=== PATIENT | male | born 1945 | race Caucasian/White ===

== ENCOUNTER 2017-02-04 14:42 | Emergency (ER) | payer MEDICARE ==
[~2017-02-04] VITALS: Ht 175.3 cm; Wt 72.6 kg
[~2017-02-04 14:42] MED LIST: ALBU17IN INH; AMBI5TAB PO; ATOR40TA PO; BUPR1TAB17 PO; LEVA500T PO; METF-699 PO; PRED10PA PO; TIOT18INH INH
[2017-02-04] MEDS ORDERED: IPRASOL4 IN (14:57)
[2017-02-04] MEDS ORDERED: ADV500INH INH (14:57)
[2017-02-04] MEDS ORDERED: methylPREDNISolone INJ 125 MG/2 ML VIAL (J2930) IV ONE (15:30)
[2017-02-04] MEDS: IPRATROPIUM 0.5MG/ALBUTEROL 2.5MG INH SOL UD 3ML (DUONEB)(J7620) NEB PRN ×3 (15:42→16:17)
--- NOTE | 2017-02-04 15:54 | REP ---
PA and lateral chest: Comparison 05/21/2016. There are no focal infiltrates or pleural effusions. There are no masses. Lung chappell are chronically hyperinflated, unchanged. There is crowding of the interstitial markings in the lower lung zones, particularly on the right, unchanged . These findings are compatible with COPD, however, require clinical confirmation. The cardiac size is normal. The desiree and mediastinum are unchanged. There is kyphosis. There are grade 1 mild compression deformities of several mid-thoracic vertebral bodies, unchanged. Impression: There are no new or acute cardiopulmonary findings. There are findings compatible with COPD, requiring clinical confirmation. Signed by Alfa Collins MD 02/04/2017 03:45 P
[2017-02-04 15:55] LABS: ABG BASE EXCESS 2.2 (-2.0-2.0); ABG HCO3 26.7 MEQ/L (22.0-26.0); ABG PARTIAL PRESSURE CO2 41.4 mmHg (35.0-45.0); ABG PARTIAL PRESSURE O2 76.6 mmHg (75.0-100.0); ABG STANDARD HCO3 26.4 MEQ/L (22.0-26.0); ABG pH (ARTERIAL) 7.428 UNITS (7.350-7.450)
[2017-02-04 16:01] LABS: BASO # 0.1 K/mm3 (0.0-0.2); BASO % 0.7 % (0.0-1.0); EOS # 0.4 K/mm3 (0.0-0.50); EOS % 4.8 % (0.0-3.0); LARGE UNSTAINED CELL # 0.2 K/mm3 (0.0-0.4); LARGE UNSTAINED CELL % 2.3 % (0.0-4.0); LYMPH # 2.6 K/mm3 (1.5-4.5); LYMPH % 26.2 % (24.0-44.0); MEAN CORPUSCULAR HEMOGLOBIN 23.3 pg (27.0-33.0); MEAN CORPUSCULAR HGB CONC 30.1 g/dl (32.0-36.5); MEAN CORPUSCULAR VOLUME 77.4 fl (80.0-96.0); MONO # 0.6 K/mm3 (0.0-0.8); MONO % 6.6 % (0.0-5.0); NEUTROPHILS # 5.4 K/mm3 (1.8-7.7); NEUTROPHILS % 59.4 % (36.0-66.0); PLATELET COUNT, AUTOMATED 463 k/mm3 (150-450); RED CELL DISTRIBUTION WIDTH 15.4 % (11.5-14.5)
[2017-02-04 16:09] LABS: ANION GAP 8 MEQ/L (8-16); BLOOD UREA NITROGEN 8 MG/DL (7-18); CALCIUM LEVEL 8.9 MG/DL (8.8-10.2); CARBON DIOXIDE LEVEL 28 MEQ/L (21-32); CHLORIDE LEVEL 105 MEQ/L (98-107); GLOMERULAR FILTRATION RATE > 60.0 (>42); GLUCOSE, FASTING 168 MG/DL (83-110); SODIUM LEVEL 141 MEQ/L (136-145)
[2017-02-04] MEDS ORDERED: ISOVUE-370 76% 100ML VIAL (Q9967) As Ordered ONE (16:32)
--- NOTE | 2017-02-04 17:17 | REP ---
CT ANGIOGRAM OF THE CHEST: 02/04/2017. Clinical history: Chest x-ray 02/04/2017, CT chest 03/02/2016. Technique. The patient should a bolus of 75 ml size. The [address] angiogram protocol and both thick slab coronal and sagittal MIP reformats. Findings: The lung chappell are hyperinflated. There are emphysematous changes, flattening of the diaphragms and prominent retrosternal clear space. Some underlying minor interstitial fibrotic change. There is mild cylindrical bronchiectatic change in lower lobes, left greater than right. No pleural effusion, lateral pleural thickening, acute infiltrate or mass. No visible pulmonary nodule, pleural thickening, calcified pleural plaque or pleural-based mass. No pneumothorax or pneumomediastinum. Heart size is not enlarged. There is no pericardial thickening or effusion. Small hiatal hernia suggested. The aorta is without aneurysm or dissection and has a few scattered calcifications in the arch and descending portion. No pathologic sized mediastinal or hilar adenopathy. The main, right and left pulmonary arteries are without filling defects. Lobar arteries are without filling defects. Small caliber of the segmental arteries of the left lower lobe and lingula with normal caliber upper lobe arteries on both sides. The right lower lobe pulmonary arteries maintain normal caliber. No vessel cutoff. The upper abdomen shows the spleen with some capsular and subcapsular calcification laterally without mass and with a calcified granuloma in the lower pole. The liver is seen only in part without focal lesion. Adrenal glands show nodule inferior aspect of the lateral limb of the right adrenal and diffuse thickening bilaterally, unchanged consistent with benign adrenal adenomas based on that noncontrast study. Upper poles of kidneys are intact. Bones show the sternum, manubrium, medial clavicles, humeral heads, scapula, ribs and spine without acute finding. There is some motion artifact causing some blur from respiratory motion effect on the sternum. Impression: 1. There is no CT evidence of pulmonary thromboembolism. Caliber of the lower lobe pulmonary arteries segmentally on the left is smaller than elsewhere, which may be a chronic finding. I do not see vessel cutoff, definite filling defects, peripheral wedge deformities or other signs of pulmonary embolism or pulmonary infarct. 2. Advanced COPD, bullous emphysematous changes and pulmonary artery hypertension with lower lobe cylindrical bronchiectasis. 3. No other significant or acute finding. Signed by Cecilio Samson MD 02/05/2017 03:05 P
[2017-02-04 17:32] VITALS: O2SAT 94
[2017-02-04] MEDS ORDERED: PRED20TA PO (18:11)
[2017-02-04 18:30] VITALS: BP 147/73
--- NOTE | 2017-02-05 12:32 | ECGEPIP ---
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
== END 2017-02-04 18:31 | disposition home or self-care (01) ==
LOC: M ED 16:07
DX: J44.1 Chronic obstructive pulmonary disease with (acute) exacerbation (principal); E11.9 Type 2 diabetes mellitus without complications; E78.5 Hyperlipidemia, unspecified; Z85.46 Personal history of malignant neoplasm of prostate; F17.200 Nicotine dependence, unspecified, uncomplicated; Z79.899 Other long term (current) drug therapy; Z79.84 Long term (current) use of oral hypoglycemic drugs
CPT/HCPCS: 36600; 71020; 71275; 80048; 82550; 82553; 82803; 83880; 84484; 85025; 87804; 87880; 93005; 93041; 94640; 96374; 99285; J2930; Q9967

== ENCOUNTER → 2017-04-10 | Outpatient (CLI) | payer MEDICARE ==
[~2017-04-10] MED LIST changes: +ADV500INH INH; +IPRASOL4 IN; +PRED20TA PO
== END ==
LOC: M SMT 08:36
PROVIDERS: ATTEND Urology
DX: C61 Malignant neoplasm of prostate (principal)

== ENCOUNTER → 2017-04-10 | Outpatient (CLI) | payer MEDICARE ==
[~2017-04-10] MED LIST changes: -ATOR40TA PO; +ATOR40TA75 PO; -BUPR1TAB17 PO; +BUPR1TAB53 PO; +FERR32TA PO; -IPRASOL4 IN; +IPRASOL4 INH; +LASI20TA PO; +LEVA1TAB2 PO; -LEVA500T PO; +PRED10PA2 PO; +PRED10TA2 PO; +PRED5TA PO; +STOO100C PO; +VITA500T PO
[2017-04-10 13:21] LABS: ALBUMIN 3.7 GM/DL (3.2-5.2); ALBUMIN/GLOBULIN RATIO 1.54 (1.00-1.93); ALKALINE PHOSPHATASE 84 U/L (45-117); ALT/SGPT 23 U/L (12-78); ANION GAP 5 MEQ/L (8-16); AST/SGOT 8 U/L (15-37); BILIRUBIN,TOTAL 0.3 MG/DL (0.2-1.0); BLOOD UREA NITROGEN 10 MG/DL (7-18); CALCIUM LEVEL 9.1 MG/DL (8.8-10.2); CARBON DIOXIDE LEVEL 31 MEQ/L (21-32); CHLORIDE LEVEL 102 MEQ/L (98-107); CREATININE FOR GFR 0.89 MG/DL (0.70-1.30); GLOMERULAR FILTRATION RATE > 60.0 (>42); GLUCOSE, FASTING 170 MG/DL (83-110); POTASSIUM SERUM 4.7 MEQ/L (3.5-5.1); SODIUM LEVEL 138 MEQ/L (136-145); TOTAL PROTEIN 6.1 GM/DL (6.4-8.2)
== END ==
LOC: M SMT 08:39
PROVIDERS: ATTEND Emergency Medicine
DX: E11.9 Type 2 diabetes mellitus without complications (principal); C61 Malignant neoplasm of prostate
CPT/HCPCS: 36415; 80053; 83036; 84153; 96402; J9202

== ENCOUNTER 2017-05-04 00:12 | Emergency (ER) | payer MEDICARE ==
[~2017-05-04] VITALS: Ht 180.3 cm; Wt 71.8 kg
[~2017-05-04 00:12] MED LIST changes: -FERR32TA PO; -LASI20TA PO; -PRED10PA2 PO; -PRED10TA2 PO; -PRED5TA PO; -STOO100C PO; -VITA500T PO
[2017-05-04] MEDS ORDERED: dexameTHASONE 20 MG/5 ML VIAL (J1100) IV ONE (01:30)
[2017-05-04] MEDS: IPRATROPIUM 0.5MG/ALBUTEROL 2.5MG INH SOL UD 3ML (DUONEB)(J7620) NEB SCH ×3 (01:42→01:51)
[2017-05-04] MEDS ORDERED: PRED20TA PO (03:33)
[2017-05-04 03:49] VITALS: BP 178/74
--- NOTE | 2017-05-04 09:19 | REP ---
CHEST, TWO VIEWS: Two views of the chest are performed. COMPARISON: 02/04/2017. Scattered interstitial fibrotic changes are stable with no acute infiltrate. The heart is normal in size. There is mild calcification of the thoracic aorta. Mediastinal silhouette is unchanged. There is osteopenia with degenerative change of the spine. IMPRESSION: Chronic changes appear stable without evidence of acute pulmonary disease. Signed by Alfa Fox MD 05/04/2017 05:06 P
== END 2017-05-04 03:50 | disposition home or self-care (01) ==
LOC: M ED 00:12
DX: J44.1 Chronic obstructive pulmonary disease with (acute) exacerbation (principal); I10 Essential (primary) hypertension; E78.5 Hyperlipidemia, unspecified; F17.200 Nicotine dependence, unspecified, uncomplicated
CPT/HCPCS: 71020; 94640; 96374; 99283; J1100

== ENCOUNTER 2017-08-16 08:36 | Observation (INO) | payer MEDICARE ==
[~2017-08-16] VITALS: Ht 180.3 cm; Wt 74.2 kg
[2017-08-16] MEDS ORDERED: PRED10PA2 PO (08:51)
[2017-08-16] MEDS ORDERED: methylPREDNISolone INJ 125 MG/2 ML VIAL (J2930) IV ONE (09:00)
[2017-08-16] MEDS: IPRATROPIUM 0.5MG/ALBUTEROL 2.5MG INH SOL UD 3ML (DUONEB)(J7620) NEB SCH ×5 (09:06→19:51)
[2017-08-16 09:11] LABS: ABG BASE EXCESS 2.3 (-2.0-2.0); ABG HCO3 25.9 MEQ/L (22.0-26.0); ABG PARTIAL PRESSURE CO2 36.2 mmHg (35.0-45.0); ABG PARTIAL PRESSURE O2 63.3 mmHg (75.0-100.0); ABG STANDARD HCO3 26.5 MEQ/L (22.0-26.0); ABG pH (ARTERIAL) 7.473 UNITS (7.350-7.450)
[2017-08-16 09:23] LABS: BASO % 0.1 % (0.0-1.0); EOS # 0.1 10^3/uL (0.0-0.50); EOS % 0.3 % (0.0-3.0); IMMATURE GRANULOCYTE % 0.5 % (0-0); LYMPH # 1.3 10^3/uL (1.5-4.5); LYMPH % 7.7 % (24.0-44.0); MEAN CORPUSCULAR HGB CONC 30.1 g/dl (32.0-36.5); MONO # 1.2 10^3/uL (0.0-0.8); MONO % 6.9 % (0.0-5.0); NEUTROPHILS # 14.1 10^3/uL (1.8-7.7); NEUTROPHILS % 84.5 % (36.0-66.0); PLATELET COUNT, AUTOMATED 393 10^3/uL (150-450); RED CELL DISTRIBUTION WIDTH 17.5 % (11.5-14.5); WHITE BLOOD COUNT 16.7 10^3/uL (4.0-10.0)
[2017-08-16 09:36] LABS: ADD MORPHOLOGY? YES; MEAN CORPUSCULAR VOLUME 73.2 fl (80.0-96.0); POSITIVE MORPH POS FLAG
[2017-08-16 09:47] LABS: MICROCYTOSIS 2+; POIKILOCYTOSIS 2+
[2017-08-16 09:49] LABS: ANION GAP 9 MEQ/L (8-16); BLOOD UREA NITROGEN 10 MG/DL (7-18); CALCIUM LEVEL 8.7 MG/DL (8.8-10.2); CARBON DIOXIDE LEVEL 27 MEQ/L (21-32); CHLORIDE LEVEL 101 MEQ/L (98-107); CREATININE FOR GFR 0.78 MG/DL (0.70-1.30); GLOMERULAR FILTRATION RATE > 60.0 (>42); GLUCOSE, FASTING 174 MG/DL (83-110); SODIUM LEVEL 137 MEQ/L (136-145)
[2017-08-16 09:54] LABS: ALBUMIN 3.1 GM/DL (3.2-5.2); ALBUMIN/GLOBULIN RATIO 0.97 (1.00-1.93); ALKALINE PHOSPHATASE 68 U/L (45-117); ALT/SGPT 16 U/L (12-78); AST/SGOT 7 U/L (15-37); BILIRUBIN,DIRECT < 0.1 MG/DL (0.0-0.2); BILIRUBIN,TOTAL 0.3 MG/DL (0.2-1.0); TOTAL PROTEIN 6.3 GM/DL (6.4-8.2)
[2017-08-16] MEDS ORDERED: PRED5TA PO (10:09)
--- NOTE | 2017-08-16 13:22 | HPEPDOC ---
[facility] Medical History & Physical Date of Admission Aug 16, 2017 History and Physical PRIMARY CARE PROVIDER: E clinic ATTENDING: Dr. Nydia Lewis CHIEF COMPLAINT: Shortness of breath/cough HISTORY OF PRESENT ILLNESS: This is a 72-year-old male with past medical history of severe COPD on chronic prednisone 10 mg daily, [id number] diabetes mellitus, hyperlipidemia , history of prostate cancer status post radiation who presents complaining of shortness of breath and cough. Patient states she's been feeling ill over the past 3 days with progressively worsening shortness of breath and productive cough of yellow sputum. Patient's denies any fevers however did have chills. Given his progressive dyspnea, he has been using his nebulizer every half-hour to 1 hour over the past 24 hours. Patient denies any chest pain/palpitations. No lower extremity edema. No sick contacts or recent travels. Continues to smoke tobacco, and is not interested in quitting at this time. PAST MEDICAL HISTORY: As per HPI PAST SURGICAL HISTORY: None SOCIAL HISTORY: History of 2 packs per day 40 years now down to 1 pack per day , no alcohol or illicit drug use. FAMILY HISTORY: Noncontributory ALLERGIES: Please see below. REVIEW OF SYSTEMS: HEENT: Denies sore throat/headache CARDIOVASCULAR: Denies chest pain/palpitations RESPIRATORY: Denies shortness of breath/cough GASTROINTESTINAL: denies nausea/vomiting GENITOURINARY: Denies dysuria/urinary urgency. MUSCULOSKELETAL: Denies myalgias/arthralgias NEUROLOGICAL: Denies any focal weakness HOME MEDICATIONS: Please see below. PHYSICAL EXAMINATION: Vitals: (see below) General: No acute distress, laying comfortably in bed. HEENT: Moist mucous membranes. No pharyngeal erythema. Neck: No JVD or lymphadenopathy Cardiac: Tachycardic. Regular rhythm., No murmurs Pulm: Diminished breath sounds bilaterally at the bases, with mild expiratory wheezing and prolonged expiratory phase. No rhonchi or crackles. No stridor. No use of accessory muscles. Abd: NT/ND + BS Ext: No edema or cyanosis LABORATORY DATA: See below. IMAGING: MICROBIOLOGY: Please see below. ASSESSMENT/PLAN: 1. Acute COPD exacerbation with baseline severe COPD on 10 mg prednisone daily. Patient is not on home O2. Productive cough over the past 3 days. No sick contacts. Started on Solu-Medrol, nebs, Levaquin. Respiratory panel/sputum culture ordered. Blood cultures pending. 2. Tobacco abuse- counseling cessation and not interested in quitting at this time. 3. Dnv-stmwxec-lbfjwwghm diabetes mellitus- sliding-scale insulin. Hold metformin. 4. Hyperlipidemia- continue statin 5. History of prostate cancer status post radiation- outpatient follow-up DVT prophylaxis- enoxaparin Patient will follow Dr. Nydia Lewis starting 08/17/17 at 7 AM. Vital Signs Vital Signs Date Time Temp Pulse Resp B/P (MAP) Pulse Ox O2 Delivery O2 Flow Rate FiO2 08/16/17 13:02 110 94 08/16/17 12:47 129/74 (92) 08/16/17 11:36 Room Air 08/16/17 08:47 20 08/16/17 08:44 97.4 Laboratory Data Labs 24H Laboratory Tests 2 08/16/17 09:03: Blood Gas Bicarbonate Standard 26.5H, Arterial Blood pH 7.473H, Arterial Blood Partial Pressure CO2 36.2, Arterial Blood Partial Pressure O2 63.3L, Arterial Blood Total CO2 27.0, Arterial Blood HCO3 25.9, Arterial Blood Base Excess 2.3H , Arterial Blood Oxygen Saturation 92.6L 08/16/17 09:10: Lactic Acid Level 1.6 08/16/17 09:11: Immature Granulocyte % (Auto) 0.5H, White Blood Count 16.7H, Red Blood Count 3.81L, Hemoglobin 8.4L, Hematocrit 27.9L, Mean Corpuscular Volume 73.2L, Mean Corpuscular Hemoglobin 22.0L, Mean Corpuscular Hemoglobin Concent 30.1L, Red Cell Distribution Width 17.5H, Platelet Count 393, Neutrophils (%) (Auto) 84.5H , Lymphocytes (%) (Auto) 7.7L, Monocytes (%) (Auto) 6.9H, Eosinophils (%) (Auto ) 0.3, Basophils (%) (Auto) 0.1, Neutrophils # (Auto) 14.1H, Lymphocytes # (Auto ) 1.3L, Monocytes # (Auto) 1.2H, Eosinophils # (Auto) 0.1, Basophils # (Auto) 0.0, Immature Granulocyte # (Auto) 0.1H, Nucleated Red Blood Cells % (auto) 0.0 , Platelet Estimate NORMAL, Poikilocytosis 2+, Microcytosis 2+, Aspartate Amino Transf (AST/SGOT) 7L, Alanine Aminotransferase (ALT/SGPT) 16, Alkaline Phosphatase 68, Total Bilirubin 0.3, Direct Bilirubin < 0.1, Total Protein 6.3L , Albumin 3.1L, Albumin/Globulin Ratio 0.97L, Thyroid Stimulating Hormone (TSH) 1.430 08/16/17 09:12: Anion Gap 9, Glomerular Filtration Rate > 60.0, Blood Urea Nitrogen 10, Creatinine 0.78, Sodium Level 137, Potassium Level 4.0, Chloride Level 101, Carbon Dioxide Level 27, Calcium Level 8.7L, Total Creatine Kinase 57, Creatine Kinase MB 1.0, Creatine Kinase MB Relative Index 1.75, Troponin I < 0.02 CBC/BMP Laboratory Tests 08/16/17 09:11 Red Blood Count 3.81 L, Mean Corpuscular Volume 73.2 L, Mean Corpuscular Hemoglobin 22.0 L, Mean Corpuscular Hemoglobin Concent 30.1 L, Red Cell Distribution Width 17.5 H, Neutrophils (%) (Auto) 84.5 H, Lymphocytes (%) (Auto ) 7.7 L, Monocytes (%) (Auto) 6.9 H, Eosinophils (%) (Auto) 0.3, Basophils (%) ( Auto) 0.1, Neutrophils # (Auto) 14.1 H, Lymphocytes # (Auto) 1.3 L, Monocytes # (Auto) 1.2 H, Eosinophils # (Auto) 0.1, Basophils # (Auto) 0.0 08/16/17 09:12 Calcium Level 8.7 L, Total Creatine Kinase 57 Microbiology Microbiology 08/16/17 Blood Culture, Received Pending 08/16/17 Blood Culture, Received Pending 08/16/17 Influenza Virus Type A Antigen - Final, Complete 08/16/17 Influenza Virus Type B Antigen - Final, Complete Home Medications Scheduled Atorvastatin Calcium (Atorvastatin Calcium) 40 Mg Tab, 40 MG PO DAILY Metformin Hydrochloride (Metformin HCl ER) 500 Mg Tab, 2,000 MG PO DAILY Prednisone (Prednisone) 5 Mg Tab, 10 MG PO DAILY Salmeterol/Fluticasone (Advair Diskus 500-50 Mcg/Dose) 28 Puff/Inhaler Aerp, 1 PUFF INH BID Tiotropium [place] Monohydrate (Spiriva Handihaler) 5 Inhalation/Inhaler Powd, 1 INHALATION INH DAILY Scheduled PRN Albuterol Sulfate (Ventolin Hfa) 200 Puff/8 Gm Aers, 2 PUFF INH Q4H PRN for SHORTNESS OF BREATH Albuterol/Ipratropium (Ipratropium [place]/Albut 0.5-2.5 (3) mg/3Ml) 1 Kandi Kandi, 1 NEB INH Q4H PRN for SOB/WHEEZING Zolpidem Tartrate (Ambien) 5 Mg Tab, 5 MG PO QHS PRN for SLEEP Allergies Coded Allergies: No Known Allergies (Unverified , 03/02/16) BOB OGLESBY MD Aug 16, 2017 13:22
[2017-08-16] MEDS: LevoFLOXacin IV 500 MG in APPROPRIATE DILUENT 1 EA IV SCH (13:54)
[2017-08-16 14:15] VITALS: BP 120/63
[2017-08-16] MEDS: ATORVASTATIN 20 MG TAB PO SCH (14:50)
[2017-08-16 16:00] VITALS: BP 134/80
[2017-08-16] MEDS ORDERED: DEXTROSE 50% 50 ML SYRINGE IV PRN (16:30)
[2017-08-16] MEDS ORDERED: GLUCAGON FOR INJ 1 MG VIAL (J1610) SC PRN (16:30)
[2017-08-16] MEDS ORDERED: GLUCOSE 4 GM CHEW TABLET PO PRN (16:30)
[2017-08-16] MEDS: methylPREDNISolone INJ 125 MG/2 ML VIAL (J2930) IV SCH (16:35)
[2017-08-16] MEDS: HumaLOG INSULIN (NovoLOG) PER UNIT SC SCH ×2 (16:36→21:00)
[2017-08-16 20:39] VITALS: BP 119/59
[2017-08-16] MEDS: ALBUTEROL SULFATE 2.5 MG/0.5 ML INH NEB SOLN NEB PRN (23:18)
[2017-08-17] VITALS (8 sets, daily range): BP systolic 111–130; BP diastolic 55–69; O2SAT 98
[2017-08-17] MEDS: methylPREDNISolone INJ 125 MG/2 ML VIAL (J2930) IV SCH ×2 (00:52→07:48)
[2017-08-17] MEDS: IPRATROPIUM 0.5MG/ALBUTEROL 2.5MG INH SOL UD 3ML (DUONEB)(J7620) NEB SCH ×4 (02:00→19:49)
[2017-08-17] MEDS: ALBUTEROL SULFATE 2.5 MG/0.5 ML INH NEB SOLN NEB PRN ×4 (04:14→16:40)
[2017-08-17 05:21] LABS: BASO % 0.1 % (0.0-1.0); IMMATURE GRANULOCYTE % 0.5 % (0-0); LYMPH # 0.7 10^3/uL (1.5-4.5); LYMPH % 5.2 % (24.0-44.0); MEAN CORPUSCULAR HEMOGLOBIN 21.5 pg (27.0-33.0); MEAN CORPUSCULAR HGB CONC 29.8 g/dl (32.0-36.5); MONO # 0.3 10^3/uL (0.0-0.8); MONO % 2.3 % (0.0-5.0); NEUTROPHILS # 13.2 10^3/uL (1.8-7.7); NEUTROPHILS % 91.9 % (36.0-66.0); PLATELET COUNT, AUTOMATED 434 10^3/uL (150-450); RED CELL DISTRIBUTION WIDTH 17.3 % (11.5-14.5); WHITE BLOOD COUNT 14.3 10^3/uL (4.0-10.0)
[2017-08-17 05:23] LABS: ADD MORPHOLOGY? YES; MEAN CORPUSCULAR VOLUME 72.3 fl (80.0-96.0); POSITIVE MORPH POS FLAG
[2017-08-17 05:44] LABS: ANION GAP 9 MEQ/L (8-16); BLOOD UREA NITROGEN 15 MG/DL (7-18); CALCIUM LEVEL 9.2 MG/DL (8.8-10.2); CARBON DIOXIDE LEVEL 29 MEQ/L (21-32); CHLORIDE LEVEL 98 MEQ/L (98-107); CREATININE FOR GFR 0.86 MG/DL (0.70-1.30); GLOMERULAR FILTRATION RATE > 60.0 (>42); GLUCOSE, FASTING 217 MG/DL (83-110); MAGNESIUM LEVEL 2.3 MG/DL (1.8-2.4); POTASSIUM SERUM 4.1 MEQ/L (3.5-5.1); SODIUM LEVEL 136 MEQ/L (136-145)
[2017-08-17 06:12] LABS: MICROCYTOSIS 2+; POIKILOCYTOSIS 1+
[2017-08-17] MEDS: ENOXAPARIN 40 MG/0.4 ML SYRINGE (J1650) SC SCH (07:41)
[2017-08-17] MEDS: ATORVASTATIN 20 MG TAB PO SCH (07:41)
[2017-08-17] MEDS: HumaLOG INSULIN (NovoLOG) PER UNIT SC SCH ×4 (07:47→20:31)
[2017-08-17] MEDS: LEVEMIR (INSULIN DETEMIR) 1 UNITS/0.01ML SC SCH (09:29)
[2017-08-17 10:28] LABS: FERRITIN 9 NG/ML (26-388); PERCENT SATURATION 3.9 % (19.7-50.0); TOTAL IRON BINDING CAPACITY 337 UG/DL (250-450); TOTAL PROTEIN 6.5 GM/DL (6.4-8.2)
[2017-08-17 12:00] LABS: FOLATE 20.5 NG/ML (>5.4); VITAMIN B12 LEVEL 319 PG/ML (247-911)
--- NOTE | 2017-08-17 12:34 | IPNPDOC ---
Subjective Date Seen The patient was seen on 08/17/17. Subjective Chief Complaint/HPI The patient is a 72-year-old male admitted with a reason for visit of Copd Exacerbation. Events since last encounter Shortness of breath better this am but complaining of blurry vision which he says happen when his sugars are high. no fever or chills, Has chronic cough and phlegm mostly in the am , Says lately has been feeling very tired. Objective Physical Examination General Exam: Positive: Alert, Cooperative, No Acute Distress Eye Exam: Positive: PERRLA, Conjunctiva & lids normal, EOMI, Negative: Sclera icteric ENT Exam: Positive: Atraumatic, Mucous membr. moist/pink, Pharynx Normal Neck Exam: Positive: Supple, Negative: JVD, thyromegaly Chest Exam: Positive: Clear to auscultation, Normal air movement Heart Exam: Positive: Rate Normal, Tachycardic, Normal S1, Normal S2 Telemetry: Positive: Sinus, Tachycardia Abdomen Exam: Positive: Normal bowel sounds, Soft, Negative: Tenderness, Hepatospenomegaly Extremity Exam: Positive: Normal pulses, Negative: Clubbing, Cyanosis, Edema Skin Exam: Positive: Nl turgor and temperature, Negative: Rash, Breakdown Assessment /Plan Problems (1) COPD exacerbation Status: Acute Problem Text: will continue with nebulizations , steroids and levofloxacin (2) Anemia Status: Acute Problem Text: iron panel shows severe iron deficiency had colonoscopy many years ago will check stool for occult blood will start on iron and vit c. Have order SPEP and Free light chain. (3) Diabetes Status: Chronic Problem Text: levemir and lispro (4) Dyslipidemia Status: Chronic (5) Prostate CA Status: Chronic Problem Text: Has it for 15 years . (6) Depression Status: Chronic Plan/VTE VTE Prophylaxis Ordered?: Yes VS, I&O, 24H, Fishbone Vital Signs/I&O Vital Signs Date Time Temp Pulse Resp B/P (MAP) Pulse Ox O2 Delivery O2 Flow Rate FiO2 08/17/17 11:10 24 08/17/17 08:00 98.3 112 123/64 (83) 96 Nasal Cannula 2.0 I&O- Last 24 Hours up to 6 AM 08/18/17 06:00 Intake Total 240 ml Balance 240 ml Laboratory Data 24H LABS Laboratory Tests 2 08/16/17 16:25: Bedside Glucose (Misc Panel) 304H 08/16/17 20:47: Bedside Glucose (Misc Panel) 123H 08/17/17 04:46: Immature Granulocyte % (Auto) 0.5H, White Blood Count 14.3H, Red Blood Count 4.04L, Hemoglobin 8.7L, Hematocrit 29.2L, Mean Corpuscular Volume 72.3L, Mean Corpuscular Hemoglobin 21.5L, Mean Corpuscular Hemoglobin Concent 29.8L, Red Cell Distribution Width 17.3H, Platelet Count 434, Neutrophils (%) (Auto) 91.9H , Lymphocytes (%) (Auto) 5.2L, Monocytes (%) (Auto) 2.3, Eosinophils (%) (Auto) 0.0, Basophils (%) (Auto) 0.1, Neutrophils # (Auto) 13.2H, Lymphocytes # (Auto) 0.7L, Monocytes # (Auto) 0.3, Eosinophils # (Auto) 0.0, Basophils # (Auto) 0.0, Immature Granulocyte # (Auto) 0.1H, Nucleated Red Blood Cells % (auto) 0.2H, Platelet Estimate INCREASED, Poikilocytosis 1+, Microcytosis 2+, Anion Gap 9, Glomerular Filtration Rate > 60.0, Blood Urea Nitrogen 15, Creatinine 0.86, Sodium Level 136, Potassium Level 4.1, Chloride Level 98, Carbon Dioxide Level 29, Calcium Level 9.2, Magnesium Level 2.3 08/17/17 07:45: Bedside Glucose (Misc Panel) 333H 08/17/17 09:30: Iron Level 13L, Total Iron Binding Capacity 337, Transferrin % Saturation 3.9L, Ferritin 9L, Total Protein (PEP) 6.5, Vitamin B12 Level 319, Folate 20.5 08/17/17 10:45: Bedside Glucose (Misc Panel) 213H 08/17/17 11:49: Bedside Glucose (Misc Panel) 165H CBC/BMP Laboratory Tests 08/17/17 04:46 Red Blood Count 4.04 L, Mean Corpuscular Volume 72.3 L, Mean Corpuscular Hemoglobin 21.5 L, Mean Corpuscular Hemoglobin Concent 29.8 L, Red Cell Distribution Width 17.3 H, Neutrophils (%) (Auto) 91.9 H, Lymphocytes (%) (Auto ) 5.2 L, Monocytes (%) (Auto) 2.3, Eosinophils (%) (Auto) 0.0, Basophils (%) ( Auto) 0.1, Neutrophils # (Auto) 13.2 H, Lymphocytes # (Auto) 0.7 L, Monocytes # (Auto) 0.3, Eosinophils # (Auto) 0.0, Basophils # (Auto) 0.0, Calcium Level 9.2 Microbiology Microbiology 08/16/17 Blood Culture - Preliminary, Resulted No growth after 24 hours . All specim... 08/16/17 Blood Culture - Preliminary, Resulted No growth after 24 hours . All specim... 08/16/17 Gram Stain - Final, Resulted 08/16/17 Sputum Culture, Resulted Pending 08/16/17 Influenza Virus Type A Antigen - Final, Complete 08/16/17 Influenza Virus Type B Antigen - Final, Complete EDWIN PIERRE MD Aug 17, 2017 12:34
[2017-08-17] MEDS: ASCORBIC ACID 500 MG TAB PO SCH ×2 (13:18→20:45)
[2017-08-17] MEDS: FERROUS GLUCONATE 324 MG TAB PO SCH ×2 (13:18→20:45)
[2017-08-17] MEDS: LevoFLOXacin IV 500 MG in APPROPRIATE DILUENT 1 EA IV SCH (13:20)
[2017-08-17] MEDS: methylPREDNISolone INJ 40 MG/1 ML VIAL (J2920) IV SCH (17:50)
--- NOTE | 2017-08-17 20:53 | ECGEPIP ---
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
[2017-08-18] VITALS: BP 119/61
[2017-08-18] MEDS: methylPREDNISolone INJ 40 MG/1 ML VIAL (J2920) IV SCH (00:17)
[2017-08-18] MEDS: IPRATROPIUM 0.5MG/ALBUTEROL 2.5MG INH SOL UD 3ML (DUONEB)(J7620) NEB SCH ×4 (00:32→21:35)
[2017-08-18 06:00] VITALS: BP 124/60
[2017-08-18 06:50] LABS: BASO % 0.1 % (0.0-1.0); IMMATURE GRANULOCYTE % 0.6 % (0-0); LYMPH # 0.7 10^3/uL (1.5-4.5); LYMPH % 4.1 % (24.0-44.0); MEAN CORPUSCULAR HEMOGLOBIN 22.2 pg (27.0-33.0); MEAN CORPUSCULAR HGB CONC 31.1 g/dl (32.0-36.5); MONO # 0.8 10^3/uL (0.0-0.8); MONO % 4.5 % (0.0-5.0); NEUTROPHILS # 15.5 10^3/uL (1.8-7.7); NEUTROPHILS % 90.7 % (36.0-66.0); PLATELET COUNT, AUTOMATED 440 10^3/uL (150-450); RED CELL DISTRIBUTION WIDTH 17.4 % (11.5-14.5); WHITE BLOOD COUNT 17.1 10^3/uL (4.0-10.0)
[2017-08-18 06:52] LABS: ADD MORPHOLOGY? YES; MEAN CORPUSCULAR VOLUME 71.4 fl (80.0-96.0); POSITIVE MORPH POS FLAG
[2017-08-18 07:07] LABS: ANISOCYTOSIS 1+; HYPOCHROMASIA 1+; MICROCYTOSIS 2+; OVALOCYTES 1+
[2017-08-18 07:13] LABS: ANION GAP 6 MEQ/L (8-16); BLOOD UREA NITROGEN 17 MG/DL (7-18); CALCIUM LEVEL 8.7 MG/DL (8.8-10.2); CARBON DIOXIDE LEVEL 29 MEQ/L (21-32); CHLORIDE LEVEL 99 MEQ/L (98-107); CREATININE FOR GFR 0.84 MG/DL (0.70-1.30); GLOMERULAR FILTRATION RATE > 60.0 (>42); GLUCOSE, FASTING 230 MG/DL (83-110); MAGNESIUM LEVEL 2.3 MG/DL (1.8-2.4); POTASSIUM SERUM 4.2 MEQ/L (3.5-5.1); SODIUM LEVEL 134 MEQ/L (136-145)
[2017-08-18] MEDS: HumaLOG INSULIN (NovoLOG) PER UNIT SC SCH ×4 (08:22→20:18)
[2017-08-18] MEDS: LEVEMIR (INSULIN DETEMIR) 1 UNITS/0.01ML SC SCH (08:22)
[2017-08-18] MEDS: predniSONE 20 MG TAB PO SCH (08:23)
[2017-08-18] MEDS: ASCORBIC ACID 500 MG TAB PO SCH ×2 (08:23→20:32)
[2017-08-18] MEDS: ATORVASTATIN 20 MG TAB PO SCH (08:23)
[2017-08-18] MEDS: LevoFLOXacin 500 MG TABLET PO SCH (08:23)
[2017-08-18] MEDS: ENOXAPARIN 40 MG/0.4 ML SYRINGE (J1650) SC SCH (08:23)
[2017-08-18] MEDS: FERROUS GLUCONATE 324 MG TAB PO SCH ×2 (08:23→20:32)
[2017-08-18] MEDS: ALBUTEROL SULFATE 2.5 MG/0.5 ML INH NEB SOLN NEB PRN ×2 (09:58→17:13)
[2017-08-18 10:00] VITALS: BP 114/50
[2017-08-18 11:38] LABS: ALBUMIN 3.58 GM/DL (3.29-5.55); ALBUMIN % 55.1 % (55.8-66.1); GAMMA GLOBULIN % 6.6 % (11.1-18.8)
--- NOTE | 2017-08-18 13:20 | IPNPDOC ---
Subjective Date Seen The patient was seen on 08/18/17. Subjective Chief Complaint/HPI The patient is a 72-year-old male admitted with a reason for visit of Copd Exacerbation. Events since last encounter still complains of SOB on mild exertion and feeling weak. Objective Physical Examination General Exam: Positive: Alert, Cooperative, No Acute Distress Eye Exam: Positive: PERRLA, Conjunctiva & lids normal, EOMI, Negative: Sclera icteric ENT Exam: Positive: Atraumatic, Mucous membr. moist/pink, Pharynx Normal Neck Exam: Positive: Supple, Negative: JVD, thyromegaly Chest Exam: Positive: Clear to auscultation, Normal air movement Heart Exam: Positive: Rate Normal, Tachycardic, Normal S1, Normal S2 Telemetry: Positive: Sinus, Tachycardia Abdomen Exam: Positive: Normal bowel sounds, Soft, Negative: Tenderness, Hepatospenomegaly Extremity Exam: Positive: Normal pulses, Negative: Clubbing, Cyanosis, Edema Skin Exam: Positive: Nl turgor and temperature, Negative: Rash, Breakdown Assessment /Plan Problems (1) Anemia Status: Acute Problem Text: iron panel shows severe iron deficiency had colonoscopy many years ago will check stool for occult blood will start on iron and vit c. SPEP no M spike , Free light chain ordered. will give 1 unit of PRBC today. (2) COPD exacerbation Status: Acute Problem Text: will continue with nebulizations , steroids and levofloxacin (3) Diabetes Status: Chronic Problem Text: levemir and lispro (4) Dyslipidemia Status: Chronic (5) Prostate CA Status: Chronic Problem Text: Has it for 15 years . (6) Depression Status: Chronic Plan/VTE VTE Prophylaxis Ordered?: Yes VS, I&O, 24H, Fishbone Vital Signs/I&O Vital Signs Date Time Temp Pulse Resp B/P (MAP) Pulse Ox O2 Delivery O2 Flow Rate FiO2 08/18/17 10:00 99.5 110 20 114/50 (71) 94 Room Air 08/17/17 08:00 2.0 I&O- Last 24 Hours up to 6 AM 08/19/17 06:00 Intake Total 360 ml Balance 360 ml Laboratory Data 24H LABS Laboratory Tests 2 08/17/17 17:55: Bedside Glucose (Misc Panel) 176H 08/17/17 20:22: Bedside Glucose (Misc Panel) 155H 08/18/17 01:52: Bedside Glucose (Misc Panel) 209H 08/18/17 06:34: Immature Granulocyte % (Auto) 0.6H, White Blood Count 17.1H, Red Blood Count 3.78L, Hemoglobin 8.4L, Hematocrit 27.0L, Mean Corpuscular Volume 71.4L, Mean Corpuscular Hemoglobin 22.2L, Mean Corpuscular Hemoglobin Concent 31.1L, Red Cell Distribution Width 17.4H, Platelet Count 440, Neutrophils (%) (Auto) 90.7H , Lymphocytes (%) (Auto) 4.1L, Monocytes (%) (Auto) 4.5, Eosinophils (%) (Auto) 0.0, Basophils (%) (Auto) 0.1, Neutrophils # (Auto) 15.5H, Lymphocytes # (Auto) 0.7L, Monocytes # (Auto) 0.8, Eosinophils # (Auto) 0.0, Basophils # (Auto) 0.0, Immature Granulocyte # (Auto) 0.1H, Nucleated Red Blood Cells % (auto) 0.2H, Platelet Estimate INCREASED, Hypochromasia 1+, Anisocytosis 1+, Microcytosis 2+ , Ovalocytes 1+, Anion Gap 6L, Glomerular Filtration Rate > 60.0, Blood Urea Nitrogen 17, Creatinine 0.84, Sodium Level 134L, Potassium Level 4.2, Chloride Level 99, Carbon Dioxide Level 29, Calcium Level 8.7L, Magnesium Level 2.3 08/18/17 11:53: Bedside Glucose ([facility]) 130H CBC/BMP Laboratory Tests 08/18/17 06:34 Red Blood Count 3.78 L, Mean Corpuscular Volume 71.4 L, Mean Corpuscular Hemoglobin 22.2 L, Mean Corpuscular Hemoglobin Concent 31.1 L, Red Cell Distribution Width 17.4 H, Neutrophils (%) (Auto) 90.7 H, Lymphocytes (%) (Auto ) 4.1 L, Monocytes (%) (Auto) 4.5, Eosinophils (%) (Auto) 0.0, Basophils (%) ( Auto) 0.1, Neutrophils # (Auto) 15.5 H, Lymphocytes # (Auto) 0.7 L, Monocytes # (Auto) 0.8, Eosinophils # (Auto) 0.0, Basophils # (Auto) 0.0, Calcium Level 8.7 L Microbiology Microbiology 08/16/17 Blood Culture - Preliminary, Resulted No Growth after 48 hours. All Specime... 08/16/17 Blood Culture - Preliminary, Resulted No Growth after 48 hours. All Specime... 08/16/17 Gram Stain - Final, Complete 08/16/17 Sputum Culture - Final, Complete Yeast Like Organism 08/16/17 Influenza Virus Type A Antigen - Final, Complete 08/16/17 Influenza Virus Type B Antigen - Final, Complete EDWIN PIERRE MD Aug 18, 2017 13:20
[2017-08-18] MEDS ORDERED: FUROSEMIDE 20 MG/2 ML VIAL (J1940) IV ONE (13:30)
[2017-08-18 14:00] VITALS: BP 120/65
[2017-08-18 18:00] VITALS: BP 119/57
[2017-08-18 20:00] VITALS: BP 132/64
[2017-08-19] VITALS: BP 122/68
[2017-08-19] MEDS: IPRATROPIUM 0.5MG/ALBUTEROL 2.5MG INH SOL UD 3ML (DUONEB)(J7620) NEB SCH ×2 (02:02→07:07)
[2017-08-19 06:00] VITALS: BP 124/68
[2017-08-19 07:16] LABS: BASO % 0.1 % (0.0-1.0); EOS % 0.2 % (0.0-3.0); IMMATURE GRANULOCYTE % 0.5 % (0-0); LYMPH # 2.3 10^3/uL (1.5-4.5); MEAN CORPUSCULAR HGB CONC 31.4 g/dl (32.0-36.5); MONO # 1.2 10^3/uL (0.0-0.8); MONO % 9.3 % (0.0-5.0); NEUTROPHILS # 9.7 10^3/uL (1.8-7.7); NEUTROPHILS % 72.9 % (36.0-66.0); PLATELET COUNT, AUTOMATED 420 10^3/uL (150-450); RED CELL DISTRIBUTION WIDTH 18.4 % (11.5-14.5); WHITE BLOOD COUNT 13.3 10^3/uL (4.0-10.0)
[2017-08-19 07:20] LABS: ADD MORPHOLOGY? YES; MEAN CORPUSCULAR VOLUME 73.3 fl (80.0-96.0); POSITIVE MORPH POS FLAG
[2017-08-19 07:33] LABS: ANION GAP 9 MEQ/L (8-16); BLOOD UREA NITROGEN 21 MG/DL (7-18); CALCIUM LEVEL 8.7 MG/DL (8.8-10.2); CARBON DIOXIDE LEVEL 29 MEQ/L (21-32); CHLORIDE LEVEL 100 MEQ/L (98-107); GLOMERULAR FILTRATION RATE > 60.0 (>42); GLUCOSE, FASTING 103 MG/DL (83-110); MAGNESIUM LEVEL 2.4 MG/DL (1.8-2.4); POTASSIUM SERUM 3.6 MEQ/L (3.5-5.1); SODIUM LEVEL 138 MEQ/L (136-145)
[2017-08-19] MEDS: HumaLOG INSULIN (NovoLOG) PER UNIT SC SCH (07:50)
[2017-08-19] MEDS: predniSONE 20 MG TAB PO SCH (07:51)
[2017-08-19] MEDS: ATORVASTATIN 20 MG TAB PO SCH (07:51)
[2017-08-19] MEDS: LevoFLOXacin 500 MG TABLET PO SCH (07:51)
[2017-08-19] MEDS: ENOXAPARIN 40 MG/0.4 ML SYRINGE (J1650) SC SCH (07:51)
[2017-08-19] MEDS: ASCORBIC ACID 500 MG TAB PO SCH (07:52)
[2017-08-19] MEDS: FERROUS GLUCONATE 324 MG TAB PO SCH (07:52)
[2017-08-19] MEDS: LEVEMIR (INSULIN DETEMIR) 1 UNITS/0.01ML SC SCH (07:53)
[2017-08-19] MEDS ORDERED: PRED10TA2 PO (08:09)
[2017-08-19] MEDS ORDERED: STOO100C PO (08:09)
[2017-08-19] MEDS ORDERED: LEVA1TAB2 PO (08:09)
[2017-08-19] MEDS ORDERED: VITA500T PO (08:09)
[2017-08-19] MEDS ORDERED: FERR32TA PO (08:09)
[2017-08-19] MEDS ORDERED: LASI20TA PO (08:09)
[2017-08-19 08:12] LABS: ANISOCYTOSIS 2+; OVALOCYTES 1+
[2017-08-19 08:13] LABS: MICROCYTOSIS 2+; POIKILOCYTOSIS 1+
[2017-08-19 10:00] VITALS: BP 110/61
[2017-08-20 00:07] LABS: FREE KAPPA LIGHT CHAINS SERUM 8.8 mg/L (3.3-19.4); FREE LAMBDA LIGHT CHAINS SERUM 9.1 mg/L (5.7-26.3); KAPPA/LAMBDA RATIO SERUM 0.97 (0.26-1.65)
--- NOTE | 2017-08-20 08:12 | REP ---
Portable chest, 08:55 a.m., single AP view, patient sitting: Comparison 05/04/2017. There is chronic hyperinflation compatible with COPD, requiring clinical confirmation. There are no infiltrates, effusions or masses. Cardiac size is normal. The desiree and mediastinum are unremarkable. There is thoracic scoliosis convex right, unchanged. Impression: There are no acute cardiopulmonary findings. There is chronic hyperinflation compatible with COPD. Signed by Alfa Collins MD 08/16/2017 09:22 A
--- NOTE | 2017-08-20 16:28 | DSES ---
DATE OF ADMISSION: 08/16/2017 DATE OF DISCHARGE: 08/19/2017 PRIMARY CARE PROVIDER: Dr. Tito Álvarez DISCHARGE DIAGNOSES: 1. Acute on chronic anemia requiring 1 unit of packed red blood cells transfusion. 2. Severe iron deficiency anemia. 3. Chronic obstructive pulmonary disease exacerbation. 4. Diabetes. 5. Dyslipidemia. 6. Prostate cancer. 7. Depression. DISCHARGE MEDICATIONS: - ferrous gluconate 324 mg by mouth twice a day - ascorbic acid 500 mg by mouth twice a day - Colace 100 mg by mouth twice a day - Lasix 20 mg by mouth daily - levofloxacin 500 mg by mouth daily for 2 days - prednisone tapering course - albuterol sulfate metered-dose inhaler (MDI) two puffs inhalation every 4 hours as needed for shortness of breath - DuoNeb one respule every 4 hours as needed for shortness of breath - atorvastatin 40 mg daily - metformin 2000 mg by mouth daily - prednisone 10 mg by mouth daily, to continue after finishing the taper - Advair Diskus 500/50 one puff inhalation twice a day - Spiriva one inhalation daily - Ambien 5 mg at bedtime as needed for sleep HOSPITAL COURSE: This is a 72-year-old male who presented to the emergency room with increased shortness of breath and cough for 3 days with production of yellow sputum. Patient was diagnosed with chronic obstructive pulmonary disease (COPD) exacerbation on admission and was started on nebulizers, high-dose steroids, and levofloxacin. Patient's shortness of breath improved; however, patient continued to complain of dyspnea and mild exertion. Labs showed that he is significantly anemic with a hemoglobin and hematocrit of 8.4, which is down by about 3 points from earlier this year. Anemia workup was sent, which showed severe iron deficiency. Patient was started on oral iron and also given 1 unit of blood transfusion. Unfortunately, patient did not have any bowel movements in the hospital, so stool occult blood could not be sent. Patient did say he had a colonoscopy many years before, which was normal. His serum protein electrophoresis (SPEP) and free light chain were normal. Vitamin B12 was 319 and folate 20.5. Patient should get stool occult blood and colonoscopy done as an outpatient for his iron deficiency anemia. On the day of discharge, patient did not have any complaints. His vital signs were stable, and functionally he was at baseline. PHYSICAL EXAMINATION: VITAL SIGNS: Temperature 97.4, pulse 111, respiratory rate 18, blood pressure 110/61, pulse oximetry 95% in room air. GENERAL: Patient awake, alert, oriented times three, sitting up in bed in no acute distress. HEENT: Normocephalic, atraumatic. Moist mucous membranes. Anicteric eyes. CHEST: Clear to auscultation. CARDIOVASCULAR: S1, S2, regular. No rub, murmur, or gallop. ABDOMEN:: Soft and nontender. Bowel sounds present. EXTREMITIES: No edema. LABORATORY DATA: WBC 13.3, hemoglobin 10.1, platelets 420. Sodium 138, potassium 3.6, chloride 100, bicarbonate 29, BUN 21, creatinine 0.8, calcium 8.7, magnesium 2.4, glucose 103. SPEP negative. B12 319. Folate 20.5. TSH 1.43. Ferritin 9, transferrin saturation 3.9%, iron 13, TIBC 337. Blood cultures negative after 72 hours. Flu antigen negative. Sputum showed few yeast-like organisms. DISPOSITION: Patient discharged home in stable condition. DISCHARGE INSTRUCTIONS: Patient to followup with primary care provider in 1 week. Consistent-carbohydrate diet. Activity as tolerated.
== END 2017-08-19 11:09 | disposition home or self-care (01) ==
LOC: M ED 08:36 → M ED INP 12:54 → M PCU 14:18 → M MS4PR 08-17 17:30
PROVIDERS: ADMIT Internal Medicine; ATTEND Internal Medicine Nephrology
DX: D50.0 Iron deficiency anemia secondary to blood loss (chronic) (principal); J44.1 Chronic obstructive pulmonary disease with (acute) exacerbation; E78.5 Hyperlipidemia, unspecified; F32.9 Major depressive disorder, single episode, unspecified; E11.9 Type 2 diabetes mellitus without complications; Z79.899 Other long term (current) drug therapy; Z79.51 Long term (current) use of inhaled steroids; Z92.3 Personal history of irradiation; Z85.46 Personal history of malignant neoplasm of prostate; F17.210 Nicotine dependence, cigarettes, uncomplicated
CPT/HCPCS: 36415; 36430; 36600; 71010; 80048; 80076; 82550; 82553; 82607; 82728; 82746; 82803; 83550; 83605; 83735; 83883; 84165; 84443; 84484; 85025; 86850; 86900; 86901; 86920; 87040; 87070; 87205; 87804; 93005; 93041; 94640; 96365; 96366; 96372; 96375; 96376; 97161; 99285; G0378; G8978; G8979; G8980; J1650; J1940; J1956; J2920; J2930; P9016

== ENCOUNTER 2017-09-05 08:09 | Inpatient (IN) | payer MEDICARE ==
[~2017-09-05] VITALS: Ht 177.8 cm; Wt 70.6 kg
[~2017-09-05 08:09] MED LIST changes: +FERR32TA PO; +LASI20TA PO; +PRED10PA2 PO; +PRED10TA2 PO; +PRED5TA PO; +STOO100C PO; +VITA500T PO
[2017-09-05] MEDS ORDERED: OMEP40CA2 PO (08:20)
[2017-09-05] MEDS ORDERED: methylPREDNISolone INJ 125 MG/2 ML VIAL (J2930) IV ONE (09:00)
[2017-09-05] MEDS ORDERED: PANTOPRAZOLE 40MG INJ (PROTONIX) (C9113) IV ONE (09:00)
[2017-09-05] MEDS ORDERED: NS 500 ML IV ONE (09:00)
[2017-09-05] MEDS: DOCUSATE SODIUM 100 MG CAP PO SCH ×2 (09:00→20:10)
[2017-09-05] MEDS: IPRATROPIUM 0.5MG/ALBUTEROL 2.5MG INH SOL UD 3ML (DUONEB)(J7620) NEB PRN ×4 (09:06→20:55)
[2017-09-05 09:14] LABS: BASO % 0.1 % (0.0-1.0); EOS # 0.1 10^3/uL (0.0-0.50); EOS % 0.6 % (0.0-3.0); IMMATURE GRANULOCYTE % 0.3 % (0-0); LYMPH # 0.9 10^3/uL (1.5-4.5); LYMPH % 6.6 % (24.0-44.0); MEAN CORPUSCULAR HEMOGLOBIN 23.9 pg (27.0-33.0); MEAN CORPUSCULAR VOLUME 77.3 fl (80.0-96.0); MONO # 0.9 10^3/uL (0.0-0.8); MONO % 6.2 % (0.0-5.0); NEUTROPHILS # 12.2 10^3/uL (1.8-7.7); NEUTROPHILS % 86.2 % (36.0-66.0); PLATELET COUNT, AUTOMATED 425 10^3/uL (150-450); RED CELL DISTRIBUTION WIDTH 21.7 % (11.5-14.5); WHITE BLOOD COUNT 14.2 10^3/uL (4.0-10.0)
[2017-09-05 09:21] LABS: ABG BASE EXCESS 2.1 (-2.0-2.0); ABG HCO3 26.4 MEQ/L (22.0-26.0); ABG PARTIAL PRESSURE CO2 39.9 mmHg (35.0-45.0); ABG PARTIAL PRESSURE O2 149.1 mmHg (75.0-100.0); ABG STANDARD HCO3 26.4 MEQ/L (22.0-26.0); ABG TOTAL CO2 27.6 MEQ/L (23.0-31.0); ABG pH (ARTERIAL) 7.438 UNITS (7.350-7.450)
--- NOTE | 2017-09-05 09:23 | REP ---
Chest one-view HISTORY: Cough Comparison: 08/16/2017 The lungs are hyperinflated. An increase in interstitial markings is present in the lungs. The heart is normal in size. The pulmonary vasculature is normal in appearance. Impression: No acute disease. Signed by Karan Ford MD 09/05/2017 09:15 A
[2017-09-05] MEDS: PANTOPRAZOLE SODIUM 40 MG in D5W 50 ML IV SCH ×2 (09:26→13:09)
[2017-09-05 09:33] LABS: ANION GAP 9 MEQ/L (8-16); BLOOD UREA NITROGEN 11 MG/DL (7-18); CALCIUM LEVEL 9.2 MG/DL (8.8-10.2); CARBON DIOXIDE LEVEL 27 MEQ/L (21-32); CHLORIDE LEVEL 101 MEQ/L (98-107); CREATININE FOR GFR 0.79 MG/DL (0.70-1.30); GLOMERULAR FILTRATION RATE > 60.0 (>42); GLUCOSE, FASTING 256 MG/DL (83-110); POTASSIUM SERUM 4.2 MEQ/L (3.5-5.1); SODIUM LEVEL 137 MEQ/L (136-145)
[2017-09-05 09:36] LABS: INR 0.95
[2017-09-05] MEDS ORDERED: ONDANSETRON 4MG/2ML VIAL (J2405) IV PRN (10:00)
[2017-09-05] MEDS ORDERED: GLUCAGON FOR INJ 1 MG VIAL (J1610) SC PRN (11:00)
[2017-09-05] MEDS ORDERED: DEXTROSE 50% 50 ML SYRINGE IV PRN (11:00)
[2017-09-05] MEDS ORDERED: GLUCOSE 4 GM CHEW TABLET PO PRN (11:00)
[2017-09-05] MEDS ORDERED: zolPIDEM TARTRATE 5 MG TAB PO PRN (11:00)
[2017-09-05] MEDS ORDERED: GASTROGRAFIN SOLUTION 30ML (Q9963) As Ordered ONE (11:16)
[2017-09-05] MEDS ORDERED: GASTROGRAFIN SOLUTION 30ML (Q9963) PO ONE ×2 (11:30→12:00)
--- NOTE | 2017-09-05 12:03 | HPEPDOC ---
[facility] Medical History & Physical Date of Admission Sep 05, 2017 Primary Care Physician: CHARLEY MANRIQUEZ MD Attending Physician: FRANNIE JACKSON DO History and Physical CHIEF COMPLAINT: SOB, DARK TARRY STOOLS HISTORY OF PRESENT ILLNESS: This is a 72-year-old male with past medical history of anemia on iron, severe COPD on chronic prednisone 10 mg daily, mcu-rlstmvh-voxzrpwjq diabetes mellitus , hyperlipidemia, history of prostate cancer status post radiation who presents complaining SOB, Dark tarry stools going on for weeks but considerably worse last few days. Has seen Dr. Garcia as outpatient and said goal was to get him to an UGI w/SBFT. Concern was with his severe COPD that he may not be a good candidate for sedation for EGD/Colonoscopy. Patient denies any chest pain/palpitations. No lower extremity edema. No sick contacts or recent travels. Continues to smoke tobacco, and is not interested in quitting at this time. PAST MEDICAL HISTORY: Iron Deficient Anemia severe COPD on chronic prednisone 10 mg daily qyp-estmsqq-qugiiknwy diabetes mellitus hyperlipidemia history of prostate cancer status post radiation PAST SURGICAL HISTORY: None SOCIAL HISTORY: History of 2 packs per day 40 years now down to 1 pack per day , no alcohol or illicit drug use. FAMILY HISTORY: Noncontributory ALLERGIES: Please see below. REVIEW OF SYSTEMS: CONSTITUTIONAL: No fever, chills, weight loss, nausea or vomiting . HEENT: No headache, lightheadedness, blurred or loss of vision. No difficulty with speech or swallow. CARDIOVASCULAR: No chest pain, palpitations, paroxysmal nocturnal dyspnea or lower extremity edema RESPIRATORY: Productive cough without hemoptysis. No wheeze GENITOURINARY: No dysuria, frequency, or discharge MUSCULOSKELETAL: No bone, muscle or joint pain. GASTROINTESTINAL: Black tarry stools without mirna hematochezia. No Nausea, vomiting, change in appetite. SKIN: No complaint of lesions, abrasions or rashes NEUROLOGICAL: No blurred vision, headaches, paraesthesias or paralysis. No bladder or bowel incontinence. PSYCHIATRIC: No depression, anxiety, audiovisual hallucinations. No suicidal ideations. ENDOCRINE: Denies history of diabetes or thyroid disorder. No history of endocrine abnormalities. HEMATOLOGIC/LYMPHATIC: No lumps, bumps or swelling of neck, axilla or groin. No night sweats or weight loss. HOME MEDICATIONS: Please see below. PHYSICAL EXAMINATION: Vitals: (see below) General: No acute distress, laying comfortably in bed. HEENT: Moist mucous membranes. No pharyngeal erythema. Neck: No JVD or lymphadenopathy Cardiac: Tachycardic. Regular rhythm., No murmurs Pulm: Diminished breath sounds bilaterally at the bases, with mild expiratory wheezing and prolonged expiratory phase. No rhonchi or crackles. No stridor. No use of accessory muscles. Abd: NT/ND + BS Ext: No edema or cyanosis LABORATORY DATA: See below. IMAGING: CT abd/pelvis pending 12 LEAD ECG: sinus tach but no acute st-t wave abnormalities MICROBIOLOGY: Please see below. IMPRESSION: 72 yo male with what appears to be an UGI bleed. Spoke to Dr Garcia (who's agreed to see on consult), will check a CT ABD/PELVIS with PO contrast. PROBLEM LIST: 1. UGI bleed 2. Iron Deficient Anemia 3. severe COPD on chronic prednisone 10 mg daily 4. tgt-garpkno-pjfhynfzw diabetes mellitus 5. hyperlipidemia 6. history of prostate cancer status post radiation PLAN: Admit to PCU and consult Dr. Garcia. Check CT abd/pelvis with PO Contrast. Consented for blood, type and screen. Clear liquid diet. IV Protonix, PO Carafate. He's currently hemodynamically stable but will follow q8h H/H and transfuse if he becomes symptomatic with drop. Continue home meds but avoid blood thinners / anticoagulants. DVT prophylaxis: Teds and sequentials Disposition: anticipate stay greater than two midnights Vital Signs Vital Signs Date Time Temp Pulse Resp B/P (MAP) Pulse Ox O2 Delivery O2 Flow Rate FiO2 09/05/17 10:42 110 131/67 (88) 90 09/05/17 10:12 21 09/05/17 09:39 Room Air 09/05/17 08:09 96.0 Laboratory Data Labs 24H Laboratory Tests 2 09/05/17 08:48: Immature Granulocyte % (Auto) 0.3H, White Blood Count 14.2H, Red Blood Count 4.22L, Hemoglobin 10.1L, Hematocrit 32.6L, Mean Corpuscular Volume 77.3L, Mean Corpuscular Hemoglobin 23.9L, Mean Corpuscular Hemoglobin Concent 31.0L, Red Cell Distribution Width 21.7H, Platelet Count 425, Neutrophils (%) (Auto) 86.2H , Lymphocytes (%) (Auto) 6.6L, Monocytes (%) (Auto) 6.2H, Eosinophils (%) (Auto ) 0.6, Basophils (%) (Auto) 0.1, Neutrophils # (Auto) 12.2H, Lymphocytes # (Auto ) 0.9L, Monocytes # (Auto) 0.9H, Eosinophils # (Auto) 0.1, Basophils # (Auto) 0.0, Immature Granulocyte # (Auto) 0.0, Nucleated Red Blood Cells % (auto) 0.0, Prothrombin Time 12.7, Prothromb Time International Ratio 0.95, Activated Partial Thromboplast Time 26.8, Anion Gap 9, Glomerular Filtration Rate > 60.0, Lactic Acid Level 2.7*H, Blood Urea Nitrogen 11, Creatinine 0.79, Sodium Level 137, Potassium Level 4.2, Chloride Level 101, Carbon Dioxide Level 27, Calcium Level 9.2, Total Creatine Kinase 29L, Creatine Kinase MB 1.5, Creatine Kinase MB Relative Index 5.17H, Troponin I < 0.02, UP-Fnv-T-Type Natriuretic Peptide 51 , Thyroid Stimulating Hormone (TSH) 1.760 09/05/17 09:05: Blood Gas Bicarbonate Standard 26.4H, Arterial Blood pH 7.438, Arterial Blood Partial Pressure CO2 39.9, Arterial Blood Partial Pressure O2 149.1H, Arterial Blood Total CO2 27.6, Arterial Blood HCO3 26.4H, Arterial Blood Base Excess 2.1H , Arterial Blood Oxygen Saturation 99.0 CBC/BMP Laboratory Tests 09/05/17 08:48 Red Blood Count 4.22 L, Mean Corpuscular Volume 77.3 L, Mean Corpuscular Hemoglobin 23.9 L, Mean Corpuscular Hemoglobin Concent 31.0 L, Red Cell Distribution Width 21.7 H, Neutrophils (%) (Auto) 86.2 H, Lymphocytes (%) (Auto ) 6.6 L, Monocytes (%) (Auto) 6.2 H, Eosinophils (%) (Auto) 0.6, Basophils (%) ( Auto) 0.1, Neutrophils # (Auto) 12.2 H, Lymphocytes # (Auto) 0.9 L, Monocytes # (Auto) 0.9 H, Eosinophils # (Auto) 0.1, Basophils # (Auto) 0.0, Calcium Level 9.2, Total Creatine Kinase 29 L Microbiology Microbiology 09/05/17 Blood Culture, Received Pending Home Medications Scheduled Ascorbic Acid (Vitamin C) 500 Mg Tab, 500 MG PO BID Atorvastatin Calcium (Atorvastatin Calcium) 40 Mg Tab, 40 MG PO DAILY Docusate Sodium (Stool Softener) 100 Mg Cap, 100 MG PO BID Ferrous Gluconate (Ferrous Gluconate) 324 Mg Tab, 324 MG PO BID Metformin Hydrochloride (Metformin HCl ER) 500 Mg Tab, 2,000 MG PO DAILY Omeprazole (Omeprazole) 40 Mg Cap, 40 MG PO QPM Prednisone (Prednisone) 5 Mg Tab, 10 MG PO DAILY Scheduled PRN Albuterol Sulfate (Ventolin Hfa) 200 Puff/8 Gm Aers, 2 PUFF INH Q4H PRN for SHORTNESS OF BREATH Albuterol/Ipratropium (Ipratropium Freedom/Albut 0.5-2.5 (3) mg/3Ml) 1 Kandi Kandi, 1 NEB INH Q4H PRN for SOB/WHEEZING Zolpidem Tartrate (Ambien) 5 Mg Tab, 5 MG PO QHS PRN for SLEEP Allergies Coded Allergies: No Known Allergies (Unverified , 03/02/16) FRANNIE JACKSON DO Sep 05, 2017 12:03
[2017-09-05 13:34] VITALS: BP 135/69
--- NOTE | 2017-09-05 14:00 | REP ---
CT ABDOMEN AND PELVIS WITHOUT CONTRAST: HISTORY: Abdominal pain. Calcifications are present in the spleen. The liver, pancreas, adrenal glands, and kidneys are normal in appearance. There is no mass, adenopathy or free fluid. Diverticula are present in the descending colon. The visualized lungs are clear. CT PELVIS: Calcifications are present in the prostate gland. The prostate gland is normal in size. The urinary bladder is normal in appearance. Diverticula are present in the descending and sigmoid colon. IMPRESSION: Diverticulosis. Signed by Karan Ford MD 09/05/2017 02:14 P
[2017-09-05] MEDS: IPRATROPIUM 0.5MG/ALBUTEROL 2.5MG INH SOL UD 3ML (DUONEB)(J7620) NEB SCH ×2 (14:43→23:27)
[2017-09-05] MEDS: SUCRALFATE 1 GM TAB PO SCH ×2 (14:47→17:54)
[2017-09-05] MEDS: HumaLOG INSULIN (NovoLOG) PER UNIT SC SCH ×3 (14:48→20:11)
[2017-09-05 16:00] VITALS: BP 130/58
[2017-09-05] MEDS: OMEPRAZOLE 20 MG CAP PO SCH (16:58)
[2017-09-05] MEDS: OCTREOTIDE ACETATE 100 MCG/ML VIAL (J2354) IV SCH (16:58)
--- NOTE | 2017-09-05 17:36 | CR ---
DATE OF CONSULTATION: 09/05/2017 REASON FOR CONSULTATION: Melena and anemia. HISTORY OF PRESENT ILLNESS: The patient is a 72-year-old male who I saw in the office and had scheduled for an upper GI with small-bowel followthrough for some melanotic stools and evidence of probable upper GI bleeding. However, because of his significant COPD and inability to lay flat I felt that an upper GI was more reasonable then an upper endoscopy requiring sedation. His COPD issues are quite severe and he is on chronic prednisone for this. He had more melanotic stool over the last 24-48 hours. He has not had any fevers. No chills. No abdominal pain. PAST MEDICAL HISTORY: Significant for history of iron-deficiency anemia, history of severe COPD on chronic prednisone, history of ayc-hmfvjbd-dcnmniicb diabetes mellitus, history of hyperlipidemia, history of prostate cancer status post radiation, history of smoking. MEDICATIONS: Include vitamin C, atorvastatin, Colace, iron, metformin, omeprazole, prednisone, and he has as needed albuterol, DuoNebs and Zolpidem/Ambien. PHYSICAL EXAMINATION: Reveals a 72-year-old male who looks stated age. HEENT is unremarkable. Neck supple without adenopathy. Lungs are diminished bilaterally with very distant breath sounds and few wheezes anteriorly. Heart is regular. Abdomen is soft, nondistended, nontender. IMPRESSION AND PLAN: Patient has a GI bleed of undetermined etiology, most likely an upper GI bleed and at this point he is on proton pump inhibitor and Carafate has been started as well which I feel is appropriate in him. However, he still had three bowel movements earlier today and given the multiple bowel movements still ongoing my recommendation is that he start on some octreotide. His CT scan report is not back and we are still awaiting the results of this. Although I do feel an upper GI with small-bowel followthrough was more appropriate, unfortunately we do not have the capacity at the hospital at this time. With his respiratory issues, I do feel that he is still a very high risk individual to undergo an upper endoscopy given his COPD issues. I am not sure if he is classified as a nonoperative candidate per se, but he is extremely high risk. The patient at this time would prefer noninterventional procedures if possible. Will follow his hematocrit over the ensuing 24-48 hours and will see if his respiratory issues can also improve enough to feel comfortable for an upper endoscopy.
[2017-09-05] MEDS ORDERED: GENTAMICIN 0.3% OPHTH SOL 5 ML BTL OS SCH (18:00)
[2017-09-05] MEDS: GENTAMICIN 0.3% OPHTH SOL 5 ML BTL OS SCH ×2 (18:30→20:11)
[2017-09-05 19:51] VITALS: BP 122/63
[2017-09-05] MEDS: ASCORBIC ACID 500 MG TAB PO SCH (20:10)
[2017-09-05] MEDS: guaiFENesin ER 600 MG TAB PO SCH (20:10)
[2017-09-05] MEDS: FERROUS GLUCONATE 324 MG TAB PO SCH (20:10)
[2017-09-05] MEDS: PANTOPRAZOLE 40MG INJ (PROTONIX) (C9113) IV SCH (20:10)
[2017-09-05 23:52] VITALS: BP 115/60
[2017-09-06] MEDS: GENTAMICIN 0.3% OPHTH SOL 5 ML BTL OS SCH ×6 (00:12→20:19)
[2017-09-06] MEDS: OCTREOTIDE ACETATE 100 MCG/ML VIAL (J2354) IV SCH ×3 (00:12→16:27)
[2017-09-06] MEDS: SUCRALFATE 1 GM TAB PO SCH ×4 (00:12→17:11)
[2017-09-06] MEDS: IPRATROPIUM 0.5MG/ALBUTEROL 2.5MG INH SOL UD 3ML (DUONEB)(J7620) NEB PRN ×2 (04:07→10:47)
[2017-09-06 04:34] VITALS: BP 114/65
[2017-09-06 04:40] LABS: MEAN CORPUSCULAR HEMOGLOBIN 23.5 pg (27.0-33.0); MEAN CORPUSCULAR HGB CONC 30.3 g/dl (32.0-36.5); MEAN CORPUSCULAR VOLUME 77.7 fl (80.0-96.0); PLATELET COUNT, AUTOMATED 410 10^3/uL (150-450); RED CELL DISTRIBUTION WIDTH 21.8 % (11.5-14.5); WHITE BLOOD COUNT 10.6 10^3/uL (4.0-10.0)
[2017-09-06 04:58] LABS: ANION GAP 7 MEQ/L (8-16); BLOOD UREA NITROGEN 11 MG/DL (7-18); CALCIUM LEVEL 8.9 MG/DL (8.8-10.2); CARBON DIOXIDE LEVEL 29 MEQ/L (21-32); CHLORIDE LEVEL 101 MEQ/L (98-107); CREATININE FOR GFR 0.85 MG/DL (0.70-1.30); GLOMERULAR FILTRATION RATE > 60.0 (>42); GLUCOSE, FASTING 173 MG/DL (83-110); POTASSIUM SERUM 4.5 MEQ/L (3.5-5.1); SODIUM LEVEL 137 MEQ/L (136-145)
[2017-09-06] MEDS: IPRATROPIUM 0.5MG/ALBUTEROL 2.5MG INH SOL UD 3ML (DUONEB)(J7620) NEB SCH ×4 (07:19→23:30)
--- NOTE | 2017-09-06 07:19 | ECGEPIP ---
Stationary ECG Study 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
[2017-09-06 08:00] VITALS: BP 129/63
[2017-09-06] MEDS: ATORVASTATIN 20 MG TAB PO SCH (08:44)
[2017-09-06] MEDS: predniSONE 10 MG TAB PO SCH (08:44)
[2017-09-06] MEDS: FERROUS GLUCONATE 324 MG TAB PO SCH ×2 (08:44→20:18)
[2017-09-06] MEDS: guaiFENesin ER 600 MG TAB PO SCH ×2 (08:44→20:18)
[2017-09-06] MEDS: ASCORBIC ACID 500 MG TAB PO SCH ×2 (08:45→20:18)
[2017-09-06] MEDS: PANTOPRAZOLE 40MG INJ (PROTONIX) (C9113) IV SCH ×2 (08:45→20:18)
[2017-09-06] MEDS: DOCUSATE SODIUM 100 MG CAP PO SCH ×2 (08:45→20:18)
[2017-09-06] MEDS: HumaLOG INSULIN (NovoLOG) PER UNIT SC SCH ×4 (08:50→20:19)
--- NOTE | 2017-09-06 09:09 | IPNPDOC ---
Date Seen The patient was seen on 09/06/17. Progress Note SUBJECTIVE: Patient is a 72 yo male with sever COPD admitted yesterday for UGI bleed. No overnight issues and H/H has remained stable. Continues with chronic cough, O2 supplementation and duonebs. Surgery concerned about risk of respiratory failure should the need arise to perform a endoscopy. Says he's hungry and has no recorded BMs last evening. Denies: CP, hemoptysis, abdominal pain, f/c/r, n/v/d. OBJECTIVE PHYSICAL EXAMINATION: VITAL SIGNS: Please see below. GENERAL: NAD, A&OX3 HEENT: PERRLA, neck supple, throat clear, no JVD CARDIOVASCULAR: RRR. RESPIRATORY: diminished bibasilar and distant breath sounds with exp wheeze. ABDOMINAL: soft, NT/ND, normoactive bowel sounds, no rebound EXTREMITIES: no edema, no calf tenderness NEUROLOGICAL: CN II-XII grossly intact PSYCHOLOGICAL: negative LABORATORY DATA: Please see below. MICROBIOLOGY: Please see below. IMAGING: CT ABD/PELVIS w/PO CONTRAST: Diverticulosis. DVT prophylaxis ordered?: TEDS/SCDS ASSESSMENT AND PLAN: This is a 72 yo male with severe COPD and suspected UGI bleed. PROBLEMS: 1. 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 Lactic acidosis on admission: resolved 3. Iron Deficient Anemia: on supplementation 4. Severe COPD on chronic prednisone 10 mg daily: Continue current meds Consultants: requested Dr. Krause to eval and make recommendations 5. Left eye blepheritis/conjuctivitis: better continue oph gentamycin 6. Post-nasal drip: Flonase and Mucinex 7. eaj-pzunoxg-hkungrlkv diabetes mellitus FSq6h and SSI per [facility] Protocol 8. hyperlipidemia: continue statin 9. history of prostate cancer status post radiation: no current issues, not requiring any meds DVT prophylaxis: TEDS/SCDS DISPOSITION: Appreciate assistance from Dr. Garcia (surgery) and Dr. Krause ( pulmonology) VS, I&O, 24H, Fishbone Vital Signs/I&O Vital Signs Date Time Temp Pulse Resp B/P (MAP) Pulse Ox O2 Delivery O2 Flow Rate FiO2 09/06/17 08:00 97.3 105 24 129/63 (85) 98 Room Air I&O- Last 24 Hours up to 6 AM 09/07/17 06:00 Intake Total 270 ml Balance 270 ml Laboratory Data 24H LABS Laboratory Tests 2 09/05/17 09:05: Blood Gas Bicarbonate Standard 26.4H, Arterial Blood pH 7.438, Arterial Blood Partial Pressure CO2 39.9, Arterial Blood Partial Pressure O2 149.1H, Arterial Blood Total CO2 27.6, Arterial Blood HCO3 26.4H, Arterial Blood Base Excess 2.1H , Arterial Blood Oxygen Saturation 99.0 09/05/17 12:43: Bedside Glucose (Misc Panel) 242H 09/05/17 13:38: Lactic Acid Followup at 4 Hours 2.5*H 09/06/17 04:00: Nucleated Red Blood Cells % (auto) 0.0, Anion Gap 7L, Glomerular Filtration Rate > 60.0, Blood Urea Nitrogen 11, Creatinine 0.85, Sodium Level 137, Potassium Level 4.5, Chloride Level 101, Carbon Dioxide Level 29, Calcium Level 8.9 09/06/17 08:07: Lactic Acid Level 1.7 CBC/BMP Laboratory Tests 09/05/17 17:09 09/06/17 04:00 Red Blood Count 4.12 L, Mean Corpuscular Volume 77.7 L, Mean Corpuscular Hemoglobin 23.5 L, Mean Corpuscular Hemoglobin Concent 30.3 L, Red Cell Distribution Width 21.8 H, Calcium Level 8.9 Microbiology Microbiology 09/05/17 Blood Culture, Received Pending 09/05/17 Blood Culture, Received Pending FRANNIE JACKSON DO Sep 06, 2017 09:09
[2017-09-06] MEDS: ACETAMINOPHEN TAB 650MG DOSE (2X325MG) PO PRN (11:49)
[2017-09-06 12:00] VITALS: BP 131/63
[2017-09-06 16:00] VITALS: BP 120/65
[2017-09-06] MEDS: OMEPRAZOLE 20 MG CAP PO SCH (16:27)
[2017-09-06] MEDS: BUDESONIDE 0.5 MG/2 ML INHALATION SUSPENSION INH SCH (19:29)
[2017-09-06] MEDS: FORMOTEROL FUMARATE 20 MCG/2 ML INHALATION SOLUTION (PERFOROMIST) INH SCH (19:29)
[2017-09-06 20:00] VITALS: BP 118/69
[2017-09-06 23:45] VITALS: BP 117/57
[2017-09-07] MEDS: SUCRALFATE 1 GM TAB PO SCH ×4 (00:52→17:28)
[2017-09-07] MEDS: GENTAMICIN 0.3% OPHTH SOL 5 ML BTL OS SCH ×6 (00:52→22:02)
[2017-09-07] MEDS: OCTREOTIDE ACETATE 100 MCG/ML VIAL (J2354) IV SCH ×2 (00:52→07:46)
[2017-09-07 04:21] VITALS: BP 123/59
[2017-09-07 05:29] LABS: MEAN CORPUSCULAR HEMOGLOBIN 23.2 pg (27.0-33.0); MEAN CORPUSCULAR HGB CONC 30.1 g/dl (32.0-36.5); MEAN CORPUSCULAR VOLUME 77.1 fl (80.0-96.0); PLATELET COUNT, AUTOMATED 417 10^3/uL (150-450); WHITE BLOOD COUNT 8.8 10^3/uL (4.0-10.0)
[2017-09-07 05:43] LABS: ANION GAP 6 MEQ/L (8-16); BLOOD UREA NITROGEN 8 MG/DL (7-18); CALCIUM LEVEL 8.6 MG/DL (8.8-10.2); CARBON DIOXIDE LEVEL 31 MEQ/L (21-32); CHLORIDE LEVEL 99 MEQ/L (98-107); CREATININE FOR GFR 0.75 MG/DL (0.70-1.30); GLOMERULAR FILTRATION RATE > 60.0 (>42); GLUCOSE, FASTING 141 MG/DL (83-110); SODIUM LEVEL 136 MEQ/L (136-145)
[2017-09-07] MEDS: TIOTROPIUM INHALER/CAPSULE (SPIRIVA) INH SCH (07:23)
[2017-09-07] MEDS: HumaLOG INSULIN (NovoLOG) PER UNIT SC SCH ×4 (07:46→20:19)
[2017-09-07 08:00] VITALS: BP 136/72
[2017-09-07] MEDS: IPRATROPIUM 0.5MG/ALBUTEROL 2.5MG INH SOL UD 3ML (DUONEB)(J7620) NEB SCH ×3 (08:00→23:34)
[2017-09-07] MEDS: BUDESONIDE 0.5 MG/2 ML INHALATION SUSPENSION INH SCH ×2 (08:00→20:14)
[2017-09-07] MEDS: FORMOTEROL FUMARATE 20 MCG/2 ML INHALATION SOLUTION (PERFOROMIST) INH SCH ×2 (08:00→20:14)
--- NOTE | 2017-09-07 09:07 | IPN ---
DATE: 09/07/2017 Patient has been tolerating clear liquid diet and his hematocrit has been stable overnight. Overall seems to be doing quite well. Has no complaints. No melanotic stools. No blood per rectum. He has not had any fevers or chills. Presented originally with an elevated white count, which has come down to normal. Has a benign abdominal exam. IMPRESSION/PLAN: Patient had a gastrointestinal (GI) bleed, most likely upper GI in etiology. From standpoint, with adequate treatment for an upper GI bleed, i.e., Carafate, Protonix, I do feel that he has resolved his current issue and this current GI bleeding is most likely etiology. I do feel that the best option for him would be an upper GI. However, because of no availability of fluoroscopy, options are either to proceed with endoscopy, which would be a confirmatory study, however, it may not be necessary at this time, or proceed with an outpatient upper GI. I do feel that if this upper GI is performed as an outpatient it is a reasonable option for him. Otherwise, we will keep him on his current medications, advance his diet today, and from my standpoint, can be discharged home if he tolerates a regular diet and can undergo the upper GI as an outpatient.
[2017-09-07] MEDS: ATORVASTATIN 20 MG TAB PO SCH (09:58)
[2017-09-07] MEDS: PANTOPRAZOLE 40MG INJ (PROTONIX) (C9113) IV SCH ×2 (09:58→22:01)
[2017-09-07] MEDS: ASCORBIC ACID 500 MG TAB PO SCH ×2 (09:58→22:02)
[2017-09-07] MEDS: predniSONE 10 MG TAB PO SCH (09:58)
[2017-09-07] MEDS: guaiFENesin ER 600 MG TAB PO SCH ×2 (09:59→22:02)
[2017-09-07] MEDS: DOCUSATE SODIUM 100 MG CAP PO SCH ×2 (09:59→21:00)
[2017-09-07] MEDS: FERROUS GLUCONATE 324 MG TAB PO SCH ×2 (09:59→22:02)
--- NOTE | 2017-09-07 10:59 | IPNPDOC ---
Date Seen The patient was seen on 09/07/17. Progress Note SUBJECTIVE: Patient is a 72 yo male with sever COPD with presumed UGI bleed. Says he's hungry and has no reported hematochezia/melena this morning. Had nebs adjusted by Dr. Krause last evening and now having some productive sputum. Denies: CP, hemoptysis, abdominal pain, f/c/r, n/v/d. OBJECTIVE PHYSICAL EXAMINATION: VITAL SIGNS: Please see below. GENERAL: NAD, A&OX3 HEENT: PERRLA, neck supple, throat clear, no JVD CARDIOVASCULAR: RRR. RESPIRATORY: diminished bibasilar and distant breath sounds with exp wheeze. ABDOMINAL: soft, NT/ND, normoactive bowel sounds, no rebound EXTREMITIES: no edema, no calf tenderness NEUROLOGICAL: CN II-XII grossly intact PSYCHOLOGICAL: negative LABORATORY DATA: Please see below. MICROBIOLOGY: Please see below. IMAGING: CT ABD/PELVIS w/PO CONTRAST: Diverticulosis. DVT prophylaxis ordered?: TEDS/SCDS ASSESSMENT AND PLAN: This is a 72 yo male with severe COPD and suspected UGI bleed. PROBLEMS: 1. UGI bleed / Acute blood loss anemia: H/H appears stable today, will not transfuse and continue to monitor. 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 Lactic acidosis on admission: resolved 3. Iron Deficient Anemia: on supplementation 4. Severe COPD on chronic prednisone 10 mg daily: Continue current meds Consultants: Appreciate Dr. Krause's assistance with management. 5. Left eye blepheritis/conjuctivitis: better continue oph gentamycin 6. Post-nasal drip: Flonase and Mucinex 7. zvn-flkmekh-pvrcqtklm diabetes mellitus FSq6h and SSI per [facility] Protocol (will plan to change to cover with meals when diet is advanced. 8. hyperlipidemia: continue statin 9. history of prostate cancer status post radiation: no current issues, not requiring any meds DVT prophylaxis: TEDS/SCDS DISPOSITION: Appreciate assistance from Dr. Garcia (surgery) and Dr. Krause ( pulmonology) VS, I&O, 24H, Fishbone Vital Signs/I&O Vital Signs Date Time Temp Pulse Resp B/P (MAP) Pulse Ox O2 Delivery O2 Flow Rate FiO2 09/07/17 04:21 98.2 96 22 123/59 (80) 90 Room Air Laboratory Data 24H LABS Laboratory Tests 2 09/06/17 22:05: Bedside Glucose (Misc Panel) 113H 09/07/17 04:59: Nucleated Red Blood Cells % (auto) 0.0, Anion Gap 6L, Glomerular Filtration Rate > 60.0, Blood Urea Nitrogen 8, Creatinine 0.75, Sodium Level 136, Potassium Level 4.0, Chloride Level 99, Carbon Dioxide Level 31, Calcium Level 8.6L CBC/BMP Laboratory Tests 09/07/17 04:59 Red Blood Count 4.23 L, Mean Corpuscular Volume 77.1 L, Mean Corpuscular Hemoglobin 23.2 L, Mean Corpuscular Hemoglobin Concent 30.1 L, Red Cell Distribution Width 22.0 H, Calcium Level 8.6 L Microbiology Microbiology 09/05/17 Blood Culture - Preliminary, Resulted No growth after 24 hours . All specim... 09/05/17 Blood Culture - Preliminary, Resulted No Growth after 48 hours. All Specime... FRANNIE JACKSON DO Sep 07, 2017 10:59
[2017-09-07] MEDS: IPRATROPIUM 0.5MG/ALBUTEROL 2.5MG INH SOL UD 3ML (DUONEB)(J7620) NEB PRN (11:10)
[2017-09-07 12:00] VITALS: BP 132/62
[2017-09-07 16:00] VITALS: BP 128/68
[2017-09-07] MEDS: OMEPRAZOLE 20 MG CAP PO SCH (17:28)
[2017-09-07 20:00] VITALS: BP 121/57
[2017-09-08] VITALS: BP 119/61
[2017-09-08] MEDS: SUCRALFATE 1 GM TAB PO SCH ×5 (00:10→23:49)
[2017-09-08] MEDS: GENTAMICIN 0.3% OPHTH SOL 5 ML BTL OS SCH ×7 (00:10→20:48)
[2017-09-08 04:00] VITALS: BP 124/58
[2017-09-08] MEDS: IPRATROPIUM 0.5MG/ALBUTEROL 2.5MG INH SOL UD 3ML (DUONEB)(J7620) NEB PRN ×2 (04:15→11:05)
[2017-09-08 05:36] LABS: MEAN CORPUSCULAR HEMOGLOBIN 23.9 pg (27.0-33.0); MEAN CORPUSCULAR VOLUME 77.1 fl (80.0-96.0); PLATELET COUNT, AUTOMATED 381 10^3/uL (150-450); RED CELL DISTRIBUTION WIDTH 21.3 % (11.5-14.5); WHITE BLOOD COUNT 8.6 10^3/uL (4.0-10.0)
[2017-09-08 05:57] LABS: ANION GAP 7 MEQ/L (8-16); BLOOD UREA NITROGEN 6 MG/DL (7-18); CALCIUM LEVEL 8.5 MG/DL (8.8-10.2); CARBON DIOXIDE LEVEL 29 MEQ/L (21-32); CHLORIDE LEVEL 99 MEQ/L (98-107); CREATININE FOR GFR 0.68 MG/DL (0.70-1.30); GLOMERULAR FILTRATION RATE > 60.0 (>42); GLUCOSE, FASTING 144 MG/DL (83-110); POTASSIUM SERUM 3.5 MEQ/L (3.5-5.1); SODIUM LEVEL 135 MEQ/L (136-145)
[2017-09-08] MEDS: IPRATROPIUM 0.5MG/ALBUTEROL 2.5MG INH SOL UD 3ML (DUONEB)(J7620) NEB SCH ×3 (07:32→20:00)
[2017-09-08] MEDS: TIOTROPIUM INHALER/CAPSULE (SPIRIVA) INH SCH (07:32)
[2017-09-08] MEDS: FORMOTEROL FUMARATE 20 MCG/2 ML INHALATION SOLUTION (PERFOROMIST) INH SCH ×2 (07:32→20:20)
[2017-09-08] MEDS: BUDESONIDE 0.5 MG/2 ML INHALATION SUSPENSION INH SCH ×2 (07:32→20:20)
[2017-09-08 08:00] VITALS: BP 125/63
[2017-09-08] MEDS: PANTOPRAZOLE 40MG INJ (PROTONIX) (C9113) IV SCH ×2 (08:15→20:48)
[2017-09-08] MEDS: HumaLOG INSULIN (NovoLOG) PER UNIT SC SCH ×4 (08:15→20:41)
[2017-09-08] MEDS: ASCORBIC ACID 500 MG TAB PO SCH ×2 (08:16→20:48)
[2017-09-08] MEDS: predniSONE 10 MG TAB PO SCH (08:16)
[2017-09-08] MEDS: DOCUSATE SODIUM 100 MG CAP PO SCH ×2 (08:16→20:48)
[2017-09-08] MEDS: guaiFENesin ER 600 MG TAB PO SCH ×2 (08:16→20:48)
[2017-09-08] MEDS: ATORVASTATIN 20 MG TAB PO SCH (08:16)
[2017-09-08] MEDS: FERROUS GLUCONATE 324 MG TAB PO SCH ×2 (08:16→20:48)
[2017-09-08 12:00] VITALS: BP 128/60
[2017-09-08] MEDS ORDERED: SLF 3 ML SYR IV PRN (14:45)
[2017-09-08 16:00] VITALS: BP 130/59
--- NOTE | 2017-09-08 16:17 | IPNPDOC ---
Text Note Date of Service The patient was seen on 09/08/17. NOTE Subjective: Pt states he is still dyspneic with exertion. Denies CP/ palpitations. Objective: Vitals: (see below) General: No acute distress, laying comfortably in bed. HEENT: Moist mucous membranes. Neck: No JVD or lymphadenopathy Cardiac: RRR, No murmurs Pulm: Minimal exp wheezing b/l. No wheezing, rhonchi Abd: NT/ND + BS Ext: No edema or cyanosis Labs (see below) Images: CXR 09/05/17 Impression: No acute disease. Assessment/Plan 1. Acute blood loss anemia likely secondary to upper GI bleed. H&H is stable. Has not required blood transfusion. On Protonix/Carafate. Status post octreotide. Evaluated by Dr. Garcia with recommendations for outpatient upper GI. 2. Severe COPD with exacerbation on prednisone [address] Krause's input. Nebs increased. 3. Lactic acidosis resolved 4. Iron deficiency anemia on supplementation 5. Left eye conjunctivitis on antibiotics improved. 6. Pir-vdglslo-qozptnacn diabetes mellitus on sliding scale insulin. 7. Hyperlipidemia on statin 8. History of prostate cancer status post radiation - follow-up palpation. DVT prophy: SCDs Plan to discharge in the next 24 hours if remains stable. VS,Fishbone, I+O VS, Fishbone, I+O Laboratory Tests 09/08/17 05:17 Red Blood Count 4.19 L, Mean Corpuscular Volume 77.1 L, Mean Corpuscular Hemoglobin 23.9 L, Mean Corpuscular Hemoglobin Concent 31.0 L, Red Cell Distribution Width 21.3 H, Calcium Level 8.5 L Vital Signs Date Time Temp Pulse Resp B/P (MAP) Pulse Ox O2 Delivery O2 Flow Rate FiO2 09/08/17 12:10 Room Air 09/08/17 12:00 97.8 95 20 128/60 (82) 93 I&O- Last 24 Hours up to 6 AM 09/09/17 06:00 Intake Total 600 ml Output Total 350 ml Balance 250 ml BOB OGLESBY MD Sep 08, 2017 16:17
[2017-09-08] MEDS: OMEPRAZOLE 20 MG CAP PO SCH (17:28)
[2017-09-08 20:00] VITALS: BP 130/65
[2017-09-08] MEDS: SLF 3 ML SYR IV SCH (21:00)
[2017-09-08] MEDS: ACETAMINOPHEN TAB 650MG DOSE (2X325MG) PO PRN (23:53)
[2017-09-09] VITALS: BP 117/32
[2017-09-09] MEDS: GENTAMICIN 0.3% OPHTH SOL 5 ML BTL OS SCH ×3 (01:00→08:22)
[2017-09-09] MEDS: IPRATROPIUM 0.5MG/ALBUTEROL 2.5MG INH SOL UD 3ML (DUONEB)(J7620) NEB SCH ×2 (02:00→07:57)
[2017-09-09 04:00] VITALS: BP 92/51
[2017-09-09] MEDS: IPRATROPIUM 0.5MG/ALBUTEROL 2.5MG INH SOL UD 3ML (DUONEB)(J7620) NEB PRN (04:02)
[2017-09-09] MEDS: SLF 3 ML SYR IV SCH (05:11)
[2017-09-09] MEDS: SUCRALFATE 1 GM TAB PO SCH ×2 (05:11→10:47)
[2017-09-09 06:20] LABS: MEAN CORPUSCULAR HEMOGLOBIN 23.8 pg (27.0-33.0); MEAN CORPUSCULAR HGB CONC 31.1 g/dl (32.0-36.5); MEAN CORPUSCULAR VOLUME 76.7 fl (80.0-96.0); PLATELET COUNT, AUTOMATED 367 10^3/uL (150-450); RED CELL DISTRIBUTION WIDTH 20.7 % (11.5-14.5); WHITE BLOOD COUNT 8.6 10^3/uL (4.0-10.0)
[2017-09-09 06:36] LABS: ANION GAP 7 MEQ/L (8-16); BLOOD UREA NITROGEN 6 MG/DL (7-18); CALCIUM LEVEL 8.3 MG/DL (8.8-10.2); CARBON DIOXIDE LEVEL 29 MEQ/L (21-32); CHLORIDE LEVEL 99 MEQ/L (98-107); CREATININE FOR GFR 0.71 MG/DL (0.70-1.30); GLOMERULAR FILTRATION RATE > 60.0 (>42); GLUCOSE, FASTING 167 MG/DL (83-110); POTASSIUM SERUM 3.2 MEQ/L (3.5-5.1); SODIUM LEVEL 135 MEQ/L (136-145)
[2017-09-09] MEDS: FORMOTEROL FUMARATE 20 MCG/2 ML INHALATION SOLUTION (PERFOROMIST) INH SCH (07:57)
[2017-09-09] MEDS: TIOTROPIUM INHALER/CAPSULE (SPIRIVA) INH SCH (07:57)
[2017-09-09] MEDS: BUDESONIDE 0.5 MG/2 ML INHALATION SUSPENSION INH SCH (07:57)
[2017-09-09] MEDS ORDERED: POTASSIUM CHLORIDE 10 MEQ SR TABLET PO ONE (08:15)
[2017-09-09] MEDS: DOCUSATE SODIUM 100 MG CAP PO SCH (08:20)
[2017-09-09] MEDS: PANTOPRAZOLE 40MG INJ (PROTONIX) (C9113) IV SCH (08:20)
[2017-09-09] MEDS: ATORVASTATIN 20 MG TAB PO SCH (08:21)
[2017-09-09] MEDS: guaiFENesin ER 600 MG TAB PO SCH (08:21)
[2017-09-09] MEDS: FERROUS GLUCONATE 324 MG TAB PO SCH (08:21)
[2017-09-09] MEDS: predniSONE 10 MG TAB PO SCH (08:21)
[2017-09-09] MEDS: ASCORBIC ACID 500 MG TAB PO SCH (08:21)
[2017-09-09] MEDS: HumaLOG INSULIN (NovoLOG) PER UNIT SC SCH (08:22)
[2017-09-09 08:29] VITALS: BP 117/58
[2017-09-09] MEDS ORDERED: MUCI600T37 PO (10:29)
[2017-09-09] MEDS ORDERED: ADV250INH INH (10:29)
[2017-09-09] MEDS ORDERED: OMEP40CA2 PO (10:29)
[2017-09-09] MEDS ORDERED: TIOT18INH INH (10:29)
[2017-09-09] MEDS ORDERED: SUCR1TA PO (10:29)
--- NOTE | 2017-09-09 13:57 | DS.PDOC ---
Discharge Summary General Date of Admission Sep 05, 2017 at 09:49 Date of Discharge 09/09/17 Attending Physician: BOB OGLESBY MD Discharge Summary PROCEDURES PERFORMED DURING STAY: None. ADMITTING/DISCHARGE DIAGNOSES: 1. Acute blood loss anemia likely secondary to upper GI bleed 2. Severe COPD with exacerbation on prednisone 10 mg daily 3. Lactic acidosis resolved 4. Iron deficiency anemia on supplementation 5. Left eye conjunctivitis s/p antibiotics 6. Nnu-qeoxzvd-vqcywsnzl diabetes mellitus 7. Hyperlipidemia on statin 8. History of prostate cancer status post radiation COMPLICATIONS/CHIEF COMPLAINT: Melanotic stools HISTORY OF PRESENT ILLNESS/HOSPITAL COURSE: This is a 72-year-old male past history of severe COPD on 10 mg prednisone daily , iron deficiency anemia, diabetes mellitus who presents with melanotic stools. Patient was noted to have a likely acute blood loss anemia seems to upper GI bleed however has not required any blood transfusions. The patient also had a COPD exacerbation for which she was treated for with nebulizers. Over the course of hospitalization, the patient's had stable hemoglobin, and has respiratory status had significantly improved to the point where he is not dyspneic on ambulation nor is he hypoxic. Patient is now hemodynamically stable and ready to be discharged home. Patient is to follow-up with Dr. Garcia for a possible outpatient upper GI. Patient is to return to the ED if symptoms worsen. DISCHARGE MEDICATIONS: Please see below. ALLERGIES: Please see below. PHYSICAL EXAMINATION ON DISCHARGE: Vitals: (see below) General: No acute distress, laying comfortably in bed. HEENT: Moist mucous membranes. Neck: No JVD or lymphadenopathy Cardiac: RRR, No murmurs Pulm: Clear to auscultation b/l. No wheezing, rhonchi Abd: NT/ND + BS Ext: No edema or cyanosis LABORATORY DATA: Please see below. IMAGING: CXR 09/05/17 Impression: No acute disease. PROGNOSIS: Guarded ACTIVITY: As tolerated. DIET: COPD diet, carb consistent DISCHARGE PLAN/DISPOSITION: D/c Home DISCHARGE INSTRUCTIONS: 1. I'll up with PCP and Dr. Garcia in 1-2 weeks. Return to the ED symptoms worsen. DISCHARGE CONDITION: Stable. TIME SPENT ON DISCHARGE: Greater than 30 minutes. Vital Signs/I&Os Vital Signs Date Time Temp Pulse Resp B/P (MAP) Pulse Ox O2 Delivery O2 Flow Rate FiO2 09/09/17 08:29 97.0 99 24 117/58 (77) 93 Room Air Laboratory Data Labs 24H Laboratory Tests 2 09/08/17 16:52: Bedside Glucose (Misc Panel) 261H 09/08/17 20:34: Bedside Glucose (Misc Panel) 67L 09/08/17 21:23: Bedside Glucose (Misc Panel) 155H 09/09/17 04:09: Bedside Glucose (Misc Panel) 166H 09/09/17 06:08: Nucleated Red Blood Cells % (auto) 0.0, Anion Gap 7L, Glomerular Filtration Rate > 60.0, Blood Urea Nitrogen 6L, Creatinine 0.71, Sodium Level 135L, Potassium Level 3.2L, Chloride Level 99, Carbon Dioxide Level 29, Calcium Level 8.3L CBC/BMP Laboratory Tests 09/09/17 06:08 Red Blood Count 4.03 L, Mean Corpuscular Volume 76.7 L, Mean Corpuscular Hemoglobin 23.8 L, Mean Corpuscular Hemoglobin Concent 31.1 L, Red Cell Distribution Width 20.7 H, Calcium Level 8.3 L FSBS Laboratory Tests Test 09/08/17 16:52 09/08/17 20:34 09/08/17 21:23 09/09/17 04:09 Range/Units Bedside Glucose (Misc Panel) 261 67 155 166 83-110 MG/DL Microbiology Microbiology 09/05/17 Blood Culture - Preliminary, Resulted No Growth after 72 hours. All specime... 09/05/17 Blood Culture - Preliminary, Resulted No Growth after 72 hours. All specime... Discharge Medications Scheduled Ascorbic Acid (Vitamin C) 500 Mg Tab, 500 MG PO BID Atorvastatin Calcium (Atorvastatin Calcium) 40 Mg Tab, 40 MG PO DAILY, (Reported ) Docusate Sodium (Stool Softener) 100 Mg Cap, 100 MG PO BID Ferrous Gluconate (Ferrous Gluconate) 324 Mg Tab, 324 MG PO BID Guaifenesin (Mucinex) 600 Mg Tab, 600 MG PO BID Metformin Hydrochloride (Metformin HCl ER) 500 Mg Tab, 2,000 MG PO DAILY, ( Reported) Omeprazole (Omeprazole) 40 Mg Cap, 40 MG PO BID Prednisone (Prednisone) 5 Mg Tab, 10 MG PO DAILY, (Reported) Salmeterol/Fluticasone (Advair Diskus 250-50 Mcg/Dose) 14 Puff/Inhaler Aerp, 1 PUFF INH BID Sucralfate (Carafate) 1 Gm Tab, 1 GM PO Q6H Tiotropium [place] Monohydrate (Spiriva Handihaler) 5 Inhalation/Inhaler Powd, 1 INHALATION INH DAILY@08 Scheduled PRN Albuterol Sulfate (Ventolin Hfa) 200 Puff/8 Gm Aers, 2 PUFF INH Q4H PRN for SHORTNESS OF BREATH, (Reported) Albuterol/Ipratropium (Ipratropium [place]/Albut 0.5-2.5 (3) mg/3Ml) 1 Kandi Kandi, 1 NEB INH Q4H PRN for SOB/WHEEZING, (Reported) Zolpidem Tartrate (Ambien) 5 Mg Tab, 5 MG PO QHS PRN for SLEEP, (Reported) Allergies Coded Allergies: No Known Allergies (Unverified , 03/02/16) BOB OGLESBY MD Sep 09, 2017 13:57
[2017-09-09] MEDS ORDERED: IPRASOL4 IN (13:59)
== END 2017-09-09 10:56 | disposition home or self-care (01) | DRG 378 ==
LOC: M ED 08:09 → M ED INP 09:49 → M PCU 13:34
PROVIDERS: ADMIT Hospitalist; ATTEND Hospitalist
DX: K92.2 Gastrointestinal hemorrhage, unspecified (principal); E87.2 Acidosis; D62 Acute posthemorrhagic anemia; D50.9 Iron deficiency anemia, unspecified; J44.1 Chronic obstructive pulmonary disease with (acute) exacerbation; H10.9 Unspecified conjunctivitis; F17.210 Nicotine dependence, cigarettes, uncomplicated; E11.9 Type 2 diabetes mellitus without complications; E78.5 Hyperlipidemia, unspecified; Z92.3 Personal history of irradiation; Z85.46 Personal history of malignant neoplasm of prostate; Z79.84 Long term (current) use of oral hypoglycemic drugs; Z79.899 Other long term (current) drug therapy; Z79.52 Long term (current) use of systemic steroids

== ENCOUNTER → 2017-09-16 | Outpatient (CLI) | payer MEDICARE ==
[~2017-09-16] MED LIST changes: +ADV250INH INH; +COMBAER6 INH; +IPRASOL4 IN; +MUCI600T37 PO; +OMEP40CA2 PO; +SUCR1TA PO
[2017-09-16 13:28] LABS: BASO % 0.2 % (0.0-1.0); EOS % 0.2 % (0.0-3.0); IMMATURE GRANULOCYTE % 0.8 % (0-0); LYMPH # 1.3 10^3/uL (1.5-4.5); MEAN CORPUSCULAR HEMOGLOBIN 23.7 pg (27.0-33.0); MEAN CORPUSCULAR HGB CONC 29.6 g/dl (32.0-36.5); MEAN CORPUSCULAR VOLUME 80.2 fl (80.0-96.0); MONO # 0.4 10^3/uL (0.0-0.8); MONO % 2.2 % (0.0-5.0); NEUTROPHILS # 13.9 10^3/uL (1.8-7.7); NEUTROPHILS % 88.6 % (36.0-66.0); PLATELET COUNT, AUTOMATED 512 10^3/uL (150-450); RED CELL DISTRIBUTION WIDTH 21.6 % (11.5-14.5); WHITE BLOOD COUNT 15.7 10^3/uL (4.0-10.0)
[2017-09-16 13:50] LABS: PERCENT SATURATION 52.2 % (19.7-50.0)
== END ==
LOC: M SMT 10:11
PROVIDERS: ATTEND Emergency Medicine
DX: D50.0 Iron deficiency anemia secondary to blood loss (chronic) (principal)

== ENCOUNTER 2017-09-21 07:40 | Inpatient (IN) | payer MEDICARE ==
[~2017-09-21] VITALS: Ht 177.8 cm; Wt 74.3 kg
[~2017-09-21 07:40] MED LIST changes: -COMBAER6 INH
[2017-09-21] MEDS ORDERED: IPRATROPIUM 0.5MG/ALBUTEROL 2.5MG INH SOL UD 3ML (DUONEB)(J7620) NEB ONE ×3 (08:30→12:45)
[2017-09-21] MEDS ORDERED: methylPREDNISolone INJ 125 MG/2 ML VIAL (J2930) IV ONE (08:30)
[2017-09-21] MEDS ORDERED: ALBUTEROL SULFATE 2.5 MG/0.5 ML INH NEB SOLN INH ONE ×3 (08:30→12:45)
[2017-09-21 08:31] LABS: BASO # 0.1 10^3/uL (0.0-0.2); BASO % 0.3 % (0.0-1.0); EOS # 0.1 10^3/uL (0.0-0.50); EOS % 0.9 % (0.0-3.0); IMMATURE GRANULOCYTE % 0.6 % (0-0); LYMPH # 1.8 10^3/uL (1.5-4.5); LYMPH % 12.1 % (24.0-44.0); MEAN CORPUSCULAR HEMOGLOBIN 24.1 pg (27.0-33.0); MEAN CORPUSCULAR VOLUME 80.5 fl (80.0-96.0); MONO # 0.6 10^3/uL (0.0-0.8); MONO % 3.9 % (0.0-5.0); NEUTROPHILS # 11.9 10^3/uL (1.8-7.7); NEUTROPHILS % 82.2 % (36.0-66.0); PLATELET COUNT, AUTOMATED 300 10^3/uL (150-450); RED CELL DISTRIBUTION WIDTH 21.3 % (11.5-14.5); WHITE BLOOD COUNT 14.5 10^3/uL (4.0-10.0)
[2017-09-21] MEDS: NS 1,000 ML IV SCH ×2 (08:36→14:42)
[2017-09-21 08:47] LABS: ABG HCO3 27.6 MEQ/L (22.0-26.0); ABG PARTIAL PRESSURE CO2 42.5 mmHg (35.0-45.0); ABG STANDARD HCO3 27.1 MEQ/L (22.0-26.0); ABG TOTAL CO2 28.9 MEQ/L (23.0-31.0)
[2017-09-21 08:50] LABS: ALBUMIN 3.1 GM/DL (3.2-5.2); ALBUMIN/GLOBULIN RATIO 0.94 (1.00-1.93); ALKALINE PHOSPHATASE 78 U/L (45-117); ALT/SGPT 19 U/L (12-78); ANION GAP 8 MEQ/L (8-16); AST/SGOT 15 U/L (7-37); BILIRUBIN,DIRECT < 0.1 MG/DL (0.0-0.2); BILIRUBIN,TOTAL 0.2 MG/DL (0.2-1.0); BLOOD UREA NITROGEN 8 MG/DL (7-18); CALCIUM LEVEL 8.6 MG/DL (8.8-10.2); CARBON DIOXIDE LEVEL 26 MEQ/L (21-32); CHLORIDE LEVEL 101 MEQ/L (98-107); CREATININE FOR GFR 0.74 MG/DL (0.70-1.30); GLOMERULAR FILTRATION RATE > 60.0 (>42); GLUCOSE, FASTING 219 MG/DL (83-110); POTASSIUM SERUM 4.7 MEQ/L (3.5-5.1); SODIUM LEVEL 135 MEQ/L (136-145); THYROXINE (T4) 9.2 UG/DL (4.5-12.0); TOTAL PROTEIN 6.4 GM/DL (6.4-8.2)
[2017-09-21 08:59] LABS: DIGOXIN LEVEL 0.1 NG/ML (0.5-2.0)
--- NOTE | 2017-09-21 08:59 | REP ---
Clinical: Cough and dyspnea . Comparison: 09/05/2017 . Findings: The mediastinum and cardiac silhouette are stable and within normal limits for portable technique. The lung chappell are clear without acute consolidation, effusion, or pneumothorax. Skeletal structures are intact. Impression: No acute cardiopulmonary process appreciated. Signed by Jono Brasher MD 09/21/2017 08:51 A
[2017-09-21] MEDS ORDERED: ENOXAPARIN 40 MG/0.4 ML SYRINGE (J1650) SC SCH (09:00)
[2017-09-21 09:23] LABS: INR 1.02
--- NOTE | 2017-09-21 09:27 | ECGEPIP ---
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
[2017-09-21] MEDS ORDERED: ISOVUE-370 76% 100ML VIAL (Q9967) As Ordered ONE (10:28)
--- NOTE | 2017-09-21 11:13 | REP ---
Clinical: Acute chest pain radiating to the left back. Comparison: 02/04/2017. Technique: Axial contrast enhanced images from the thoracic inlet to the upper abdomen using 100 ml Isovue 370 intravenous contrast material with coronal and sagittal re-formations. Findings: Satisfactory enhancement of the pulmonary vasculature is achieved and no filling defects are identified to suggest pulmonary embolus. Thoracic aorta is normal caliber without aneurysm or dissection. Heart and pericardium are normal. Bilateral lung chappell demonstrate moderate emphysematous changes and scattered scarring without acute pulmonary parenchymal consolidation or atelectasis. No nodule or mass lesion. No pleural effusion/reaction. No pneumothorax. No adenopathy. Impression: 1. No evidence for pulmonary embolus. No thoracic aortic aneurysm or dissection. 2. Chronic emphysematous changes and scarring. No acute pleuroparenchymal or mediastinal process. Signed by Jono Brasher MD 09/21/2017 11:05 A
[2017-09-21] MEDS ORDERED: COMBAER6 INH (14:21)
[2017-09-21] MEDS ORDERED: IPRATROPIUM 0.5MG/ALBUTEROL 2.5MG INH SOL UD 3ML (DUONEB)(J7620) NEB PRN (14:30)
[2017-09-21] MEDS ORDERED: ACETAMINOPHEN TAB 650MG DOSE (2X325MG) PO PRN (14:30)
--- NOTE | 2017-09-21 14:43 | HPEPDOC ---
[facility] Medical History & Physical Date of Admission Sep 21, 2017 History and Physical DATE OF ADMISSION: 09/21/17 ATTENDING: Dr. Huff PCP: Dr Álvarez. Pulmonary. Dr Pruitt CC: SOB HPI: 72yoM with a past medical history significant for recent admission to [facility] 09/05/17-09/09/17 related to upper GI bleeding and COPD exacerbation. Pt was arranged to F/U with Dr Garcia for outpt evaluation with UGI, Pt states this has been scheduled through his office. Pt denies any recurrent bleeding or changes with stools. Pt states onset of SOB last PM. Pt states left sided CP, radiating down spine. Coughing with white sputum. Subjective chills, no fevers. Uses Prednisone 10 mg daily at home, does not use O2 at home. Pt states he continues to smoke. Chronically sleeps in a recliner. Denies any fevers, chills, weakness, fatigue, DAY, CP, SOB, cough, palpitations, abdominal pain, N/V/D or changes in bowel or bladder habits. Upon presentation to the hospital the patient was found to have COPD exacerbation, thus the hospitalist team was consulted. PAST MEDICAL HISTORY: Iron Deficient Anemia severe COPD on chronic prednisone 10 mg daily [id number]-yrivwoaqu diabetes mellitus hyperlipidemia history of prostate cancer status post radiation UGI bleeding 09/11 PAST SURGICAL HISTORY: Denies. Pt states UGI scheduled 10/[address] Garcia. SOCIAL HISTORY: History of 2 packs per day 40 years now down to 1 pack per day, no alcohol or illicit drug use. FAMILY HISTORY: Noncontributory ROS: As noted in HPI, otherwise 11pt ROS of systems reviewed and unremarkable. PE: GEN: 72yoM, appears stated age. Well-nourished, well developed. No acute distress. Alert and oriented x 3. Pleasant, interactive. HEENT: Normocephalic, atraumatic. Pupils are equal, round, and reactive to light. Extraocular movements are intact. No nystagmus appreciated. Sclera are nonicteric. Conjunctiva without injection. Nose midline. No facial asymmetry. Moist mucous membranes. Pharynx pink and moist. Neck supple, trachea midline. No lymphadenopathy or thyromegaly appreciated. CHEST: Regular rate and rhythm, +S1, +S2 LUNGS: Decreased BS bilaterally, scattered exp wheeze noted. No rales, or rhonchi. Patient is speaking in full sentences. No accessory muscle use. ABD: Round, soft, non-tender, non-distended. +Bowel sounds throughout. No rebound or guarding. No costovertebral angle tenderness. EXT: Pulses 2+ bilaterally dorsalis pedis and radial. No lower extremity edema appreciated. SKIN: [place], dry, warm. Capillary refill <2sec. No rashes. NEURO: Alert and oriented x 3. Cranial nerves III-XII are intact. No focal deficits appreciated. CXR: No acute cardiopulmonary process appreciated. CTA Chest: . No evidence for pulmonary embolus. No thoracic aortic aneurysm or dissection. 2. Chronic emphysematous changes and scarring. No acute pleuroparenchymal or mediastinal process. EKG: SINUS RHYTHM WITH MARKED SINUS ARRHYTHMIA LOW QRS VOLTAGE IN EXTREMITY LEADS MINIMAL ST DEPRESSION BASELINE ARTIFACT AFFECTS INTERPRETATION BLOOD CULTURES: x 2 pending UA/UC pending. Sputum culture pending respiratory panel pending. CRP pending. LA 2.1 Rapid Flu neg. A&P: 72yoM with a past medical history significant for recent admission to [facility] 09/05/17-09/09/17 related to upper GI bleeding and COPD exacerbation. Pt was arranged to F/U with Dr Garcia for outpt evaluation with UGI, Pt states this has been scheduled through his office. Pt denies any recurrent bleeding or changes with stools. Pt states onset of SOB last PM. Pt states left sided CP, radiating down spine. Coughing with white sputum. Subjective chills, no fevers. Uses Prednisone 10 mg daily at home, does not use O2 at home. Pt states he continues to smoke. Chronically sleeps in a recliner. 1. The patient will be admitted to M/S for at least [address] Huff 's service. Pt is discussed with Dr Lowe. 2. SOB/COPD exacerbation. S/P IVF and IV Solumedrol in ED. BC x 2 pending. Respiratory panel pending. MRSA screen pending. Sputum culture pending. CRP pending. IV Solumedrol 60mg Q8hrs. IV Rocephin/Zmax. (Pt last on Levaquin). 3. Severe COPD/Steroid dependent. Supplemental O2 if needed goal 88-92%. Duonebs. IV Solumedrol 60mg Q8hr. 4. Chest pain. Serial CIP/Trop. 5. HLD. Continue statin. 6. NIDDM. Metformin on hold. SSI. CC diet. 7. Recent UGI bleed. Hgb stable 9-10. Cont PPI BID, Carafate AC/HS. Outpt eval/F /U planned with Dr Garcia. 8. Fe def anemia. Cont Fe supplement. 9. Constipation. Cont Colace BID. 10. H/O prostate Ca. S/P RT. DVT prophylaxis. SCD/TEDS. Vital Signs Vital Signs Date Time Temp Pulse Resp B/P (MAP) Pulse Ox O2 Delivery O2 Flow Rate FiO2 09/21/17 13:58 102 24 147/67 (93) 94 Nasal Cannula 2.0 09/21/17 07:41 97.8 Laboratory Data Labs 24H Laboratory Tests 2 09/21/17 08:11: Immature Granulocyte % (Auto) 0.6H, White Blood Count 14.5H, Red Blood Count 3.94L, Hemoglobin 9.5L, Hematocrit 31.7L, Mean Corpuscular Volume 80.5, Mean Corpuscular Hemoglobin 24.1L, Mean Corpuscular Hemoglobin Concent 30.0L, Red Cell Distribution Width 21.3H, Platelet Count 300, Neutrophils (%) (Auto) 82.2H , Lymphocytes (%) (Auto) 12.1L, Monocytes (%) (Auto) 3.9, Eosinophils (%) (Auto ) 0.9, Basophils (%) (Auto) 0.3, Neutrophils # (Auto) 11.9H, Lymphocytes # (Auto ) 1.8, Monocytes # (Auto) 0.6, Eosinophils # (Auto) 0.1, Basophils # (Auto) 0.1 , Immature Granulocyte # (Auto) 0.1H, Nucleated Red Blood Cells % (auto) 0.0 09/21/17 08:18: Blood Gas Bicarbonate Standard 27.1H, Arterial Blood pH 7.430, Arterial Blood Partial Pressure CO2 42.5, Arterial Blood Partial Pressure O2 101.0H, Arterial Blood Total CO2 28.9, Arterial Blood HCO3 27.6H, Arterial Blood Base Excess 3.0H , Arterial Blood Oxygen Saturation 97.8, Anion Gap 8, Glomerular Filtration Rate > 60.0, Calcium Level 8.6L, Aspartate Amino Transf (AST/SGOT) 15, Alanine Aminotransferase (ALT/SGPT) 19, Alkaline Phosphatase 78, Total Bilirubin 0.2, Direct Bilirubin < 0.1, Total Creatine Kinase 41, Creatine Kinase MB 1.1, Creatine Kinase MB Relative Index 2.68, Troponin I < 0.02, TW-Yto-C-Type Natriuretic Peptide 43, Total Protein 6.4, Albumin 3.1L, Albumin/Globulin Ratio 0.94L, Thyroid Stimulating Hormone (TSH) 3.620, Thyroxine (T4) 9.2, Digoxin Level 0.1L 09/21/17 08:26: Lactic Acid Level 2.1*H 09/21/17 08:47: Prothrombin Time 13.6, Prothromb Time International Ratio 1.02 09/21/17 11:13: Total Creatine Kinase 41, Creatine Kinase MB 1.1, Creatine Kinase MB Relative Index 2.68, Troponin I < 0.02 CBC/BMP Laboratory Tests 09/21/17 08:11 Red Blood Count 3.94 L, Mean Corpuscular Volume 80.5, Mean Corpuscular Hemoglobin 24.1 L, Mean Corpuscular Hemoglobin Concent 30.0 L, Red Cell Distribution Width 21.3 H, Neutrophils (%) (Auto) 82.2 H, Lymphocytes (%) (Auto ) 12.1 L, Monocytes (%) (Auto) 3.9, Eosinophils (%) (Auto) 0.9, Basophils (%) ( Auto) 0.3, Neutrophils # (Auto) 11.9 H, Lymphocytes # (Auto) 1.8, Monocytes # ( Auto) 0.6, Eosinophils # (Auto) 0.1, Basophils # (Auto) 0.1 09/21/17 08:18 Microbiology Microbiology 09/21/17 Blood Culture, Received Pending 09/21/17 Blood Culture, Received Pending 09/21/17 Gram Stain - Final, Resulted 09/21/17 Sputum Culture, Resulted Pending 09/21/17 Influenza Virus Type A Antigen - Final, Complete 09/21/17 Influenza Virus Type B Antigen - Final, Complete Home Medications Scheduled Ascorbic Acid (Vitamin C) 500 Mg Tab, 500 MG PO BID Atorvastatin Calcium (Atorvastatin Calcium) 40 Mg Tab, 40 MG PO DAILY Docusate Sodium (Stool Softener) 100 Mg Cap, 100 MG PO BID Ferrous Gluconate (Ferrous Gluconate) 324 Mg Tab, 324 MG PO BID Guaifenesin (Mucinex) 600 Mg Tab, 600 MG PO BID Metformin Hydrochloride (Metformin HCl ER) 500 Mg Tab, 2,000 MG PO DAILY Omeprazole (Omeprazole) 40 Mg Cap, 40 MG PO BID Prednisone (Prednisone) 5 Mg Tab, 10 MG PO DAILY Sucralfate (Carafate) 1 Gm Tab, 1 GM PO Q6H Scheduled PRN Albuterol Sulfate (Ventolin Hfa) 200 Puff/8 Gm Aers, 2 PUFF INH Q4H PRN for SHORTNESS OF BREATH Albuterol/Ipratropium (Ipratropium [place]/Albut 0.5-2.5 (3) mg/3Ml) 1 Kandi Kandi, 1 NEB INH Q4H PRN for SOB/WHEEZING Albuterol/Ipratropium (Combivent Respimat 20-100 Mcg/Act) 1 Aer Aer, 1 PUFF INH Q4H PRN for SHORTNESS OF BREATH Zolpidem Tartrate (Ambien) 5 Mg Tab, 5 MG PO QHS PRN for SLEEP Allergies Coded Allergies: Influenza Vaccine Live (Verified Adverse Reaction, Mild, general malaise, 09/21/17) Sera Smith Sep 21, 2017 14:43
[2017-09-21] MEDS ORDERED: GLUCAGON FOR INJ 1 MG VIAL (J1610) SC PRN (14:45)
[2017-09-21] MEDS ORDERED: DEXTROSE 50% 50 ML SYRINGE IV PRN (14:45)
[2017-09-21] MEDS ORDERED: GLUCOSE 4 GM CHEW TABLET PO PRN (14:45)
[2017-09-21] MEDS ORDERED: AZITHROMYCIN INJ 500 MG, VIAL MATE ADAPTER 1 EACH in D5W 250 ML IV SCH (16:00)
[2017-09-21] MEDS ORDERED: CEFTRIAXONE SOD 1 GM in APPROPRIATE DILUENT 1 EA IV SCH (17:00)
[2017-09-21] MEDS: methylPREDNISolone INJ 125 MG/2 ML VIAL (J2930) IV SCH (17:12)
[2017-09-21] MEDS: HumaLOG INSULIN (NovoLOG) PER UNIT SC SCH (17:30)
[2017-09-21] MEDS: SUCRALFATE 1 GM TAB PO SCH ×2 (18:00→18:50)
--- NOTE | 2017-09-21 18:30 | ECGEPIP ---
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
[2017-09-21] MEDS: IPRATROPIUM 0.5MG/ALBUTEROL 2.5MG INH SOL UD 3ML (DUONEB)(J7620) NEB SCH ×2 (20:18→23:58)
[2017-09-21 21:00] VITALS: BP 122/60
[2017-09-21] MEDS ORDERED: HumaLOG INSULIN (NovoLOG) PER UNIT SC SCH (21:00)
[2017-09-21] MEDS: OMEPRAZOLE 20 MG CAP PO SCH (21:30)
[2017-09-21] MEDS: FERROUS GLUCONATE 324 MG TAB PO SCH (21:32)
[2017-09-21] MEDS: DOCUSATE SODIUM 100 MG CAP PO SCH (21:33)
[2017-09-22] MEDS: SUCRALFATE 1 GM TAB PO SCH ×2 (00:10→06:47)
[2017-09-22] MEDS: methylPREDNISolone INJ 125 MG/2 ML VIAL (J2930) IV SCH ×2 (01:35→08:48)
[2017-09-22 06:00] VITALS: BP 126/61
[2017-09-22 06:23] LABS: BASO % 0.1 % (0.0-1.0); IMMATURE GRANULOCYTE % 0.7 % (0-0); LYMPH # 1.1 10^3/uL (1.5-4.5); LYMPH % 8.9 % (24.0-44.0); MEAN CORPUSCULAR HEMOGLOBIN 23.8 pg (27.0-33.0); MEAN CORPUSCULAR HGB CONC 30.5 g/dl (32.0-36.5); MEAN CORPUSCULAR VOLUME 78.1 fl (80.0-96.0); MONO # 0.4 10^3/uL (0.0-0.8); MONO % 3.2 % (0.0-5.0); NEUTROPHILS # 10.6 10^3/uL (1.8-7.7); NEUTROPHILS % 87.1 % (36.0-66.0); RED CELL DISTRIBUTION WIDTH 21.6 % (11.5-14.5); WHITE BLOOD COUNT 12.2 10^3/uL (4.0-10.0)
[2017-09-22 06:29] LABS: PLATELET COUNT, AUTOMATED 534 10^3/uL (150-450)
[2017-09-22 06:40] LABS: ALBUMIN 3.1 GM/DL (3.2-5.2); ALBUMIN/GLOBULIN RATIO 0.91 (1.00-1.93); ALKALINE PHOSPHATASE 63 U/L (45-117); ALT/SGPT 16 U/L (12-78); ANION GAP 9 MEQ/L (8-16); AST/SGOT 10 U/L (7-37); BILIRUBIN,TOTAL 0.2 MG/DL (0.2-1.0); BLOOD UREA NITROGEN 8 MG/DL (7-18); CALCIUM LEVEL 8.8 MG/DL (8.8-10.2); CARBON DIOXIDE LEVEL 26 MEQ/L (21-32); CHLORIDE LEVEL 102 MEQ/L (98-107); CREATININE FOR GFR 0.64 MG/DL (0.70-1.30); GLOMERULAR FILTRATION RATE > 60.0 (>42); GLUCOSE, FASTING 219 MG/DL (83-110); POTASSIUM SERUM 4.3 MEQ/L (3.5-5.1); SODIUM LEVEL 137 MEQ/L (136-145); TOTAL PROTEIN 6.5 GM/DL (6.4-8.2)
[2017-09-22] MEDS: IPRATROPIUM 0.5MG/ALBUTEROL 2.5MG INH SOL UD 3ML (DUONEB)(J7620) NEB SCH (07:11)
[2017-09-22] MEDS: DOCUSATE SODIUM 100 MG CAP PO SCH (08:47)
[2017-09-22] MEDS: FERROUS GLUCONATE 324 MG TAB PO SCH (08:47)
[2017-09-22] MEDS: OMEPRAZOLE 20 MG CAP PO SCH (08:47)
[2017-09-22] MEDS: HumaLOG INSULIN (NovoLOG) PER UNIT SC SCH (08:48)
[2017-09-22] MEDS ORDERED: ATORVASTATIN 20 MG TAB PO SCH (09:00)
[2017-09-22] MEDS ORDERED: PRED10TA2 PO (10:18)
[2017-09-22] MEDS ORDERED: SUCR1TA PO (10:18)
--- NOTE | 2017-09-22 15:51 | DSES ---
DATE OF ADMISSION: 09/21/2017 DATE OF DISCHARGE: 09/22/2017 PRIMARY CARE PROVIDER: Dr. Tito Álvarez PRIMARY DISCHARGE DIAGNOSES: 1. Chronic obstructive pulmonary disease (COPD) exacerbation. 2. Chronic iron deficiency anemia. 3. Ozy-euqroko-tudzuowyq diabetes. 4. Hyperlipidemia. 5. History of prostate cancer, status post radiation. 6. History of upper gastrointestinal bleed. 7. Active tobacco use. DISCHARGE MEDICATIONS: - prednisone taper - Carafate 1 gram by mouth before food and nightly - albuterol as needed every 4 hours - Combivent Respimat 20/100 mcg one inhalation every 4 hours as needed - ascorbic acid 500 mg twice a day - atorvastatin 40 daily - Colace 100 mg twice a day - ferrous gluconate 324 mg twice a day - Mucinex 600 mg twice a day - metformin 2 grams daily - omeprazole 40 mg twice a day - Zolpidem 5 mg at night as needed for sleep The patient may resume his home dose of prednisone after the taper is finished. HOSPITAL COURSE: This is a 72-year-old male with a history of severe COPD, steroid dependent, follows with small battery plate assembler, Dr. Pruitt, presents to the emergency room with complaints of left sided chest pain, shortness of breath, coughing with white sputum with subjective chills but no fevers. Steroid dependent 10 mg at home. Does not use any oxygen but continues to smoke. The patient was found to have decreased breath sounds with scattered expiratory wheezing. Chest x-ray and CT of the chest shows chronic emphysema and scarring. No acute issues. EKG shows sinus rhythm with sinus arrhythmia, minimal ST depression. Two sets of blood cultures were negative. Sputum and respiratory panel were negative. C-reactive protein was pending. Lactic acid was 2.1. Rapid flu was negative. Cardiac markers less than 0.02. The patient was admitted for acute COPD exacerbation and started on Solu-Medrol, Rocephin, and azithromycin. The patient had previously been on Levaquin. He was kept on oxygen to keep a goal of 88 to 92%. Troponins were cycles. EKG was unremarkable. Troponin was less than 0.02 times two sets. Blood cultures were negative. Sputum culture was pending. Gram-stain showed many gram-positive rods, many gram-positive cocci in chains, pairs and clusters. CT of the chest showed chronic emphysema. No acute pleural, parenchymal, or mediastinal process. The patient had significant symptomatic relief and was anxious to go home. He was saturating 95% on room air. Complete blood count (CBC) improved with a white count of 12,000. He was afebrile. CT of the chest shows no acute infiltrate. Blood cultures were negative. The patient was stable enough for discharge home. LABORATORY DATA AT DISCHARGE: White count 12.3, hemoglobin 8.9, hematocrit 29. Platelet count of 534. Sodium 134, potassium 4.3, chloride 102, bicarbonate 26, BUN 8, creatinine 0.64, glucose of 219, calcium 8.8, AST 10, ALT 16, alkaline phosphatase 63, total CK 32, MB fraction 1.3, troponin less than 0.02. IMAGING STUDIES: CT of the chest showed no pulmonary embolism. No acute cardiopulmonary process. Chronic emphysema and scarring. Time spent on discharge: 30 minutes. MTDD
[2017-09-23] MEDS ORDERED: predniSONE 20 MG TAB PO SCH (09:00)
== END 2017-09-22 12:00 | disposition home or self-care (01) | DRG 192 ==
LOC: M ED 07:40 → M ED INP 15:43 → M MSPAV 21:01
PROVIDERS: ADMIT Hospitalist; ATTEND General Practice
DX: J44.1 Chronic obstructive pulmonary disease with (acute) exacerbation (principal); F17.210 Nicotine dependence, cigarettes, uncomplicated; D50.9 Iron deficiency anemia, unspecified; E11.9 Type 2 diabetes mellitus without complications; E78.5 Hyperlipidemia, unspecified; Z85.46 Personal history of malignant neoplasm of prostate; Z92.3 Personal history of irradiation; Z79.52 Long term (current) use of systemic steroids; K59.00 Constipation, unspecified; Z79.84 Long term (current) use of oral hypoglycemic drugs; Z79.899 Other long term (current) drug therapy; Z88.7 Allergy status to serum and vaccine

== ENCOUNTER 2017-10-05 06:38 | Inpatient (IN) | payer MEDICARE ==
[~2017-10-05] VITALS: Ht 180.3 cm; Wt 71.8 kg
[~2017-10-05 06:38] MED LIST changes: +COMBAER6 INH
[2017-10-05] MEDS ORDERED: dexameTHASONE 20 MG/5 ML VIAL (J1100) IV ONE (07:00)
[2017-10-05 07:08] LABS: BASO % 0.4 % (0.0-1.0); EOS % 2.6 % (0.0-3.0); IMMATURE GRANULOCYTE % 0.4 % (0-0); LYMPH % 21.4 % (24.0-44.0); MEAN CORPUSCULAR HEMOGLOBIN 23.4 pg (27.0-33.0); MEAN CORPUSCULAR HGB CONC 30.2 g/dl (32.0-36.5); MEAN CORPUSCULAR VOLUME 77.7 fl (80.0-96.0); MONO % 7.3 % (0.0-5.0); NEUTROPHILS % 67.9 % (36.0-66.0); PLATELET COUNT, AUTOMATED 487 10^3/uL (150-450); RED CELL DISTRIBUTION WIDTH 19.4 % (11.5-14.5); WHITE BLOOD COUNT 13.3 10^3/uL (4.0-10.0)
[2017-10-05 07:09] LABS: BASO # 0.1 10^3/uL (0.0-0.2); EOS # 0.4 10^3/uL (0.0-0.50); LYMPH # 2.9 10^3/uL (1.5-4.5); NEUTROPHILS # 9.1 10^3/uL (1.8-7.7)
[2017-10-05] MEDS: IPRATROPIUM 0.5MG/ALBUTEROL 2.5MG INH SOL UD 3ML (DUONEB)(J7620) NEB SCH ×2 (07:17→07:20)
[2017-10-05 07:37] LABS: ANION GAP 9 MEQ/L (8-16); BLOOD UREA NITROGEN 10 MG/DL (7-18); CALCIUM LEVEL 8.4 MG/DL (8.8-10.2); CARBON DIOXIDE LEVEL 28 MEQ/L (21-32); CHLORIDE LEVEL 98 MEQ/L (98-107); GLOMERULAR FILTRATION RATE > 60.0 (>42); GLUCOSE, FASTING 241 MG/DL (83-110); POTASSIUM SERUM 4.1 MEQ/L (3.5-5.1); SODIUM LEVEL 135 MEQ/L (136-145)
--- NOTE | 2017-10-05 07:50 | REP ---
Portable chest, 07:08 a.m.: Comparisons are 09/21 2017 and 01/15/2060. The lung chappell are clear. The cardiac size is normal. The desiree, mediastinum, and bony thorax are unremarkable. Impression: Negative portable chest. There is no interval change. Signed by Alfa Collins MD 10/05/2017 07:42 A
[2017-10-05 07:57] LABS: FERRITIN 4 NG/ML (26-388); PERCENT SATURATION 5.7 % (19.7-50.0); TOTAL IRON BINDING CAPACITY 334 UG/DL (250-450)
[2017-10-05] MEDS ORDERED: PANTOPRAZOLE 40MG INJ (PROTONIX) (C9113) IV ONE (08:15)
[2017-10-05] MEDS ORDERED: PANTOPRAZOLE SODIUM 40 MG in D5W 50 ML IV SCH (09:00)
[2017-10-05] MEDS ORDERED: predniSONE 10 MG TAB PO SCH (09:00)
[2017-10-05] MEDS: ATORVASTATIN 20 MG TAB PO SCH (09:00)
[2017-10-05 09:49] LABS: VITAMIN B12 LEVEL 292 PG/ML (247-911)
[2017-10-05 09:50] LABS: FOLATE > 24.0 NG/ML (>5.4)
[2017-10-05] MEDS ORDERED: PRED10TA2 PO (09:54)
[2017-10-05] MEDS ORDERED: ACETAMINOPHEN TAB 650MG DOSE (2X325MG) PO PRN (10:45)
[2017-10-05] MEDS ORDERED: zolPIDEM TARTRATE 5 MG TAB PO PRN (11:15)
[2017-10-05] MEDS: SUCRALFATE 1 GM TAB PO SCH ×3 (12:00→21:24)
[2017-10-05 13:40] VITALS: BP 131/69
--- NOTE | 2017-10-05 13:40 | HPEPDOC ---
[facility] Medical History & Physical History and Physical Primary care provider: Dr. Álvarez Bar Back: Dr. Pruitt Date of Admission: 10/05/2017 Attending: Dr. Rhonda Melendez CHIEF COMPLAINT: Shortness of breath HISTORY OF PRESENT ILLNESS: Mr. Burris is a 72-year-old male who presents to the emergency department with a one-day history of shortness of breath. He also states he has had a nonproductive cough for the past day as well. Over the past month he has been hospitalized twice for shortness of breath and low H&H. He believes that his blood count is low once again today as he is exhibiting the same symptoms as his prior hospitalizations. He does have a history of chronic severe COPD for which she is taking prednisone daily, and he is unable to lay down flat therefore he has not been able to have an EGD performed. He is scheduled for an upper GI series on Thursday10/09/17 at [facility]. His stepdaughter has been suffering from some type of respiratory illness described as bronchitis, he does not believe he has caught this though as he denies any fevers, chills, or productive cough, and he seems to believe that his cough is about the same as his baseline. ALLERGIES: No known drug allergies, he has had an adverse reaction to the influenza live vaccine PAST MEDICAL HISTORY: Iron deficiency anemia Severe COPD on chronic prednisone Diabetes mellitus type 2, not on insulin Hyperlipidemia History of prostate cancer status post radiation Upper GI bleeding originally diagnosed approximately 1 month ago PAST SURGICAL HISTORY: No previous surgeries SOCIAL HISTORY: He smoked 2 packs per day for 40+ years. He quit 1 month ago when he was originally hospitalized FAMILY HISTORY: His father had COPD REVIEW OF SYSTEMS: Constitutional: Patient denies fevers, chills, night sweats, recent weight gain/ loss. HEENT: Patient denies blurred or double vision, transient visual disturbances, postnasal drip, epistaxis, sore throat, difficulty chewing or swallowing food. Cardiovascular: Patient denies chest discomfort/pain, palpitations, exertional dyspnea, orthopnea, edema of the extremities, claudication. Respiratory: Patient admits to dyspnea and chronic nonproductive cough. However denies any current wheezing, hemoptysis, sputum production. Gastrointestinal: Patient denies nausea, vomiting, diarrhea, constipation, abdominal pain, melena, hematochezia, hematemesis, jaundice. PHYSICAL EXAMINATION: Vitals: Temperature 99.0, pulse 92 regular, respiratory rate 22 blood pressure 106/59, pulse oximetry is 97% on room air General: Awake, alert, oriented. He is sitting upright in the ED stretcher, he does not appear to be in any acute distress. He does appear somewhat pale. HEENT: Head normocephalic atraumatic, pupils equally reactive to light and accommodation, conjunctiva are pale, sclera are nonicteric, buccal mucosa is pink and moist with no lesions in the oropharynx. He has dentures on the top and is missing multiple teeth on the bottom. Hearing is grossly intact to conversation. Respiratory: Diminished throughout, however no wheezes, rales, or rhonchi. Cardiovascular: Distant heart sounds. Abdomen: Soft, nontender, nondistended, no hepatosplenomegaly appreciated. Bowel sounds present. Extremities: 2+ pulses in the radial and dorsalis pedis bilaterally. No evidence of clubbing or cyanosis. IMAGING: Portable chest x-ray is read as no interval change MICROBIOLOGY: Respiratory panel was negative by PCR ASSESSMENT/PLAN: 1. Upper GI bleed. He is hospitalized twice in the past month for this issue. He has already been started on 2 units of blood by the ED physician, and has already shown symptomatic improvement. We will stop his Protonix drip at this time and start him on 40 mg per tonics IV twice a day. Clear liquids diet. Recheck H&H every 6 hours. Continue with home dose of Carafate 4 times a day. I have called and spoken with his surgeon Dr. Garcia who feels that an upper GI series is a reasonable conservative approach, he does feel that the patient is at risk of possible prolonged anesthesia, intubation, ventilation, and possibly prolonged time to extubation and weaning off of the ventilator due to his severe comorbidities. If the patient is comfortable with these risks and does wish to proceed with an upper GI endoscopy then he will be willing to perform this during this hospitalization. 2. Severe COPD. The patient follows with Dr. Pruitt as an outpatient, he is on 10 mg of prednisone daily chronically. He does not have any wheezing today, and does not appear to be in an acute exacerbation at this point. We will continue to monitor and continue him on his usual home regimen of bronchodilators and systemic/inhaled corticosteroids. 3. Iron deficiency anemia. This is superimposed on his subacute upper GI bleed, we will continue with iron supplementation at his usual home dose. 4. Diabetes mellitus type 2. Continue with usual home regimen, including metformin as he has a GFR greater than 60, and I do not anticipate needing a contrast dye study during this hospitalization. 5. Hyperlipidemia. Continue with home dose of atorvastatin 6. DVT prophylaxis. Patient is actively bleeding with positive fecal occult blood, therefore we will do DVT prophylaxis with teds and sequentials. My preceptor for this patient encounter was physically present in the building during the encounter and was fully available. As needed, all aspects of the patient interview, examination, medical decision making process, and medical care plan development were reviewed and approved by the preceptor. Preceptor is aware and concurs with the plan as stated in the body of this note and will attest to such by his/her cosignature. Vital Signs Vital Signs Date Time Temp Pulse Resp B/P (MAP) Pulse Ox O2 Delivery O2 Flow Rate FiO2 10/05/17 10:58 106/59 (75) 10/05/17 10:53 92 97 10/05/17 09:16 Room Air 10/05/17 06:38 99.0 22 Laboratory Data Labs 24H Laboratory Tests 2 10/05/17 07:00: Immature Granulocyte % (Auto) 0.4H, White Blood Count 13.3H, Red Blood Count 3.37L, Hemoglobin 7.9L, Hematocrit 26.2L, Mean Corpuscular Volume 77.7L, Mean Corpuscular Hemoglobin 23.4L, Mean Corpuscular Hemoglobin Concent 30.2L, Red Cell Distribution Width 19.4H, Platelet Count 487H, Neutrophils (%) (Auto) 67.9H , Lymphocytes (%) (Auto) 21.4L, Monocytes (%) (Auto) 7.3H, Eosinophils (%) (Auto ) 2.6, Basophils (%) (Auto) 0.4, Neutrophils # (Auto) 9.1H, Lymphocytes # (Auto ) 2.9, Monocytes # (Auto) 1.0H, Eosinophils # (Auto) 0.4, Basophils # (Auto) 0.1 , Immature Granulocyte # (Auto) 0.1H, Nucleated Red Blood Cells % (auto) 0.0, Anion Gap 9, Glomerular Filtration Rate > 60.0, Blood Urea Nitrogen 10, Creatinine 0.80, Sodium Level 135L, Potassium Level 4.1, Chloride Level 98, Carbon Dioxide Level 28, Calcium Level 8.4L, Total Creatine Kinase 36L, Iron Level 19L, Total Iron Binding Capacity 334, Transferrin % Saturation 5.7L, Ferritin 4L, Creatine Kinase MB 1.0, Creatine Kinase MB Relative Index 2.77, Troponin I < 0.02, C-Reactive Protein, Quantitative < 0.30, Vitamin B12 Level 292, Folate > 24.0 CBC/BMP Laboratory Tests 10/05/17 07:00 Red Blood Count 3.37 L, Mean Corpuscular Volume 77.7 L, Mean Corpuscular Hemoglobin 23.4 L, Mean Corpuscular Hemoglobin Concent 30.2 L, Red Cell Distribution Width 19.4 H, Neutrophils (%) (Auto) 67.9 H, Lymphocytes (%) (Auto ) 21.4 L, Monocytes (%) (Auto) 7.3 H, Eosinophils (%) (Auto) 2.6, Basophils (%) (Auto) 0.4, Neutrophils # (Auto) 9.1 H, Lymphocytes # (Auto) 2.9, Monocytes # ( Auto) 1.0 H, Eosinophils # (Auto) 0.4, Basophils # (Auto) 0.1, Calcium Level 8.4 L, Total Creatine Kinase 36 L Microbiology Microbiology 10/05/17 Respiratory Virus Panel (PCR) ([facility]) - Final, Complete Home Medications Scheduled Ascorbic Acid (Vitamin C) 500 Mg Tab, 500 MG PO BID Atorvastatin Calcium (Atorvastatin Calcium) 40 Mg Tab, 40 MG PO DAILY Docusate Sodium (Stool Softener) 100 Mg Cap, 100 MG PO BID Ferrous Gluconate (Ferrous Gluconate) 324 Mg Tab, 324 MG PO BID Guaifenesin (Mucinex) 600 Mg Tab, 600 MG PO BID Metformin Hydrochloride (Metformin HCl ER) 500 Mg Tab, 2,000 MG PO DAILY Omeprazole (Omeprazole) 40 Mg Cap, 40 MG PO BID Prednisone (Prednisone) 10 Mg Tab, 10 MG PO DAILY Sucralfate (Carafate) 1 Gm Tab, 1 GM PO Q6H Scheduled PRN Albuterol Sulfate (Ventolin Hfa) 200 Puff/8 Gm Aers, 2 PUFF INH Q4H PRN for SHORTNESS OF BREATH Albuterol/Ipratropium (Ipratropium [place]/Albut 0.5-2.5 (3) mg/3Ml) 1 Kandi Kandi, 1 NEB INH Q4H PRN for SOB/WHEEZING Albuterol/Ipratropium (Combivent Respimat 20-100 Mcg/Act) 1 Aer Aer, 1 PUFF INH Q4H PRN for SHORTNESS OF BREATH Zolpidem Tartrate (Ambien) 5 Mg Tab, 5 MG PO QHS PRN for SLEEP Allergies Coded Allergies: Influenza Vaccine Live (Verified Adverse Reaction, Mild, general malaise, 09/21/17) GME ATTESTATION GME ATTESTATION My faculty preceptor for this patient encounter was physically present during the encounter and was fully available. All aspects of the patient interview, examination, medical decision making process, and medical care plan development were reviewed and approved by the faculty preceptor. The faculty preceptor is aware and concurs with the plan as stated in the body of this note and will attest to such by his/her cosignature. ATTENDING NOTE I have both independently examined this patient as well as reviewed the H&P. I have discussed in detail with the resident the findings and plan of treatment as documented in the residents note. I will continue to follow the patient and offer further guidance to the patients care as necessary during this hospital stay. EMILEE Medeiros MD, DO Oct 05, 2017 11:31 RHONDA MELENDEZ MD Oct 05, 2017 13:53
[2017-10-05] MEDS: IPRATROPIUM 0.5MG/ALBUTEROL 2.5MG INH SOL UD 3ML (DUONEB)(J7620) INH PRN ×2 (13:53→19:39)
[2017-10-05] MEDS ORDERED: DEXTROSE 50% 50 ML SYRINGE IV PRN (14:15)
[2017-10-05] MEDS ORDERED: GLUCAGON FOR INJ 1 MG VIAL (J1610) SC PRN (14:15)
[2017-10-05] MEDS ORDERED: GLUCOSE 4 GM CHEW TABLET PO PRN (14:15)
[2017-10-05] MEDS: HumaLOG INSULIN (NovoLOG) PER UNIT SC SCH (17:33)
[2017-10-05] MEDS: metFORMIN (GLUCOPHAGE) 1000 MG TABLET PO SCH (17:33)
--- NOTE | 2017-10-05 19:23 | ECGEPIP ---
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
[2017-10-05] MEDS ORDERED: HumaLOG INSULIN (NovoLOG) PER UNIT SC SCH (21:00)
[2017-10-05] MEDS: PANTOPRAZOLE 40MG INJ (PROTONIX) (C9113) IV SCH (21:24)
[2017-10-05] MEDS: guaiFENesin ER 600 MG TAB PO SCH (21:24)
[2017-10-05] MEDS: FERROUS GLUCONATE 324 MG TAB PO SCH (21:24)
[2017-10-05] MEDS: ASCORBIC ACID 500 MG TAB PO SCH (21:24)
[2017-10-05] MEDS: DOCUSATE SODIUM 100 MG CAP PO SCH (21:24)
[2017-10-05 22:00] VITALS: BP 105/67
[2017-10-06] MEDS: IPRATROPIUM 0.5MG/ALBUTEROL 2.5MG INH SOL UD 3ML (DUONEB)(J7620) INH PRN ×3 (04:17→10:51)
[2017-10-06 06:00] VITALS: BP 117/60
[2017-10-06 06:48] LABS: MEAN CORPUSCULAR HEMOGLOBIN 24.9 pg (27.0-33.0); MEAN CORPUSCULAR HGB CONC 31.7 g/dl (32.0-36.5); MEAN CORPUSCULAR VOLUME 78.5 fl (80.0-96.0); PLATELET COUNT, AUTOMATED 409 10^3/uL (150-450); RED CELL DISTRIBUTION WIDTH 18.4 % (11.5-14.5)
[2017-10-06 07:09] LABS: ANION GAP 10 MEQ/L (8-16); BLOOD UREA NITROGEN 10 MG/DL (7-18); CALCIUM LEVEL 8.5 MG/DL (8.8-10.2); CARBON DIOXIDE LEVEL 25 MEQ/L (21-32); CHLORIDE LEVEL 103 MEQ/L (98-107); CREATININE FOR GFR 0.72 MG/DL (0.70-1.30); GLOMERULAR FILTRATION RATE > 60.0 (>42); GLUCOSE, FASTING 144 MG/DL (83-110); SODIUM LEVEL 138 MEQ/L (136-145)
[2017-10-06] MEDS: metFORMIN (GLUCOPHAGE) 1000 MG TABLET PO SCH (07:25)
[2017-10-06] MEDS: SUCRALFATE 1 GM TAB PO SCH ×2 (07:25→11:43)
[2017-10-06] MEDS: HumaLOG INSULIN (NovoLOG) PER UNIT SC SCH (07:25)
[2017-10-06] MEDS: ASCORBIC ACID 500 MG TAB PO SCH (08:40)
[2017-10-06] MEDS: DOCUSATE SODIUM 100 MG CAP PO SCH (08:40)
[2017-10-06] MEDS: guaiFENesin ER 600 MG TAB PO SCH (08:40)
[2017-10-06] MEDS: PANTOPRAZOLE 40MG INJ (PROTONIX) (C9113) IV SCH (08:40)
[2017-10-06] MEDS: FERROUS GLUCONATE 324 MG TAB PO SCH (08:40)
[2017-10-06] MEDS: ATORVASTATIN 20 MG TAB PO SCH (08:40)
[2017-10-06] MEDS ORDERED: predniSONE 10 MG TAB PO SCH (09:00)
--- NOTE | 2017-10-06 14:28 | DS.PDOC ---
Discharge Summary General Date of Admission Oct 05, 2017 at 11:30 Date of Discharge 10/06/2017 Discharge Summary PRIMARY CARE PHYSICIAN: Dr. Álvarez ATTENDING AT TIME OF DISCHARGE: Dr. Velazquez DISCHARGE DIAGNOS(E)S: 1. Subacute upper GI bleed 2. Severe COPD, on chronic prednisone therapy 3. Iron deficiency anemia 4. Diabetes mellitus type 2 5. Hyperlipidemia 6. History of prostate cancer status post radiation HPI & HOSPITAL COURSE: Mr. Burris is a 72-year-old male who presented to the emergency department with increased weakness and shortness of breath. He was found to be anemic upon admission. He was given 2 units of packed red blood cells, treated with IV Protonix, and put on a clear liquids diet. His H&H was checked every 6 hours and has continued to be stable, today it is 9.5 at 0620 which is the same as it was last night at 2350. He is already on a conversation with his surgeon Dr. Garcia about having a scope, and the patient does not wish to pursue this option given his significant comorbidities and increased risk of complications of as well as increased risk of a prolonged stay on a ventilator. The patient does instead wish to pursue with his scheduled upper GI series at [facility] which will happen this 10/09/2017. His GI bleed does appear to be slow in nature, and he does appear to be stable for discharge at this time. He was up walking about the floor today, his weakness and shortness of breath is significantly improved. He does not complain of any chest discomfort, wheezing, nausea, vomiting. His stools are dark, however he is also on iron supplementation therapy. His fecal occult blood test was positive. The remainder of his review of systems is negative. PHYSICAL EXAMINATION ON DISCHARGE: GENERAL: Awake, alert, oriented. He is sitting up on the edge of the bed. He does not appear to be in any acute distress. He has regained quite a bit of his color. CARDIOVASCULAR EXAMINATION: Distant heart sounds. RESPIRATORY EXAMINATION: Diminished throughout, however I do not appreciate any rales or rhonchi or wheezing. ABDOMINAL EXAMINATION: Soft, nontender, nondistended. Bowel sounds present. EXTREMITIES: No clubbing or edema noted. 2+ pulses in the radial bilaterally. DISPOSITION: Home DISCHARGE INSTRUCTIONS: Follow-up with primary care provider Dr. Álvarez within 7-10 days, as well as follow-up with Dr. Garcia a previously scheduled appointment. Also he should go to his previously scheduled upper GI series at [facility]. If symptoms return, or if you experience worsening of your symptoms, please call your doctor or return to the emergency department. DISCHARGE MEDICATIONS: No change to home medications ITEMS THAT NEED OUTPATIENT FOLLOWUP: Recommend close follow-up with primary care provider measuring an H&H every 2-3 weeks in the short-term, as he may need additional outpatient transfusions during his workup. If his upper GI series is nondiagnostic, then perhaps a PillCam may be pursued. My preceptor for this patient encounter was physically present in the building during the encounter and was fully available. As needed, all aspects of the patient interview, examination, medical decision making process, and medical care plan development were reviewed and approved by the preceptor. Preceptor is aware and concurs with the plan as stated in the body of this note and will attest to such by his/her cosignature. Vital Signs/I&Os Vital Signs Date Time Temp Pulse Resp B/P (MAP) Pulse Ox O2 Delivery O2 Flow Rate FiO2 10/06/17 09:15 Room Air 10/06/17 06:00 98.7 75 19 117/60 (79) 97 I&O- Last 24 Hours up to 6 AM 10/07/17 06:00 Intake Total 480 ml Balance 480 ml Laboratory Data Labs 24H Laboratory Tests 2 10/05/17 17:14: Bedside Glucose (Misc Panel) 228H 10/05/17 20:42: Bedside Glucose (Misc Panel) 196H 10/06/17 06:20: Nucleated Red Blood Cells % (auto) 0.0, Anion Gap 10, Glomerular Filtration Rate > 60.0, Blood Urea Nitrogen 10, Creatinine 0.72, Sodium Level 138, Potassium Level 4.0, Chloride Level 103, Carbon Dioxide Level 25, Calcium Level 8.5L CBC/BMP Laboratory Tests 10/05/17 17:53 10/05/17 23:50 10/06/17 06:20 Red Blood Count 3.82 L, Mean Corpuscular Volume 78.5 L, Mean Corpuscular Hemoglobin 24.9 L, Mean Corpuscular Hemoglobin Concent 31.7 L, Red Cell Distribution Width 18.4 H, Calcium Level 8.5 L FSBS Laboratory Tests Test 10/05/17 17:14 10/05/17 20:42 Range/Units Bedside Glucose (Misc Panel) 228 196 83-110 MG/DL Microbiology Microbiology 10/05/17 Respiratory Virus Panel (PCR) ([facility]) - Final, Complete Discharge Medications Scheduled Ascorbic Acid (Vitamin C) 500 Mg Tab, 500 MG PO BID Atorvastatin Calcium (Atorvastatin Calcium) 40 Mg Tab, 40 MG PO DAILY, (Reported ) Docusate Sodium (Stool Softener) 100 Mg Cap, 100 MG PO BID Ferrous Gluconate (Ferrous Gluconate) 324 Mg Tab, 324 MG PO BID Guaifenesin (Mucinex) 600 Mg Tab, 600 MG PO BID Metformin Hydrochloride (Metformin HCl ER) 500 Mg Tab, 2,000 MG PO DAILY, ( Reported) Omeprazole (Omeprazole) 40 Mg Cap, 40 MG PO BID Prednisone (Prednisone) 10 Mg Tab, 10 MG PO DAILY, (Reported) Sucralfate (Carafate) 1 Gm Tab, 1 GM PO Q6H Scheduled PRN Albuterol Sulfate (Ventolin Hfa) 200 Puff/8 Gm Aers, 2 PUFF INH Q4H PRN for SHORTNESS OF BREATH, (Reported) Albuterol/Ipratropium (Ipratropium [place]/Albut 0.5-2.5 (3) mg/3Ml) 1 Kandi Kandi, 1 NEB INH Q4H PRN for SOB/WHEEZING, (Reported) Albuterol/Ipratropium (Combivent Respimat 20-100 Mcg/Act) 1 Aer Aer, 1 PUFF INH Q4H PRN for SHORTNESS OF BREATH, (Reported) Zolpidem Tartrate (Ambien) 5 Mg Tab, 5 MG PO QHS PRN for SLEEP, (Reported) Allergies Coded Allergies: Influenza Vaccine Live (Verified Adverse Reaction, Mild, general malaise, 09/21/17) EMILEE HILTON DO Oct 06, 2017 14:28
== END 2017-10-06 12:06 | disposition home or self-care (01) | DRG 379 ==
LOC: M ED 06:38 → M ED INP 11:30 → M MSPAV 13:38
PROVIDERS: ADMIT Hospitalist; ATTEND Internal Medicine
PROC: 30253N1 (ICD-10-PCS; principal; 2017-10-05)
DX: K92.2 Gastrointestinal hemorrhage, unspecified (principal); J44.9 Chronic obstructive pulmonary disease, unspecified; D50.0 Iron deficiency anemia secondary to blood loss (chronic); E11.9 Type 2 diabetes mellitus without complications; E78.5 Hyperlipidemia, unspecified; Z85.46 Personal history of malignant neoplasm of prostate; Z92.3 Personal history of irradiation; Z87.891 Personal history of nicotine dependence; Z79.52 Long term (current) use of systemic steroids; Z88.7 Allergy status to serum and vaccine; Z79.84 Long term (current) use of oral hypoglycemic drugs; Z79.899 Other long term (current) drug therapy

== ENCOUNTER 2017-10-09 19:09 | Observation (INO) | payer MEDICARE ==
[~2017-10-09] VITALS: Ht 177.8 cm; Wt 65.5 kg
[2017-10-09] MEDS ORDERED: IPRATROPIUM 0.5MG/ALBUTEROL 2.5MG INH SOL UD 3ML (DUONEB)(J7620) NEB ONE ×3 (20:00→23:15)
[2017-10-09 20:12] LABS: BASO % 0.2 % (0.0-1.0); EOS # 0.3 10^3/uL (0.0-0.50); IMMATURE GRANULOCYTE % 0.4 % (0-0); LYMPH # 2.6 10^3/uL (1.5-4.5); LYMPH % 21.2 % (24.0-44.0); MEAN CORPUSCULAR HEMOGLOBIN 25.1 pg (27.0-33.0); MEAN CORPUSCULAR HGB CONC 31.5 g/dl (32.0-36.5); MEAN CORPUSCULAR VOLUME 79.7 fl (80.0-96.0); MONO # 0.9 10^3/uL (0.0-0.8); MONO % 6.8 % (0.0-5.0); NEUTROPHILS # 8.7 10^3/uL (1.8-7.7); NEUTROPHILS % 69.4 % (36.0-66.0); PLATELET COUNT, AUTOMATED 411 10^3/uL (150-450); WHITE BLOOD COUNT 12.5 10^3/uL (4.0-10.0)
[2017-10-09] MEDS ORDERED: PANTOPRAZOLE 40MG INJ (PROTONIX) (C9113) IV ONE (20:15)
[2017-10-09 20:16] LABS: INR 0.91
[2017-10-09 20:33] LABS: ALBUMIN 3.5 GM/DL (3.2-5.2); ALBUMIN/GLOBULIN RATIO 1.21 (1.00-1.93); ALKALINE PHOSPHATASE 91 U/L (45-117); ALT/SGPT 18 U/L (12-78); ANION GAP 8 MEQ/L (8-16); AST/SGOT 16 U/L (7-37); BILIRUBIN,DIRECT < 0.1 MG/DL (0.0-0.2); BILIRUBIN,TOTAL 0.3 MG/DL (0.2-1.0); BLOOD UREA NITROGEN 7 MG/DL (7-18); CALCIUM LEVEL 8.6 MG/DL (8.8-10.2); CARBON DIOXIDE LEVEL 27 MEQ/L (21-32); CHLORIDE LEVEL 103 MEQ/L (98-107); CREATININE FOR GFR 0.65 MG/DL (0.70-1.30); GLOMERULAR FILTRATION RATE > 60.0 (>42); GLUCOSE, FASTING 156 MG/DL (83-110); POTASSIUM SERUM 3.9 MEQ/L (3.5-5.1); SODIUM LEVEL 138 MEQ/L (136-145); TOTAL PROTEIN 6.4 GM/DL (6.4-8.2)
[2017-10-09] MEDS ORDERED: MORPHINE 2 MG/ML 1ML SYRINGE IV ONE (20:45)
[2017-10-09] MEDS ORDERED: ISOVUE-370 76% 100ML VIAL (Q9967) As Ordered ONE (20:46)
[2017-10-09] MEDS ORDERED: HumaLOG INSULIN (NovoLOG) PER UNIT SC SCH (21:00)
--- NOTE | 2017-10-09 21:20 | REPUSA ---
CT angiogram of the chest Clinical statement: Chest pain and shortness of breath. Technique: Multiple axial CT images were obtained from the thoracic inlet through the upper abdomen a fter a bolus administration of nonionic intravenous contrast. Coronal and sagittal reconstructions we re also obtained. Comparison: 09/21/2017. Findings: The pulmonary arteries are well-opacified with contrast, with no intraluminal filling defec ts to suggest embolism. The thoracic aorta is unremarkable. Thyroid gland is within normal limits. Th ere is no thoracic lymphadenopathy. There are no pericardial or pleural effusions. There are no acute infiltrates. There is mild diffuse emphysema. Limited imaging of the upper abdomen is unremarkable. There are no suspicious osseous lesions. Impression: Unremarkable CT examination of the chest. No evidence of pulmonary embolism Mild stable e mphysema. No acute infiltrates.
[2017-10-09 21:24] VITALS: O2SAT 94
[2017-10-09] MEDS ORDERED: methylPREDNISolone INJ 125 MG/2 ML VIAL (J2930) IV ONE (21:45)
[2017-10-09] MEDS ORDERED: COLA100C5 PO (23:33)
[2017-10-09] MEDS ORDERED: FURO20TA2 PO (23:33)
[2017-10-09] MEDS ORDERED: SUCR1TA PO (23:33)
[2017-10-09] MEDS ORDERED: OMEP40CA2 PO (23:33)
[2017-10-09] MEDS ORDERED: VITA500T88 PO (23:33)
[2017-10-09] MEDS ORDERED: PRED5TA PO (23:33)
[2017-10-09] MEDS ORDERED: FERR325T3 PO (23:33)
[2017-10-09] MEDS ORDERED: ACETAMINOPHEN TAB 650MG DOSE (2X325MG) PO PRN (23:45)
[2017-10-09] MEDS ORDERED: PERCOCET 5MG/325MG TAB PO PRN (23:45)
[2017-10-09] MEDS ORDERED: zolPIDEM TARTRATE 5 MG TAB PO PRN (23:45)
[2017-10-10] MEDS ORDERED: DEXTROSE 50% 50 ML SYRINGE IV PRN
[2017-10-10] MEDS ORDERED: GLUCOSE 4 GM CHEW TABLET PO PRN
[2017-10-10] MEDS ORDERED: GLUCAGON FOR INJ 1 MG VIAL (J1610) SC PRN
[2017-10-10 00:20] VITALS: BP 115/57
--- NOTE | 2017-10-10 04:36 | ECGEPIP ---
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
[2017-10-10 06:00] VITALS: BP 137/64
[2017-10-10] MEDS ORDERED: SUCRALFATE 1 GM TAB PO SCH (07:30)
[2017-10-10] MEDS ORDERED: HumaLOG INSULIN (NovoLOG) PER UNIT SC SCH (07:30)
--- NOTE | 2017-10-10 07:30 | REP ---
Portable chest, 08:36 p.m.: Comparison is 10/05/2017. The lung chappell are clear. The cardiac size is normal The desiree, mediastinum, and bony thorax are unremarkable. Impression: Negative PA and lateral chest. There is no interval change. Signed by Alfa Collins MD 10/10/2017 07:21 A
[2017-10-10] MEDS ORDERED: IPRATROPIUM 0.5MG/ALBUTEROL 2.5MG INH SOL UD 3ML (DUONEB)(J7620) NEB SCH (08:00)
[2017-10-10] MEDS ORDERED: OMEPRAZOLE 20 MG CAP PO SCH (09:00)
[2017-10-10] MEDS ORDERED: predniSONE 10 MG TAB PO SCH (09:00)
[2017-10-10] MEDS ORDERED: SENOKOT S TAB PO SCH (09:00)
[2017-10-10] MEDS ORDERED: FERROUS SULFATE 325MG TAB PO SCH (09:00)
[2017-10-10] MEDS ORDERED: ATORVASTATIN 20 MG TAB PO SCH (09:00)
[2017-10-10] MEDS ORDERED: FUROSEMIDE 20 MG TAB PO SCH (09:00)
--- NOTE | 2017-10-10 09:33 | HPE ---
DATE OF ADMISSION: 10/09/2017 PRIMARY CARE PROVIDER: Dr. Álvarez ATTENDING PHYSICIAN: Dr. Iraheta CHIEF COMPLAINT: Right sided lower chest wall pain and shortness of breath. HISTORY OF PRESENT ILLNESS: The patient is a 72-year-old white male with a history of chronic obstructive pulmonary disease (COPD), who presented to the hospital with above complaints. History is provided by himself. He had been hospitalized here recently due to gastrointestinal bleed. On that admission, he was not able to do a scope due to severe respiratory distress and recommended to followup as an outpatient. Today, he went for an upper GI series. When he laid down and moved around, he suddenly said that he felt horrible pain in his right lower chest wall. Examination was discontinued due to pain. After that, he also complained of shortness of breath and he was sent to the emergency room for further evaluation. In the emergency room, his workup was baseline, including negative chest x-ray, negative CT angiogram of the chest. However, when the emergency room provider walked him in the hallway, he felt very short of breath and his oxygen saturation went down to 89% so medicine service was called for admission. REVIEW OF SYSTEMS: Denies fever. No chills. No headache. No blurred vision. Chronic shortness of breath. Mild cough but no phlegm. Right sided chest wall pain, which was related to movement or deep breathing. No abdominal pain. No diarrhea. No tingling, numbness, weakness in the arms or lower extremities. All other systems reviewed but negative. PAST MEDICAL HISTORY: 1. Chronic obstructive pulmonary disease (COPD) on chronic prednisone at 5 mg by mouth daily. 2. Type 2 diabetes. 3. Dyslipidemia 4. History of prostate cancer, status post radiation. 5. Iron deficiency anemia and upper gastrointestinal bleed. PAST SURGICAL HISTORY: None. ALLERGIES: No known drug allergies. SOCIAL HISTORY: 40 pack year smoking history, quit recently. Denies alcohol abuse. Denies illicit drug abuse. He is FULL CODE. FAMILY HISTORY: His father had COPD. MEDICATIONS: Reviewed. PHYSICAL EXAMINATION: VITAL SIGNS: Temperature 97.5, heart rate is 92, respiratory rate 20, blood pressure 119/70, and oxygen saturation is 95% on room air at rest, down to 89% on exertion. GENERAL: He is awake, alert, oriented times three. He is in moderate respiratory distress. HEENT: Atraumatic. Pupils are equal, round and reactive to light. No jaundice. Extraocular muscles intact. Ears, nose, throat are normal. Mucosa dry. Neck with no jugular venous distention (JVD). No bruits. LUNGS: Diminished breath sounds. Mild wheezing. No crackles. HEART: S1, S2. Regular. No tachycardia. No murmurs. ABDOMEN: Soft. Bowel sounds present. Nontender. LOWER EXTREMITIES: No edema in bilateral lower extremities. NEUROLOGIC: Nonfocal. SKIN: No rash. PSYCHOLOGICAL: No acute psychosis. DIAGNOSTICS AND LABORATORY STUDIES: Include the following: CBC and differential: WBC 12.5, hemoglobin and hematocrit 10.9/34.4, platelets 411. Sodium 138, potassium 3.9, chloride 107, bicarbonate 27, BUN 8, creatinine 0.7, glucose 156. Chest CT angiogram was reviewed. IMPRESSION: 1. Chronic respiratory failure. 2. Chronic obstructive pulmonary disease (COPD) exacerbation. 3. Type 2 diabetes. 4. Dyslipidemia. 5. Iron deficiency anemia and upper gastrointestinal bleed. PLAN: The patient will be admitted to observation. We will treat him with nebulizers. We will taper oral prednisone. His right sided chest wall pain is likely due to muscle strain. X-ray did not show any evidence of rib fractures. He may need home oxygen evaluation. We will continue his home medications.
[2017-10-10] MEDS ORDERED: PRED10TA2 PO (10:19)
--- NOTE | 2017-10-10 11:21 | DS.PDOC ---
Discharge Summary General Date of Admission Oct 09, 2017 at 19:10 Date of Discharge 10/10/17 Discharge Summary PROCEDURES PERFORMED DURING STAY: None. ADMITTING/DISCHARGE DIAGNOSES: 1. Acute COPD exacerbation -H/o of Severe COPD with exacerbation on prednisone 2. Musculoskeletal right lower rib discomfort 3. H/o Iron deficiency anemia 4. Lig-ajqgrqd-emhtbhrfr diabetes mellitus 5. Hyperlipidemia on statin 6. History of prostate cancer status post radiation COMPLICATIONS/CHIEF COMPLAINT: right lower rib/chest wall pain HISTORY OF PRESENT ILLNESS/HOSPITAL COURSE: This is a 72-year-old male past history of severe COPD on prednisone daily, iron deficiency anemia, diabetes mellitus who presents with dyspnea and right sided musculoskeletal pain. The patient was recently getting an endoscopy when he was rolled onto the board and his right lower rib/chest region slid across the board resulting in discomfort. The patient was also dyspneic. Patient was found to have COPD exacerbation and was placed on steroids, nebs. His right-sided chest wall musculoskeletal pain was sharp in nature and has resolved. Nonpleuritic. It was reproducible to time. Nonexertional. X-ray of the right chest wall negative for rib fracture. Patient's is now hemodynamically stable. He is not hypoxic on ambulation. He is no longer wheezing. Patient feels well and would like to go home today. Patient is to return to the ED if symptoms worsen. DISCHARGE MEDICATIONS: Please see below. ALLERGIES: Please see below. PHYSICAL EXAMINATION ON DISCHARGE: Vitals: (see below) General: No acute distress, laying comfortably in bed. HEENT: Moist mucous membranes. Neck: No JVD or lymphadenopathy Cardiac: RRR, No murmurs Pulm: Clear to auscultation b/l. No wheezing, rhonchi Abd: NT/ND + BS Ext: No edema or cyanosis LABORATORY DATA: Please see below. PROGNOSIS: Fair, although has severe COPD ACTIVITY: As tolerated. DIET: COPD diet, carb consistent DISCHARGE PLAN/DISPOSITION: D/c Home DISCHARGE INSTRUCTIONS: 1.F/u up with PCP in 1-2 weeks. Return to the ED if symptoms worsen. DISCHARGE CONDITION: Stable. TIME SPENT ON DISCHARGE: Greater than 30 minutes. Vital Signs/I&Os Vital Signs Date Time Temp Pulse Resp B/P (MAP) Pulse Ox O2 Delivery O2 Flow Rate FiO2 10/10/17 10:13 Nasal Cannula 2.0 10/10/17 06:00 97.8 100 20 137/64 (88) 97 Laboratory Data Labs 24H Laboratory Tests 2 10/09/17 19:24: Immature Granulocyte % (Auto) 0.4H, White Blood Count 12.5H, Red Blood Count 4.34, Hemoglobin 10.9L, Hematocrit 34.6L, Mean Corpuscular Volume 79.7L, Mean Corpuscular Hemoglobin 25.1L, Mean Corpuscular Hemoglobin Concent 31.5L, Red Cell Distribution Width 19.0H, Platelet Count 411, Neutrophils (%) (Auto) 69.4H , Lymphocytes (%) (Auto) 21.2L, Monocytes (%) (Auto) 6.8H, Eosinophils (%) (Auto ) 2.0, Basophils (%) (Auto) 0.2, Neutrophils # (Auto) 8.7H, Lymphocytes # (Auto ) 2.6, Monocytes # (Auto) 0.9H, Eosinophils # (Auto) 0.3, Basophils # (Auto) 0.0 , Immature Granulocyte # (Auto) 0.1H, Nucleated Red Blood Cells % (auto) 0.0, Prothrombin Time 12.3L, Prothromb Time International Ratio 0.91, Activated Partial Thromboplast Time 27.6, Anion Gap 8, Glomerular Filtration Rate > 60.0, Calcium Level 8.6L, Aspartate Amino Transf (AST/SGOT) 16, Alanine Aminotransferase (ALT/SGPT) 18, Alkaline Phosphatase 91, Total Bilirubin 0.3, Direct Bilirubin < 0.1, Total Creatine Kinase 39, Creatine Kinase MB 1.0, Creatine Kinase MB Relative Index 2.56, Troponin I < 0.02, TH-Kdw-O-Type Natriuretic Peptide 71, Total Protein 6.4, Albumin 3.5, Albumin/Globulin Ratio 1.21 10/10/17 01:05: Bedside Glucose (Misc Panel) 191H 10/10/17 06:48: Bedside Glucose (Misc Panel) 256H CBC/BMP Laboratory Tests 10/09/17 19:24 Red Blood Count 4.34, Mean Corpuscular Volume 79.7 L, Mean Corpuscular Hemoglobin 25.1 L, Mean Corpuscular Hemoglobin Concent 31.5 L, Red Cell Distribution Width 19.0 H, Neutrophils (%) (Auto) 69.4 H, Lymphocytes (%) (Auto ) 21.2 L, Monocytes (%) (Auto) 6.8 H, Eosinophils (%) (Auto) 2.0, Basophils (%) (Auto) 0.2, Neutrophils # (Auto) 8.7 H, Lymphocytes # (Auto) 2.6, Monocytes # ( Auto) 0.9 H, Eosinophils # (Auto) 0.3, Basophils # (Auto) 0.0 FSBS Laboratory Tests Test 10/10/17 01:05 10/10/17 06:48 Range/Units Bedside Glucose (Misc Panel) 191 256 83-110 MG/DL Discharge Medications Scheduled Ascorbic Acid (Vitamin C) 500 Mg Tab, 500 MG PO BID, (Reported) Atorvastatin Calcium (Atorvastatin Calcium) 40 Mg Tab, 40 MG PO DAILY, (Reported ) Docusate Sodium (Colace) 100 Mg Cap, 100 MG PO DAILY, (Reported) Ferrous Sulfate (Ferrous Sulfate) 325 Mg Tab, 325 MG PO BID, (Reported) Furosemide (Furosemide) 20 Mg Tab, 20 MG PO DAILY, (Reported) Metformin Hydrochloride (Metformin HCl ER) 500 Mg Tab, 2,000 MG PO DAILY, ( Reported) Omeprazole (Omeprazole) 40 Mg Cap, 40 MG PO BID, (Reported) Prednisone (Prednisone) 5 Mg Tab, 5 MG PO DAILY, (Reported) Prednisone (Prednisone) 10 Mg Tab, 10 MG PO TAPER Take 3 tabs daily x 3 days, then 2 tabs daily x 3 days, then 1 tabs daily x 3 days, then stop Sucralfate (Carafate) 1 Gm Tab, 1 GM PO ACHS, (Reported) Scheduled PRN Albuterol Sulfate (Ventolin Hfa) 200 Puff/8 Gm Aers, 2 PUFF INH Q4H PRN for SHORTNESS OF BREATH, (Reported) Albuterol/Ipratropium (Ipratropium [place]/Albut 0.5-2.5 (3) mg/3Ml) 1 Kandi Kandi, 1 VIAL INH Q4H PRN for SOB/WHEEZING, (Reported) Zolpidem Tartrate (Ambien) 5 Mg Tab, 5 MG PO QHS PRN for SLEEP, (Reported) Allergies Coded Allergies: Influenza Vaccine Live (Verified Adverse Reaction, Mild, general malaise, 09/21/17) BOB OGLESBY MD Oct 10, 2017 11:21
== END 2017-10-10 11:29 | disposition home or self-care (01) ==
LOC: M ED 19:09 → M ED INP 19:10 → M MSPAV 10-10 00:31
PROVIDERS: ADMIT Hospitalist; ATTEND Internal Medicine
DX: J44.1 Chronic obstructive pulmonary disease with (acute) exacerbation (principal); R07.81 Pleurodynia; D50.9 Iron deficiency anemia, unspecified; E11.9 Type 2 diabetes mellitus without complications; E78.5 Hyperlipidemia, unspecified; J96.10 Chronic respiratory failure, unspecified whether with hypoxia or hypercapnia; Z85.46 Personal history of malignant neoplasm of prostate; Z92.3 Personal history of irradiation; Z87.19 Personal history of other diseases of the digestive system; Z79.899 Other long term (current) drug therapy; Z79.52 Long term (current) use of systemic steroids; Z79.84 Long term (current) use of oral hypoglycemic drugs; Z88.7 Allergy status to serum and vaccine; Z87.891 Personal history of nicotine dependence

== ENCOUNTER 2017-10-12 09:44 | Inpatient (IN) | payer MEDICARE ==
[~2017-10-12] VITALS: Ht 170.2 cm; Wt 71.8 kg
[~2017-10-12 09:44] MED LIST changes: +COLA100C5 PO; +FERR325T3 PO; +FURO20TA2 PO; +VITA500T88 PO
--- NOTE | 2017-10-12 10:38 | REP ---
PORTABLE CHEST: Single view. Comparison 10/09/2017. There is no evidence of acute infiltrate. No pleural effusion is seen. The heart is normal in size. The mediastinal silhouette is unremarkable. The visualized osseous structures are intact. There is mild calcification of the thoracic aorta. IMPRESSION: No acute pulmonary disease. Signed by Alfa Fox MD 10/12/2017 05:55 P
[2017-10-12] MEDS ORDERED: IPRATROPIUM 0.5MG/ALBUTEROL 2.5MG INH SOL UD 3ML (DUONEB)(J7620) NEB ONE ×2 (10:45→14:45)
[2017-10-12 10:47] LABS: BASO % 0.2 % (0.0-1.0); IMMATURE GRANULOCYTE % 0.2 % (0-0); LYMPH # 1.1 10^3/uL (1.5-4.5); MEAN CORPUSCULAR HEMOGLOBIN 25.1 pg (27.0-33.0); MEAN CORPUSCULAR HGB CONC 30.7 g/dl (32.0-36.5); MEAN CORPUSCULAR VOLUME 81.6 fl (80.0-96.0); MONO # 0.4 10^3/uL (0.0-0.8); NEUTROPHILS # 10.7 10^3/uL (1.8-7.7); NEUTROPHILS % 87.6 % (36.0-66.0); PLATELET COUNT, AUTOMATED 380 10^3/uL (150-450); RED CELL DISTRIBUTION WIDTH 19.2 % (11.5-14.5); WHITE BLOOD COUNT 12.2 10^3/uL (4.0-10.0)
[2017-10-12 11:01] LABS: INR 0.92
[2017-10-12 11:06] LABS: VENOUS BASE EXCESS -2.5 (-2.0-2.0); VENOUS O2 SATURATION 98.8 % (60.0-80.0); VENOUS PARTIAL PRESSURE CO2 42.9 mmHg (38.0-50.0); VENOUS PARTIAL PRESSURE O2 143.9 mmHg (30.0-50.0); VENOUS STANDARD HCO3 22.4 MEQ/L; VENOUS TOTAL CO2 24.4 MEQ/L (24.0-28.0)
[2017-10-12 11:34] LABS: ALBUMIN 3.5 GM/DL (3.2-5.2); ALKALINE PHOSPHATASE 91 U/L (45-117); ALT/SGPT 16 U/L (12-78); ANION GAP 8 MEQ/L (8-16); AST/SGOT 10 U/L (7-37); BILIRUBIN,DIRECT 0.1 MG/DL (0.0-0.2); BILIRUBIN,TOTAL 0.3 MG/DL (0.2-1.0); BLOOD UREA NITROGEN 10 MG/DL (7-18); CALCIUM LEVEL 8.6 MG/DL (8.8-10.2); CARBON DIOXIDE LEVEL 29 MEQ/L (21-32); CHLORIDE LEVEL 99 MEQ/L (98-107); CREATININE FOR GFR 0.59 MG/DL (0.70-1.30); GLOMERULAR FILTRATION RATE > 60.0 (>42); GLUCOSE, FASTING 240 MG/DL (83-110); POTASSIUM SERUM 4.6 MEQ/L (3.5-5.1); SODIUM LEVEL 136 MEQ/L (136-145); TOTAL PROTEIN 6.2 GM/DL (6.4-8.2)
[2017-10-12] MEDS ORDERED: ISOVUE-370 76% 100ML VIAL (Q9967) As Ordered ONE (12:15)
[2017-10-12] MEDS ORDERED: PANTOPRAZOLE 40MG INJ (PROTONIX) (C9113) IV ONE (13:15)
--- NOTE | 2017-10-12 13:30 | REP ---
CT abdomen and pelvis with IV but without oral contrast: History: Abdomen pain. Comparison study September 05, 2017. 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 The lung bases are clear. The liver and the spleen are normal in size and homogeneous in texture on postcontrast images. There is linear calcification along the capsule of the spleen anterolaterally unchanged from the September 05, 2017 prior study. There is some spray artifact from the high-density residual colon content although this is mild. A normal contrast opacified appendix is seen. No gastrointestinal tract obstruction is observed. No inflammatory changes are seen. No pancreatic lesion is observed. The kidneys enhance symmetrically and are morphologically intact. Tiny subcentimeter cortical cyst is seen in the apex on the right. No adrenal lesion is seen. No retroperitoneal mass or adenopathy is observed. Urinary bladder is unremarkable. There are dystrophic calcifications in the prostate. Impression: There is residual barium in the colon. Left colonic diverticulosis. No CT evidence of diverticulitis. Normal appendix seen. No acute abdominal or pelvic CT abnormality. Signed by Kalpesh Santoro MD 10/12/2017 04:12 P
[2017-10-12] MEDS ORDERED: ONDANSETRON 4MG/2ML VIAL (J2405) IV PRN (14:00)
[2017-10-12] MEDS ORDERED: ACETAMINOPHEN TAB 650MG DOSE (2X325MG) PO PRN (14:00)
[2017-10-12 15:30] LABS: RETIC HEMOGLOBIN EQUIVALENT 34.2 pg (24-36); RETICULOCYTE % 1.9 % (0.5-1.5)
[2017-10-12] MEDS ORDERED: GLUCAGON FOR INJ 1 MG VIAL (J1610) SC PRN (15:30)
[2017-10-12] MEDS ORDERED: GLUCOSE 4 GM CHEW TABLET PO PRN (15:30)
[2017-10-12] MEDS ORDERED: zolPIDEM TARTRATE 5 MG TAB PO PRN (15:30)
[2017-10-12] MEDS ORDERED: IPRATROPIUM 0.5MG/ALBUTEROL 2.5MG INH SOL UD 3ML (DUONEB)(J7620) NEB PRN (15:30)
[2017-10-12] MEDS ORDERED: DEXTROSE 50% 50 ML SYRINGE IV PRN (15:30)
[2017-10-12 15:37] LABS: FERRITIN 40 NG/ML (26-388); TOTAL IRON BINDING CAPACITY 320 UG/DL (250-450)
[2017-10-12 15:50] VITALS: BP 136/69
[2017-10-12] MEDS: IPRATROPIUM 0.5MG/ALBUTEROL 2.5MG INH SOL UD 3ML (DUONEB)(J7620) NEB SCH ×2 (16:00→20:25)
[2017-10-12 16:38] LABS: INR 0.91
[2017-10-12] MEDS ORDERED: methylPREDNISolone INJ 125 MG/2 ML VIAL (J2930) IV SCH (17:00)
[2017-10-12] MEDS ORDERED: methylPREDNISolone INJ 40 MG/1 ML VIAL (J2920) IV SCH (18:00)
[2017-10-12] MEDS: HumaLOG INSULIN (NovoLOG) PER UNIT SC SCH (18:01)
[2017-10-12] MEDS: SUCRALFATE SUSP 1GM/10ML UD PO SCH (18:01)
[2017-10-12] MEDS: D5W/0.45% SODIUM CHLORIDE 1,000 ML IV SCH (18:02)
--- NOTE | 2017-10-12 18:05 | HPEPDOC ---
General Date of Admission Oct 12, 2017 at 13:55 Primary Care Physician: CHARLEY MANRIQUEZ MD Attending Physician: DELPHINE BRGIGS MD Chief Complaint The patient is a 72-year-old male admitted with a reason for visit of Gi Bleeding. Source: Patient Exam Limitations: No limitations Timing/Duration: Week(s) Severity: Mild Associated Symptoms: Weakness History of Present Illness Juve Burris, 72 year old male, who presents to the ED with a history of 7 dark stools. Patient has a past medical history of chronic obstructive pulmonary disease, type 2 diabetes, dyslipidemia, history of prostate cancer status post radiation, iron deficiency anemia and upper GI bleeds. He has previously presented to hospital with similar symptoms and complaints. On his prior admission on 10/05/17 he received 2 units of transfused blood when he was admitted to [facility] for an upper GI bleed. An endoscopy was attempted admission but the study had to be discontinued because patient became apneic due to rib discomfort, and due to patient's chronic COPD he is not a candidate for sedative endoscopy. He had a colonoscopy in 2004, which revealed diverticulosis and hemorrhoids, at his prior colonoscopy 3 polyps removed. He also complains of SOB and weakness due to his COPD, which he manages with steroids and nebulizer treatments. She denied any dizziness, any blurred vision , denied any tightness, denied any headaches. He was admitted by medicine for upper GI bleed workup. Home Medications Scheduled Ascorbic Acid (Vitamin C) 500 Mg Tab, 500 MG PO BID, (Reported) Atorvastatin Calcium (Atorvastatin Calcium) 40 Mg Tab, 40 MG PO DAILY, (Reported ) Docusate Sodium (Colace) 100 Mg Cap, 100 MG PO DAILY, (Reported) Ferrous Sulfate (Ferrous Sulfate) 325 Mg Tab, 325 MG PO BID, (Reported) Furosemide (Furosemide) 20 Mg Tab, 20 MG PO DAILY, (Reported) Metformin Hydrochloride (Metformin HCl ER) 500 Mg Tab, 2,000 MG PO DAILY, ( Reported) Omeprazole (Omeprazole) 40 Mg Cap, 40 MG PO BID, (Reported) Prednisone (Prednisone) 5 Mg Tab, 5 MG PO DAILY, (Reported) Prednisone (Prednisone) 10 Mg Tab, 10 MG PO TAPER Take 3 tabs daily x 3 days, then 2 tabs daily x 3 days, then 1 tabs daily x 3 days, then stop Sucralfate (Carafate) 1 Gm Tab, 1 GM PO ACHS, (Reported) Scheduled PRN Albuterol Sulfate (Ventolin Hfa) 200 Puff/8 Gm Aers, 2 PUFF INH Q4H PRN for SHORTNESS OF BREATH, (Reported) Albuterol/Ipratropium (Ipratropium [place]/Albut 0.5-2.5 (3) mg/3Ml) 1 Kandi Kandi, 1 VIAL INH Q4H PRN for SOB/WHEEZING, (Reported) Zolpidem Tartrate (Ambien) 5 Mg Tab, 5 MG PO QHS PRN for SLEEP, (Reported) Allergies Coded Allergies: Influenza Vaccine Live (Verified Adverse Reaction, Mild, general malaise, 09/21/17) Past Medical History Medical History Patient has pmh of insomnia, DM2, prostate cancer post radiation, dyslipidemia, iron deficiency anemia, upper GI bleed, diverticulosis, COPD, and kidney stones Surgical History denies any surgical history Family History Significant Family History: Lung disease Social History * Smoker: former Smoker (1 ppd for 40 years), greater than 1 pack/day, cigarettes Alcohol: heavy (quit in july of 2017) Drugs: denies He smoked 2 ppd for 50 years until he quit July 2017. He also has a history of heavy drinking, admitting to drinking 12 beers per night for 50 years, also quitting in July 2017. Review of Systems Constitutional: Reports: Weakness, Denies: Chills, Fever, Malaise, Night Sweats ENT: Reports: Sore Throat, Denies: Head Aches Pulmonary: Reports: Dyspnea, Cough, Denies: Pleuritic Chest Pain Cardiovascular: Denies: Chest Pain, Palpitations, Edema, Lt Headedness Gastrointestinal: Reports: Diarrhea, Melena, Denies: Nausea, Vomiting, Abdominal Pain, Hematochezia Genitourinary: Denies: Dysuria, Hematuria Neurological: Reports: Weakness Physical Examination General Exam: Positive: Alert, No Acute Distress Eye Exam: Positive: Conjunctiva & lids normal ENT Exam: Positive: Atraumatic, Mucous membr. moist/pink, Pharynx Normal Chest Exam: Positive: Diminished Heart Exam: Positive: Other (heart sounds distant) Abdomen Exam: Positive: Normal bowel sounds, Soft, Negative: Tenderness, Hepatospenomegaly Extremity Exam: Negative: Edema Neuro Exam: Positive: Normal Speech, Cranial Nerves 3-12 NL Psych Exam: Positive: Mood NL Vital Signs Vital Signs Date Time Temp Pulse Resp B/P (MAP) Pulse Ox O2 Delivery O2 Flow Rate FiO2 10/12/17 15:35 98.1 72 18 133/81 (98) 99 Room Air Laboratory Data Labs 24H Laboratory Tests 2 10/12/17 10:33: Immature Granulocyte % (Auto) 0.2H, White Blood Count 12.2H, Red Blood Count 4.35, Hemoglobin 10.9L, Hematocrit 35.5L, Mean Corpuscular Volume 81.6, Mean Corpuscular Hemoglobin 25.1L, Mean Corpuscular Hemoglobin Concent 30.7L, Red Cell Distribution Width 19.2H, Platelet Count 380, Neutrophils (%) (Auto) 87.6H , Lymphocytes (%) (Auto) 9.0L, Monocytes (%) (Auto) 3.0, Eosinophils (%) (Auto) 0.0, Basophils (%) (Auto) 0.2, Neutrophils # (Auto) 10.7H, Lymphocytes # (Auto) 1.1L, Monocytes # (Auto) 0.4, Eosinophils # (Auto) 0.0, Basophils # (Auto) 0.0, Immature Granulocyte # (Auto) 0.0, Reticulocyte # (auto) 77.5H, Nucleated Red Blood Cells % (auto) 0.0, Percent Reticulocyte Count 1.9H, Reticulocyte Hemoglobin Equivalent 34.2, Prothrombin Time 12.4, Prothromb Time International Ratio 0.92, Blood Gas Bicarbonate Standard 22.4, Venous Blood pH 7.349, Venous Blood Partial Pressure CO2 42.9, Venous Blood Partial Pressure O2 143.9H, Venous Blood Total Carbon Dioxide 24.4, Venous Blood HCO3 23.1, Venous Blood Oxygen Saturation 98.8H, Venous Blood Base Excess -2.5L, Anion Gap 8, Glomerular Filtration Rate > 60.0, Calcium Level 8.6L, Iron Level 144, Total Iron Binding Capacity 320, Transferrin % Saturation 45.0, Ferritin 40, Aspartate Amino Transf (AST/SGOT) 10, Alanine Aminotransferase (ALT/SGPT) 16, Alkaline Phosphatase 91, Total Bilirubin 0.3, Direct Bilirubin 0.1, Total Creatine Kinase 23L, Creatine Kinase MB 1.0, Creatine Kinase MB Relative Index 4.34H, Troponin I < 0.02, UF-Fwd-G-Type Natriuretic Peptide 61, Total Protein 6.2L, Albumin 3.5, Albumin/Globulin Ratio 1.30, Thyroid Stimulating Hormone (TSH ) 2.060 10/12/17 15:57: Prothrombin Time 12.3L, Prothromb Time International Ratio 0.91, Activated Partial Thromboplast Time 25.4L 10/12/17 15:58: Estimated Mean Plasma Glucose 169H, Hemoglobin A1c 7.5 CBC/BMP Laboratory Tests 10/12/17 10:33 Red Blood Count 4.35, Mean Corpuscular Volume 81.6, Mean Corpuscular Hemoglobin 25.1 L, Mean Corpuscular Hemoglobin Concent 30.7 L, Red Cell Distribution Width 19.2 H, Neutrophils (%) (Auto) 87.6 H, Lymphocytes (%) (Auto) 9.0 L, Monocytes ( %) (Auto) 3.0, Eosinophils (%) (Auto) 0.0, Basophils (%) (Auto) 0.2, Neutrophils # (Auto) 10.7 H, Lymphocytes # (Auto) 1.1 L, Monocytes # (Auto) 0.4 , Eosinophils # (Auto) 0.0, Basophils # (Auto) 0.0 Assessment/Plan Upper GI bleed --fecal occult ordere -Unfortunately he is not a candidate for an upper GI endoscope due to his COPD and rib pain. At this point plan will be to monitor patient's H&H, administer GI protection, eliminate all medications that could lead to GI bleed and given IV fluids. If patient's H&H begins to decline, I might consider tagged red blood cell scan, angiography, or small bowel endoscope. His GI bleed could also be from a liver pathology, such as cirrhosis, variceal, or a small esophageal tear, although highly unlikely patient does have a 40 year history of heavy drinking. -Patients dark stool could also be explained by his iron replacement intake. -Could also consider some type of coagulopathy leading to GI bleed however, at this point his PT/INR and APTT are within normal limits Ulcer: unlikely due to the fact that Patient's GI bleed was not related to food intake. And he also did not complain of any abdominal pain -H pylori test and has been ordered to rule out also bleed Type 2 diabetes Continue home regimen COPD -IV Solu-Medrol 40 mg every 12 hours -DuoNeb History of prostate cancer status post radiation Iron deficiency anemia and upper GI bleed -Continue to take home dose of iron. GI bleed is being worked up see up Disposition patient will be admitted inpatient and at the service of Dr. Polk Plan / VTE VTE Prophylaxis Ordered?: Yes DENA DIEZ DO Oct 12, 2017 17:23 DELPHINE BRIGGS MD Oct 12, 2017 18:26
[2017-10-12] MEDS: ASCORBIC ACID 500 MG TAB PO SCH (20:21)
[2017-10-12] MEDS: PANTOPRAZOLE 40MG INJ (PROTONIX) (C9113) IV SCH (20:22)
[2017-10-12] MEDS: FERROUS SULFATE 300MG/5ML UDC LIQUID PO SCH (20:22)
[2017-10-12 22:00] VITALS: BP 105/59
[2017-10-13] MEDS: IPRATROPIUM 0.5MG/ALBUTEROL 2.5MG INH SOL UD 3ML (DUONEB)(J7620) NEB SCH ×6 (00:49→20:48)
[2017-10-13] MEDS: HumaLOG INSULIN (NovoLOG) PER UNIT SC SCH ×4 (00:57→17:28)
[2017-10-13] MEDS: SUCRALFATE SUSP 1GM/10ML UD PO SCH ×5 (00:57→20:59)
[2017-10-13] MEDS: D5W/0.45% SODIUM CHLORIDE 1,000 ML IV SCH (05:55)
[2017-10-13] MEDS: methylPREDNISolone INJ 40 MG/1 ML VIAL (J2920) IV SCH ×2 (05:56→17:27)
[2017-10-13 06:00] VITALS: BP 124/90
[2017-10-13 08:14] LABS: CONTROL LINE HPYORI INT CTR LINE PRESENT
[2017-10-13] MEDS: PANTOPRAZOLE 40MG INJ (PROTONIX) (C9113) IV SCH ×2 (08:20→20:59)
[2017-10-13] MEDS: FERROUS SULFATE 300MG/5ML UDC LIQUID PO SCH ×2 (08:20→20:59)
[2017-10-13] MEDS: ATORVASTATIN 20 MG TAB PO SCH (08:20)
[2017-10-13] MEDS: ASCORBIC ACID 500 MG TAB PO SCH ×2 (08:20→20:59)
[2017-10-13] MEDS: DOCUSATE SODIUM 100 MG CAP PO SCH (08:20)
[2017-10-13 08:38] LABS: MEAN CORPUSCULAR HEMOGLOBIN 25.4 pg (27.0-33.0); MEAN CORPUSCULAR HGB CONC 31.1 g/dl (32.0-36.5); MEAN CORPUSCULAR VOLUME 81.7 fl (80.0-96.0); PLATELET COUNT, AUTOMATED 367 10^3/uL (150-450); RED CELL DISTRIBUTION WIDTH 19.5 % (11.5-14.5); WHITE BLOOD COUNT 12.7 10^3/uL (4.0-10.0)
--- NOTE | 2017-10-13 08:38 | ECGEPIP ---
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
[2017-10-13 08:48] LABS: ANION GAP 11 MEQ/L (8-16); BLOOD UREA NITROGEN 9 MG/DL (7-18); CALCIUM LEVEL 8.6 MG/DL (8.8-10.2); CARBON DIOXIDE LEVEL 27 MEQ/L (21-32); CHLORIDE LEVEL 103 MEQ/L (98-107); CREATININE FOR GFR 0.68 MG/DL (0.70-1.30); GLOMERULAR FILTRATION RATE > 60.0 (>42); GLUCOSE, FASTING 87 MG/DL (83-110); POTASSIUM SERUM 3.9 MEQ/L (3.5-5.1); SODIUM LEVEL 141 MEQ/L (136-145)
[2017-10-13 14:00] VITALS: BP 120/70
--- NOTE | 2017-10-13 14:24 | IPNPDOC ---
Text Note Date of Service The patient was seen on 10/13/17. NOTE Hospitalist Progress Note Subjective: Mr. Burris continues to complain of generalized weakness and significant shortness of breath. 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 He denies any fevers, chills, night sweats. Denies chest pressure or tightness, he does admit to dyspnea. Denies any nausea , vomiting, constipation, abdominal pain, or other abdominal complaints. The remainder of his review systems is negative. Objective: General: Awake, alert, oriented. He is in no acute distress, but he is anxious. HEENT: Head normocephalic, atraumatic, sclera are nonicteric. Hearing is grossly intact to conversation. Respiratory: Very diminished throughout, however I can appreciate some intermittent Cardiovascular: Distant heart sounds Abdomen: Soft, nontender, nondistended, no hepatosplenomegaly appreciated. Bowel sounds present. Extremities: 2+ pulses in the radial and dorsalis pedis bilaterally. No evidence of clubbing or cyanosis. Assessment/Plan: 1. Acute exacerbation of COPD secondary to Coronavirus 2. Chronic GI bleed 3. Type 2 diabetes 4. DVT prophylaxis with teds and sequentials His GI bleed appears to be stable at this time, we'll continue to check H&H. H. pylori IgM is still pending, as the patient is not a candidate for scope, this may provide a reversible cause of upper GI ulcer. His GI bleed, however , does not appear to be the reason for his weakness and shortness of breath, he appears to be an acute exacerbation of COPD secondary to Coronavirus. We'll continue with nebulizers scheduled and as needed. We will also continue with steroids and oxygen supplementation. My preceptor for this patient encounter was physically present in the building during the encounter and was fully available. As needed, all aspects of the patient interview, examination, medical decision making process, and medical care plan development were reviewed and approved by the preceptor. Preceptor is aware and concurs with the plan as stated in the body of this note and will attest to such by his/her cosignature. Attending Note: I have independently examined this patient and all aspects of the exam and treatment decisions have been discussed with the resident. A member of the hospitalist staff will continue to follow this patient through discharge. VS,Fishbone, I+O VS, Fishbone, I+O Laboratory Tests 10/12/17 10:33 Red Blood Count 4.35, Mean Corpuscular Volume 81.6, Mean Corpuscular Hemoglobin 25.1 L, Mean Corpuscular Hemoglobin Concent 30.7 L, Red Cell Distribution Width 19.2 H, Neutrophils (%) (Auto) 87.6 H, Lymphocytes (%) (Auto) 9.0 L, Monocytes ( %) (Auto) 3.0, Eosinophils (%) (Auto) 0.0, Basophils (%) (Auto) 0.2, Neutrophils # (Auto) 10.7 H, Lymphocytes # (Auto) 1.1 L, Monocytes # (Auto) 0.4 , Eosinophils # (Auto) 0.0, Basophils # (Auto) 0.0 10/12/17 17:43 10/12/17 23:57 10/13/17 08:20 Red Blood Count 4.05 L, Mean Corpuscular Volume 81.7, Mean Corpuscular Hemoglobin 25.4 L, Mean Corpuscular Hemoglobin Concent 31.1 L, Red Cell Distribution Width 19.5 H, Calcium Level 8.6 L Vital Signs Date Time Temp Pulse Resp B/P (MAP) Pulse Ox O2 Delivery O2 Flow Rate FiO2 10/13/17 06:00 97.7 86 18 124/90 (101) 100 Room Air I&O- Last 24 Hours up to 6 AM 10/14/17 06:00 Intake Total 525 ml Balance 525 ml EMILEE HILTON DO Oct 13, 2017 10:08 FRANNIE JACKSON DO Oct 13, 2017 18:11
[2017-10-13] MEDS ORDERED: HumaLOG INSULIN (NovoLOG) PER UNIT SC SCH (21:00)
[2017-10-13 22:00] VITALS: BP 138/65
[2017-10-14] MEDS: IPRATROPIUM 0.5MG/ALBUTEROL 2.5MG INH SOL UD 3ML (DUONEB)(J7620) NEB SCH ×3 (01:50→11:03)
[2017-10-14 06:00] VITALS: BP 136/65
[2017-10-14] MEDS: methylPREDNISolone INJ 40 MG/1 ML VIAL (J2920) IV SCH (06:21)
[2017-10-14 06:23] LABS: MEAN CORPUSCULAR HEMOGLOBIN 25.3 pg (27.0-33.0); MEAN CORPUSCULAR HGB CONC 31.9 g/dl (32.0-36.5); MEAN CORPUSCULAR VOLUME 79.4 fl (80.0-96.0); PLATELET COUNT, AUTOMATED 346 10^3/uL (150-450); RED CELL DISTRIBUTION WIDTH 19.9 % (11.5-14.5); WHITE BLOOD COUNT 11.4 10^3/uL (4.0-10.0)
[2017-10-14 06:37] LABS: ANION GAP 8 MEQ/L (8-16); BLOOD UREA NITROGEN 11 MG/DL (7-18); CALCIUM LEVEL 8.5 MG/DL (8.8-10.2); CARBON DIOXIDE LEVEL 29 MEQ/L (21-32); CHLORIDE LEVEL 103 MEQ/L (98-107); GLOMERULAR FILTRATION RATE > 60.0 (>42); GLUCOSE, FASTING 204 MG/DL (83-110); POTASSIUM SERUM 4.4 MEQ/L (3.5-5.1); SODIUM LEVEL 140 MEQ/L (136-145)
[2017-10-14] MEDS: SUCRALFATE SUSP 1GM/10ML UD PO SCH (08:33)
[2017-10-14] MEDS: ASCORBIC ACID 500 MG TAB PO SCH (08:34)
[2017-10-14] MEDS: DOCUSATE SODIUM 100 MG CAP PO SCH (08:34)
[2017-10-14] MEDS: PANTOPRAZOLE 40MG INJ (PROTONIX) (C9113) IV SCH (08:34)
[2017-10-14] MEDS: ATORVASTATIN 20 MG TAB PO SCH (08:34)
[2017-10-14] MEDS: HumaLOG INSULIN (NovoLOG) PER UNIT SC SCH (08:34)
[2017-10-14] MEDS: FERROUS SULFATE 300MG/5ML UDC LIQUID PO SCH (08:34)
[2017-10-14] MEDS ORDERED: PRED10TA2 PO (09:10)
--- NOTE | 2017-10-14 10:14 | DS.PDOC ---
Discharge Summary General Date of Admission 10/12/2017 Date of Discharge 10/14/2017 Discharge Summary PRIMARY CARE PHYSICIAN: Dr. Álvarez ATTENDING AT TIME OF DISCHARGE: Dr Polk DISCHARGE DIAGNOS(E)S: 1. Acute exacerbation of COPD secondary to Coronavirus 2. Chronic upper GI bleed 3. Type 2 diabetes 4. Insomnia 5. Dyslipidemia 6. Iron deficiency anemia 7. Diverticulosis HPI & HOSPITAL COURSE: Mr. Burris is a 72-year-old male who presented to the emergency department with generalized weakness and shortness of breath. He had been hospitalized a few times recently due to acute upper GI bleeds, however his H&H had not dropped since that time, and continued to be stable during this hospitalization. It was found that he was actually having an acute exacerbation of COPD secondary to coronavirus infection. Steroids, nebulizers, IV fluids, and other symptomatic relief was provided in addition to his usual home medications. He has shown remarkable improvement, is up walking around the room , he is no longer short of breath, and appears stable for discharge at this time. PHYSICAL EXAMINATION ON DISCHARGE: GENERAL: Awake, alert, oriented 3. He is in no acute distress. CARDIOVASCULAR EXAMINATION: Very distant heart sounds. RESPIRATORY EXAMINATION: Diminished throughout, however he does have some air movement. ABDOMINAL EXAMINATION: Soft, nontender, nondistended. Bowel sounds present. EXTREMITIES: No clubbing or edema noted. 2+ pulses in the radial bilaterally. DISPOSITION: Home DISCHARGE INSTRUCTIONS: Follow-up with primary care provider Dr. Álvarez within 7-10 days. Consisting carbohydrate diet. Activity as tolerated. If symptoms return, or if you experience worsening of your symptoms, please call your doctor or return to the emergency department. DISCHARGE MEDICATIONS: He will be sent home on a new taper of prednisone as indicated below. Otherwise no changes to his home medications were made. ITEMS THAT NEED OUTPATIENT FOLLOWUP: He will need close follow-up with his primary care provider regarding his upper GI bleed. His H&H was stable during this hospitalization. Consideration may be made for a referral for a PillCam since he will not tolerate an EGD, and he had difficulties with the upper GI series. My preceptor for this patient encounter was physically present in the building during the encounter and was fully available. As needed, all aspects of the patient interview, examination, medical decision making process, and medical care plan development were reviewed and approved by the preceptor. Preceptor is aware and concurs with the plan as stated in the body of this note and will attest to such by his/her cosignature. Vital Signs/I&Os Vital Signs Date Time Temp Pulse Resp B/P (MAP) Pulse Ox O2 Delivery O2 Flow Rate FiO2 10/14/17 06:00 97.3 92 20 136/65 (88) 97 Room Air I&O- Last 24 Hours up to 6 AM 10/14/17 06:00 Intake Total 3425 ml Output Total 450 ml Balance 2975 ml Laboratory Data Labs 24H Laboratory Tests 2 10/13/17 11:42: Bedside Glucose (Misc Panel) 276H 10/13/17 12:07: Prostate Specific Antigen < 0.01 10/13/17 16:44: Bedside Glucose (Misc Panel) 221H 10/13/17 20:00: Bedside Glucose (Misc Panel) 103 10/14/17 05:48: Nucleated Red Blood Cells % (auto) 0.0, Anion Gap 8, Glomerular Filtration Rate > 60.0, Blood Urea Nitrogen 11, Creatinine 0.80, Sodium Level 140, Potassium Level 4.4, Chloride Level 103, Carbon Dioxide Level 29, Calcium Level 8.5L CBC/BMP Laboratory Tests 10/13/17 12:07 10/13/17 18:08 10/14/17 05:48 Red Blood Count 3.99 L, Mean Corpuscular Volume 79.4 L, Mean Corpuscular Hemoglobin 25.3 L, Mean Corpuscular Hemoglobin Concent 31.9 L, Red Cell Distribution Width 19.9 H, Calcium Level 8.5 L FSBS Laboratory Tests Test 10/13/17 11:42 10/13/17 16:44 10/13/17 20:00 Range/Units Bedside Glucose (Misc Panel) 276 221 103 83-110 MG/DL Microbiology Microbiology 10/13/17 Gastrointestinal Tract Panel (PCR) - Final, Complete 10/13/17 Stool Occult Blood (JOSE ROBERTO) - Final, Complete 10/12/17 MRSA Screen, Resulted Pending 10/12/17 Respiratory Virus Panel (PCR) (JOSE ROBERTO) - Final, Resulted Coronavirus [id number] Discharge Medications Scheduled Ascorbic Acid (Vitamin C) 500 Mg Tab, 500 MG PO BID, (Reported) Atorvastatin Calcium (Atorvastatin Calcium) 40 Mg Tab, 40 MG PO DAILY, (Reported ) Docusate Sodium (Colace) 100 Mg Cap, 100 MG PO DAILY, (Reported) Ferrous Sulfate (Ferrous Sulfate) 325 Mg Tab, 325 MG PO BID, (Reported) Furosemide (Furosemide) 20 Mg Tab, 20 MG PO DAILY, (Reported) Metformin Hydrochloride (Metformin HCl ER) 500 Mg Tab, 2,000 MG PO DAILY, ( Reported) Omeprazole (Omeprazole) 40 Mg Cap, 40 MG PO BID, (Reported) Prednisone (Prednisone) 5 Mg Tab, 5 MG PO DAILY, (Reported) Prednisone (Prednisone) 10 Mg Tab, 10 MG PO TAPER Take 3 tabs daily x 3 days, then 2 tabs daily x 3 days, then 1 tabs daily x 3 days, then stop Sucralfate (Carafate) 1 Gm Tab, 1 GM PO ACHS, (Reported) Scheduled PRN Albuterol Sulfate (Ventolin Hfa) 200 Puff/8 Gm Aers, 2 PUFF INH Q4H PRN for SHORTNESS OF BREATH, (Reported) Albuterol/Ipratropium (Ipratropium [place]/Albut 0.5-2.5 (3) mg/3Ml) 1 Kandi Kandi, 1 VIAL INH Q4H PRN for SOB/WHEEZING, (Reported) Zolpidem Tartrate (Ambien) 5 Mg Tab, 5 MG PO QHS PRN for SLEEP, (Reported) Allergies Coded Allergies: Influenza Vaccine Live (Verified Adverse Reaction, Mild, general malaise, 09/21/17) EMILEE HILTON DO Oct 14, 2017 10:14
== END 2017-10-14 11:30 | disposition home or self-care (01) | DRG 191 ==
LOC: M ED 09:44 → M ED INP 13:55 → M MSPAV 15:48
PROVIDERS: ADMIT General Practice; ATTEND Hospitalist
DX: J44.1 Chronic obstructive pulmonary disease with (acute) exacerbation (principal); J96.10 Chronic respiratory failure, unspecified whether with hypoxia or hypercapnia; K92.2 Gastrointestinal hemorrhage, unspecified; R07.81 Pleurodynia; D50.9 Iron deficiency anemia, unspecified; J44.0 Chronic obstructive pulmonary disease with (acute) lower respiratory infection; E11.9 Type 2 diabetes mellitus without complications; B97.29 Other coronavirus as the cause of diseases classified elsewhere; E78.5 Hyperlipidemia, unspecified; Z85.46 Personal history of malignant neoplasm of prostate; Z92.3 Personal history of irradiation; Z79.899 Other long term (current) drug therapy; Z79.52 Long term (current) use of systemic steroids; Z79.84 Long term (current) use of oral hypoglycemic drugs; Z88.7 Allergy status to serum and vaccine; Z87.891 Personal history of nicotine dependence

== ENCOUNTER 2017-10-20 12:40 | Inpatient (IN) | payer MEDICARE ==
[2017-10-20 13:57] LABS: BASO % 0.2 % (0.0-1.0); HEMATOCRIT 35.6 % (42.0-52.0); HEMOGLOBIN 11.2 g/dl (14.0-18.0); IMMATURE GRANULOCYTE # 0.1 10^3/uL (0-0); IMMATURE GRANULOCYTE % 0.7 % (0-0); LYMPH # 0.3 10^3/uL (1.5-4.5); LYMPH % 2.1 % (24.0-44.0); MEAN CORPUSCULAR HEMOGLOBIN 25.5 pg (27.0-33.0); MEAN CORPUSCULAR HGB CONC 31.5 g/dl (32.0-36.5); MEAN CORPUSCULAR VOLUME 81.1 fl (80.0-96.0); MONO # 0.3 10^3/uL (0.0-0.8); MONO % 1.6 % (0.0-5.0); NEUTROPHILS # 14.8 10^3/uL (1.8-7.7); NEUTROPHILS % 95.4 % (36.0-66.0); PLATELET COUNT, AUTOMATED 535 10^3/uL (150-450); RED BLOOD COUNT 4.39 10^6/uL (4.30-6.10); RED CELL DISTRIBUTION WIDTH 18.2 % (11.5-14.5); WHITE BLOOD COUNT 15.5 10^3/uL (4.0-10.0)
[2017-10-20 14:00] LABS: INR 0.94; PROTHROMBIN TIME 12.6 SECONDS (12.4-14.5)
[2017-10-20] MEDS: IPRATROPIUM 0.5MG/ALBUTEROL 2.5MG INH SOL UD 3ML (DUONEB)(J7620) NEB (14:01)
[2017-10-20] MEDS: methylPREDNISolone INJ 125 MG/2 ML VIAL (J2930) IV ×2 (14:04→21:34)
[2017-10-20] MEDS: NS 1,000 ML IV ×2 (14:04→14:39)
[2017-10-20 14:10] LABS: ALBUMIN 3.6 GM/DL (3.2-5.2); ALBUMIN/GLOBULIN RATIO 1.03 (1.00-1.93); ALKALINE PHOSPHATASE 108 U/L (45-117); ALT/SGPT 17 U/L (12-78); AST/SGOT 10 U/L (7-37); BILIRUBIN,DIRECT 0.2 MG/DL (0.0-0.2); BILIRUBIN,TOTAL 0.4 MG/DL (0.2-1.0); TOTAL PROTEIN 7.1 GM/DL (6.4-8.2)
[2017-10-20 14:11] LABS: ANION GAP 11 MEQ/L (8-16); BLOOD UREA NITROGEN 12 MG/DL (7-18); CALCIUM LEVEL 8.8 MG/DL (8.8-10.2); CARBON DIOXIDE LEVEL 28 MEQ/L (21-32); CHLORIDE LEVEL 94 MEQ/L (98-107); CPK CREATINE PHOSPHOKINASE 34 U/L (39-308); CREATININE FOR GFR 0.73 MG/DL (0.70-1.30); GLOMERULAR FILTRATION RATE > 60.0 (>42); GLUCOSE, FASTING 243 MG/DL (83-110); MB/CK RELATIVE INDEX 2.94 (< OR =4); POTASSIUM SERUM 4.7 MEQ/L (3.5-5.1); SODIUM LEVEL 133 MEQ/L (136-145); TROPONIN I < 0.02 NG/ML (< 0.10)
[2017-10-20 16:58] LABS: LACTIC ACID SEPSIS PROTOCOL 2.6 MMOL/L (0.4-2.0)
[2017-10-20] MEDS: MOXIFLOXACIN HCL 400 MG in APPROPRIATE DILUENT 1 EA IV (17:23)
[2017-10-20] MEDS: ALBUTEROL SULFATE 2.5 MG/0.5 ML INH NEB SOLN NEB (17:30)
[2017-10-20] MEDS ORDERED: GLUCOSE 4 GM CHEW TABLET PO (20:45)
[2017-10-20] MEDS ORDERED: ONDANSETRON 4MG/2ML VIAL (J2405) IV (20:45)
[2017-10-20] MEDS ORDERED: zolPIDEM TARTRATE 5 MG TAB PO (20:45)
[2017-10-20] MEDS ORDERED: GLUCAGON FOR INJ 1 MG VIAL (J1610) SC (20:45)
[2017-10-20] MEDS ORDERED: DEXTROSE 50% 50 ML SYRINGE IV (20:45)
[2017-10-20] MEDS ORDERED: ALBUTEROL 90 MCG/ACT 8GM HFA INHALER INH (20:45)
[2017-10-20] MEDS: HumaLOG INSULIN (NovoLOG) PER UNIT SC (21:00)
[2017-10-20 21:27] LABS: BEDSIDE GLUCOSE 211 MG/DL (83-110)
[2017-10-20 21:32] LABS: CPK CREATINE PHOSPHOKINASE 26 U/L (39-308); MB/CK RELATIVE INDEX 3.84 (< OR =4); TROPONIN I < 0.02 NG/ML (< 0.10)
[2017-10-20] MEDS: OMEPRAZOLE 20 MG CAP PO (21:33)
[2017-10-20] MEDS: SUCRALFATE 1 GM TAB PO (21:34)
[2017-10-20] MEDS: FERROUS SULFATE 325MG TAB PO (21:34)
[2017-10-20] MEDS: SENOKOT S TAB PO (21:34)
[2017-10-21] MEDS: IPRATROPIUM 0.5MG/ALBUTEROL 2.5MG INH SOL UD 3ML (DUONEB)(J7620) NEB ×6 (00:02→23:17)
[2017-10-21 01:21] LABS: LACTIC ACID SEPSIS PROTOCOL 1.4 MMOL/L (0.4-2.0)
[2017-10-21] MEDS: methylPREDNISolone INJ 125 MG/2 ML VIAL (J2930) IV ×3 (05:27→22:05)
[2017-10-21 06:33] LABS: HEMATOCRIT 31.9 % (42.0-52.0); HEMOGLOBIN 10.1 g/dl (14.0-18.0); MEAN CORPUSCULAR HEMOGLOBIN 24.9 pg (27.0-33.0); MEAN CORPUSCULAR HGB CONC 31.7 g/dl (32.0-36.5); MEAN CORPUSCULAR VOLUME 78.6 fl (80.0-96.0); PLATELET COUNT, AUTOMATED 490 10^3/uL (150-450); RED BLOOD COUNT 4.06 10^6/uL (4.30-6.10); RED CELL DISTRIBUTION WIDTH 18.1 % (11.5-14.5); WHITE BLOOD COUNT 12.5 10^3/uL (4.0-10.0)
[2017-10-21 06:42] LABS: ANION GAP 8 MEQ/L (8-16); BLOOD UREA NITROGEN 14 MG/DL (7-18); C REACTIVE PROTEIN QUANTITATIV 2.56 MG/DL (0.00-0.30); CALCIUM LEVEL 8.5 MG/DL (8.8-10.2); CARBON DIOXIDE LEVEL 28 MEQ/L (21-32); CHLORIDE LEVEL 98 MEQ/L (98-107); CREATININE FOR GFR 0.73 MG/DL (0.70-1.30); GLOMERULAR FILTRATION RATE > 60.0 (>42); GLUCOSE, FASTING 206 MG/DL (83-110); POTASSIUM SERUM 4.3 MEQ/L (3.5-5.1); SODIUM LEVEL 134 MEQ/L (136-145)
[2017-10-21] MEDS: SUCRALFATE 1 GM TAB PO ×4 (08:00→22:03)
[2017-10-21] MEDS: OMEPRAZOLE 20 MG CAP PO ×2 (08:38→22:03)
[2017-10-21] MEDS: ATORVASTATIN 20 MG TAB PO (08:38)
[2017-10-21] MEDS: SENOKOT S TAB PO ×2 (08:38→22:04)
[2017-10-21] MEDS: HumaLOG INSULIN (NovoLOG) PER UNIT SC ×4 (08:38→21:00)
[2017-10-21] MEDS: DOCUSATE SODIUM 100 MG CAP PO ×2 (08:38→22:04)
[2017-10-21] MEDS: FERROUS SULFATE 325MG TAB PO ×2 (08:38→22:03)
[2017-10-21] MEDS: MOM 30ML SUSPENSION UDC PO (11:09)
[2017-10-21] MEDS: MIRALAX *UNIT DOSE* 17GM PACKET PO ×2 (11:10→21:00)
[2017-10-21 12:00] LABS: BEDSIDE GLUCOSE 240 MG/DL (83-110)
[2017-10-21 12:00] LABS: BEDSIDE GLUCOSE 222 MG/DL (83-110)
[2017-10-21] MEDS ORDERED: MOM 30ML SUSPENSION UDC PO (16:00)
[2017-10-21 16:45] LABS: BEDSIDE GLUCOSE 216 MG/DL (83-110)
[2017-10-21] MEDS: MOXIFLOXACIN HCL 400 MG in APPROPRIATE DILUENT 1 EA IV (17:03)
[2017-10-21 21:05] LABS: BEDSIDE GLUCOSE 208 MG/DL (83-110)
[2017-10-22] MEDS: IPRATROPIUM 0.5MG/ALBUTEROL 2.5MG INH SOL UD 3ML (DUONEB)(J7620) NEB ×7 (03:54→23:53)
[2017-10-22] MEDS: methylPREDNISolone INJ 125 MG/2 ML VIAL (J2930) IV ×2 (05:42→14:01)
[2017-10-22 07:02] LABS: ANION GAP 6 MEQ/L (8-16); BLOOD UREA NITROGEN 16 MG/DL (7-18); C REACTIVE PROTEIN QUANTITATIV 1.26 MG/DL (0.00-0.30); CALCIUM LEVEL 8.4 MG/DL (8.8-10.2); CARBON DIOXIDE LEVEL 31 MEQ/L (21-32); CHLORIDE LEVEL 99 MEQ/L (98-107); CREATININE FOR GFR 0.85 MG/DL (0.70-1.30); GLOMERULAR FILTRATION RATE > 60.0 (>42); GLUCOSE, FASTING 276 MG/DL (83-110); MAGNESIUM LEVEL 2.3 MG/DL (1.8-2.4); POTASSIUM SERUM 4.7 MEQ/L (3.5-5.1); SODIUM LEVEL 136 MEQ/L (136-145)
[2017-10-22 07:27] LABS: HEMATOCRIT 30.6 % (42.0-52.0); HEMOGLOBIN 9.7 g/dl (14.0-18.0); MEAN CORPUSCULAR HEMOGLOBIN 25.3 pg (27.0-33.0); MEAN CORPUSCULAR HGB CONC 31.7 g/dl (32.0-36.5); MEAN CORPUSCULAR VOLUME 79.9 fl (80.0-96.0); PLATELET COUNT, AUTOMATED 467 10^3/uL (150-450); RED BLOOD COUNT 3.83 10^6/uL (4.30-6.10); RED CELL DISTRIBUTION WIDTH 18.4 % (11.5-14.5); WHITE BLOOD COUNT 14.5 10^3/uL (4.0-10.0)
[2017-10-22] MEDS: FERROUS SULFATE 325MG TAB PO ×2 (09:42→20:40)
[2017-10-22] MEDS: DOCUSATE SODIUM 100 MG CAP PO ×2 (09:42→20:40)
[2017-10-22] MEDS: SUCRALFATE 1 GM TAB PO ×4 (09:42→20:40)
[2017-10-22] MEDS: OMEPRAZOLE 20 MG CAP PO ×2 (09:42→20:40)
[2017-10-22] MEDS: ATORVASTATIN 20 MG TAB PO (09:42)
[2017-10-22] MEDS: MIRALAX *UNIT DOSE* 17GM PACKET PO ×2 (09:43→20:39)
[2017-10-22] MEDS: HumaLOG INSULIN (NovoLOG) PER UNIT SC ×4 (09:43→20:40)
[2017-10-22] MEDS: SENOKOT S TAB PO ×2 (09:45→20:40)
[2017-10-22 12:04] LABS: BEDSIDE GLUCOSE 368 MG/DL (83-110)
[2017-10-22] MEDS: LEVEMIR (INSULIN DETEMIR) 1 UNITS/0.01ML SC (15:25)
[2017-10-22] MEDS: MOXIFLOXACIN HCL 400 MG in APPROPRIATE DILUENT 1 EA IV (17:26)
[2017-10-22 20:53] LABS: BEDSIDE GLUCOSE 254 MG/DL (83-110)
[2017-10-23] MEDS: methylPREDNISolone INJ 125 MG/2 ML VIAL (J2930) IV ×3 (02:51→21:04)
[2017-10-23] MEDS: IPRATROPIUM 0.5MG/ALBUTEROL 2.5MG INH SOL UD 3ML (DUONEB)(J7620) NEB ×6 (03:23→19:50)
[2017-10-23 06:17] LABS: HEMATOCRIT 32.7 % (42.0-52.0); HEMOGLOBIN 10.2 g/dl (14.0-18.0); MEAN CORPUSCULAR HEMOGLOBIN 25.4 pg (27.0-33.0); MEAN CORPUSCULAR HGB CONC 31.2 g/dl (32.0-36.5); MEAN CORPUSCULAR VOLUME 81.3 fl (80.0-96.0); PLATELET COUNT, AUTOMATED 522 10^3/uL (150-450); RED BLOOD COUNT 4.02 10^6/uL (4.30-6.10); RED CELL DISTRIBUTION WIDTH 18.3 % (11.5-14.5); WHITE BLOOD COUNT 13.2 10^3/uL (4.0-10.0)
[2017-10-23 06:35] LABS: ANION GAP 7 MEQ/L (8-16); BLOOD UREA NITROGEN 16 MG/DL (7-18); C REACTIVE PROTEIN QUANTITATIV 0.61 MG/DL (0.00-0.30); CALCIUM LEVEL 8.2 MG/DL (8.8-10.2); CARBON DIOXIDE LEVEL 30 MEQ/L (21-32); CHLORIDE LEVEL 100 MEQ/L (98-107); CREATININE FOR GFR 0.78 MG/DL (0.70-1.30); GLOMERULAR FILTRATION RATE > 60.0 (>42); GLUCOSE, FASTING 215 MG/DL (83-110); MAGNESIUM LEVEL 2.4 MG/DL (1.8-2.4); POTASSIUM SERUM 4.6 MEQ/L (3.5-5.1); SODIUM LEVEL 137 MEQ/L (136-145)
[2017-10-23 06:58] LABS: BEDSIDE GLUCOSE 171 MG/DL (83-110)
[2017-10-23 06:59] LABS: BEDSIDE GLUCOSE 122 MG/DL (83-110)
[2017-10-23 08:26] LABS: BEDSIDE GLUCOSE 327 MG/DL (83-110)
[2017-10-23] MEDS: SUCRALFATE 1 GM TAB PO ×4 (08:27→21:07)
[2017-10-23] MEDS: HumaLOG INSULIN (NovoLOG) PER UNIT SC ×4 (08:27→21:00)
[2017-10-23] MEDS: ATORVASTATIN 20 MG TAB PO (08:27)
[2017-10-23] MEDS: DOCUSATE SODIUM 100 MG CAP PO ×2 (08:27→21:05)
[2017-10-23] MEDS: OMEPRAZOLE 20 MG CAP PO ×2 (08:27→21:04)
[2017-10-23] MEDS: FERROUS SULFATE 325MG TAB PO ×2 (08:27→21:05)
[2017-10-23] MEDS: MIRALAX *UNIT DOSE* 17GM PACKET PO ×2 (08:28→21:00)
[2017-10-23] MEDS: SENOKOT S TAB PO ×2 (08:28→21:00)
[2017-10-23] MEDS: LEVEMIR (INSULIN DETEMIR) 1 UNITS/0.01ML SC (08:28)
[2017-10-23 11:21] LABS: BEDSIDE GLUCOSE 210 MG/DL (83-110)
[2017-10-23] MEDS: MOXIFLOXACIN 400 MG TAB PO (14:49)
[2017-10-23 16:34] LABS: BEDSIDE GLUCOSE 79 MG/DL (83-110)
[2017-10-23 17:16] LABS: BEDSIDE GLUCOSE 141 MG/DL (83-110)
[2017-10-23 21:32] LABS: BEDSIDE GLUCOSE 217 MG/DL (83-110)
[2017-10-24 00:12] LABS: BEDSIDE GLUCOSE 191 MG/DL (83-110)
[2017-10-24] MEDS: IPRATROPIUM 0.5MG/ALBUTEROL 2.5MG INH SOL UD 3ML (DUONEB)(J7620) NEB ×7 (00:12→19:45)
[2017-10-24] MEDS: methylPREDNISolone INJ 125 MG/2 ML VIAL (J2930) IV ×2 (01:56→08:46)
[2017-10-24 05:56] LABS: HEMATOCRIT 32.5 % (42.0-52.0); HEMOGLOBIN 10.3 g/dl (14.0-18.0); MEAN CORPUSCULAR HEMOGLOBIN 25.4 pg (27.0-33.0); MEAN CORPUSCULAR HGB CONC 31.7 g/dl (32.0-36.5); PLATELET COUNT, AUTOMATED 508 10^3/uL (150-450); RED BLOOD COUNT 4.06 10^6/uL (4.30-6.10); RED CELL DISTRIBUTION WIDTH 18.2 % (11.5-14.5); WHITE BLOOD COUNT 11.2 10^3/uL (4.0-10.0)
[2017-10-24] MEDS: MOXIFLOXACIN 400 MG TAB PO (06:17)
[2017-10-24 06:24] LABS: ANION GAP 9 MEQ/L (8-16); BLOOD UREA NITROGEN 14 MG/DL (7-18); C REACTIVE PROTEIN QUANTITATIV 0.35 MG/DL (0.00-0.30); CALCIUM LEVEL 8.1 MG/DL (8.8-10.2); CARBON DIOXIDE LEVEL 29 MEQ/L (21-32); CHLORIDE LEVEL 97 MEQ/L (98-107); CREATININE FOR GFR 0.77 MG/DL (0.70-1.30); GLOMERULAR FILTRATION RATE > 60.0 (>42); GLUCOSE, FASTING 274 MG/DL (83-110); MAGNESIUM LEVEL 2.4 MG/DL (1.8-2.4); POTASSIUM SERUM 4.7 MEQ/L (3.5-5.1); SODIUM LEVEL 135 MEQ/L (136-145)
[2017-10-24] MEDS: FERROUS SULFATE 325MG TAB PO ×2 (08:45→21:13)
[2017-10-24] MEDS: DOCUSATE SODIUM 100 MG CAP PO ×2 (08:45→21:14)
[2017-10-24] MEDS: HumaLOG INSULIN (NovoLOG) PER UNIT SC ×4 (08:45→21:00)
[2017-10-24] MEDS: OMEPRAZOLE 20 MG CAP PO ×2 (08:45→21:14)
[2017-10-24] MEDS: ATORVASTATIN 20 MG TAB PO (08:45)
[2017-10-24] MEDS: SENOKOT S TAB PO ×2 (08:45→21:00)
[2017-10-24 08:46] LABS: BEDSIDE GLUCOSE 269 MG/DL (83-110)
[2017-10-24] MEDS: LEVEMIR (INSULIN DETEMIR) 1 UNITS/0.01ML SC ×2 (08:46→09:48)
[2017-10-24] MEDS: SUCRALFATE 1 GM TAB PO ×4 (08:50→21:13)
[2017-10-24] MEDS: MIRALAX *UNIT DOSE* 17GM PACKET PO ×2 (08:58→21:00)
[2017-10-24] MEDS: predniSONE 20 MG TAB PO (09:47)
[2017-10-24 12:10] LABS: BEDSIDE GLUCOSE 86 MG/DL (83-110)
[2017-10-24 13:18] LABS: BEDSIDE GLUCOSE 200 MG/DL (83-110)
[2017-10-24 17:03] LABS: BEDSIDE GLUCOSE 243 MG/DL (83-110)
[2017-10-25] MEDS: IPRATROPIUM 0.5MG/ALBUTEROL 2.5MG INH SOL UD 3ML (DUONEB)(J7620) NEB ×4 (00:12→11:50)
[2017-10-25] MEDS: ACETAMINOPHEN TAB 650MG DOSE (2X325MG) PO (01:24)
[2017-10-25 01:29] LABS: BEDSIDE GLUCOSE 133 MG/DL (83-110)
[2017-10-25] MEDS: MOXIFLOXACIN 400 MG TAB PO (05:10)
[2017-10-25 06:17] LABS: HEMATOCRIT 31.1 % (42.0-52.0); MEAN CORPUSCULAR HEMOGLOBIN 25.2 pg (27.0-33.0); MEAN CORPUSCULAR HGB CONC 32.2 g/dl (32.0-36.5); MEAN CORPUSCULAR VOLUME 78.3 fl (80.0-96.0); PLATELET COUNT, AUTOMATED 503 10^3/uL (150-450); RED BLOOD COUNT 3.97 10^6/uL (4.30-6.10); RED CELL DISTRIBUTION WIDTH 18.2 % (11.5-14.5); WHITE BLOOD COUNT 15.7 10^3/uL (4.0-10.0)
[2017-10-25 06:32] LABS: ANION GAP 10 MEQ/L (8-16); BLOOD UREA NITROGEN 15 MG/DL (7-18); C REACTIVE PROTEIN QUANTITATIV < 0.30 MG/DL (0.00-0.30); CARBON DIOXIDE LEVEL 28 MEQ/L (21-32); CHLORIDE LEVEL 100 MEQ/L (98-107); CREATININE FOR GFR 0.68 MG/DL (0.70-1.30); GLOMERULAR FILTRATION RATE > 60.0 (>42); GLUCOSE, FASTING 133 MG/DL (83-110); MAGNESIUM LEVEL 2.4 MG/DL (1.8-2.4); SODIUM LEVEL 138 MEQ/L (136-145)
[2017-10-25 06:40] LABS: POTASSIUM SERUM 3.5 MEQ/L (3.5-5.1)
[2017-10-25] MEDS: HumaLOG INSULIN (NovoLOG) PER UNIT SC (08:42)
[2017-10-25] MEDS: SUCRALFATE 1 GM TAB PO (08:42)
[2017-10-25] MEDS: OMEPRAZOLE 20 MG CAP PO (08:42)
[2017-10-25] MEDS: ATORVASTATIN 20 MG TAB PO (08:43)
[2017-10-25] MEDS: FERROUS SULFATE 325MG TAB PO (08:43)
[2017-10-25] MEDS: predniSONE 20 MG TAB PO (08:43)
[2017-10-25] MEDS: DOCUSATE SODIUM 100 MG CAP PO (08:43)
[2017-10-25] MEDS: MIRALAX *UNIT DOSE* 17GM PACKET PO (08:43)
[2017-10-25] MEDS: SENOKOT S TAB PO (08:44)
[2017-10-25] MEDS: LEVEMIR (INSULIN DETEMIR) 1 UNITS/0.01ML SC (08:44)
[2017-10-25 11:54] LABS: BEDSIDE GLUCOSE 173 MG/DL (83-110)
[2017-10-25] MEDS: methylPREDNISolone INJ 40 MG/1 ML VIAL (J2920) IV (12:04)
[2017-10-25 12:14] LABS: BEDSIDE GLUCOSE 164 MG/DL (83-110)
== END 2017-10-25 12:21 | disposition home or self-care (01) | DRG 191 ==
LOC: M MSPAV 10-22 19:52 → M ED 12:40 → M ED INP 20:38 → M MSPAV 23:35
DX: J44.1 Chronic obstructive pulmonary disease with (acute) exacerbation (principal); E87.2 Acidosis; E78.5 Hyperlipidemia, unspecified; E11.9 Type 2 diabetes mellitus without complications; Z85.46 Personal history of malignant neoplasm of prostate; K57.90 Diverticulosis of intestine, part unspecified, without perforation or abscess without bleeding; Z87.442 Personal history of urinary calculi; Z92.3 Personal history of irradiation; Z99.81 Dependence on supplemental oxygen; Z79.52 Long term (current) use of systemic steroids; K59.00 Constipation, unspecified; D50.9 Iron deficiency anemia, unspecified; Z79.899 Other long term (current) drug therapy; Z87.891 Personal history of nicotine dependence; Z79.84 Long term (current) use of oral hypoglycemic drugs

== ENCOUNTER → 2017-11-12 | Outpatient (CLI) | payer MEDICARE ==
[2017-11-12 11:52] LABS: BASO % 0.2 % (0.0-1.0); EOS % 0.2 % (0.0-3.0); HEMATOCRIT 34.6 % (42.0-52.0); HEMOGLOBIN 10.6 g/dl (14.0-18.0); IMMATURE GRANULOCYTE # 0.1 10^3/uL (0-0); IMMATURE GRANULOCYTE % 0.4 % (0-0); LYMPH # 0.8 10^3/uL (1.5-4.5); LYMPH % 7.1 % (24.0-44.0); MEAN CORPUSCULAR HEMOGLOBIN 25.5 pg (27.0-33.0); MEAN CORPUSCULAR HGB CONC 30.6 g/dl (32.0-36.5); MEAN CORPUSCULAR VOLUME 83.2 fl (80.0-96.0); MONO # 0.5 10^3/uL (0.0-0.8); MONO % 4.5 % (0.0-5.0); NEUTROPHILS % 87.6 % (36.0-66.0); PLATELET COUNT, AUTOMATED 503 10^3/uL (150-450); RED BLOOD COUNT 4.16 10^6/uL (4.30-6.10); RED CELL DISTRIBUTION WIDTH 17.7 % (11.5-14.5); WHITE BLOOD COUNT 11.4 10^3/uL (4.0-10.0)
== END ==
LOC: M SMT 10:20
DX: D50.0 Iron deficiency anemia secondary to blood loss (chronic) (principal)
CPT/HCPCS: 85025

== ENCOUNTER 2017-11-23 12:07 | Emergency (ER) | payer MEDICARE ==
[2017-11-23] MEDS: ALBUTEROL SULFATE 2.5 MG/0.5 ML INH NEB SOLN NEB (13:58)
[2017-11-23] MEDS: methylPREDNISolone INJ 125 MG/2 ML VIAL (J2930) IV (14:32)
[2017-11-23 14:42] LABS: BASO % 0.2 % (0.0-1.0); HEMATOCRIT 32.9 % (42.0-52.0); HEMOGLOBIN 10.1 g/dl (14.0-18.0); IMMATURE GRANULOCYTE # 0.1 10^3/uL (0-0); IMMATURE GRANULOCYTE % 0.4 % (0-0); LYMPH # 2.3 10^3/uL (1.5-4.5); LYMPH % 20.4 % (24.0-44.0); MEAN CORPUSCULAR HEMOGLOBIN 25.4 pg (27.0-33.0); MEAN CORPUSCULAR HGB CONC 30.7 g/dl (32.0-36.5); MEAN CORPUSCULAR VOLUME 82.9 fl (80.0-96.0); MONO # 0.8 10^3/uL (0.0-0.8); MONO % 7.1 % (0.0-5.0); NEUTROPHILS # 8.1 10^3/uL (1.8-7.7); NEUTROPHILS % 71.9 % (36.0-66.0); PLATELET COUNT, AUTOMATED 617 10^3/uL (150-450); RED BLOOD COUNT 3.97 10^6/uL (4.30-6.10); RED CELL DISTRIBUTION WIDTH 17.2 % (11.5-14.5); WHITE BLOOD COUNT 11.3 10^3/uL (4.0-10.0)
[2017-11-23 14:55] LABS: D-DIMER QUANT 488.7 ng/ml (<500)
[2017-11-23 15:11] LABS: ANION GAP 9 MEQ/L (8-16); BLOOD UREA NITROGEN 6 MG/DL (7-18); CALCIUM LEVEL 9.3 MG/DL (8.8-10.2); CARBON DIOXIDE LEVEL 28 MEQ/L (21-32); CHLORIDE LEVEL 100 MEQ/L (98-107); CK-MB VALUE MASS 1.3 NG/ML (0.0-3.6); CPK CREATINE PHOSPHOKINASE 37 U/L (39-308); CREATININE FOR GFR 0.62 MG/DL (0.70-1.30); GLOMERULAR FILTRATION RATE > 60.0 (>42); GLUCOSE, FASTING 113 MG/DL (70-100); MB/CK RELATIVE INDEX 3.51 (< OR =4); NT-PRO BNP 62 PG/ML (<125); POTASSIUM SERUM 4.5 MEQ/L (3.5-5.1); SODIUM LEVEL 137 MEQ/L (136-145); TROPONIN I < 0.02 NG/ML (< 0.10)
== END 2017-11-23 16:29 | disposition home or self-care (01) ==
LOC: M ED 12:07
DX: R06.00 Dyspnea, unspecified (principal); R07.89 Other chest pain; J98.11 Atelectasis; E11.9 Type 2 diabetes mellitus without complications; J44.9 Chronic obstructive pulmonary disease, unspecified; J45.909 Unspecified asthma, uncomplicated; Z79.51 Long term (current) use of inhaled steroids; Z79.84 Long term (current) use of oral hypoglycemic drugs; Z79.52 Long term (current) use of systemic steroids; Z88.7 Allergy status to serum and vaccine; Z87.442 Personal history of urinary calculi; Z87.19 Personal history of other diseases of the digestive system; Z85.46 Personal history of malignant neoplasm of prostate
CPT/HCPCS: J2930

== ENCOUNTER 2017-11-26 05:48 | Inpatient (IN) | payer MEDICARE ==
[2017-11-26] MEDS: NS 500 ML IV (06:44)
[2017-11-26] MEDS: GASTROGRAFIN SOLUTION 30ML PO ×2 (06:44→07:10)
[2017-11-26] MEDS: ACETAMINOPH W/CODEINE #3 TAB UD PO (06:44)
[2017-11-26 06:45] LABS: BASO % 0.4 % (0.0-1.0); EOS % 0.4 % (0.0-3.0); HEMATOCRIT 29.7 % (42.0-52.0); HEMOGLOBIN 9.2 g/dl (14.0-18.0); IMMATURE GRANULOCYTE % 0.3 % (0-0); LYMPH % 21.1 % (24.0-44.0); MEAN CORPUSCULAR HEMOGLOBIN 25.5 pg (27.0-33.0); MEAN CORPUSCULAR VOLUME 82.3 fl (80.0-96.0); MONO % 10.2 % (0.0-5.0); NEUTROPHILS # 6.3 10^3/uL (1.8-7.7); NEUTROPHILS % 67.6 % (36.0-66.0); PLATELET COUNT, AUTOMATED 529 10^3/uL (150-450); RED BLOOD COUNT 3.61 10^6/uL (4.30-6.10); RED CELL DISTRIBUTION WIDTH 17.4 % (11.5-14.5); WHITE BLOOD COUNT 9.3 10^3/uL (4.0-10.0)
[2017-11-26 07:11] LABS: ALBUMIN 3.3 GM/DL (3.2-5.2); ALBUMIN/GLOBULIN RATIO 1.22 (1.00-1.93); ALKALINE PHOSPHATASE 142 U/L (45-117); ALT/SGPT 14 U/L (12-78); AMYLASE 143 U/L (25-115); ANION GAP 6 MEQ/L (8-16); AST/SGOT 11 U/L (7-37); BILIRUBIN,DIRECT < 0.1 MG/DL (0.0-0.2); BILIRUBIN,TOTAL 0.2 MG/DL (0.2-1.0); BLOOD UREA NITROGEN 9 MG/DL (7-18); C REACTIVE PROTEIN QUANTITATIV < 0.30 MG/DL (0.00-0.30); CALCIUM LEVEL 8.4 MG/DL (8.8-10.2); CARBON DIOXIDE LEVEL 30 MEQ/L (21-32); CHLORIDE LEVEL 102 MEQ/L (98-107); CREATININE FOR GFR 0.54 MG/DL (0.70-1.30); GLOMERULAR FILTRATION RATE > 60.0 (>42); GLUCOSE, FASTING 119 MG/DL (70-100); LIPASE 132 U/L (73-393); NT-PRO BNP 74 PG/ML (<125); SODIUM LEVEL 138 MEQ/L (136-145)
[2017-11-26] MEDS ORDERED: ISOVUE-370 76% 100ML VIAL (Q9967) As Ordered (08:00)
[2017-11-26] MEDS: IPRATROPIUM 0.5MG/ALBUTEROL 2.5MG INH SOL UD 3ML (DUONEB)(J7620) NEB ×6 (08:37→23:09)
[2017-11-26 08:59] LABS: APPEARANCE, URINE CLEAR (CLEAR); BACTERIA, URINE AUTO NEGATIVE (NEGATIVE); BILIRUBIN, URINE AUTO NEGATIVE (NEGATIVE); BLOOD, URINE BLOOD NEGATIVE (NEGATIVE); COLOR, URINE YELLOW (YELLOW); GLUCOSE, URINE (UA) AUTO NEGATIVE (NEGATIVE); KETONE, URINE AUTO NEGATIVE (NEGATIVE); LEUKOCYTE ESTERASE, URINE AUTO 3+ (NEGATIVE); MUCUS, URINE SMALL (NEGATIVE); NITRITE, URINE AUTO NEGATIVE (NEGATIVE); PROTEIN, URINE AUTO NEGATIVE (NEGATIVE); RBC, URINE AUTO 6 /HPF (0-3); SPECIFIC GRAVITY URINE AUTO 1.009 (1.002-1.035); SQUAMOUS EPITHELIAL CELL UR AU 0 /HPF (0-6); UROBILINOGEN, URINE AUTO 0.2 mg/dL (0.0-2.0); WBC, URINE AUTO 17 /HPF (0-3)
[2017-11-26] MEDS: ASCORBIC ACID 500 MG TAB PO ×2 (09:00→20:53)
[2017-11-26 09:52] LABS: LACTIC ACID SEPSIS PROTOCOL 1.6 MMOL/L (0.4-2.0)
[2017-11-26 10:11] LABS: BEDSIDE GLUCOSE 121 MG/DL (83-110)
[2017-11-26 11:38] LABS: RETIC HEMOGLOBIN EQUIVALENT 27.3 pg (24-36); RETICULOCYTE # 113.6 10^9/L (17-77); RETICULOCYTE % 3.2 % (0.5-1.5)
[2017-11-26 11:40] LABS: REASON FOR REVIEW OTHER; SLIDE REVIEW Report; SOURCE PERIPHERAL SMEAR
[2017-11-26] MEDS: PANTOPRAZOLE 40MG INJ (PROTONIX) (C9113) IV ×2 (11:46→20:53)
[2017-11-26] MEDS: SUCRALFATE SUSP 1GM/10ML UD PO ×2 (11:46→17:53)
[2017-11-26 11:51] LABS: FOLATE 18.9 NG/ML (>5.4); VITAMIN B12 LEVEL 244 PG/ML (247-911)
[2017-11-26 11:58] LABS: CK-MB VALUE MASS 1.5 NG/ML (0.0-3.6); CPK CREATINE PHOSPHOKINASE 41 U/L (39-308); IRON (FE) 15 UG/DL (65-175); MB/CK RELATIVE INDEX 3.65 (< OR =4); TROPONIN I < 0.02 NG/ML (< 0.10)
[2017-11-26 11:59] LABS: FERRITIN 13 NG/ML (26-388); PERCENT SATURATION 4.7 % (19.7-50.0); TOTAL IRON BINDING CAPACITY 317 UG/DL (250-450)
[2017-11-26 12:29] LABS: INR 0.99; PROTHROMBIN TIME 13.2 SECONDS (12.4-14.5)
[2017-11-26] MEDS ORDERED: DEXTROSE 50% 50 ML SYRINGE IV (12:30)
[2017-11-26] MEDS ORDERED: ONDANSETRON 4MG/2ML VIAL (J2405) IV (12:30)
[2017-11-26] MEDS ORDERED: GLUCOSE 4 GM CHEW TABLET PO (12:30)
[2017-11-26] MEDS ORDERED: GLUCAGON FOR INJ 1 MG VIAL (J1610) SC (12:30)
[2017-11-26] MEDS ORDERED: ALBUTEROL 90 MCG/ACT 8GM HFA INHALER INH (12:30)
[2017-11-26] MEDS: DOCUSATE SODIUM 100 MG CAP PO (13:31)
[2017-11-26] MEDS: predniSONE 10 MG TAB PO (13:31)
[2017-11-26] MEDS: FERROUS SULFATE 325MG TAB PO ×2 (13:32→20:52)
[2017-11-26] MEDS: ATORVASTATIN 20 MG TAB PO (13:32)
[2017-11-26] MEDS: CYANOCOBALAMIN 500 MCG TAB PO ×2 (13:33→20:53)
[2017-11-26] MEDS: OCTREOTIDE ACETATE 100 MCG/ML VIAL (J2354) SC ×2 (14:11→20:52)
[2017-11-26 16:00] LABS: BEDSIDE GLUCOSE 203 MG/DL (83-110)
[2017-11-26 16:55] LABS: HEMATOCRIT 28.8 % (42.0-52.0); HEMOGLOBIN 8.9 g/dl (14.0-18.0)
[2017-11-26 17:17] LABS: CK-MB VALUE MASS 1.6 NG/ML (0.0-3.6); CPK CREATINE PHOSPHOKINASE 43 U/L (39-308); MB/CK RELATIVE INDEX 3.72 (< OR =4); TROPONIN I < 0.02 NG/ML (< 0.10)
[2017-11-26 17:32] LABS: BEDSIDE GLUCOSE 242 MG/DL (83-110)
[2017-11-26] MEDS: HumaLOG INSULIN (NovoLOG) PER UNIT SC ×2 (17:54→20:53)
[2017-11-26 20:52] LABS: BEDSIDE GLUCOSE 143 MG/DL (83-110)
[2017-11-26 23:00] LABS: HEMATOCRIT 29.2 % (42.0-52.0); HEMOGLOBIN 8.9 g/dl (14.0-18.0)
[2017-11-26 23:47] LABS: BEDSIDE GLUCOSE 245 MG/DL (83-110)
[2017-11-27] MEDS: IPRATROPIUM 0.5MG/ALBUTEROL 2.5MG INH SOL UD 3ML (DUONEB)(J7620) NEB ×6 (03:06→23:53)
[2017-11-27] MEDS: OCTREOTIDE ACETATE 100 MCG/ML VIAL (J2354) SC ×3 (05:18→21:17)
[2017-11-27 05:45] LABS: HEMATOCRIT 28.6 % (42.0-52.0); HEMOGLOBIN 8.8 g/dl (14.0-18.0); MEAN CORPUSCULAR HEMOGLOBIN 25.4 pg (27.0-33.0); MEAN CORPUSCULAR HGB CONC 30.8 g/dl (32.0-36.5); MEAN CORPUSCULAR VOLUME 82.4 fl (80.0-96.0); PLATELET COUNT, AUTOMATED 478 10^3/uL (150-450); RED BLOOD COUNT 3.47 10^6/uL (4.30-6.10); RED CELL DISTRIBUTION WIDTH 17.3 % (11.5-14.5); WHITE BLOOD COUNT 8.1 10^3/uL (4.0-10.0)
[2017-11-27 06:13] LABS: ALBUMIN 3.1 GM/DL (3.2-5.2); ALBUMIN/GLOBULIN RATIO 1.15 (1.00-1.93); ALKALINE PHOSPHATASE 136 U/L (45-117); ALT/SGPT 13 U/L (12-78); ANION GAP 7 MEQ/L (8-16); AST/SGOT 9 U/L (7-37); BILIRUBIN,TOTAL 0.2 MG/DL (0.2-1.0); BLOOD UREA NITROGEN 4 MG/DL (7-18); CALCIUM LEVEL 8.5 MG/DL (8.8-10.2); CARBON DIOXIDE LEVEL 29 MEQ/L (21-32); CHLORIDE LEVEL 102 MEQ/L (98-107); CREATININE FOR GFR 0.56 MG/DL (0.70-1.30); GLOMERULAR FILTRATION RATE > 60.0 (>42); GLUCOSE, FASTING 168 MG/DL (70-100); MAGNESIUM LEVEL 2.2 MG/DL (1.8-2.4); POTASSIUM SERUM 3.9 MEQ/L (3.5-5.1); SODIUM LEVEL 138 MEQ/L (136-145); TOTAL PROTEIN 5.8 GM/DL (6.4-8.2)
[2017-11-27] MEDS: DOCUSATE SODIUM 100 MG CAP PO (08:25)
[2017-11-27] MEDS: ATORVASTATIN 20 MG TAB PO (08:25)
[2017-11-27] MEDS: predniSONE 10 MG TAB PO (08:25)
[2017-11-27] MEDS: PANTOPRAZOLE 40MG INJ (PROTONIX) (C9113) IV ×2 (08:25→21:17)
[2017-11-27] MEDS: CYANOCOBALAMIN 500 MCG TAB PO ×2 (08:25→21:16)
[2017-11-27] MEDS: SUCRALFATE SUSP 1GM/10ML UD PO ×3 (08:25→16:55)
[2017-11-27] MEDS: ASCORBIC ACID 500 MG TAB PO ×2 (08:25→21:16)
[2017-11-27] MEDS: HumaLOG INSULIN (NovoLOG) PER UNIT SC ×4 (08:26→21:00)
[2017-11-27] MEDS: FERROUS SULFATE 325MG TAB PO ×2 (08:26→21:16)
[2017-11-27] MEDS: NS 1,000 ML IV (09:18)
[2017-11-27 10:52] LABS: HEMATOCRIT 30.4 % (42.0-52.0); HEMOGLOBIN 9.4 g/dl (14.0-18.0)
[2017-11-27 12:21] LABS: BEDSIDE GLUCOSE 148 MG/DL (83-110)
[2017-11-27] MEDS ORDERED: SLF 3 ML SYR IV (14:15)
[2017-11-27 16:58] LABS: BEDSIDE GLUCOSE 268 MG/DL (83-110)
[2017-11-27 17:05] LABS: HEMATOCRIT 29.8 % (42.0-52.0); HEMOGLOBIN 9.1 g/dl (14.0-18.0)
[2017-11-27 21:04] LABS: BEDSIDE GLUCOSE 124 MG/DL (83-110)
[2017-11-27] MEDS: SLF 3 ML SYR IV (21:18)
[2017-11-27] MEDS: zolPIDEM TARTRATE 5 MG TAB PO (21:28)
[2017-11-27 22:33] LABS: HEMOGLOBIN 8.8 g/dl (14.0-18.0)
[2017-11-28] MEDS: IPRATROPIUM 0.5MG/ALBUTEROL 2.5MG INH SOL UD 3ML (DUONEB)(J7620) NEB ×6 (04:08→23:33)
[2017-11-28 05:03] LABS: HEMATOCRIT 27.8 % (42.0-52.0); HEMOGLOBIN 8.6 g/dl (14.0-18.0); MEAN CORPUSCULAR HEMOGLOBIN 25.5 pg (27.0-33.0); MEAN CORPUSCULAR HGB CONC 30.9 g/dl (32.0-36.5); MEAN CORPUSCULAR VOLUME 82.5 fl (80.0-96.0); PLATELET COUNT, AUTOMATED 471 10^3/uL (150-450); RED BLOOD COUNT 3.37 10^6/uL (4.30-6.10); RED CELL DISTRIBUTION WIDTH 17.3 % (11.5-14.5); WHITE BLOOD COUNT 11.4 10^3/uL (4.0-10.0)
[2017-11-28 05:24] LABS: ALBUMIN/GLOBULIN RATIO 1.15 (1.00-1.93); ALKALINE PHOSPHATASE 131 U/L (45-117); ALT/SGPT 14 U/L (12-78); ANION GAP 8 MEQ/L (8-16); AST/SGOT 12 U/L (7-37); BILIRUBIN,TOTAL 0.2 MG/DL (0.2-1.0); BLOOD UREA NITROGEN 8 MG/DL (7-18); CALCIUM LEVEL 8.3 MG/DL (8.8-10.2); CARBON DIOXIDE LEVEL 27 MEQ/L (21-32); CHLORIDE LEVEL 100 MEQ/L (98-107); GLOMERULAR FILTRATION RATE > 60.0 (>42); GLUCOSE, FASTING 176 MG/DL (70-100); POTASSIUM SERUM 3.6 MEQ/L (3.5-5.1); SODIUM LEVEL 135 MEQ/L (136-145); TOTAL PROTEIN 5.6 GM/DL (6.4-8.2)
[2017-11-28] MEDS: SLF 3 ML SYR IV ×3 (06:00→20:39)
[2017-11-28] MEDS: OCTREOTIDE ACETATE 100 MCG/ML VIAL (J2354) SC ×3 (06:00→20:37)
[2017-11-28 07:09] LABS: BEDSIDE GLUCOSE 144 MG/DL (83-110)
[2017-11-28] MEDS: HumaLOG INSULIN (NovoLOG) PER UNIT SC ×4 (09:27→20:42)
[2017-11-28] MEDS: SUCRALFATE SUSP 1GM/10ML UD PO ×3 (09:27→17:39)
[2017-11-28] MEDS: CYANOCOBALAMIN 500 MCG TAB PO ×2 (09:28→20:38)
[2017-11-28] MEDS: DOCUSATE SODIUM 100 MG CAP PO (09:28)
[2017-11-28] MEDS: ASCORBIC ACID 500 MG TAB PO ×2 (09:28→20:38)
[2017-11-28] MEDS: predniSONE 10 MG TAB PO (09:28)
[2017-11-28] MEDS: PANTOPRAZOLE 40MG INJ (PROTONIX) (C9113) IV ×2 (09:28→20:37)
[2017-11-28] MEDS: FERROUS SULFATE 325MG TAB PO ×2 (09:28→20:37)
[2017-11-28] MEDS: ATORVASTATIN 20 MG TAB PO (09:28)
[2017-11-28] MEDS ORDERED: SODIUM CHLORIDE NASAL 0.65% SPRAY BTL (OCEAN) (10:30)
[2017-11-28 12:02] LABS: BEDSIDE GLUCOSE 218 MG/DL (83-110)
[2017-11-28] MEDS: GABAPENTIN 100 MG CAP PO ×2 (12:15→20:38)
[2017-11-28 16:56] LABS: BEDSIDE GLUCOSE 146 MG/DL (83-110)
[2017-11-28 20:37] LABS: BEDSIDE GLUCOSE 195 MG/DL (83-110)
[2017-11-29] MEDS: IPRATROPIUM 0.5MG/ALBUTEROL 2.5MG INH SOL UD 3ML (DUONEB)(J7620) NEB ×3 (02:55→11:27)
[2017-11-29] MEDS: SLF 3 ML SYR IV (06:00)
[2017-11-29] MEDS: OCTREOTIDE ACETATE 100 MCG/ML VIAL (J2354) SC (06:33)
[2017-11-29] MEDS: GABAPENTIN 100 MG CAP PO (06:33)
[2017-11-29] MEDS: SUCRALFATE SUSP 1GM/10ML UD PO ×2 (06:43→12:00)
[2017-11-29 06:57] LABS: BEDSIDE GLUCOSE 151 MG/DL (83-110)
[2017-11-29 07:18] LABS: HEMATOCRIT 31.2 % (42.0-52.0); HEMOGLOBIN 9.5 g/dl (14.0-18.0); MEAN CORPUSCULAR HEMOGLOBIN 25.4 pg (27.0-33.0); MEAN CORPUSCULAR HGB CONC 30.4 g/dl (32.0-36.5); MEAN CORPUSCULAR VOLUME 83.4 fl (80.0-96.0); PLATELET COUNT, AUTOMATED 459 10^3/uL (150-450); RED BLOOD COUNT 3.74 10^6/uL (4.30-6.10); RED CELL DISTRIBUTION WIDTH 17.6 % (11.5-14.5); WHITE BLOOD COUNT 11.9 10^3/uL (4.0-10.0)
[2017-11-29 07:39] LABS: ALBUMIN 3.3 GM/DL (3.2-5.2); ALBUMIN/GLOBULIN RATIO 1.14 (1.00-1.93); ALKALINE PHOSPHATASE 147 U/L (45-117); ALT/SGPT 14 U/L (12-78); ANION GAP 7 MEQ/L (8-16); AST/SGOT 6 U/L (7-37); BILIRUBIN,TOTAL 0.2 MG/DL (0.2-1.0); BLOOD UREA NITROGEN 6 MG/DL (7-18); CALCIUM LEVEL 8.4 MG/DL (8.8-10.2); CARBON DIOXIDE LEVEL 28 MEQ/L (21-32); CHLORIDE LEVEL 102 MEQ/L (98-107); CREATININE FOR GFR 0.61 MG/DL (0.70-1.30); GLOMERULAR FILTRATION RATE > 60.0 (>42); GLUCOSE, FASTING 139 MG/DL (70-100); MAGNESIUM LEVEL 2.2 MG/DL (1.8-2.4); POTASSIUM SERUM 3.6 MEQ/L (3.5-5.1); SODIUM LEVEL 137 MEQ/L (136-145); TOTAL PROTEIN 6.2 GM/DL (6.4-8.2)
[2017-11-29] MEDS: PANTOPRAZOLE 40MG INJ (PROTONIX) (C9113) IV (08:19)
[2017-11-29] MEDS: CYANOCOBALAMIN 500 MCG TAB PO (08:20)
[2017-11-29] MEDS: ASCORBIC ACID 500 MG TAB PO (08:20)
[2017-11-29] MEDS: FERROUS SULFATE 325MG TAB PO (08:20)
[2017-11-29] MEDS: predniSONE 10 MG TAB PO (08:20)
[2017-11-29] MEDS: DOCUSATE SODIUM 100 MG CAP PO (08:20)
[2017-11-29] MEDS: ATORVASTATIN 20 MG TAB PO (08:20)
[2017-11-29] MEDS: HumaLOG INSULIN (NovoLOG) PER UNIT SC ×2 (08:20→12:00)
[2017-11-29 11:49] LABS: BEDSIDE GLUCOSE 208 MG/DL (83-110)
== END 2017-11-29 12:55 | disposition home or self-care (01) | DRG 379 ==
LOC: M MS4PR 11-28 15:35 → M ED 05:48 → M ED INP 12:25 → M PCU 14:20
DX: K92.2 Gastrointestinal hemorrhage, unspecified (principal); J44.9 Chronic obstructive pulmonary disease, unspecified; E78.5 Hyperlipidemia, unspecified; E11.9 Type 2 diabetes mellitus without complications; K57.90 Diverticulosis of intestine, part unspecified, without perforation or abscess without bleeding; D50.9 Iron deficiency anemia, unspecified; E53.8 Deficiency of other specified B group vitamins; G47.00 Insomnia, unspecified; I27.20 Pulmonary hypertension, unspecified; Z66 Do not resuscitate; Z99.81 Dependence on supplemental oxygen; Z92.3 Personal history of irradiation; Z85.46 Personal history of malignant neoplasm of prostate; Z87.442 Personal history of urinary calculi; Z79.84 Long term (current) use of oral hypoglycemic drugs; Z79.52 Long term (current) use of systemic steroids; Z79.899 Other long term (current) drug therapy; Z87.891 Personal history of nicotine dependence

== ENCOUNTER 2017-11-30 18:23 | Inpatient (IN) | payer MEDICARE ==
[2017-11-30 19:26] LABS: BASO % 0.1 % (0.0-1.0); HEMATOCRIT 32.4 % (42.0-52.0); HEMOGLOBIN 10.3 g/dl (14.0-18.0); IMMATURE GRANULOCYTE # 0.1 10^3/uL (0-0); IMMATURE GRANULOCYTE % 0.5 % (0-0); LYMPH # 0.9 10^3/uL (1.5-4.5); MEAN CORPUSCULAR HEMOGLOBIN 26.3 pg (27.0-33.0); MEAN CORPUSCULAR HGB CONC 31.8 g/dl (32.0-36.5); MEAN CORPUSCULAR VOLUME 82.7 fl (80.0-96.0); MONO % 4.4 % (0.0-5.0); PLATELET COUNT, AUTOMATED 485 10^3/uL (150-450); RED BLOOD COUNT 3.92 10^6/uL (4.30-6.10); RED CELL DISTRIBUTION WIDTH 18.1 % (11.5-14.5); WHITE BLOOD COUNT 21.9 10^3/uL (4.0-10.0)
[2017-11-30 19:33] LABS: VENOUS BASE EXCESS 0.2 (-2.0-2.0); VENOUS HCO3 25.3 MEQ/L (23.0-27.0); VENOUS O2 SATURATION 59.8 % (60.0-80.0); VENOUS PARTIAL PRESSURE CO2 42.7 mmHg (38.0-50.0); VENOUS PARTIAL PRESSURE O2 34.2 mmHg (30.0-50.0); VENOUS STANDARD HCO3 23.9 MEQ/L; VENOUS TOTAL CO2 26.6 MEQ/L (24.0-28.0)
[2017-11-30] MEDS: NS 500 ML IV (20:00)
[2017-11-30 20:11] LABS: ALBUMIN 3.3 GM/DL (3.2-5.2); ALBUMIN/GLOBULIN RATIO 1.18 (1.00-1.93); ALKALINE PHOSPHATASE 160 U/L (45-117); ALT/SGPT 16 U/L (12-78); ANION GAP 12 MEQ/L (8-16); AST/SGOT 12 U/L (7-37); BILIRUBIN,DIRECT 0.2 MG/DL (0.0-0.2); BILIRUBIN,TOTAL 0.6 MG/DL (0.2-1.0); BLOOD UREA NITROGEN 10 MG/DL (7-18); CALCIUM LEVEL 8.3 MG/DL (8.8-10.2); CARBON DIOXIDE LEVEL 26 MEQ/L (21-32); CHLORIDE LEVEL 96 MEQ/L (98-107); CPK CREATINE PHOSPHOKINASE 42 U/L (39-308); CREATININE FOR GFR 0.64 MG/DL (0.70-1.30); GLOMERULAR FILTRATION RATE > 60.0 (>42); GLUCOSE, FASTING 161 MG/DL (70-100); POTASSIUM SERUM 3.6 MEQ/L (3.5-5.1); SODIUM LEVEL 134 MEQ/L (136-145); TOTAL PROTEIN 6.1 GM/DL (6.4-8.2); TROPONIN I < 0.02 NG/ML (< 0.10)
[2017-11-30 20:12] LABS: LACTIC ACID SEPSIS PROTOCOL 2.8 MMOL/L (0.4-2.0)
[2017-11-30 20:16] LABS: MB/CK RELATIVE INDEX 2.38 (< OR =4); NT-PRO BNP 106 PG/ML (<125)
[2017-11-30] MEDS: methylPREDNISolone INJ 125 MG/2 ML VIAL (J2930) IV (20:20)
[2017-11-30] MEDS: PIPERACILLIN/TAZOBACTAM SOD 3.375 GM in APPROPRIATE DILUENT 1 EA IV (20:20)
[2017-11-30 20:41] LABS: INFLUENZA A AMPLIFICATION NEGATIVE (NEGATIVE); INFLUENZA B AMPLIFICATION NEGATIVE (NEGATIVE)
[2017-11-30] MEDS: IPRATROPIUM 0.5MG/ALBUTEROL 2.5MG INH SOL UD 3ML (DUONEB)(J7620) NEB ×3 (20:44→20:50)
[2017-11-30 20:48] LABS: ABG BASE EXCESS -0.9 (-2.0-2.0); ABG HCO3 22.2 MEQ/L (22.0-26.0); ABG O2 SATURATION 96.1 % (95.0-99.0); ABG PARTIAL PRESSURE CO2 31.4 mmHg (35.0-45.0); ABG PARTIAL PRESSURE O2 77.9 mmHg (75.0-100.0); ABG STANDARD HCO3 23.7 MEQ/L (22.0-26.0); ABG TOTAL CO2 23.1 MEQ/L (23.0-31.0); ABG pH (ARTERIAL) 7.467 UNITS (7.350-7.450)
[2017-11-30] MEDS: HumaLOG INSULIN (NovoLOG) PER UNIT SC (21:33)
[2017-11-30] MEDS: DILUENT IV (21:38)
[2017-11-30] MEDS: NS IV (21:38)
[2017-11-30 21:41] LABS: BEDSIDE GLUCOSE 191 MG/DL (83-110)
[2017-11-30] MEDS ORDERED: BISACODYL 5 MG TAB PO (22:00)
[2017-11-30] MEDS ORDERED: GLUCOSE 4 GM CHEW TABLET PO (22:00)
[2017-11-30] MEDS ORDERED: GLUCAGON FOR INJ 1 MG VIAL (J1610) SC (22:00)
[2017-11-30] MEDS ORDERED: ONDANSETRON 4MG/2ML VIAL (J2405) IV (22:00)
[2017-11-30] MEDS ORDERED: DEXTROSE 50% 50 ML SYRINGE IV (22:00)
[2017-11-30] MEDS: OMEPRAZOLE 20 MG CAP PO (23:42)
[2017-11-30] MEDS: FUROSEMIDE 40 MG/4 ML VIAL (J1940) IV (23:42)
[2017-11-30] MEDS: SUCRALFATE 1 GM TAB PO (23:42)
[2017-12-01] MEDS: PIPERACILLIN/TAZOBACTAM SOD 3.375 GM in APPROPRIATE DILUENT 1 EA IV ×4 (04:00→22:18)
[2017-12-01 06:55] LABS: BEDSIDE GLUCOSE 270 MG/DL (83-110)
[2017-12-01 07:46] LABS: HEMATOCRIT 28.7 % (42.0-52.0); HEMOGLOBIN 9.1 g/dl (14.0-18.0); IMMATURE GRANULOCYTE # 0.1 10^3/uL (0-0); IMMATURE GRANULOCYTE % 0.5 % (0-0); LYMPH # 0.8 10^3/uL (1.5-4.5); LYMPH % 3.5 % (24.0-44.0); MEAN CORPUSCULAR HEMOGLOBIN 25.7 pg (27.0-33.0); MEAN CORPUSCULAR HGB CONC 31.7 g/dl (32.0-36.5); MEAN CORPUSCULAR VOLUME 81.1 fl (80.0-96.0); MONO # 0.7 10^3/uL (0.0-0.8); MONO % 2.9 % (0.0-5.0); NEUTROPHILS # 20.6 10^3/uL (1.8-7.7); NEUTROPHILS % 93.1 % (36.0-66.0); PLATELET COUNT, AUTOMATED 412 10^3/uL (150-450); RED BLOOD COUNT 3.54 10^6/uL (4.30-6.10); RED CELL DISTRIBUTION WIDTH 18.2 % (11.5-14.5); WHITE BLOOD COUNT 22.1 10^3/uL (4.0-10.0)
[2017-12-01 08:05] LABS: ANION GAP 9 MEQ/L (8-16); BLOOD UREA NITROGEN 12 MG/DL (7-18); CARBON DIOXIDE LEVEL 25 MEQ/L (21-32); CHLORIDE LEVEL 100 MEQ/L (98-107); CREATININE FOR GFR 0.76 MG/DL (0.70-1.30); GLOMERULAR FILTRATION RATE > 60.0 (>42); GLUCOSE, FASTING 261 MG/DL (70-100); POTASSIUM SERUM 3.4 MEQ/L (3.5-5.1); SODIUM LEVEL 134 MEQ/L (136-145)
[2017-12-01] MEDS: HumaLOG INSULIN (NovoLOG) PER UNIT SC ×4 (08:31→21:00)
[2017-12-01] MEDS: SUCRALFATE 1 GM TAB PO ×4 (08:32→22:19)
[2017-12-01] MEDS: OMEPRAZOLE 20 MG CAP PO ×2 (08:32→22:19)
[2017-12-01] MEDS: predniSONE 10 MG TAB PO (08:32)
[2017-12-01] MEDS: ATORVASTATIN 20 MG TAB PO (08:32)
[2017-12-01] MEDS: SENOKOT S TAB PO ×2 (08:32→22:19)
[2017-12-01] MEDS: FERROUS SULFATE 325MG TAB PO ×2 (08:32→22:19)
[2017-12-01] MEDS: GLIMEPIRIDE 1 MG TABLET PO (08:32)
[2017-12-01] MEDS ORDERED: ENOXAPARIN 40 MG/0.4 ML SYRINGE (J1650) SC (09:00)
[2017-12-01 11:32] LABS: BEDSIDE GLUCOSE 191 MG/DL (83-110)
[2017-12-01] MEDS: POTASSIUM CHLORIDE 10 MEQ SR TABLET PO (12:34)
[2017-12-01] MEDS: IPRATROPIUM 0.5MG/ALBUTEROL 2.5MG INH SOL UD 3ML (DUONEB)(J7620) NEB ×3 (14:20→23:17)
[2017-12-01 17:25] LABS: BEDSIDE GLUCOSE 141 MG/DL (83-110)
[2017-12-01 22:04] LABS: BEDSIDE GLUCOSE 132 MG/DL (83-110)
[2017-12-01 23:19] LABS: BEDSIDE GLUCOSE 141 MG/DL (83-110)
[2017-12-02] MEDS: PIPERACILLIN/TAZOBACTAM SOD 3.375 GM in APPROPRIATE DILUENT 1 EA IV ×4 (03:38→21:15)
[2017-12-02] MEDS: IPRATROPIUM 0.5MG/ALBUTEROL 2.5MG INH SOL UD 3ML (DUONEB)(J7620) NEB ×6 (03:42→19:51)
[2017-12-02 07:17] LABS: BASO % 0.1 % (0.0-1.0); EOS % 0.1 % (0.0-3.0); HEMATOCRIT 27.8 % (42.0-52.0); HEMOGLOBIN 8.7 g/dl (14.0-18.0); IMMATURE GRANULOCYTE # 0.1 10^3/uL (0-0); IMMATURE GRANULOCYTE % 0.4 % (0-0); LYMPH # 0.9 10^3/uL (1.5-4.5); LYMPH % 5.9 % (24.0-44.0); MEAN CORPUSCULAR HGB CONC 31.3 g/dl (32.0-36.5); MEAN CORPUSCULAR VOLUME 83.2 fl (80.0-96.0); MONO % 6.2 % (0.0-5.0); NEUTROPHILS # 13.4 10^3/uL (1.8-7.7); NEUTROPHILS % 87.3 % (36.0-66.0); PLATELET COUNT, AUTOMATED 367 10^3/uL (150-450); RED BLOOD COUNT 3.34 10^6/uL (4.30-6.10); RED CELL DISTRIBUTION WIDTH 18.2 % (11.5-14.5); WHITE BLOOD COUNT 15.3 10^3/uL (4.0-10.0)
[2017-12-02 07:43] LABS: ANION GAP 9 MEQ/L (8-16); BLOOD UREA NITROGEN 11 MG/DL (7-18); C REACTIVE PROTEIN QUANTITATIV 9.96 MG/DL (0.00-0.30); CARBON DIOXIDE LEVEL 27 MEQ/L (21-32); CHLORIDE LEVEL 103 MEQ/L (98-107); GLOMERULAR FILTRATION RATE > 60.0 (>42); GLUCOSE, FASTING 102 MG/DL (70-100); SODIUM LEVEL 139 MEQ/L (136-145)
[2017-12-02] MEDS: ATORVASTATIN 20 MG TAB PO (08:35)
[2017-12-02] MEDS: POTASSIUM CHLORIDE 10 MEQ SR TABLET PO (08:36)
[2017-12-02] MEDS: predniSONE 10 MG TAB PO (08:36)
[2017-12-02] MEDS: FERROUS SULFATE 325MG TAB PO ×2 (08:36→21:15)
[2017-12-02] MEDS: SENOKOT S TAB PO ×2 (08:36→21:15)
[2017-12-02] MEDS: OMEPRAZOLE 20 MG CAP PO ×2 (08:36→21:15)
[2017-12-02 08:37] LABS: MAGNESIUM LEVEL 2.2 MG/DL (1.8-2.4)
[2017-12-02] MEDS: HumaLOG INSULIN (NovoLOG) PER UNIT SC ×4 (08:37→21:00)
[2017-12-02] MEDS: SUCRALFATE 1 GM TAB PO ×4 (09:56→21:15)
[2017-12-02] MEDS: GLIMEPIRIDE 1 MG TABLET PO (09:56)
[2017-12-02] MEDS: KCL 10MEQ IN 100ML SWI (KRUN) 10 MEQ in APPROPRIATE DILUENT 1 EA IV ×4 (09:56→13:38)
[2017-12-02 12:18] LABS: BEDSIDE GLUCOSE 197 MG/DL (83-110)
[2017-12-02] MEDS: ACETAMINOPHEN TAB 650MG DOSE (2X325MG) PO ×2 (16:46→21:15)
[2017-12-02 16:56] LABS: BEDSIDE GLUCOSE 130 MG/DL (83-110)
[2017-12-02 20:15] LABS: BEDSIDE GLUCOSE 192 MG/DL (83-110)
[2017-12-03] MEDS: IPRATROPIUM 0.5MG/ALBUTEROL 2.5MG INH SOL UD 3ML (DUONEB)(J7620) NEB ×6 (00:06→23:27)
[2017-12-03] MEDS: PIPERACILLIN/TAZOBACTAM SOD 3.375 GM in APPROPRIATE DILUENT 1 EA IV ×4 (03:36→20:47)
[2017-12-03 03:52] LABS: BEDSIDE GLUCOSE 82 MG/DL (83-110)
[2017-12-03 05:16] LABS: EOS % 0.2 % (0.0-3.0); HEMATOCRIT 28.9 % (42.0-52.0); HEMOGLOBIN 9.1 g/dl (14.0-18.0); IMMATURE GRANULOCYTE % 0.4 % (0-3.0); LYMPH # 0.3 10^3/uL (1.5-4.5); LYMPH % 2.1 % (24.0-44.0); MEAN CORPUSCULAR HEMOGLOBIN 25.6 pg (27.0-33.0); MEAN CORPUSCULAR HGB CONC 31.5 g/dl (32.0-36.5); MEAN CORPUSCULAR VOLUME 81.2 fl (80.0-96.0); MONO # 0.3 10^3/uL (0.0-0.8); MONO % 2.3 % (0.0-5.0); NEUTROPHILS # 12.9 10^3/uL (1.8-7.7); PLATELET COUNT, AUTOMATED 391 10^3/uL (150-450); RED BLOOD COUNT 3.56 10^6/uL (4.30-6.10); RED CELL DISTRIBUTION WIDTH 17.9 % (11.5-14.5); WHITE BLOOD COUNT 13.6 10^3/uL (4.0-10.0)
[2017-12-03 05:44] LABS: ANION GAP 8 MEQ/L (8-16); BLOOD UREA NITROGEN 7 MG/DL (7-18); C REACTIVE PROTEIN QUANTITATIV 5.71 MG/DL (0.00-0.30); CALCIUM LEVEL 7.8 MG/DL (8.8-10.2); CARBON DIOXIDE LEVEL 26 MEQ/L (21-32); CHLORIDE LEVEL 101 MEQ/L (98-107); CREATININE FOR GFR 0.57 MG/DL (0.70-1.30); GLOMERULAR FILTRATION RATE > 60.0 (>42); GLUCOSE, FASTING 131 MG/DL (70-100); POTASSIUM SERUM 3.7 MEQ/L (3.5-5.1); SODIUM LEVEL 135 MEQ/L (136-145)
[2017-12-03] MEDS: ACETAMINOPHEN TAB 650MG DOSE (2X325MG) PO ×3 (06:08→23:08)
[2017-12-03 06:16] LABS: POSITIVE DIFF POS FLAG
[2017-12-03] MEDS: HumaLOG INSULIN (NovoLOG) PER UNIT SC ×4 (07:30→20:29)
[2017-12-03 08:48] LABS: BEDSIDE GLUCOSE 129 MG/DL (83-110)
[2017-12-03] MEDS ORDERED: PREVNAR 13 VACCINE SYRINGE (CPT CODE:90670) IM (09:00)
[2017-12-03] MEDS: SENOKOT S TAB PO ×2 (10:01→20:46)
[2017-12-03] MEDS: ATORVASTATIN 20 MG TAB PO (10:01)
[2017-12-03] MEDS: OMEPRAZOLE 20 MG CAP PO ×2 (10:01→20:47)
[2017-12-03] MEDS: GLIMEPIRIDE 1 MG TABLET PO (10:02)
[2017-12-03] MEDS: predniSONE 10 MG TAB PO (10:02)
[2017-12-03] MEDS: FERROUS SULFATE 325MG TAB PO ×2 (10:02→20:46)
[2017-12-03] MEDS: SUCRALFATE 1 GM TAB PO ×4 (10:02→20:46)
[2017-12-03 12:43] LABS: BEDSIDE GLUCOSE 112 MG/DL (83-110)
[2017-12-03 17:12] LABS: BEDSIDE GLUCOSE 104 MG/DL (83-110)
[2017-12-03 20:09] LABS: BEDSIDE GLUCOSE 163 MG/DL (83-110)
[2017-12-04] MEDS: PIPERACILLIN/TAZOBACTAM SOD 3.375 GM in APPROPRIATE DILUENT 1 EA IV ×4 (03:05→20:58)
[2017-12-04] MEDS: IPRATROPIUM 0.5MG/ALBUTEROL 2.5MG INH SOL UD 3ML (DUONEB)(J7620) NEB ×6 (03:52→23:22)
[2017-12-04 07:07] LABS: BASO % 0.1 % (0.0-1.0); EOS % 0.1 % (0.0-3.0); HEMATOCRIT 28.1 % (42.0-52.0); HEMOGLOBIN 8.9 g/dl (14.0-18.0); IMMATURE GRANULOCYTE % 0.4 % (0-3.0); LYMPH # 0.6 10^3/uL (1.5-4.5); LYMPH % 7.5 % (24.0-44.0); MEAN CORPUSCULAR HEMOGLOBIN 25.7 pg (27.0-33.0); MEAN CORPUSCULAR HGB CONC 31.7 g/dl (32.0-36.5); MEAN CORPUSCULAR VOLUME 81.2 fl (80.0-96.0); MONO # 0.4 10^3/uL (0.0-0.8); MONO % 5.2 % (0.0-5.0); NEUTROPHILS # 6.8 10^3/uL (1.8-7.7); NEUTROPHILS % 86.7 % (36.0-66.0); PLATELET COUNT, AUTOMATED 339 10^3/uL (150-450); RED BLOOD COUNT 3.46 10^6/uL (4.30-6.10); RED CELL DISTRIBUTION WIDTH 17.5 % (11.5-14.5); WHITE BLOOD COUNT 7.8 10^3/uL (4.0-10.0)
[2017-12-04 07:27] LABS: ANION GAP 7 MEQ/L (8-16); BLOOD UREA NITROGEN 9 MG/DL (7-18); CALCIUM LEVEL 7.8 MG/DL (8.8-10.2); CARBON DIOXIDE LEVEL 27 MEQ/L (21-32); CHLORIDE LEVEL 98 MEQ/L (98-107); CREATININE FOR GFR 0.45 MG/DL (0.70-1.30); GLOMERULAR FILTRATION RATE > 60.0 (>42); GLUCOSE, FASTING 88 MG/DL (70-100); POTASSIUM SERUM 3.4 MEQ/L (3.5-5.1); SODIUM LEVEL 132 MEQ/L (136-145)
[2017-12-04] MEDS: HumaLOG INSULIN (NovoLOG) PER UNIT SC ×4 (07:30→20:36)
[2017-12-04] MEDS: SUCRALFATE 1 GM TAB PO ×4 (07:30→20:58)
[2017-12-04] MEDS: SENOKOT S TAB PO ×2 (10:33→20:58)
[2017-12-04] MEDS: OMEPRAZOLE 20 MG CAP PO ×2 (10:33→20:58)
[2017-12-04] MEDS: ATORVASTATIN 20 MG TAB PO (10:33)
[2017-12-04] MEDS: GLIMEPIRIDE 1 MG TABLET PO (10:33)
[2017-12-04] MEDS: predniSONE 10 MG TAB PO (10:33)
[2017-12-04] MEDS: POTASSIUM CHLORIDE 10 MEQ SR TABLET PO (10:34)
[2017-12-04] MEDS: FERROUS SULFATE 325MG TAB PO ×2 (10:34→20:58)
[2017-12-04 11:45] LABS: BEDSIDE GLUCOSE 121 MG/DL (83-110)
[2017-12-04] MEDS: methylPREDNISolone INJ 125 MG/2 ML VIAL (J2930) IV (12:20)
[2017-12-04] MEDS: ACETAMINOPHEN TAB 650MG DOSE (2X325MG) PO ×2 (12:37→22:17)
[2017-12-04 17:14] LABS: BEDSIDE GLUCOSE 107 MG/DL (83-110)
[2017-12-04 20:21] LABS: BEDSIDE GLUCOSE 201 MG/DL (83-110)
[2017-12-05] MEDS: PIPERACILLIN/TAZOBACTAM SOD 3.375 GM in APPROPRIATE DILUENT 1 EA IV ×4 (02:25→20:32)
[2017-12-05] MEDS: IPRATROPIUM 0.5MG/ALBUTEROL 2.5MG INH SOL UD 3ML (DUONEB)(J7620) NEB ×6 (03:39→23:36)
[2017-12-05 06:32] LABS: HEMATOCRIT 30.3 % (42.0-52.0); HEMOGLOBIN 9.5 g/dl (14.0-18.0); IMMATURE GRANULOCYTE % 0.4 % (0-3.0); LYMPH # 1.1 10^3/uL (1.5-4.5); LYMPH % 12.6 % (24.0-44.0); MEAN CORPUSCULAR HEMOGLOBIN 25.1 pg (27.0-33.0); MEAN CORPUSCULAR HGB CONC 31.4 g/dl (32.0-36.5); MEAN CORPUSCULAR VOLUME 80.2 fl (80.0-96.0); MONO # 0.6 10^3/uL (0.0-0.8); MONO % 6.6 % (0.0-5.0); NEUTROPHILS # 6.7 10^3/uL (1.8-7.7); NEUTROPHILS % 80.4 % (36.0-66.0); PLATELET COUNT, AUTOMATED 411 10^3/uL (150-450); RED BLOOD COUNT 3.78 10^6/uL (4.30-6.10); RED CELL DISTRIBUTION WIDTH 17.7 % (11.5-14.5); WHITE BLOOD COUNT 8.3 10^3/uL (4.0-10.0)
[2017-12-05 07:06] LABS: ANION GAP 10 MEQ/L (8-16); BLOOD UREA NITROGEN 10 MG/DL (7-18); C REACTIVE PROTEIN QUANTITATIV 8.71 MG/DL (0.00-0.30); CALCIUM LEVEL 8.3 MG/DL (8.8-10.2); CARBON DIOXIDE LEVEL 28 MEQ/L (21-32); CHLORIDE LEVEL 100 MEQ/L (98-107); CREATININE FOR GFR 0.62 MG/DL (0.70-1.30); GLOMERULAR FILTRATION RATE > 60.0 (>42); GLUCOSE, FASTING 129 MG/DL (70-100); POTASSIUM SERUM 3.7 MEQ/L (3.5-5.1); SODIUM LEVEL 138 MEQ/L (136-145)
[2017-12-05] MEDS: HumaLOG INSULIN (NovoLOG) PER UNIT SC ×4 (07:47→20:22)
[2017-12-05] MEDS: predniSONE 10 MG TAB PO (07:47)
[2017-12-05] MEDS: ATORVASTATIN 20 MG TAB PO (07:47)
[2017-12-05] MEDS: GLIMEPIRIDE 1 MG TABLET PO (07:48)
[2017-12-05] MEDS: SENOKOT S TAB PO ×2 (07:48→20:32)
[2017-12-05] MEDS: FERROUS SULFATE 325MG TAB PO ×2 (07:48→20:32)
[2017-12-05] MEDS: OMEPRAZOLE 20 MG CAP PO ×2 (07:48→20:32)
[2017-12-05] MEDS: SUCRALFATE 1 GM TAB PO ×4 (07:48→20:32)
[2017-12-05 12:20] LABS: BEDSIDE GLUCOSE 136 MG/DL (83-110)
[2017-12-05 17:12] LABS: BEDSIDE GLUCOSE 93 MG/DL (83-110)
[2017-12-05 20:21] LABS: BEDSIDE GLUCOSE 210 MG/DL (83-110)
[2017-12-05] MEDS: ACETAMINOPHEN TAB 650MG DOSE (2X325MG) PO (20:33)
[2017-12-06] MEDS: PIPERACILLIN/TAZOBACTAM SOD 3.375 GM in APPROPRIATE DILUENT 1 EA IV ×4 (02:39→20:25)
[2017-12-06] MEDS: ACETAMINOPHEN TAB 650MG DOSE (2X325MG) PO ×2 (03:00→23:33)
[2017-12-06] MEDS: IPRATROPIUM 0.5MG/ALBUTEROL 2.5MG INH SOL UD 3ML (DUONEB)(J7620) NEB ×6 (03:42→23:30)
[2017-12-06 06:47] LABS: BASO % 0.2 % (0.0-1.0); EOS % 0.2 % (0.0-3.0); HEMATOCRIT 27.1 % (42.0-52.0); HEMOGLOBIN 8.4 g/dl (14.0-18.0); IMMATURE GRANULOCYTE % 0.3 % (0-3.0); LYMPH # 0.9 10^3/uL (1.5-4.5); LYMPH % 15.9 % (24.0-44.0); MEAN CORPUSCULAR HEMOGLOBIN 24.9 pg (27.0-33.0); MEAN CORPUSCULAR VOLUME 80.2 fl (80.0-96.0); MONO # 0.5 10^3/uL (0.0-0.8); MONO % 8.5 % (0.0-5.0); NEUTROPHILS # 4.4 10^3/uL (1.8-7.7); NEUTROPHILS % 74.9 % (36.0-66.0); PLATELET COUNT, AUTOMATED 370 10^3/uL (150-450); RED BLOOD COUNT 3.38 10^6/uL (4.30-6.10); RED CELL DISTRIBUTION WIDTH 17.9 % (11.5-14.5); WHITE BLOOD COUNT 5.9 10^3/uL (4.0-10.0)
[2017-12-06 07:06] LABS: ANION GAP 8 MEQ/L (8-16); BLOOD UREA NITROGEN 10 MG/DL (7-18); C REACTIVE PROTEIN QUANTITATIV 3.35 MG/DL (0.00-0.30); CARBON DIOXIDE LEVEL 30 MEQ/L (21-32); CHLORIDE LEVEL 101 MEQ/L (98-107); CREATININE FOR GFR 0.49 MG/DL (0.70-1.30); GLOMERULAR FILTRATION RATE > 60.0 (>42); GLUCOSE, FASTING 140 MG/DL (70-100); SODIUM LEVEL 139 MEQ/L (136-145)
[2017-12-06 07:25] LABS: POTASSIUM SERUM 2.9 MEQ/L (3.5-5.1)
[2017-12-06] MEDS: POTASSIUM CHLORIDE 10 MEQ SR TABLET PO (07:54)
[2017-12-06] MEDS: SENOKOT S TAB PO ×2 (07:54→20:25)
[2017-12-06] MEDS: OMEPRAZOLE 20 MG CAP PO ×2 (07:55→20:25)
[2017-12-06] MEDS: predniSONE 10 MG TAB PO (07:55)
[2017-12-06] MEDS: HumaLOG INSULIN (NovoLOG) PER UNIT SC ×4 (07:55→20:26)
[2017-12-06] MEDS: ATORVASTATIN 20 MG TAB PO (07:55)
[2017-12-06] MEDS: SUCRALFATE 1 GM TAB PO ×4 (07:55→20:25)
[2017-12-06] MEDS: FERROUS SULFATE 325MG TAB PO ×2 (07:56→20:25)
[2017-12-06] MEDS: GLIMEPIRIDE 1 MG TABLET PO (07:56)
[2017-12-06] MEDS: KCL 10MEQ IN 100ML SWI (KRUN) 10 MEQ in APPROPRIATE DILUENT 1 EA IV ×4 (08:53→11:00)
[2017-12-06 12:25] LABS: BEDSIDE GLUCOSE 207 MG/DL (83-110)
[2017-12-06 14:22] LABS: POTASSIUM SERUM 4.3 MEQ/L (3.5-5.1)
[2017-12-06 17:20] LABS: BEDSIDE GLUCOSE 115 MG/DL (83-110)
[2017-12-06 20:33] LABS: BEDSIDE GLUCOSE 87 MG/DL (83-110)
[2017-12-06 22:17] LABS: BEDSIDE GLUCOSE 186 MG/DL (83-110)
[2017-12-07] MEDS: PIPERACILLIN/TAZOBACTAM SOD 3.375 GM in APPROPRIATE DILUENT 1 EA IV ×4 (03:10→22:18)
[2017-12-07] MEDS: IPRATROPIUM 0.5MG/ALBUTEROL 2.5MG INH SOL UD 3ML (DUONEB)(J7620) NEB ×5 (04:00→20:36)
[2017-12-07 07:05] LABS: BASO % 0.2 % (0.0-1.0); EOS % 0.2 % (0.0-3.0); HEMOGLOBIN 8.4 g/dl (14.0-18.0); IMMATURE GRANULOCYTE % 0.4 % (0-3.0); LYMPH # 1.3 10^3/uL (1.5-4.5); LYMPH % 28.1 % (24.0-44.0); MEAN CORPUSCULAR HEMOGLOBIN 25.4 pg (27.0-33.0); MEAN CORPUSCULAR HGB CONC 31.1 g/dl (32.0-36.5); MEAN CORPUSCULAR VOLUME 81.6 fl (80.0-96.0); MONO # 0.6 10^3/uL (0.0-0.8); MONO % 12.2 % (0.0-5.0); NEUTROPHILS # 2.7 10^3/uL (1.8-7.7); NEUTROPHILS % 58.9 % (36.0-66.0); PLATELET COUNT, AUTOMATED 379 10^3/uL (150-450); RED BLOOD COUNT 3.31 10^6/uL (4.30-6.10); RED CELL DISTRIBUTION WIDTH 17.8 % (11.5-14.5); WHITE BLOOD COUNT 4.6 10^3/uL (4.0-10.0)
[2017-12-07 07:23] LABS: ANION GAP 7 MEQ/L (8-16); BLOOD UREA NITROGEN 7 MG/DL (7-18); C REACTIVE PROTEIN QUANTITATIV 1.61 MG/DL (0.00-0.30); CALCIUM LEVEL 7.8 MG/DL (8.8-10.2); CARBON DIOXIDE LEVEL 30 MEQ/L (21-32); CHLORIDE LEVEL 99 MEQ/L (98-107); CREATININE FOR GFR 0.47 MG/DL (0.70-1.30); GLOMERULAR FILTRATION RATE > 60.0 (>42); GLUCOSE, FASTING 154 MG/DL (70-100); POTASSIUM SERUM 3.3 MEQ/L (3.5-5.1); SODIUM LEVEL 136 MEQ/L (136-145)
[2017-12-07] MEDS: HumaLOG INSULIN (NovoLOG) PER UNIT SC ×4 (07:30→21:46)
[2017-12-07] MEDS: ATORVASTATIN 20 MG TAB PO (08:37)
[2017-12-07] MEDS: SUCRALFATE 1 GM TAB PO ×4 (08:38→21:46)
[2017-12-07] MEDS: FERROUS SULFATE 325MG TAB PO ×2 (08:38→21:45)
[2017-12-07] MEDS: OMEPRAZOLE 20 MG CAP PO ×2 (08:38→21:45)
[2017-12-07] MEDS: GLIMEPIRIDE 1 MG TABLET PO (08:38)
[2017-12-07] MEDS: predniSONE 10 MG TAB PO (08:38)
[2017-12-07] MEDS: SENOKOT S TAB PO ×2 (08:38→21:45)
[2017-12-07 11:58] LABS: BEDSIDE GLUCOSE 106 MG/DL (83-110)
[2017-12-07] MEDS: POTASSIUM CHLORIDE 10 MEQ SR TABLET PO (12:27)
[2017-12-07] MEDS: ACETAMINOPHEN TAB 650MG DOSE (2X325MG) PO ×2 (16:14→22:32)
[2017-12-07 17:09] LABS: BEDSIDE GLUCOSE 216 MG/DL (83-110)
[2017-12-07 21:29] LABS: BEDSIDE GLUCOSE 113 MG/DL (83-110)
[2017-12-08] MEDS: IPRATROPIUM 0.5MG/ALBUTEROL 2.5MG INH SOL UD 3ML (DUONEB)(J7620) NEB ×8 (00:19→22:18)
[2017-12-08] MEDS: PIPERACILLIN/TAZOBACTAM SOD 3.375 GM in APPROPRIATE DILUENT 1 EA IV ×4 (02:50→21:04)
[2017-12-08 06:47] LABS: EOS % 0.2 % (0.0-3.0); HEMATOCRIT 27.2 % (42.0-52.0); HEMOGLOBIN 8.6 g/dl (14.0-18.0); IMMATURE GRANULOCYTE % 0.5 % (0-3.0); LYMPH # 1.3 10^3/uL (1.5-4.5); LYMPH % 29.9 % (24.0-44.0); MEAN CORPUSCULAR HEMOGLOBIN 25.5 pg (27.0-33.0); MEAN CORPUSCULAR HGB CONC 31.6 g/dl (32.0-36.5); MEAN CORPUSCULAR VOLUME 80.7 fl (80.0-96.0); MONO # 0.4 10^3/uL (0.0-0.8); NEUTROPHILS # 2.6 10^3/uL (1.8-7.7); NEUTROPHILS % 59.4 % (36.0-66.0); PLATELET COUNT, AUTOMATED 413 10^3/uL (150-450); RED BLOOD COUNT 3.37 10^6/uL (4.30-6.10); RED CELL DISTRIBUTION WIDTH 17.6 % (11.5-14.5); WHITE BLOOD COUNT 4.3 10^3/uL (4.0-10.0)
[2017-12-08 07:02] LABS: ANION GAP 9 MEQ/L (8-16); BLOOD UREA NITROGEN 6 MG/DL (7-18); C REACTIVE PROTEIN QUANTITATIV 0.96 MG/DL (0.00-0.30); CALCIUM LEVEL 8.2 MG/DL (8.8-10.2); CARBON DIOXIDE LEVEL 29 MEQ/L (21-32); CHLORIDE LEVEL 99 MEQ/L (98-107); CREATININE FOR GFR 0.54 MG/DL (0.70-1.30); GLOMERULAR FILTRATION RATE > 60.0 (>42); GLUCOSE, FASTING 167 MG/DL (70-100); POTASSIUM SERUM 3.4 MEQ/L (3.5-5.1); SODIUM LEVEL 137 MEQ/L (136-145)
[2017-12-08] MEDS: HumaLOG INSULIN (NovoLOG) PER UNIT SC ×4 (07:30→21:09)
[2017-12-08] MEDS: OMEPRAZOLE 20 MG CAP PO ×2 (07:44→21:05)
[2017-12-08] MEDS: ATORVASTATIN 20 MG TAB PO (07:45)
[2017-12-08] MEDS: predniSONE 10 MG TAB PO (07:45)
[2017-12-08] MEDS: FERROUS SULFATE 325MG TAB PO ×2 (07:45→21:05)
[2017-12-08] MEDS: GLIMEPIRIDE 1 MG TABLET PO (07:45)
[2017-12-08] MEDS: SUCRALFATE 1 GM TAB PO ×4 (07:45→21:05)
[2017-12-08] MEDS: SENOKOT S TAB PO ×2 (07:46→21:05)
[2017-12-08] MEDS: POTASSIUM CHLORIDE 10 MEQ SR TABLET PO (09:00)
[2017-12-08] MEDS: methylPREDNISolone INJ 125 MG/2 ML VIAL (J2930) IV ×2 (10:20→21:04)
[2017-12-08 11:37] LABS: BEDSIDE GLUCOSE 100 MG/DL (83-110)
[2017-12-08 17:05] LABS: BEDSIDE GLUCOSE 285 MG/DL (83-110)
[2017-12-08] MEDS: ACETAMINOPHEN TAB 650MG DOSE (2X325MG) PO (21:07)
[2017-12-08 21:21] LABS: BEDSIDE GLUCOSE 151 MG/DL (83-110)
[2017-12-09] MEDS: IPRATROPIUM 0.5MG/ALBUTEROL 2.5MG INH SOL UD 3ML (DUONEB)(J7620) NEB ×5 (02:42→20:14)
[2017-12-09] MEDS: PIPERACILLIN/TAZOBACTAM SOD 3.375 GM in APPROPRIATE DILUENT 1 EA IV ×4 (04:19→20:35)
[2017-12-09 07:26] LABS: BEDSIDE GLUCOSE 245 MG/DL (83-110)
[2017-12-09] MEDS: SUCRALFATE 1 GM TAB PO ×4 (08:22→20:34)
[2017-12-09] MEDS: GLIMEPIRIDE 1 MG TABLET PO (08:22)
[2017-12-09] MEDS: methylPREDNISolone INJ 125 MG/2 ML VIAL (J2930) IV (08:22)
[2017-12-09] MEDS: FERROUS SULFATE 325MG TAB PO ×2 (08:23→20:35)
[2017-12-09] MEDS: ATORVASTATIN 20 MG TAB PO (08:23)
[2017-12-09] MEDS: OMEPRAZOLE 20 MG CAP PO ×2 (08:23→20:34)
[2017-12-09] MEDS: SENOKOT S TAB PO ×2 (08:23→20:35)
[2017-12-09] MEDS: HumaLOG INSULIN (NovoLOG) PER UNIT SC ×4 (08:24→20:25)
[2017-12-09 12:01] LABS: BEDSIDE GLUCOSE 110 MG/DL (83-110)
[2017-12-09] MEDS: POTASSIUM CHLORIDE 10 MEQ SR TABLET PO (15:00)
[2017-12-09 17:07] LABS: BEDSIDE GLUCOSE 177 MG/DL (83-110)
[2017-12-09 20:25] LABS: BEDSIDE GLUCOSE 159 MG/DL (83-110)
[2017-12-09] MEDS: predniSONE 20 MG TAB PO (20:34)
[2017-12-09] MEDS: ACETAMINOPHEN TAB 650MG DOSE (2X325MG) PO (20:35)
[2017-12-10] MEDS: IPRATROPIUM 0.5MG/ALBUTEROL 2.5MG INH SOL UD 3ML (DUONEB)(J7620) NEB ×5 (00:35→13:30)
[2017-12-10 01:00] LABS: BEDSIDE GLUCOSE 164 MG/DL (83-110)
[2017-12-10] MEDS: PIPERACILLIN/TAZOBACTAM SOD 3.375 GM in APPROPRIATE DILUENT 1 EA IV ×3 (03:07→15:00)
[2017-12-10 06:42] LABS: BEDSIDE GLUCOSE 205 MG/DL (83-110)
[2017-12-10] MEDS: HumaLOG INSULIN (NovoLOG) PER UNIT SC ×2 (07:55→12:55)
[2017-12-10] MEDS: SUCRALFATE 1 GM TAB PO ×2 (07:55→12:54)
[2017-12-10] MEDS: GLIMEPIRIDE 1 MG TABLET PO (07:55)
[2017-12-10] MEDS: predniSONE 20 MG TAB PO (07:56)
[2017-12-10] MEDS: SENOKOT S TAB PO (07:56)
[2017-12-10] MEDS: FERROUS SULFATE 325MG TAB PO (07:56)
[2017-12-10] MEDS: ATORVASTATIN 20 MG TAB PO (07:56)
[2017-12-10] MEDS: OMEPRAZOLE 20 MG CAP PO (07:56)
[2017-12-10 08:21] LABS: HEMATOCRIT 25.1 % (42.0-52.0); MEAN CORPUSCULAR HEMOGLOBIN 25.6 pg (27.0-33.0); MEAN CORPUSCULAR HGB CONC 31.9 g/dl (32.0-36.5); MEAN CORPUSCULAR VOLUME 80.4 fl (80.0-96.0); PLATELET COUNT, AUTOMATED 628 10^3/uL (150-450); RED BLOOD COUNT 3.12 10^6/uL (4.30-6.10); RED CELL DISTRIBUTION WIDTH 18.4 % (11.5-14.5); WHITE BLOOD COUNT 9.3 10^3/uL (4.0-10.0)
[2017-12-10 08:41] LABS: ANION GAP 8 MEQ/L (8-16); BLOOD UREA NITROGEN 11 MG/DL (7-18); CALCIUM LEVEL 8.4 MG/DL (8.8-10.2); CARBON DIOXIDE LEVEL 29 MEQ/L (21-32); CHLORIDE LEVEL 99 MEQ/L (98-107); GLOMERULAR FILTRATION RATE > 60.0 (>42); GLUCOSE, FASTING 175 MG/DL (70-100); POTASSIUM SERUM 3.8 MEQ/L (3.5-5.1); SODIUM LEVEL 136 MEQ/L (136-145)
[2017-12-10 12:05] LABS: BEDSIDE GLUCOSE 137 MG/DL (83-110)
[2017-12-10] MEDS: ACETAMINOPHEN TAB 650MG DOSE (2X325MG) PO (14:09)
== END 2017-12-10 16:00 | disposition home health service (06) | DRG 193 ==
LOC: M MS4PR 12-01 22:36 → M ED 18:23 → M ED INP 21:55
DX: J18.9 Pneumonia, unspecified organism (principal); I50.33 Acute on chronic diastolic (congestive) heart failure; J96.11 Chronic respiratory failure with hypoxia; E87.2 Acidosis; J44.0 Chronic obstructive pulmonary disease with (acute) lower respiratory infection; I27.20 Pulmonary hypertension, unspecified; E11.9 Type 2 diabetes mellitus without complications; E78.5 Hyperlipidemia, unspecified; D50.9 Iron deficiency anemia, unspecified; Z85.46 Personal history of malignant neoplasm of prostate; Z92.3 Personal history of irradiation; Y95 Nosocomial condition; Z87.891 Personal history of nicotine dependence; Z88.7 Allergy status to serum and vaccine; Z79.52 Long term (current) use of systemic steroids; Z79.84 Long term (current) use of oral hypoglycemic drugs; Z79.899 Other long term (current) drug therapy

== ENCOUNTER 2017-12-13 16:24 | Inpatient (IN) | payer MEDICARE ==
[2017-12-13 18:14] LABS: BASO % 0.1 % (0.0-1.0); HEMATOCRIT 28.9 % (42.0-52.0); HEMOGLOBIN 9.2 g/dl (14.0-18.0); IMMATURE GRANULOCYTE % 0.7 % (0-3.0); LYMPH # 0.6 10^3/uL (1.5-4.5); MEAN CORPUSCULAR HEMOGLOBIN 25.3 pg (27.0-33.0); MEAN CORPUSCULAR HGB CONC 31.8 g/dl (32.0-36.5); MEAN CORPUSCULAR VOLUME 79.4 fl (80.0-96.0); MONO # 0.7 10^3/uL (0.0-0.8); MONO % 4.2 % (0.0-5.0); NEUTROPHILS # 13.9 10^3/uL (1.8-7.7); PLATELET COUNT, AUTOMATED 800 10^3/uL (150-450); RED BLOOD COUNT 3.64 10^6/uL (4.30-6.10); RED CELL DISTRIBUTION WIDTH 17.7 % (11.5-14.5); WHITE BLOOD COUNT 15.3 10^3/uL (4.0-10.0)
[2017-12-13] MEDS: IPRATROPIUM 0.5MG/ALBUTEROL 2.5MG INH SOL UD 3ML (DUONEB)(J7620) NEB ×3 (18:19→20:47)
[2017-12-13] MEDS: methylPREDNISolone INJ 125 MG/2 ML VIAL (J2930) IV (18:27)
[2017-12-13 18:29] LABS: ABG BASE EXCESS 2.5 (-2.0-2.0); ABG HCO3 27.1 MEQ/L (22.0-26.0); ABG O2 SATURATION 95.2 % (95.0-99.0); ABG PARTIAL PRESSURE CO2 41.8 mmHg (35.0-45.0); ABG STANDARD HCO3 26.7 MEQ/L (22.0-26.0); ABG TOTAL CO2 28.3 MEQ/L (23.0-31.0); ABG pH (ARTERIAL) 7.429 UNITS (7.350-7.450)
[2017-12-13 18:30] LABS: LACTIC ACID SEPSIS PROTOCOL 1.2 MMOL/L (0.4-2.0)
[2017-12-13 18:37] LABS: ALBUMIN 3.4 GM/DL (3.2-5.2); ALBUMIN/GLOBULIN RATIO 1.13 (1.00-1.93); ALKALINE PHOSPHATASE 139 U/L (45-117); ALT/SGPT 22 U/L (12-78); AST/SGOT 11 U/L (7-37); BILIRUBIN,DIRECT 0.2 MG/DL (0.0-0.2); BILIRUBIN,TOTAL 0.4 MG/DL (0.2-1.0); LIPASE 96 U/L (73-393); NT-PRO BNP 266 PG/ML (<125); TOTAL PROTEIN 6.4 GM/DL (6.4-8.2)
[2017-12-13 18:38] LABS: ANION GAP 10 MEQ/L (8-16); BLOOD UREA NITROGEN 13 MG/DL (7-18); CALCIUM LEVEL 8.4 MG/DL (8.8-10.2); CARBON DIOXIDE LEVEL 31 MEQ/L (21-32); CHLORIDE LEVEL 90 MEQ/L (98-107); CK-MB VALUE MASS 2.3 NG/ML (0.0-3.6); CPK CREATINE PHOSPHOKINASE 40 U/L (39-308); CREATININE FOR GFR 0.51 MG/DL (0.70-1.30); GLOMERULAR FILTRATION RATE > 60.0 (>42); GLUCOSE, FASTING 181 MG/DL (70-100); MB/CK RELATIVE INDEX 5.75 (< OR =4); POTASSIUM SERUM 3.6 MEQ/L (3.5-5.1); SODIUM LEVEL 131 MEQ/L (136-145); TROPONIN I < 0.02 NG/ML (< 0.10)
[2017-12-13] MEDS: VANCOMYCIN HCL 1,000 MG, VIAL MATE ADAPTER 1 EACH in D5W 250 ML IV (19:30)
[2017-12-13] MEDS: PIPERACILLIN/TAZOBACTAM SOD 3.375 GM in APPROPRIATE DILUENT 1 EA IV (20:15)
[2017-12-13] MEDS: HumaLOG INSULIN (NovoLOG) PER UNIT SC (21:00)
[2017-12-13] MEDS ORDERED: DEXTROSE 50% 50 ML SYRINGE IV (22:00)
[2017-12-13] MEDS ORDERED: GLUCOSE 4 GM CHEW TABLET PO (22:00)
[2017-12-13] MEDS ORDERED: GLUCAGON FOR INJ 1 MG VIAL (J1610) SC (22:00)
[2017-12-13] MEDS: SODIUM CHLORIDE HYPERTONIC 3% 15ML NEB SOL NEB (22:00)
[2017-12-13] MEDS: HEPARIN SOD (PORCINE) 5000 UNITS/ML VIAL SC (22:00)
[2017-12-13] MEDS ORDERED: ISOVUE-370 76% 100ML VIAL (Q9967) As Ordered (22:08)
[2017-12-13] MEDS ORDERED: ONDANSETRON 4MG/2ML VIAL (J2405) IV (22:15)
[2017-12-13 22:21] LABS: C REACTIVE PROTEIN QUANTITATIV < 0.30 MG/DL (0.00-0.30)
[2017-12-13 23:56] LABS: CK-MB VALUE MASS 2.2 NG/ML (0.0-3.6); CPK CREATINE PHOSPHOKINASE 37 U/L (39-308); MB/CK RELATIVE INDEX 5.94 (< OR =4); TROPONIN I < 0.02 NG/ML (< 0.10)
[2017-12-14] MEDS ORDERED: AZITHROMYCIN INJ 500 MG, VIAL MATE ADAPTER 1 EACH in D5W 250 ML IV
[2017-12-14] MEDS: OMEPRAZOLE 20 MG CAP PO ×3 (00:37→20:44)
[2017-12-14] MEDS: SUCRALFATE 1 GM TAB PO ×5 (00:39→21:03)
[2017-12-14] MEDS: SENOKOT S TAB PO ×3 (00:40→20:44)
[2017-12-14] MEDS: POTASSIUM CHLORIDE 10 MEQ SR TABLET PO (00:41)
[2017-12-14] MEDS: FERROUS SULFATE 325MG TAB PO ×3 (00:43→20:44)
[2017-12-14 01:36] LABS: BEDSIDE GLUCOSE 226 MG/DL (83-110)
[2017-12-14] MEDS ORDERED: CEFEPIME HCL 1 GM in D5W MINI-BAG PLUS 50 ML IV (02:00)
[2017-12-14] MEDS: ASCORBIC ACID 500 MG TAB PO ×3 (03:22→20:44)
[2017-12-14 05:46] LABS: HEMATOCRIT 29.4 % (42.0-52.0); HEMOGLOBIN 9.2 g/dl (14.0-18.0); MEAN CORPUSCULAR HEMOGLOBIN 25.1 pg (27.0-33.0); MEAN CORPUSCULAR HGB CONC 31.3 g/dl (32.0-36.5); MEAN CORPUSCULAR VOLUME 80.3 fl (80.0-96.0); PLATELET COUNT, AUTOMATED 741 10^3/uL (150-450); RED BLOOD COUNT 3.66 10^6/uL (4.30-6.10); RED CELL DISTRIBUTION WIDTH 17.6 % (11.5-14.5); WHITE BLOOD COUNT 8.8 10^3/uL (4.0-10.0)
[2017-12-14 06:20] LABS: ALBUMIN 3.1 GM/DL (3.2-5.2); ALBUMIN/GLOBULIN RATIO 0.91 (1.00-1.93); ALKALINE PHOSPHATASE 130 U/L (45-117); ALT/SGPT 22 U/L (12-78); ANION GAP 9 MEQ/L (8-16); AST/SGOT 10 U/L (7-37); BILIRUBIN,TOTAL 0.4 MG/DL (0.2-1.0); BLOOD UREA NITROGEN 14 MG/DL (7-18); CALCIUM LEVEL 8.5 MG/DL (8.8-10.2); CARBON DIOXIDE LEVEL 26 MEQ/L (21-32); CHLORIDE LEVEL 94 MEQ/L (98-107); CK-MB VALUE MASS 2.1 NG/ML (0.0-3.6); CPK CREATINE PHOSPHOKINASE 34 U/L (39-308); CREATININE FOR GFR 0.51 MG/DL (0.70-1.30); GLOMERULAR FILTRATION RATE > 60.0 (>42); GLUCOSE, FASTING 176 MG/DL (70-100); MAGNESIUM LEVEL 2.3 MG/DL (1.8-2.4); MB/CK RELATIVE INDEX 6.17 (< OR =4); SODIUM LEVEL 129 MEQ/L (136-145); TOTAL PROTEIN 6.5 GM/DL (6.4-8.2); TROPONIN I < 0.02 NG/ML (< 0.10)
[2017-12-14] MEDS: ATORVASTATIN 20 MG TAB PO (08:31)
[2017-12-14] MEDS: HumaLOG INSULIN (NovoLOG) PER UNIT SC ×4 (08:32→20:43)
[2017-12-14] MEDS: methylPREDNISolone INJ 125 MG/2 ML VIAL (J2930) IV ×2 (08:40→20:44)
[2017-12-14] MEDS: DOCUSATE SODIUM 100 MG CAP PO (09:00)
[2017-12-14] MEDS ORDERED: VANCOMYCIN HCL 1,000 MG, VIAL MATE ADAPTER 1 EACH in D5W 250 ML IV (09:00)
[2017-12-14] MEDS: IPRATROPIUM 0.5MG/ALBUTEROL 2.5MG INH SOL UD 3ML (DUONEB)(J7620) NEB ×5 (09:19→23:52)
[2017-12-14] MEDS: VANCOMYCIN HCL 1,000 MG, VIAL MATE ADAPTER 1 EACH in D5W 250 ML IV ×2 (10:11→20:43)
[2017-12-14] MEDS: PIPERACILLIN/TAZOBACTAM SOD 3.375 GM in APPROPRIATE DILUENT 1 EA IV ×2 (11:20→17:24)
[2017-12-14 11:36] LABS: BEDSIDE GLUCOSE 219 MG/DL (83-110)
[2017-12-15] MEDS: PIPERACILLIN/TAZOBACTAM SOD 3.375 GM in APPROPRIATE DILUENT 1 EA IV ×3 (01:25→17:19)
[2017-12-15] MEDS: IPRATROPIUM 0.5MG/ALBUTEROL 2.5MG INH SOL UD 3ML (DUONEB)(J7620) NEB ×4 (02:45→19:39)
[2017-12-15 06:37] LABS: HEMATOCRIT 26.4 % (42.0-52.0); HEMOGLOBIN 8.2 g/dl (14.0-18.0); MEAN CORPUSCULAR HEMOGLOBIN 24.9 pg (27.0-33.0); MEAN CORPUSCULAR HGB CONC 31.1 g/dl (32.0-36.5); MEAN CORPUSCULAR VOLUME 80.2 fl (80.0-96.0); PLATELET COUNT, AUTOMATED 697 10^3/uL (150-450); RED BLOOD COUNT 3.29 10^6/uL (4.30-6.10); RED CELL DISTRIBUTION WIDTH 17.9 % (11.5-14.5); WHITE BLOOD COUNT 13.7 10^3/uL (4.0-10.0)
[2017-12-15 06:52] LABS: ALKALINE PHOSPHATASE 111 U/L (45-117); ALT/SGPT 19 U/L (12-78); ANION GAP 7 MEQ/L (8-16); AST/SGOT 10 U/L (7-37); BILIRUBIN,TOTAL 0.3 MG/DL (0.2-1.0); BLOOD UREA NITROGEN 15 MG/DL (7-18); CALCIUM LEVEL 8.4 MG/DL (8.8-10.2); CARBON DIOXIDE LEVEL 30 MEQ/L (21-32); CHLORIDE LEVEL 98 MEQ/L (98-107); CREATININE FOR GFR 0.66 MG/DL (0.70-1.30); GLOMERULAR FILTRATION RATE > 60.0 (>42); GLUCOSE, FASTING 182 MG/DL (70-100); MAGNESIUM LEVEL 2.4 MG/DL (1.8-2.4); POTASSIUM SERUM 3.7 MEQ/L (3.5-5.1); SODIUM LEVEL 135 MEQ/L (136-145)
[2017-12-15] MEDS: SUCRALFATE 1 GM TAB PO ×4 (07:43→20:31)
[2017-12-15] MEDS: HumaLOG INSULIN (NovoLOG) PER UNIT SC ×4 (07:43→20:22)
[2017-12-15] MEDS: ATORVASTATIN 20 MG TAB PO (07:43)
[2017-12-15] MEDS: SENOKOT S TAB PO ×2 (07:43→20:31)
[2017-12-15] MEDS: OMEPRAZOLE 20 MG CAP PO ×2 (07:43→20:31)
[2017-12-15] MEDS: ASCORBIC ACID 500 MG TAB PO ×2 (07:43→20:31)
[2017-12-15] MEDS: FERROUS SULFATE 325MG TAB PO ×2 (07:43→20:31)
[2017-12-15] MEDS: methylPREDNISolone INJ 125 MG/2 ML VIAL (J2930) IV (07:44)
[2017-12-15] MEDS: DOCUSATE SODIUM 100 MG CAP PO (07:44)
[2017-12-15 08:38] LABS: VANCOMYCIN LEVEL TROUGH 10.9 UG/ML (10.0-20.0)
[2017-12-15 09:00] LABS: BEDSIDE GLUCOSE 159 MG/DL (83-110)
[2017-12-15 09:00] LABS: BEDSIDE GLUCOSE 306 MG/DL (83-110)
[2017-12-15] MEDS: VANCOMYCIN HCL 1,000 MG, VIAL MATE ADAPTER 1 EACH in D5W 250 ML IV ×2 (09:08→20:32)
[2017-12-15 11:19] LABS: ESTIMATED AVERAGE GLUCOSE 163 MG/DL (60-110); HEMOGLOBIN A1c 7.3 %
[2017-12-15 17:05] LABS: BEDSIDE GLUCOSE 201 MG/DL (83-110)
[2017-12-15 17:05] LABS: BEDSIDE GLUCOSE 290 MG/DL (83-110)
[2017-12-15 20:10] LABS: BEDSIDE GLUCOSE 188 MG/DL (83-110)
[2017-12-15] MEDS: methylPREDNISolone INJ 40 MG/1 ML VIAL (J2920) IV (20:31)
[2017-12-15] MEDS: VANCOMYCIN HCL 500 MG in D5W MINI-BAG PLUS 100 ML IV (22:00)
[2017-12-16] MEDS: IPRATROPIUM 0.5MG/ALBUTEROL 2.5MG INH SOL UD 3ML (DUONEB)(J7620) NEB ×4 (00:41→21:04)
[2017-12-16] MEDS: PIPERACILLIN/TAZOBACTAM SOD 3.375 GM in APPROPRIATE DILUENT 1 EA IV (02:47)
[2017-12-16] MEDS: ACETAMINOPHEN 325 MG TAB PO ×3 (03:18→20:17)
[2017-12-16 06:11] LABS: HEMATOCRIT 25.9 % (42.0-52.0); HEMOGLOBIN 8.2 g/dl (14.0-18.0); MEAN CORPUSCULAR HEMOGLOBIN 25.5 pg (27.0-33.0); MEAN CORPUSCULAR HGB CONC 31.7 g/dl (32.0-36.5); MEAN CORPUSCULAR VOLUME 80.7 fl (80.0-96.0); PLATELET COUNT, AUTOMATED 621 10^3/uL (150-450); RED BLOOD COUNT 3.21 10^6/uL (4.30-6.10); WHITE BLOOD COUNT 17.2 10^3/uL (4.0-10.0)
[2017-12-16 06:31] LABS: ALBUMIN 2.8 GM/DL (3.2-5.2); ALKALINE PHOSPHATASE 111 U/L (45-117); ALT/SGPT 22 U/L (12-78); ANION GAP 7 MEQ/L (8-16); AST/SGOT 14 U/L (7-37); BILIRUBIN,TOTAL 0.3 MG/DL (0.2-1.0); BLOOD UREA NITROGEN 15 MG/DL (7-18); CALCIUM LEVEL 8.2 MG/DL (8.8-10.2); CARBON DIOXIDE LEVEL 30 MEQ/L (21-32); CHLORIDE LEVEL 96 MEQ/L (98-107); CREATININE FOR GFR 0.81 MG/DL (0.70-1.30); GLOMERULAR FILTRATION RATE > 60.0 (>42); GLUCOSE, FASTING 260 MG/DL (70-100); POTASSIUM SERUM 3.6 MEQ/L (3.5-5.1); SODIUM LEVEL 133 MEQ/L (136-145); TOTAL PROTEIN 5.9 GM/DL (6.4-8.2)
[2017-12-16] MEDS: SUCRALFATE 1 GM TAB PO ×4 (07:43→20:17)
[2017-12-16] MEDS: HumaLOG INSULIN (NovoLOG) PER UNIT SC ×4 (07:43→20:18)
[2017-12-16] MEDS: ATORVASTATIN 20 MG TAB PO (07:44)
[2017-12-16] MEDS: FERROUS SULFATE 325MG TAB PO ×2 (07:44→20:18)
[2017-12-16] MEDS: methylPREDNISolone INJ 40 MG/1 ML VIAL (J2920) IV (07:44)
[2017-12-16] MEDS: ASCORBIC ACID 500 MG TAB PO ×2 (07:44→20:18)
[2017-12-16] MEDS: OMEPRAZOLE 20 MG CAP PO ×2 (07:44→20:17)
[2017-12-16] MEDS: DOCUSATE SODIUM 100 MG CAP PO (07:44)
[2017-12-16] MEDS: SENOKOT S TAB PO ×2 (07:44→20:17)
[2017-12-16] MEDS ORDERED: metFORMIN (GLUCOPHAGE) 500 MG TAB PO (08:00)
[2017-12-16] MEDS: VANCOMYCIN HCL 1,000 MG, VIAL MATE ADAPTER 1 EACH in D5W 250 ML IV (08:59)
[2017-12-16] MEDS: GLIMEPIRIDE 1 MG TABLET PO (09:00)
[2017-12-16] MEDS: predniSONE 20 MG TAB PO (10:08)
[2017-12-16] MEDS: MOXIFLOXACIN 400 MG TAB PO (10:33)
[2017-12-16 11:53] LABS: BEDSIDE GLUCOSE 337 MG/DL (83-110)
[2017-12-16] MEDS: CARBAMIDE PEROXIDE 6.5% OTIC SOLN 15ML AU ×2 (12:08→20:18)
[2017-12-16 16:44] LABS: BEDSIDE GLUCOSE 349 MG/DL (83-110)
[2017-12-16] MEDS: metFORMIN (GLUCOPHAGE) 1000 MG TABLET PO (18:14)
[2017-12-16 20:07] LABS: BEDSIDE GLUCOSE 294 MG/DL (83-110)
[2017-12-17] MEDS: IPRATROPIUM 0.5MG/ALBUTEROL 2.5MG INH SOL UD 3ML (DUONEB)(J7620) NEB ×6 (02:24→23:23)
[2017-12-17] MEDS: MOXIFLOXACIN 400 MG TAB PO (05:07)
[2017-12-17] MEDS: ACETAMINOPHEN 325 MG TAB PO (05:09)
[2017-12-17 06:18] LABS: HEMATOCRIT 28.5 % (42.0-52.0); HEMOGLOBIN 8.7 g/dl (14.0-18.0); MEAN CORPUSCULAR HEMOGLOBIN 25.1 pg (27.0-33.0); MEAN CORPUSCULAR HGB CONC 30.5 g/dl (32.0-36.5); MEAN CORPUSCULAR VOLUME 82.4 fl (80.0-96.0); PLATELET COUNT, AUTOMATED 621 10^3/uL (150-450); RED BLOOD COUNT 3.46 10^6/uL (4.30-6.10); RED CELL DISTRIBUTION WIDTH 17.9 % (11.5-14.5); WHITE BLOOD COUNT 18.6 10^3/uL (4.0-10.0)
[2017-12-17 06:35] LABS: ALBUMIN 2.9 GM/DL (3.2-5.2); ALBUMIN/GLOBULIN RATIO 0.91 (1.00-1.93); ALKALINE PHOSPHATASE 120 U/L (45-117); ALT/SGPT 19 U/L (12-78); ANION GAP 6 MEQ/L (8-16); AST/SGOT 12 U/L (7-37); BILIRUBIN,TOTAL 0.2 MG/DL (0.2-1.0); BLOOD UREA NITROGEN 16 MG/DL (7-18); CALCIUM LEVEL 8.7 MG/DL (8.8-10.2); CARBON DIOXIDE LEVEL 31 MEQ/L (21-32); CHLORIDE LEVEL 99 MEQ/L (98-107); CPK CREATINE PHOSPHOKINASE 26 U/L (39-308); CREATININE FOR GFR 0.93 MG/DL (0.70-1.30); GLOMERULAR FILTRATION RATE > 60.0 (>42); GLUCOSE, FASTING 118 MG/DL (70-100); MB/CK RELATIVE INDEX 3.84 (< OR =4); NT-PRO BNP 124 PG/ML (<125); POTASSIUM SERUM 3.5 MEQ/L (3.5-5.1); SODIUM LEVEL 136 MEQ/L (136-145); TOTAL PROTEIN 6.1 GM/DL (6.4-8.2); TROPONIN I < 0.02 NG/ML (< 0.10)
[2017-12-17] MEDS: HumaLOG INSULIN (NovoLOG) PER UNIT SC ×4 (07:30→20:13)
[2017-12-17] MEDS: metFORMIN (GLUCOPHAGE) 1000 MG TABLET PO ×2 (08:21→17:30)
[2017-12-17] MEDS: FERROUS SULFATE 325MG TAB PO ×2 (08:21→20:12)
[2017-12-17] MEDS: SENOKOT S TAB PO ×2 (08:21→20:12)
[2017-12-17] MEDS: SUCRALFATE 1 GM TAB PO ×4 (08:21→20:12)
[2017-12-17] MEDS: DOCUSATE SODIUM 100 MG CAP PO (08:22)
[2017-12-17] MEDS: predniSONE 20 MG TAB PO ×3 (08:22→20:12)
[2017-12-17] MEDS: GLIMEPIRIDE 1 MG TABLET PO (08:22)
[2017-12-17] MEDS: OMEPRAZOLE 20 MG CAP PO ×2 (08:22→20:12)
[2017-12-17] MEDS: ATORVASTATIN 20 MG TAB PO (08:22)
[2017-12-17] MEDS: ASCORBIC ACID 500 MG TAB PO ×2 (08:22→20:12)
[2017-12-17 08:29] LABS: VANCOMYCIN LEVEL TROUGH 13.1 UG/ML (10.0-20.0)
[2017-12-17 08:41] LABS: BEDSIDE GLUCOSE 210 MG/DL (83-110)
[2017-12-17 10:30] LABS: C REACTIVE PROTEIN QUANTITATIV < 0.30 MG/DL (0.00-0.30)
[2017-12-17 11:25] LABS: ERYTHROCYTE SEDIMENTATION RATE 12 mm/hr (0-20)
[2017-12-17 12:10] LABS: BEDSIDE GLUCOSE 216 MG/DL (83-110)
[2017-12-17 17:21] LABS: BEDSIDE GLUCOSE 168 MG/DL (83-110)
[2017-12-17 20:14] LABS: BEDSIDE GLUCOSE 278 MG/DL (83-110)
[2017-12-18] MEDS: IPRATROPIUM 0.5MG/ALBUTEROL 2.5MG INH SOL UD 3ML (DUONEB)(J7620) NEB ×2 (03:30→23:14)
[2017-12-18] MEDS: MOXIFLOXACIN 400 MG TAB PO (05:07)
[2017-12-18 06:30] LABS: HEMATOCRIT 27.5 % (42.0-52.0); HEMOGLOBIN 8.2 g/dl (14.0-18.0); MEAN CORPUSCULAR HEMOGLOBIN 24.7 pg (27.0-33.0); MEAN CORPUSCULAR HGB CONC 29.8 g/dl (32.0-36.5); MEAN CORPUSCULAR VOLUME 82.8 fl (80.0-96.0); PLATELET COUNT, AUTOMATED 526 10^3/uL (150-450); RED BLOOD COUNT 3.32 10^6/uL (4.30-6.10); RED CELL DISTRIBUTION WIDTH 18.2 % (11.5-14.5); RETIC HEMOGLOBIN EQUIVALENT 29.5 pg (24-36); RETICULOCYTE % 2.6 % (0.5-1.5); WHITE BLOOD COUNT 9.6 10^3/uL (4.0-10.0)
[2017-12-18 06:43] LABS: ALBUMIN 2.9 GM/DL (3.2-5.2); ANION GAP 11 MEQ/L (8-16); BLOOD UREA NITROGEN 15 MG/DL (7-18); CALCIUM LEVEL 8.4 MG/DL (8.8-10.2); CARBON DIOXIDE LEVEL 28 MEQ/L (21-32); CHLORIDE LEVEL 97 MEQ/L (98-107); GLUCOSE, FASTING 217 MG/DL (70-100); POTASSIUM SERUM 3.9 MEQ/L (3.5-5.1); SODIUM LEVEL 136 MEQ/L (136-145); TROPONIN I < 0.02 NG/ML (< 0.10)
[2017-12-18 06:52] LABS: POSITIVE MORPH POS FLAG
[2017-12-18 07:00] LABS: ALBUMIN/GLOBULIN RATIO 0.97 (1.00-1.93); ALKALINE PHOSPHATASE 118 U/L (45-117); ALT/SGPT 19 U/L (12-78); AST/SGOT 10 U/L (7-37); BILIRUBIN,TOTAL 0.3 MG/DL (0.2-1.0); CPK CREATINE PHOSPHOKINASE 22 U/L (39-308); CREATININE FOR GFR 0.91 MG/DL (0.70-1.30); GLOMERULAR FILTRATION RATE > 60.0 (>42); IRON (FE) 18 UG/DL (65-175); MB/CK RELATIVE INDEX 4.54 (< OR =4); NT-PRO BNP 117 PG/ML (<125); PERCENT SATURATION 4.7 % (19.7-50.0); TOTAL IRON BINDING CAPACITY 384 UG/DL (250-450); TOTAL PROTEIN 5.9 GM/DL (6.4-8.2)
[2017-12-18] MEDS: DOCUSATE SODIUM 100 MG CAP PO (08:11)
[2017-12-18] MEDS: metFORMIN (GLUCOPHAGE) 1000 MG TABLET PO ×2 (08:11→18:18)
[2017-12-18] MEDS: OMEPRAZOLE 20 MG CAP PO ×2 (08:11→21:22)
[2017-12-18] MEDS: SUCRALFATE 1 GM TAB PO ×4 (08:11→21:22)
[2017-12-18] MEDS: predniSONE 20 MG TAB PO ×3 (08:12→21:23)
[2017-12-18] MEDS: GLIMEPIRIDE 2 MG TAB PO ×2 (08:12→18:18)
[2017-12-18] MEDS: SENOKOT S TAB PO ×2 (08:12→21:23)
[2017-12-18] MEDS: HumaLOG INSULIN (NovoLOG) PER UNIT SC ×4 (08:12→21:00)
[2017-12-18] MEDS: FERROUS SULFATE 325MG TAB PO ×2 (08:12→21:22)
[2017-12-18] MEDS: ATORVASTATIN 20 MG TAB PO (08:12)
[2017-12-18] MEDS: ASCORBIC ACID 500 MG TAB PO ×2 (08:12→21:22)
[2017-12-18] MEDS: LEVALBUTEROL 1.25 MG/0.5 ML CONCENTRATE NEB INH ×4 (08:13→19:49)
[2017-12-18] MEDS ORDERED: DIGOXIN 0.25 MG TAB PO (10:30)
[2017-12-18 11:48] LABS: BEDSIDE GLUCOSE 135 MG/DL (83-110)
[2017-12-18] MEDS: DIGOXIN 0.125 MG TAB PO (12:08)
[2017-12-18 16:58] LABS: BEDSIDE GLUCOSE 174 MG/DL (83-110)
[2017-12-18 21:09] LABS: BEDSIDE GLUCOSE 223 MG/DL (83-110)
[2017-12-18] MEDS: ACETAMINOPHEN 325 MG TAB PO (21:22)
[2017-12-19] MEDS: LEVALBUTEROL 1.25 MG/0.5 ML CONCENTRATE NEB INH ×6 (04:25→20:48)
[2017-12-19] MEDS: IPRATROPIUM 0.5MG/ALBUTEROL 2.5MG INH SOL UD 3ML (DUONEB)(J7620) NEB (04:30)
[2017-12-19] MEDS: MOXIFLOXACIN 400 MG TAB PO (05:16)
[2017-12-19 05:35] LABS: HEMATOCRIT 26.6 % (42.0-52.0); HEMOGLOBIN 8.1 g/dl (14.0-18.0); MEAN CORPUSCULAR HEMOGLOBIN 24.9 pg (27.0-33.0); MEAN CORPUSCULAR HGB CONC 30.5 g/dl (32.0-36.5); MEAN CORPUSCULAR VOLUME 81.8 fl (80.0-96.0); PLATELET COUNT, AUTOMATED 535 10^3/uL (150-450); RED BLOOD COUNT 3.25 10^6/uL (4.30-6.10); RED CELL DISTRIBUTION WIDTH 18.6 % (11.5-14.5); WHITE BLOOD COUNT 11.7 10^3/uL (4.0-10.0)
[2017-12-19 06:05] LABS: ALBUMIN 2.8 GM/DL (3.2-5.2); ALKALINE PHOSPHATASE 111 U/L (45-117); ALT/SGPT 21 U/L (12-78); ANION GAP 10 MEQ/L (8-16); AST/SGOT 5 U/L (7-37); BILIRUBIN,TOTAL 0.2 MG/DL (0.2-1.0); BLOOD UREA NITROGEN 18 MG/DL (7-18); CALCIUM LEVEL 8.2 MG/DL (8.8-10.2); CARBON DIOXIDE LEVEL 28 MEQ/L (21-32); CHLORIDE LEVEL 102 MEQ/L (98-107); CREATININE FOR GFR 0.95 MG/DL (0.70-1.30); DIGOXIN LEVEL 0.2 NG/ML (0.5-2.0); GLOMERULAR FILTRATION RATE > 60.0 (>42); GLUCOSE, FASTING 219 MG/DL (70-100); POTASSIUM SERUM 4.1 MEQ/L (3.5-5.1); SODIUM LEVEL 140 MEQ/L (136-145); TOTAL PROTEIN 5.6 GM/DL (6.4-8.2)
[2017-12-19] MEDS: FUROSEMIDE 40 MG/4 ML VIAL (J1940) IV ×3 (08:45→17:55)
[2017-12-19 09:07] LABS: BEDSIDE GLUCOSE 259 MG/DL (83-110)
[2017-12-19] MEDS: OMEPRAZOLE 20 MG CAP PO ×2 (09:25→20:42)
[2017-12-19] MEDS: DIGOXIN 0.125 MG TAB PO ×2 (09:25→18:52)
[2017-12-19] MEDS: ASCORBIC ACID 500 MG TAB PO ×2 (09:25→20:42)
[2017-12-19] MEDS: SENOKOT S TAB PO ×2 (09:25→21:00)
[2017-12-19] MEDS: FERROUS SULFATE 325MG TAB PO ×2 (09:25→21:00)
[2017-12-19] MEDS: ATORVASTATIN 20 MG TAB PO (09:26)
[2017-12-19] MEDS: metFORMIN (GLUCOPHAGE) 1000 MG TABLET PO ×2 (09:26→17:55)
[2017-12-19] MEDS: SUCRALFATE 1 GM TAB PO ×4 (09:26→20:42)
[2017-12-19] MEDS: DOCUSATE SODIUM 100 MG CAP PO (09:26)
[2017-12-19] MEDS: GLIMEPIRIDE 2 MG TAB PO ×2 (09:26→16:25)
[2017-12-19] MEDS: predniSONE 20 MG TAB PO ×3 (09:26→20:42)
[2017-12-19] MEDS: HumaLOG INSULIN (NovoLOG) PER UNIT SC ×4 (09:27→21:00)
[2017-12-19] MEDS: ACETAMINOPHEN 325 MG TAB PO ×2 (10:22→20:58)
[2017-12-19 13:03] LABS: BEDSIDE GLUCOSE 142 MG/DL (83-110)
[2017-12-19 16:32] LABS: BEDSIDE GLUCOSE 91 MG/DL (83-110)
[2017-12-19] MEDS: FUROSEMIDE 40 MG TAB PO (20:58)
[2017-12-20] MEDS: LEVALBUTEROL 1.25 MG/0.5 ML CONCENTRATE NEB INH ×7 (00:01→23:59)
[2017-12-20] MEDS: MOXIFLOXACIN 400 MG TAB PO (05:19)
[2017-12-20 05:41] LABS: BEDSIDE GLUCOSE 225 MG/DL (83-110)
[2017-12-20 05:59] LABS: HEMATOCRIT 29.2 % (42.0-52.0); MEAN CORPUSCULAR HGB CONC 30.8 g/dl (32.0-36.5); MEAN CORPUSCULAR VOLUME 81.1 fl (80.0-96.0); PLATELET COUNT, AUTOMATED 514 10^3/uL (150-450); RED CELL DISTRIBUTION WIDTH 18.3 % (11.5-14.5); WHITE BLOOD COUNT 12.6 10^3/uL (4.0-10.0)
[2017-12-20 06:04] LABS: ALBUMIN 3.2 GM/DL (3.2-5.2); ALKALINE PHOSPHATASE 124 U/L (45-117); ALT/SGPT 18 U/L (12-78); ANION GAP 12 MEQ/L (8-16); AST/SGOT 7 U/L (7-37); BILIRUBIN,TOTAL 0.2 MG/DL (0.2-1.0); BLOOD UREA NITROGEN 19 MG/DL (7-18); CALCIUM LEVEL 8.4 MG/DL (8.8-10.2); CARBON DIOXIDE LEVEL 31 MEQ/L (21-32); CHLORIDE LEVEL 94 MEQ/L (98-107); CREATININE FOR GFR 1.17 MG/DL (0.70-1.30); GLOMERULAR FILTRATION RATE > 60.0 (>42); GLUCOSE, FASTING 223 MG/DL (70-100); SODIUM LEVEL 137 MEQ/L (136-145); TOTAL PROTEIN 6.1 GM/DL (6.4-8.2)
[2017-12-20 06:28] LABS: BEDSIDE GLUCOSE 266 MG/DL (83-110)
[2017-12-20 07:11] LABS: DIGOXIN LEVEL 0.4 NG/ML (0.5-2.0)
[2017-12-20] MEDS: DIGOXIN 0.25 MG TAB PO (07:24)
[2017-12-20] MEDS: DOCUSATE SODIUM 100 MG CAP PO (08:39)
[2017-12-20] MEDS: FUROSEMIDE 40 MG TAB PO ×2 (08:39→16:27)
[2017-12-20] MEDS: FERROUS SULFATE 325MG TAB PO ×2 (08:39→20:43)
[2017-12-20] MEDS: OMEPRAZOLE 20 MG CAP PO ×2 (08:39→20:42)
[2017-12-20] MEDS: SUCRALFATE 1 GM TAB PO ×4 (08:39→20:40)
[2017-12-20] MEDS: ATORVASTATIN 20 MG TAB PO (08:39)
[2017-12-20] MEDS: SENOKOT S TAB PO ×2 (08:39→20:42)
[2017-12-20] MEDS: predniSONE 20 MG TAB PO ×2 (08:39→16:26)
[2017-12-20] MEDS: ASCORBIC ACID 500 MG TAB PO ×2 (08:39→20:42)
[2017-12-20] MEDS: GLIMEPIRIDE 2 MG TAB PO ×2 (08:40→17:13)
[2017-12-20] MEDS: metFORMIN (GLUCOPHAGE) 1000 MG TABLET PO ×2 (08:40→17:13)
[2017-12-20] MEDS: HumaLOG INSULIN (NovoLOG) PER UNIT SC ×4 (08:43→21:00)
[2017-12-20 09:25] LABS: NT-PRO BNP 309 PG/ML (<125)
[2017-12-20] MEDS: NYSTATIN 500,000 U/5 ML SUSP UDC SS ×4 (10:22→20:42)
[2017-12-20] MEDS: POTASSIUM CHLORIDE 10 MEQ SR TABLET PO (10:23)
[2017-12-20 11:51] LABS: BEDSIDE GLUCOSE 99 MG/DL (83-110)
[2017-12-20] MEDS: ACETAMINOPHEN 325 MG TAB PO ×2 (12:18→20:43)
[2017-12-20 16:56] LABS: BEDSIDE GLUCOSE 114 MG/DL (83-110)
[2017-12-20 21:19] LABS: BEDSIDE GLUCOSE 191 MG/DL (83-110)
[2017-12-21] MEDS: LEVALBUTEROL 1.25 MG/0.5 ML CONCENTRATE NEB INH ×6 (02:45→23:07)
[2017-12-21 06:29] LABS: BEDSIDE GLUCOSE 134 MG/DL (83-110)
[2017-12-21 07:16] LABS: BASO % 0.1 % (0.0-1.0); HEMATOCRIT 28.9 % (42.0-52.0); IMMATURE GRANULOCYTE % 0.4 % (0-3.0); LYMPH % 6.1 % (24.0-44.0); MEAN CORPUSCULAR HGB CONC 31.1 g/dl (32.0-36.5); MEAN CORPUSCULAR VOLUME 80.3 fl (80.0-96.0); MONO # 1.2 10^3/uL (0.0-0.8); MONO % 7.1 % (0.0-5.0); NEUTROPHILS # 14.1 10^3/uL (1.8-7.7); NEUTROPHILS % 86.3 % (36.0-66.0); PLATELET COUNT, AUTOMATED 450 10^3/uL (150-450); RED CELL DISTRIBUTION WIDTH 18.1 % (11.5-14.5); WHITE BLOOD COUNT 16.3 10^3/uL (4.0-10.0)
[2017-12-21] MEDS: HumaLOG INSULIN (NovoLOG) PER UNIT SC ×4 (07:30→20:29)
[2017-12-21 07:32] LABS: ANION GAP 9 MEQ/L (8-16); BLOOD UREA NITROGEN 26 MG/DL (7-18); CALCIUM LEVEL 8.7 MG/DL (8.8-10.2); CARBON DIOXIDE LEVEL 32 MEQ/L (21-32); CHLORIDE LEVEL 98 MEQ/L (98-107); CREATININE FOR GFR 0.94 MG/DL (0.70-1.30); GLOMERULAR FILTRATION RATE > 60.0 (>42); GLUCOSE, FASTING 102 MG/DL (70-100); POTASSIUM SERUM 3.5 MEQ/L (3.5-5.1); SODIUM LEVEL 139 MEQ/L (136-145)
[2017-12-21 07:47] LABS: DIGOXIN LEVEL 0.6 NG/ML (0.5-2.0)
[2017-12-21] MEDS: ASCORBIC ACID 500 MG TAB PO ×2 (08:04→20:28)
[2017-12-21] MEDS: SUCRALFATE 1 GM TAB PO ×4 (08:05→20:27)
[2017-12-21] MEDS: metFORMIN (GLUCOPHAGE) 1000 MG TABLET PO ×2 (08:05→17:10)
[2017-12-21] MEDS: predniSONE 20 MG TAB PO ×3 (08:05→20:27)
[2017-12-21] MEDS: SENOKOT S TAB PO ×2 (08:05→20:27)
[2017-12-21] MEDS: ATORVASTATIN 20 MG TAB PO (08:05)
[2017-12-21] MEDS: OMEPRAZOLE 20 MG CAP PO ×2 (08:05→20:27)
[2017-12-21] MEDS: DOCUSATE SODIUM 100 MG CAP PO (08:05)
[2017-12-21] MEDS: GLIMEPIRIDE 2 MG TAB PO ×2 (08:05→17:10)
[2017-12-21] MEDS: NYSTATIN 500,000 U/5 ML SUSP UDC SS ×4 (08:06→20:29)
[2017-12-21] MEDS: FERROUS SULFATE 325MG TAB PO ×2 (08:06→20:27)
[2017-12-21] MEDS: POTASSIUM CHLORIDE 10 MEQ SR TABLET PO (08:06)
[2017-12-21] MEDS: LEVALBUTEROL 1.25 MG/0.5 ML CONCENTRATE NEB NEB (08:31)
[2017-12-21 12:26] LABS: BEDSIDE GLUCOSE 204 MG/DL (83-110)
[2017-12-21] MEDS: ACETAMINOPHEN 325 MG TAB PO (20:28)
[2017-12-21 23:41] LABS: BEDSIDE GLUCOSE 233 MG/DL (83-110)
[2017-12-21 23:42] LABS: BEDSIDE GLUCOSE 206 MG/DL (83-110)
[2017-12-22] MEDS: LEVALBUTEROL 1.25 MG/0.5 ML CONCENTRATE NEB INH ×5 (03:44→20:21)
[2017-12-22] MEDS: DOCUSATE SODIUM 100 MG CAP PO (08:10)
[2017-12-22] MEDS: SENOKOT S TAB PO ×2 (08:11→20:25)
[2017-12-22] MEDS: HumaLOG INSULIN (NovoLOG) PER UNIT SC ×4 (08:24→20:26)
[2017-12-22] MEDS: predniSONE 20 MG TAB PO ×3 (08:25→20:25)
[2017-12-22] MEDS: NYSTATIN 500,000 U/5 ML SUSP UDC SS ×4 (08:25→20:25)
[2017-12-22] MEDS: OMEPRAZOLE 20 MG CAP PO (08:25)
[2017-12-22] MEDS: SUCRALFATE 1 GM TAB PO ×2 (08:25→12:17)
[2017-12-22] MEDS: ATORVASTATIN 20 MG TAB PO (08:25)
[2017-12-22] MEDS: FERROUS SULFATE 325MG TAB PO ×2 (08:25→20:25)
[2017-12-22] MEDS: GLIMEPIRIDE 2 MG TAB PO ×2 (08:25→17:51)
[2017-12-22] MEDS: metFORMIN (GLUCOPHAGE) 1000 MG TABLET PO ×2 (08:25→17:50)
[2017-12-22] MEDS: ASCORBIC ACID 500 MG TAB PO ×2 (08:25→20:25)
[2017-12-22 08:33] LABS: BEDSIDE GLUCOSE 214 MG/DL (83-110)
[2017-12-22 08:33] LABS: HEMATOCRIT 29.6 % (42.0-52.0); HEMOGLOBIN 9.2 g/dl (14.0-18.0); MEAN CORPUSCULAR HEMOGLOBIN 25.3 pg (27.0-33.0); MEAN CORPUSCULAR HGB CONC 31.1 g/dl (32.0-36.5); MEAN CORPUSCULAR VOLUME 81.3 fl (80.0-96.0); PLATELET COUNT, AUTOMATED 431 10^3/uL (150-450); RED BLOOD COUNT 3.64 10^6/uL (4.30-6.10); RED CELL DISTRIBUTION WIDTH 17.7 % (11.5-14.5); WHITE BLOOD COUNT 16.7 10^3/uL (4.0-10.0)
[2017-12-22 08:44] LABS: ANION GAP 9 MEQ/L (8-16); BLOOD UREA NITROGEN 28 MG/DL (7-18); CALCIUM LEVEL 8.9 MG/DL (8.8-10.2); CARBON DIOXIDE LEVEL 30 MEQ/L (21-32); CHLORIDE LEVEL 100 MEQ/L (98-107); CREATININE FOR GFR 0.96 MG/DL (0.70-1.30); GLOMERULAR FILTRATION RATE > 60.0 (>42); GLUCOSE, FASTING 199 MG/DL (70-100); MAGNESIUM LEVEL 2.2 MG/DL (1.8-2.4); SODIUM LEVEL 139 MEQ/L (136-145)
[2017-12-22] MEDS: POTASSIUM CHLORIDE 10 MEQ SR TABLET PO (10:05)
[2017-12-22 12:16] LABS: BEDSIDE GLUCOSE 145 MG/DL (83-110)
[2017-12-22 17:22] LABS: BEDSIDE GLUCOSE 200 MG/DL (83-110)
[2017-12-22] MEDS: SUCRALFATE SUSP 1GM/10ML UD PO ×2 (17:51→20:25)
[2017-12-22] MEDS: ACETAMINOPHEN 325 MG TAB PO (20:26)
[2017-12-22] MEDS: LANSOPRAZOLE SUSPENSION 30 MG/10 ML ORAL SYRINGE (FIRST-LANSOPRAZOLE) PO (20:27)
[2017-12-23 00:24] LABS: BEDSIDE GLUCOSE 298 MG/DL (83-110)
[2017-12-23] MEDS: LEVALBUTEROL 1.25 MG/0.5 ML CONCENTRATE NEB INH ×7 (04:42→20:00)
[2017-12-23 06:12] LABS: HEMATOCRIT 27.8 % (42.0-52.0); HEMOGLOBIN 8.4 g/dl (14.0-18.0); MEAN CORPUSCULAR HEMOGLOBIN 24.3 pg (27.0-33.0); MEAN CORPUSCULAR HGB CONC 30.2 g/dl (32.0-36.5); MEAN CORPUSCULAR VOLUME 80.6 fl (80.0-96.0); PLATELET COUNT, AUTOMATED 426 10^3/uL (150-450); RED BLOOD COUNT 3.45 10^6/uL (4.30-6.10); RED CELL DISTRIBUTION WIDTH 17.7 % (11.5-14.5); WHITE BLOOD COUNT 16.7 10^3/uL (4.0-10.0)
[2017-12-23 06:36] LABS: ANION GAP 7 MEQ/L (8-16); BLOOD UREA NITROGEN 29 MG/DL (7-18); CALCIUM LEVEL 8.9 MG/DL (8.8-10.2); CARBON DIOXIDE LEVEL 30 MEQ/L (21-32); CHLORIDE LEVEL 101 MEQ/L (98-107); CREATININE FOR GFR 0.85 MG/DL (0.70-1.30); GLOMERULAR FILTRATION RATE > 60.0 (>42); GLUCOSE, FASTING 109 MG/DL (70-100); MAGNESIUM LEVEL 2.4 MG/DL (1.8-2.4); POTASSIUM SERUM 4.6 MEQ/L (3.5-5.1); SODIUM LEVEL 138 MEQ/L (136-145)
[2017-12-23] MEDS: HumaLOG INSULIN (NovoLOG) PER UNIT SC ×4 (08:04→21:24)
[2017-12-23] MEDS: FERROUS SULFATE 325MG TAB PO ×2 (08:05→21:32)
[2017-12-23] MEDS: POTASSIUM CHLORIDE 10% LIQ 20 MEQ/15 ML UDC PO (08:05)
[2017-12-23] MEDS: SUCRALFATE SUSP 1GM/10ML UD PO ×4 (08:05→21:31)
[2017-12-23] MEDS: NYSTATIN 500,000 U/5 ML SUSP UDC SS ×4 (08:05→21:32)
[2017-12-23] MEDS: ATORVASTATIN 20 MG TAB PO (08:05)
[2017-12-23] MEDS: ACETAMINOPHEN 325 MG TAB PO ×2 (08:05→23:56)
[2017-12-23] MEDS: GLIMEPIRIDE 2 MG TAB PO ×2 (08:06→17:31)
[2017-12-23] MEDS: ASCORBIC ACID 500 MG TAB PO ×2 (08:06→21:32)
[2017-12-23] MEDS: predniSONE 20 MG TAB PO ×2 (08:06→21:32)
[2017-12-23] MEDS: metFORMIN (GLUCOPHAGE) 1000 MG TABLET PO ×2 (08:06→17:30)
[2017-12-23] MEDS: DOCUSATE SODIUM 100 MG CAP PO (08:09)
[2017-12-23] MEDS: SENOKOT S TAB PO ×2 (08:09→21:32)
[2017-12-23] MEDS: LANSOPRAZOLE SUSPENSION 30 MG/10 ML ORAL SYRINGE (FIRST-LANSOPRAZOLE) PO ×2 (08:09→21:32)
[2017-12-23 12:45] LABS: BEDSIDE GLUCOSE 120 MG/DL (83-110)
[2017-12-23 16:45] LABS: BEDSIDE GLUCOSE 106 MG/DL (83-110)
[2017-12-23 20:37] LABS: BEDSIDE GLUCOSE 208 MG/DL (83-110)
[2017-12-24 06:12] LABS: MEAN CORPUSCULAR HEMOGLOBIN 24.8 pg (27.0-33.0); MEAN CORPUSCULAR HGB CONC 30.8 g/dl (32.0-36.5); MEAN CORPUSCULAR VOLUME 80.5 fl (80.0-96.0); PLATELET COUNT, AUTOMATED 355 10^3/uL (150-450); RED BLOOD COUNT 3.23 10^6/uL (4.30-6.10); RED CELL DISTRIBUTION WIDTH 17.5 % (11.5-14.5); WHITE BLOOD COUNT 16.1 10^3/uL (4.0-10.0)
[2017-12-24 06:31] LABS: ANION GAP 11 MEQ/L (8-16); BLOOD UREA NITROGEN 30 MG/DL (7-18); CALCIUM LEVEL 8.3 MG/DL (8.8-10.2); CARBON DIOXIDE LEVEL 25 MEQ/L (21-32); CHLORIDE LEVEL 102 MEQ/L (98-107); CREATININE FOR GFR 0.84 MG/DL (0.70-1.30); GLOMERULAR FILTRATION RATE > 60.0 (>42); GLUCOSE, FASTING 201 MG/DL (70-100); MAGNESIUM LEVEL 2.1 MG/DL (1.8-2.4); POTASSIUM SERUM 4.4 MEQ/L (3.5-5.1); SODIUM LEVEL 138 MEQ/L (136-145)
[2017-12-24] MEDS: LEVALBUTEROL 1.25 MG/0.5 ML CONCENTRATE NEB INH ×4 (08:00→20:00)
[2017-12-24] MEDS: FERROUS SULFATE 325MG TAB PO ×2 (08:13→20:29)
[2017-12-24] MEDS: predniSONE 20 MG TAB PO ×3 (08:13→20:29)
[2017-12-24] MEDS: LANSOPRAZOLE SUSPENSION 30 MG/10 ML ORAL SYRINGE (FIRST-LANSOPRAZOLE) PO ×2 (08:13→20:29)
[2017-12-24] MEDS: DOCUSATE SODIUM 100 MG CAP PO (08:13)
[2017-12-24] MEDS: metFORMIN (GLUCOPHAGE) 1000 MG TABLET PO ×2 (08:13→16:49)
[2017-12-24] MEDS: SENOKOT S TAB PO ×2 (08:13→19:19)
[2017-12-24] MEDS: HumaLOG INSULIN (NovoLOG) PER UNIT SC ×4 (08:14→20:21)
[2017-12-24] MEDS: POTASSIUM CHLORIDE 10% LIQ 20 MEQ/15 ML UDC PO (08:14)
[2017-12-24] MEDS: GLIMEPIRIDE 2 MG TAB PO ×2 (08:14→16:49)
[2017-12-24] MEDS: SUCRALFATE SUSP 1GM/10ML UD PO ×4 (08:14→20:29)
[2017-12-24] MEDS: ATORVASTATIN 20 MG TAB PO (08:14)
[2017-12-24] MEDS: ASCORBIC ACID 500 MG TAB PO ×2 (08:14→20:29)
[2017-12-24] MEDS: NYSTATIN 500,000 U/5 ML SUSP UDC SS ×4 (08:14→20:29)
[2017-12-24 11:52] LABS: BEDSIDE GLUCOSE 186 MG/DL (83-110)
[2017-12-24 16:47] LABS: BEDSIDE GLUCOSE 166 MG/DL (83-110)
[2017-12-24 20:30] LABS: BEDSIDE GLUCOSE 117 MG/DL (83-110)
[2017-12-24] MEDS: ACETAMINOPHEN 325 MG TAB PO (22:11)
[2017-12-25] MEDS: LEVALBUTEROL 1.25 MG/0.5 ML CONCENTRATE NEB INH ×4 (05:04→20:59)
[2017-12-25 05:56] LABS: HEMATOCRIT 26.7 % (42.0-52.0); HEMOGLOBIN 8.2 g/dl (14.0-18.0); MEAN CORPUSCULAR HEMOGLOBIN 24.3 pg (27.0-33.0); MEAN CORPUSCULAR HGB CONC 30.7 g/dl (32.0-36.5); PLATELET COUNT, AUTOMATED 360 10^3/uL (150-450); RED BLOOD COUNT 3.38 10^6/uL (4.30-6.10); RED CELL DISTRIBUTION WIDTH 17.2 % (11.5-14.5); WHITE BLOOD COUNT 17.9 10^3/uL (4.0-10.0)
[2017-12-25 06:12] LABS: ANION GAP 8 MEQ/L (8-16); BLOOD UREA NITROGEN 28 MG/DL (7-18); CALCIUM LEVEL 8.2 MG/DL (8.8-10.2); CARBON DIOXIDE LEVEL 27 MEQ/L (21-32); CHLORIDE LEVEL 104 MEQ/L (98-107); CREATININE FOR GFR 0.73 MG/DL (0.70-1.30); GLOMERULAR FILTRATION RATE > 60.0 (>42); GLUCOSE, FASTING 181 MG/DL (70-100); MAGNESIUM LEVEL 2.2 MG/DL (1.8-2.4); POTASSIUM SERUM 4.5 MEQ/L (3.5-5.1); SODIUM LEVEL 139 MEQ/L (136-145)
[2017-12-25] MEDS: DOCUSATE SODIUM 100 MG CAP PO (08:30)
[2017-12-25] MEDS: SENOKOT S TAB PO ×2 (08:31→21:00)
[2017-12-25] MEDS: ATORVASTATIN 20 MG TAB PO (08:33)
[2017-12-25] MEDS: predniSONE 20 MG TAB PO ×3 (08:33→21:09)
[2017-12-25] MEDS: LANSOPRAZOLE SUSPENSION 30 MG/10 ML ORAL SYRINGE (FIRST-LANSOPRAZOLE) PO ×2 (08:34→21:10)
[2017-12-25] MEDS: POTASSIUM CHLORIDE 10% LIQ 20 MEQ/15 ML UDC PO (08:34)
[2017-12-25] MEDS: ASCORBIC ACID 500 MG TAB PO ×2 (08:34→21:10)
[2017-12-25] MEDS: metFORMIN (GLUCOPHAGE) 1000 MG TABLET PO ×2 (08:34→17:12)
[2017-12-25] MEDS: GLIMEPIRIDE 2 MG TAB PO ×2 (08:34→17:12)
[2017-12-25] MEDS: FERROUS SULFATE 325MG TAB PO ×2 (08:34→21:10)
[2017-12-25] MEDS: SUCRALFATE SUSP 1GM/10ML UD PO ×4 (08:34→21:09)
[2017-12-25] MEDS: NYSTATIN 500,000 U/5 ML SUSP UDC SS ×4 (08:35→21:09)
[2017-12-25] MEDS: HumaLOG INSULIN (NovoLOG) PER UNIT SC ×4 (08:35→20:59)
[2017-12-25] MEDS: ACETAMINOPHEN 325 MG TAB PO ×2 (09:56→21:10)
[2017-12-25 12:45] LABS: BEDSIDE GLUCOSE 129 MG/DL (83-110)
[2017-12-25 17:13] LABS: BEDSIDE GLUCOSE 248 MG/DL (83-110)
[2017-12-25 21:09] LABS: BEDSIDE GLUCOSE 194 MG/DL (83-110)
[2017-12-26] MEDS: LEVALBUTEROL 1.25 MG/0.5 ML CONCENTRATE NEB INH ×6 (03:20→23:37)
[2017-12-26 07:04] LABS: HEMATOCRIT 26.1 % (42.0-52.0); HEMOGLOBIN 8.2 g/dl (14.0-18.0); MEAN CORPUSCULAR HGB CONC 31.4 g/dl (32.0-36.5); MEAN CORPUSCULAR VOLUME 79.6 fl (80.0-96.0); PLATELET COUNT, AUTOMATED 330 10^3/uL (150-450); RED BLOOD COUNT 3.28 10^6/uL (4.30-6.10); RED CELL DISTRIBUTION WIDTH 17.2 % (11.5-14.5); WHITE BLOOD COUNT 17.2 10^3/uL (4.0-10.0)
[2017-12-26 07:20] LABS: ANION GAP 9 MEQ/L (8-16); BLOOD UREA NITROGEN 21 MG/DL (7-18); CALCIUM LEVEL 8.6 MG/DL (8.8-10.2); CARBON DIOXIDE LEVEL 27 MEQ/L (21-32); CHLORIDE LEVEL 100 MEQ/L (98-107); GLOMERULAR FILTRATION RATE > 60.0 (>42); GLUCOSE, FASTING 174 MG/DL (70-100); MAGNESIUM LEVEL 2.1 MG/DL (1.8-2.4); POTASSIUM SERUM 4.2 MEQ/L (3.5-5.1); SODIUM LEVEL 136 MEQ/L (136-145)
[2017-12-26] MEDS: metFORMIN (GLUCOPHAGE) 1000 MG TABLET PO ×2 (07:39→17:50)
[2017-12-26] MEDS: SUCRALFATE SUSP 1GM/10ML UD PO ×4 (07:39→21:27)
[2017-12-26] MEDS: GLIMEPIRIDE 2 MG TAB PO ×2 (07:39→17:49)
[2017-12-26] MEDS: HumaLOG INSULIN (NovoLOG) PER UNIT SC ×4 (07:39→21:00)
[2017-12-26] MEDS: SENOKOT S TAB PO ×2 (09:00→21:00)
[2017-12-26] MEDS: DOCUSATE SODIUM 100 MG CAP PO (09:00)
[2017-12-26] MEDS: FERROUS SULFATE 325MG TAB PO ×2 (09:51→21:27)
[2017-12-26] MEDS: predniSONE 20 MG TAB PO ×3 (09:51→21:28)
[2017-12-26] MEDS: ASCORBIC ACID 500 MG TAB PO ×2 (09:51→21:27)
[2017-12-26] MEDS: ATORVASTATIN 20 MG TAB PO (09:51)
[2017-12-26] MEDS: POTASSIUM CHLORIDE 10% LIQ 20 MEQ/15 ML UDC PO (09:53)
[2017-12-26] MEDS: LANSOPRAZOLE SUSPENSION 30 MG/10 ML ORAL SYRINGE (FIRST-LANSOPRAZOLE) PO ×2 (09:54→21:27)
[2017-12-26] MEDS: NYSTATIN 500,000 U/5 ML SUSP UDC SS ×4 (09:54→21:27)
[2017-12-26] MEDS: BUMETANIDE 1 MG TAB PO (13:44)
[2017-12-26] MEDS: KETOCONAZOLE 2% CREAM TOP ×2 (13:44→21:29)
[2017-12-26 19:56] LABS: BEDSIDE GLUCOSE 151 MG/DL (83-110)
[2017-12-26] MEDS: ACETAMINOPHEN 325 MG TAB PO (21:27)
[2017-12-26 21:28] LABS: BEDSIDE GLUCOSE 164 MG/DL (83-110)
[2017-12-27] MEDS: LEVALBUTEROL 1.25 MG/0.5 ML CONCENTRATE NEB INH ×5 (03:42→20:35)
[2017-12-27 06:23] LABS: HEMATOCRIT 25.5 % (42.0-52.0); HEMOGLOBIN 7.9 g/dl (14.0-18.0); MEAN CORPUSCULAR HEMOGLOBIN 24.5 pg (27.0-33.0); MEAN CORPUSCULAR VOLUME 79.2 fl (80.0-96.0); PLATELET COUNT, AUTOMATED 330 10^3/uL (150-450); RED BLOOD COUNT 3.22 10^6/uL (4.30-6.10); RED CELL DISTRIBUTION WIDTH 17.2 % (11.5-14.5); WHITE BLOOD COUNT 16.8 10^3/uL (4.0-10.0)
[2017-12-27 06:40] LABS: ANION GAP 9 MEQ/L (8-16); BLOOD UREA NITROGEN 19 MG/DL (7-18); CALCIUM LEVEL 8.2 MG/DL (8.8-10.2); CARBON DIOXIDE LEVEL 30 MEQ/L (21-32); CHLORIDE LEVEL 99 MEQ/L (98-107); CREATININE FOR GFR 0.72 MG/DL (0.70-1.30); GLOMERULAR FILTRATION RATE > 60.0 (>42); GLUCOSE, FASTING 167 MG/DL (70-100); MAGNESIUM LEVEL 2.1 MG/DL (1.8-2.4); POTASSIUM SERUM 3.9 MEQ/L (3.5-5.1); SODIUM LEVEL 138 MEQ/L (136-145)
[2017-12-27] MEDS: POTASSIUM CHLORIDE 10% LIQ 20 MEQ/15 ML UDC PO (08:19)
[2017-12-27] MEDS: metFORMIN (GLUCOPHAGE) 1000 MG TABLET PO ×2 (08:20→17:50)
[2017-12-27] MEDS: ASCORBIC ACID 500 MG TAB PO ×2 (08:20→21:58)
[2017-12-27] MEDS: predniSONE 20 MG TAB PO ×3 (08:20→21:58)
[2017-12-27] MEDS: SUCRALFATE SUSP 1GM/10ML UD PO ×4 (08:20→21:56)
[2017-12-27] MEDS: BUMETANIDE 1 MG TAB PO (08:20)
[2017-12-27] MEDS: GLIMEPIRIDE 2 MG TAB PO ×2 (08:21→17:52)
[2017-12-27] MEDS: DOCUSATE SODIUM 100 MG CAP PO (08:21)
[2017-12-27] MEDS: HumaLOG INSULIN (NovoLOG) PER UNIT SC ×4 (08:22→20:40)
[2017-12-27] MEDS: FERROUS SULFATE 325MG TAB PO ×2 (08:24→21:58)
[2017-12-27] MEDS: ATORVASTATIN 20 MG TAB PO (08:25)
[2017-12-27] MEDS: SENOKOT S TAB PO ×2 (08:25→21:58)
[2017-12-27] MEDS: KETOCONAZOLE 2% CREAM TOP ×2 (08:25→21:55)
[2017-12-27] MEDS: NYSTATIN 500,000 U/5 ML SUSP UDC SS ×4 (08:25→21:56)
[2017-12-27] MEDS: LANSOPRAZOLE SUSPENSION 30 MG/10 ML ORAL SYRINGE (FIRST-LANSOPRAZOLE) PO ×2 (08:25→21:55)
[2017-12-27] MEDS: ACETAMINOPHEN 325 MG TAB PO (10:41)
[2017-12-27 12:03] LABS: BEDSIDE GLUCOSE 145 MG/DL (83-110)
[2017-12-27 12:04] LABS: BEDSIDE GLUCOSE 314 MG/DL (83-110)
[2017-12-27 12:04] LABS: BEDSIDE GLUCOSE 129 MG/DL (83-110)
[2017-12-27] MEDS: CARBAMIDE PEROXIDE 6.5% OTIC SOLN 15ML AU ×2 (14:49→21:59)
[2017-12-27 17:15] LABS: IMMEDIATE SPIN CROSSMATCH 1 1
[2017-12-28] MEDS: ACETAMINOPHEN 325 MG TAB PO ×2 (01:18→21:42)
[2017-12-28] MEDS: LEVALBUTEROL 1.25 MG/0.5 ML CONCENTRATE NEB INH ×5 (03:57→21:26)
[2017-12-28 05:55] LABS: HEMATOCRIT 29.8 % (42.0-52.0); HEMOGLOBIN 9.3 g/dl (14.0-18.0); MEAN CORPUSCULAR HEMOGLOBIN 25.1 pg (27.0-33.0); MEAN CORPUSCULAR HGB CONC 31.2 g/dl (32.0-36.5); MEAN CORPUSCULAR VOLUME 80.3 fl (80.0-96.0); PLATELET COUNT, AUTOMATED 294 10^3/uL (150-450); RED BLOOD COUNT 3.71 10^6/uL (4.30-6.10); RED CELL DISTRIBUTION WIDTH 16.7 % (11.5-14.5); WHITE BLOOD COUNT 18.6 10^3/uL (4.0-10.0)
[2017-12-28 06:10] LABS: ANION GAP 11 MEQ/L (8-16); BLOOD UREA NITROGEN 21 MG/DL (7-18); CALCIUM LEVEL 8.2 MG/DL (8.8-10.2); CARBON DIOXIDE LEVEL 27 MEQ/L (21-32); CHLORIDE LEVEL 98 MEQ/L (98-107); CREATININE FOR GFR 0.84 MG/DL (0.70-1.30); GLOMERULAR FILTRATION RATE > 60.0 (>42); GLUCOSE, FASTING 282 MG/DL (70-100); POTASSIUM SERUM 4.1 MEQ/L (3.5-5.1); SODIUM LEVEL 136 MEQ/L (136-145)
[2017-12-28] MEDS: DOCUSATE SODIUM 100 MG CAP PO (08:09)
[2017-12-28] MEDS: HumaLOG INSULIN (NovoLOG) PER UNIT SC ×4 (08:41→21:43)
[2017-12-28] MEDS: SUCRALFATE SUSP 1GM/10ML UD PO ×4 (08:42→21:42)
[2017-12-28] MEDS: NYSTATIN 500,000 U/5 ML SUSP UDC SS ×4 (08:42→21:42)
[2017-12-28] MEDS: metFORMIN (GLUCOPHAGE) 1000 MG TABLET PO ×2 (08:43→17:31)
[2017-12-28] MEDS: ASCORBIC ACID 500 MG TAB PO ×2 (08:43→21:42)
[2017-12-28] MEDS: ATORVASTATIN 20 MG TAB PO (08:43)
[2017-12-28] MEDS: GLIMEPIRIDE 2 MG TAB PO ×2 (08:43→16:40)
[2017-12-28] MEDS: POTASSIUM CHLORIDE 10% LIQ 20 MEQ/15 ML UDC PO (08:43)
[2017-12-28] MEDS: FERROUS SULFATE 325MG TAB PO ×2 (08:44→21:42)
[2017-12-28] MEDS: predniSONE 20 MG TAB PO ×2 (08:44→21:42)
[2017-12-28] MEDS: KETOCONAZOLE 2% CREAM TOP ×2 (08:45→21:43)
[2017-12-28] MEDS: CARBAMIDE PEROXIDE 6.5% OTIC SOLN 15ML AU ×2 (08:46→21:43)
[2017-12-28] MEDS: SENOKOT S TAB PO ×2 (08:59→21:42)
[2017-12-28] MEDS: LANSOPRAZOLE SUSPENSION 30 MG/10 ML ORAL SYRINGE (FIRST-LANSOPRAZOLE) PO ×2 (09:00→21:42)
[2017-12-28] MEDS: BUMETANIDE 1 MG TAB PO (11:42)
[2017-12-28 12:11] LABS: BEDSIDE GLUCOSE 216 MG/DL (83-110)
[2017-12-28 12:11] LABS: BEDSIDE GLUCOSE 115 MG/DL (83-110)
[2017-12-28 16:53] LABS: BEDSIDE GLUCOSE 136 MG/DL (83-110)
[2017-12-28 17:34] LABS: BEDSIDE GLUCOSE 137 MG/DL (83-110)
[2017-12-28 21:53] LABS: BEDSIDE GLUCOSE 203 MG/DL (83-110)
[2017-12-29] MEDS: LEVALBUTEROL 1.25 MG/0.5 ML CONCENTRATE NEB INH ×5 (02:18→21:11)
[2017-12-29 06:26] LABS: HEMATOCRIT 29.9 % (42.0-52.0); HEMOGLOBIN 9.4 g/dl (14.0-18.0); MEAN CORPUSCULAR HEMOGLOBIN 24.8 pg (27.0-33.0); MEAN CORPUSCULAR HGB CONC 31.4 g/dl (32.0-36.5); MEAN CORPUSCULAR VOLUME 78.9 fl (80.0-96.0); PLATELET COUNT, AUTOMATED 295 10^3/uL (150-450); RED BLOOD COUNT 3.79 10^6/uL (4.30-6.10); RED CELL DISTRIBUTION WIDTH 16.8 % (11.5-14.5); WHITE BLOOD COUNT 20.1 10^3/uL (4.0-10.0)
[2017-12-29 06:47] LABS: ANION GAP 9 MEQ/L (8-16); BLOOD UREA NITROGEN 20 MG/DL (7-18); CALCIUM LEVEL 8.1 MG/DL (8.8-10.2); CARBON DIOXIDE LEVEL 28 MEQ/L (21-32); CHLORIDE LEVEL 98 MEQ/L (98-107); CREATININE FOR GFR 0.68 MG/DL (0.70-1.30); GLOMERULAR FILTRATION RATE > 60.0 (>42); GLUCOSE, FASTING 169 MG/DL (70-100); MAGNESIUM LEVEL 1.9 MG/DL (1.8-2.4); SODIUM LEVEL 135 MEQ/L (136-145)
[2017-12-29] MEDS: LANSOPRAZOLE SUSPENSION 30 MG/10 ML ORAL SYRINGE (FIRST-LANSOPRAZOLE) PO ×2 (08:52→21:15)
[2017-12-29] MEDS: NYSTATIN 500,000 U/5 ML SUSP UDC SS ×4 (08:58→21:15)
[2017-12-29] MEDS: HumaLOG INSULIN (NovoLOG) PER UNIT SC ×4 (08:58→21:15)
[2017-12-29] MEDS: POTASSIUM CHLORIDE 10% LIQ 20 MEQ/15 ML UDC PO (08:59)
[2017-12-29] MEDS: ASCORBIC ACID 500 MG TAB PO ×2 (08:59→21:14)
[2017-12-29] MEDS: SUCRALFATE SUSP 1GM/10ML UD PO ×4 (08:59→21:15)
[2017-12-29] MEDS: GLIMEPIRIDE 2 MG TAB PO ×2 (08:59→17:36)
[2017-12-29] MEDS: FERROUS SULFATE 325MG TAB PO ×2 (09:00→21:14)
[2017-12-29] MEDS: metFORMIN (GLUCOPHAGE) 1000 MG TABLET PO ×2 (09:00→17:36)
[2017-12-29] MEDS: ATORVASTATIN 20 MG TAB PO (09:00)
[2017-12-29] MEDS: BUMETANIDE 1 MG TAB PO (09:00)
[2017-12-29] MEDS: predniSONE 20 MG TAB PO ×2 (09:00→21:14)
[2017-12-29] MEDS: DOCUSATE SODIUM 100 MG CAP PO (09:00)
[2017-12-29] MEDS: SENOKOT S TAB PO ×2 (09:00→21:14)
[2017-12-29] MEDS: CARBAMIDE PEROXIDE 6.5% OTIC SOLN 15ML AU ×2 (09:01→21:16)
[2017-12-29] MEDS: KETOCONAZOLE 2% CREAM TOP ×2 (09:01→21:16)
[2017-12-29 16:49] LABS: BEDSIDE GLUCOSE 180 MG/DL (83-110)
[2017-12-29 17:06] LABS: BEDSIDE GLUCOSE 199 MG/DL (83-110)
[2017-12-29] MEDS: ACETAMINOPHEN 325 MG TAB PO (21:14)
[2017-12-30] MEDS: LEVALBUTEROL 1.25 MG/0.5 ML CONCENTRATE NEB INH ×5 (05:42→21:34)
[2017-12-30] MEDS: HumaLOG INSULIN (NovoLOG) PER UNIT SC ×4 (09:54→20:43)
[2017-12-30] MEDS: SUCRALFATE SUSP 1GM/10ML UD PO ×4 (09:54→22:28)
[2017-12-30] MEDS: GLIMEPIRIDE 2 MG TAB PO ×2 (09:54→17:48)
[2017-12-30] MEDS: ASCORBIC ACID 500 MG TAB PO ×2 (09:55→22:27)
[2017-12-30] MEDS: BUMETANIDE 1 MG TAB PO (09:55)
[2017-12-30] MEDS: FERROUS SULFATE 325MG TAB PO ×2 (09:55→22:28)
[2017-12-30] MEDS: metFORMIN (GLUCOPHAGE) 1000 MG TABLET PO ×2 (09:56→17:48)
[2017-12-30] MEDS: LANSOPRAZOLE SUSPENSION 30 MG/10 ML ORAL SYRINGE (FIRST-LANSOPRAZOLE) PO ×2 (09:56→22:27)
[2017-12-30] MEDS: predniSONE 20 MG TAB PO (09:56)
[2017-12-30] MEDS: ATORVASTATIN 20 MG TAB PO (09:57)
[2017-12-30] MEDS: CARBAMIDE PEROXIDE 6.5% OTIC SOLN 15ML AU ×2 (09:58→22:29)
[2017-12-30] MEDS: KETOCONAZOLE 2% CREAM TOP ×2 (09:59→22:29)
[2017-12-30] MEDS: SENOKOT S TAB PO ×2 (10:08→21:00)
[2017-12-30] MEDS: DOCUSATE SODIUM 100 MG CAP PO (10:08)
[2017-12-30] MEDS: POTASSIUM CHLORIDE 10% LIQ 20 MEQ/15 ML UDC PO (10:15)
[2017-12-30 16:55] LABS: BEDSIDE GLUCOSE 143 MG/DL (83-110)
[2017-12-30 19:59] LABS: BEDSIDE GLUCOSE 224 MG/DL (83-110)
[2017-12-30 19:59] LABS: BEDSIDE GLUCOSE 190 MG/DL (83-110)
[2017-12-30 19:59] LABS: BEDSIDE GLUCOSE 334 MG/DL (83-110)
[2017-12-30 20:46] LABS: BEDSIDE GLUCOSE 154 MG/DL (83-110)
[2017-12-30] MEDS: ACETAMINOPHEN 325 MG TAB PO (22:34)
[2017-12-31 00:16] LABS: APPEARANCE, URINE CLOUDY (CLEAR); BACTERIA, URINE AUTO 1+ (NEGATIVE); BILIRUBIN, URINE AUTO NEGATIVE (NEGATIVE); BLOOD, URINE BLOOD NEGATIVE (NEGATIVE); CALCIUM OXALATE CRYSTALS LARGE; COLOR, URINE YELLOW (YELLOW); GLUCOSE, URINE (UA) AUTO 1+ mg/dL (NEGATIVE); KETONE, URINE AUTO TRACE mg/dL (NEGATIVE); LEUKOCYTE ESTERASE, URINE AUTO 3+ (NEGATIVE); MUCUS, URINE SMALL (NEGATIVE); NITRITE, URINE AUTO NEGATIVE (NEGATIVE); PROTEIN, URINE AUTO NEGATIVE (NEGATIVE); RBC, URINE AUTO 0 /HPF (0-3); SPECIFIC GRAVITY URINE AUTO 1.023 (1.002-1.035); SQUAMOUS EPITHELIAL CELL UR AU 0 /HPF (0-6); UROBILINOGEN, URINE AUTO 0.2 mg/dL (0.0-2.0); WBC, URINE AUTO 146 /HPF (0-3)
[2017-12-31] MEDS: LEVALBUTEROL 1.25 MG/0.5 ML CONCENTRATE NEB INH ×5 (01:19→20:48)
[2017-12-31] MEDS ORDERED: cefTRIAXone SOD 1 GM VIAL (J0696) IM (02:00)
[2017-12-31] MEDS: CEFTRIAXONE SOD 1 GM in APPROPRIATE DILUENT 1 EA IV (03:09)
[2017-12-31 06:41] LABS: BEDSIDE GLUCOSE 108 MG/DL (83-110)
[2017-12-31] MEDS: ACETAMINOPHEN 325 MG TAB PO ×2 (06:51→21:33)
[2017-12-31] MEDS: SUCRALFATE SUSP 1GM/10ML UD PO ×4 (08:19→21:33)
[2017-12-31] MEDS: predniSONE 20 MG TAB PO (08:22)
[2017-12-31] MEDS: ASCORBIC ACID 500 MG TAB PO ×2 (08:22→21:33)
[2017-12-31] MEDS: ATORVASTATIN 20 MG TAB PO (08:23)
[2017-12-31] MEDS: FERROUS SULFATE 325MG TAB PO ×2 (08:23→21:32)
[2017-12-31] MEDS: LANSOPRAZOLE SUSPENSION 30 MG/10 ML ORAL SYRINGE (FIRST-LANSOPRAZOLE) PO ×2 (08:23→21:33)
[2017-12-31] MEDS: GLIMEPIRIDE 2 MG TAB PO ×2 (08:23→17:08)
[2017-12-31] MEDS: SENOKOT S TAB PO ×2 (08:23→21:00)
[2017-12-31] MEDS: metFORMIN (GLUCOPHAGE) 1000 MG TABLET PO ×2 (08:23→17:09)
[2017-12-31] MEDS: POTASSIUM CHLORIDE 10% LIQ 20 MEQ/15 ML UDC PO (08:24)
[2017-12-31] MEDS: HumaLOG INSULIN (NovoLOG) PER UNIT SC ×4 (08:25→20:50)
[2017-12-31] MEDS: BUMETANIDE 1 MG TAB PO (08:58)
[2017-12-31] MEDS: CARBAMIDE PEROXIDE 6.5% OTIC SOLN 15ML AU ×2 (08:59→21:33)
[2017-12-31] MEDS: KETOCONAZOLE 2% CREAM TOP ×2 (09:00→21:34)
[2017-12-31] MEDS: DOCUSATE SODIUM 100 MG CAP PO (09:00)
[2017-12-31 12:04] LABS: BEDSIDE GLUCOSE 124 MG/DL (83-110)
[2017-12-31 17:08] LABS: BEDSIDE GLUCOSE 158 MG/DL (83-110)
[2017-12-31 20:16] LABS: BEDSIDE GLUCOSE 157 MG/DL (83-110)
[2018-01-01] MEDS: CEFTRIAXONE SOD 1 GM in APPROPRIATE DILUENT 1 EA IV (01:51)
[2018-01-01] MEDS: LEVALBUTEROL 1.25 MG/0.5 ML CONCENTRATE NEB INH ×5 (03:32→19:17)
[2018-01-01] MEDS: ACETAMINOPHEN 325 MG TAB PO ×3 (03:38→21:03)
[2018-01-01 06:47] LABS: BEDSIDE GLUCOSE 175 MG/DL (83-110)
[2018-01-01 06:58] LABS: BASO % 0.1 % (0.0-1.0); EOS % 0.1 % (0.0-3.0); HEMATOCRIT 29.3 % (42.0-52.0); HEMOGLOBIN 9.2 g/dl (14.0-18.0); IMMATURE GRANULOCYTE % 0.7 % (0-3.0); LYMPH # 1.2 10^3/uL (1.5-4.5); LYMPH % 6.2 % (24.0-44.0); MEAN CORPUSCULAR HGB CONC 31.4 g/dl (32.0-36.5); MEAN CORPUSCULAR VOLUME 79.6 fl (80.0-96.0); MONO # 0.8 10^3/uL (0.0-0.8); MONO % 4.3 % (0.0-5.0); NEUTROPHILS # 17.3 10^3/uL (1.8-7.7); NEUTROPHILS % 88.6 % (36.0-66.0); PLATELET COUNT, AUTOMATED 228 10^3/uL (150-450); RED BLOOD COUNT 3.68 10^6/uL (4.30-6.10); RED CELL DISTRIBUTION WIDTH 17.3 % (11.5-14.5); WHITE BLOOD COUNT 19.5 10^3/uL (4.0-10.0)
[2018-01-01 07:31] LABS: ALBUMIN 2.7 GM/DL (3.2-5.2); ALBUMIN/GLOBULIN RATIO 1.17 (1.00-1.93); ALKALINE PHOSPHATASE 88 U/L (45-117); ALT/SGPT 26 U/L (12-78); ANION GAP 10 MEQ/L (8-16); AST/SGOT 12 U/L (7-37); BILIRUBIN,TOTAL 0.2 MG/DL (0.2-1.0); BLOOD UREA NITROGEN 20 MG/DL (7-18); CARBON DIOXIDE LEVEL 28 MEQ/L (21-32); CHLORIDE LEVEL 102 MEQ/L (98-107); CREATININE FOR GFR 0.54 MG/DL (0.70-1.30); GLOMERULAR FILTRATION RATE > 60.0 (>42); GLUCOSE, FASTING 151 MG/DL (70-100); SODIUM LEVEL 140 MEQ/L (136-145)
[2018-01-01] MEDS: POTASSIUM CHLORIDE 10% LIQ 20 MEQ/15 ML UDC PO (09:28)
[2018-01-01] MEDS: metFORMIN (GLUCOPHAGE) 1000 MG TABLET PO ×2 (09:28→17:15)
[2018-01-01] MEDS: ASCORBIC ACID 500 MG TAB PO ×2 (09:29→21:02)
[2018-01-01] MEDS: SENOKOT S TAB PO ×2 (09:29→21:00)
[2018-01-01] MEDS: GLIMEPIRIDE 2 MG TAB PO ×2 (09:29→17:15)
[2018-01-01] MEDS: FERROUS SULFATE 325MG TAB PO ×2 (09:29→21:02)
[2018-01-01] MEDS: ATORVASTATIN 20 MG TAB PO (09:29)
[2018-01-01] MEDS: NEOSPORIN TOP OINT 15GM TOP ×2 (09:30→21:03)
[2018-01-01] MEDS: LANSOPRAZOLE SUSPENSION 30 MG/10 ML ORAL SYRINGE (FIRST-LANSOPRAZOLE) PO ×2 (09:30→21:51)
[2018-01-01] MEDS: BUMETANIDE 1 MG TAB PO (09:31)
[2018-01-01] MEDS: predniSONE 20 MG TAB PO (09:31)
[2018-01-01] MEDS: HumaLOG INSULIN (NovoLOG) PER UNIT SC ×4 (09:32→21:04)
[2018-01-01] MEDS: SUCRALFATE SUSP 1GM/10ML UD PO ×4 (09:32→21:02)
[2018-01-01] MEDS: DOCUSATE SODIUM 100 MG CAP PO (09:32)
[2018-01-01] MEDS: CARBAMIDE PEROXIDE 6.5% OTIC SOLN 15ML AU ×2 (09:32→21:00)
[2018-01-01] MEDS: KETOCONAZOLE 2% CREAM TOP ×2 (11:09→21:00)
[2018-01-01 12:14] LABS: BEDSIDE GLUCOSE 142 MG/DL (83-110)
[2018-01-01 17:09] LABS: BEDSIDE GLUCOSE 292 MG/DL (83-110)
[2018-01-01 21:01] LABS: BEDSIDE GLUCOSE 255 MG/DL (83-110)
[2018-01-02] MEDS: LEVALBUTEROL 1.25 MG/0.5 ML CONCENTRATE NEB INH ×6 (02:09→23:45)
[2018-01-02 07:15] LABS: BEDSIDE GLUCOSE 89 MG/DL (83-110)
[2018-01-02] MEDS: HumaLOG INSULIN (NovoLOG) PER UNIT SC ×4 (07:30→21:00)
[2018-01-02] MEDS: LANSOPRAZOLE SUSPENSION 30 MG/10 ML ORAL SYRINGE (FIRST-LANSOPRAZOLE) PO ×2 (09:46→21:05)
[2018-01-02] MEDS: SUCRALFATE SUSP 1GM/10ML UD PO ×4 (09:46→21:05)
[2018-01-02] MEDS: ASCORBIC ACID 500 MG TAB PO ×2 (09:47→21:05)
[2018-01-02] MEDS: GLIMEPIRIDE 2 MG TAB PO ×2 (09:47→17:33)
[2018-01-02] MEDS: ATORVASTATIN 20 MG TAB PO (09:47)
[2018-01-02] MEDS: POTASSIUM CHLORIDE 10% LIQ 20 MEQ/15 ML UDC PO (09:47)
[2018-01-02] MEDS: BUMETANIDE 1 MG TAB PO (09:47)
[2018-01-02] MEDS: DOCUSATE SODIUM 100 MG CAP PO (09:47)
[2018-01-02] MEDS: predniSONE 20 MG TAB PO (09:48)
[2018-01-02] MEDS: SENOKOT S TAB PO ×2 (09:48→20:37)
[2018-01-02] MEDS: metFORMIN (GLUCOPHAGE) 1000 MG TABLET PO ×2 (09:48→17:32)
[2018-01-02] MEDS: FERROUS SULFATE 325MG TAB PO ×2 (09:48→21:05)
[2018-01-02] MEDS: NEOSPORIN TOP OINT 15GM TOP ×2 (09:49→21:00)
[2018-01-02] MEDS: KETOCONAZOLE 2% CREAM TOP ×2 (09:50→21:00)
[2018-01-02] MEDS: CARBAMIDE PEROXIDE 6.5% OTIC SOLN 15ML AU ×2 (09:51→21:00)
[2018-01-02 10:17] LABS: BASO % 0.1 % (0.0-1.0); HEMATOCRIT 26.8 % (42.0-52.0); HEMOGLOBIN 8.6 g/dl (14.0-18.0); IMMATURE GRANULOCYTE % 0.5 % (0-3.0); LYMPH # 0.9 10^3/uL (1.5-4.5); LYMPH % 4.4 % (24.0-44.0); MEAN CORPUSCULAR HEMOGLOBIN 25.4 pg (27.0-33.0); MEAN CORPUSCULAR HGB CONC 32.1 g/dl (32.0-36.5); MEAN CORPUSCULAR VOLUME 79.1 fl (80.0-96.0); MONO # 0.5 10^3/uL (0.0-0.8); MONO % 2.3 % (0.0-5.0); NEUTROPHILS # 19.5 10^3/uL (1.8-7.7); NEUTROPHILS % 92.7 % (36.0-66.0); PLATELET COUNT, AUTOMATED 176 10^3/uL (150-450); RED BLOOD COUNT 3.39 10^6/uL (4.30-6.10); RED CELL DISTRIBUTION WIDTH 17.2 % (11.5-14.5)
[2018-01-02 10:44] LABS: ANION GAP 6 MEQ/L (8-16); BLOOD UREA NITROGEN 16 MG/DL (7-18); CALCIUM LEVEL 7.8 MG/DL (8.8-10.2); CARBON DIOXIDE LEVEL 30 MEQ/L (21-32); CHLORIDE LEVEL 100 MEQ/L (98-107); GLOMERULAR FILTRATION RATE > 60.0 (>42); GLUCOSE, FASTING 183 MG/DL (70-100); SODIUM LEVEL 136 MEQ/L (136-145)
[2018-01-02] MEDS: ACETAMINOPHEN 325 MG TAB PO (13:41)
[2018-01-02 15:12] LABS: BEDSIDE GLUCOSE 155 MG/DL (83-110)
[2018-01-02 15:57] LABS: BEDSIDE GLUCOSE 365 MG/DL (83-110)
[2018-01-02 16:34] LABS: BEDSIDE GLUCOSE 205 MG/DL (83-110)
[2018-01-02 20:51] LABS: BEDSIDE GLUCOSE 200 MG/DL (83-110)
[2018-01-03] MEDS: ACETAMINOPHEN 325 MG TAB PO ×2 (00:36→14:06)
[2018-01-03 05:41] LABS: BEDSIDE GLUCOSE 65 MG/DL (83-110)
[2018-01-03 06:21] LABS: BEDSIDE GLUCOSE 112 MG/DL (83-110)
[2018-01-03] MEDS: LEVALBUTEROL 1.25 MG/0.5 ML CONCENTRATE NEB INH ×4 (07:16→20:13)
[2018-01-03 07:22] LABS: BASO % 0.1 % (0.0-1.0); EOS % 0.2 % (0.0-3.0); HEMATOCRIT 25.7 % (42.0-52.0); HEMOGLOBIN 8.1 g/dl (14.0-18.0); IMMATURE GRANULOCYTE % 0.6 % (0-3.0); LYMPH # 0.9 10^3/uL (1.5-4.5); LYMPH % 5.8 % (24.0-44.0); MEAN CORPUSCULAR HEMOGLOBIN 24.8 pg (27.0-33.0); MEAN CORPUSCULAR HGB CONC 31.5 g/dl (32.0-36.5); MEAN CORPUSCULAR VOLUME 78.8 fl (80.0-96.0); MONO # 0.6 10^3/uL (0.0-0.8); MONO % 3.8 % (0.0-5.0); NEUTROPHILS # 13.6 10^3/uL (1.8-7.7); NEUTROPHILS % 89.5 % (36.0-66.0); PLATELET COUNT, AUTOMATED 167 10^3/uL (150-450); RED BLOOD COUNT 3.26 10^6/uL (4.30-6.10); RED CELL DISTRIBUTION WIDTH 17.4 % (11.5-14.5); WHITE BLOOD COUNT 15.2 10^3/uL (4.0-10.0)
[2018-01-03] MEDS: GLIMEPIRIDE 2 MG TAB PO ×2 (07:30→17:19)
[2018-01-03 07:50] LABS: ALBUMIN 2.3 GM/DL (3.2-5.2); ALBUMIN/GLOBULIN RATIO 0.82 (1.00-1.93); ALKALINE PHOSPHATASE 82 U/L (45-117); ALT/SGPT 22 U/L (12-78); ANION GAP 7 MEQ/L (8-16); AST/SGOT 12 U/L (7-37); BILIRUBIN,TOTAL 0.2 MG/DL (0.2-1.0); BLOOD UREA NITROGEN 15 MG/DL (7-18); CALCIUM LEVEL 7.7 MG/DL (8.8-10.2); CARBON DIOXIDE LEVEL 29 MEQ/L (21-32); CHLORIDE LEVEL 101 MEQ/L (98-107); CREATININE FOR GFR 0.53 MG/DL (0.70-1.30); GLOMERULAR FILTRATION RATE > 60.0 (>42); GLUCOSE, FASTING 116 MG/DL (70-100); POTASSIUM SERUM 3.7 MEQ/L (3.5-5.1); SODIUM LEVEL 137 MEQ/L (136-145); TOTAL PROTEIN 5.1 GM/DL (6.4-8.2)
[2018-01-03] MEDS: SENOKOT S TAB PO ×2 (09:00→20:47)
[2018-01-03] MEDS: DOCUSATE SODIUM 100 MG CAP PO (09:00)
[2018-01-03] MEDS: CARBAMIDE PEROXIDE 6.5% OTIC SOLN 15ML AU ×2 (09:00→20:48)
[2018-01-03] MEDS: NEOSPORIN TOP OINT 15GM TOP ×2 (09:00→21:00)
[2018-01-03] MEDS: POTASSIUM CHLORIDE 10% LIQ 20 MEQ/15 ML UDC PO (09:49)
[2018-01-03] MEDS: SUCRALFATE SUSP 1GM/10ML UD PO ×4 (09:49→20:59)
[2018-01-03] MEDS: FERROUS SULFATE 325MG TAB PO ×2 (09:50→20:59)
[2018-01-03] MEDS: ASCORBIC ACID 500 MG TAB PO ×2 (09:50→20:59)
[2018-01-03] MEDS: metFORMIN (GLUCOPHAGE) 1000 MG TABLET PO ×2 (09:50→17:19)
[2018-01-03] MEDS: ATORVASTATIN 20 MG TAB PO (09:50)
[2018-01-03] MEDS: predniSONE 20 MG TAB PO (09:51)
[2018-01-03] MEDS: HumaLOG INSULIN (NovoLOG) PER UNIT SC ×4 (09:51→20:47)
[2018-01-03] MEDS: predniSONE 10 MG TAB PO (09:51)
[2018-01-03] MEDS: LANSOPRAZOLE SUSPENSION 30 MG/10 ML ORAL SYRINGE (FIRST-LANSOPRAZOLE) PO ×2 (09:51→21:00)
[2018-01-03] MEDS: KETOCONAZOLE 2% CREAM TOP ×2 (09:52→20:59)
[2018-01-03] MEDS: BUMETANIDE 1 MG TAB PO (10:01)
[2018-01-03 11:52] LABS: BEDSIDE GLUCOSE 149 MG/DL (83-110)
[2018-01-03 17:10] LABS: BEDSIDE GLUCOSE 255 MG/DL (83-110)
[2018-01-03 20:42] LABS: BEDSIDE GLUCOSE 214 MG/DL (83-110)
[2018-01-04] MEDS: ACETAMINOPHEN 325 MG TAB PO ×2 (00:28→10:38)
[2018-01-04] MEDS: LEVALBUTEROL 1.25 MG/0.5 ML CONCENTRATE NEB INH ×6 (01:11→22:02)
[2018-01-04 05:33] LABS: BEDSIDE GLUCOSE 75 MG/DL (83-110)
[2018-01-04 06:17] LABS: BASO % 0.1 % (0.0-1.0); EOS # 0.1 10^3/uL (0.0-0.50); EOS % 0.3 % (0.0-3.0); HEMATOCRIT 25.4 % (42.0-52.0); IMMATURE GRANULOCYTE % 0.8 % (0-3.0); LYMPH % 5.6 % (24.0-44.0); MEAN CORPUSCULAR HEMOGLOBIN 25.5 pg (27.0-33.0); MEAN CORPUSCULAR HGB CONC 31.5 g/dl (32.0-36.5); MEAN CORPUSCULAR VOLUME 80.9 fl (80.0-96.0); MONO # 0.8 10^3/uL (0.0-0.8); MONO % 4.2 % (0.0-5.0); NEUTROPHILS # 16.4 10^3/uL (1.8-7.7); PLATELET COUNT, AUTOMATED 167 10^3/uL (150-450); RED BLOOD COUNT 3.14 10^6/uL (4.30-6.10); RED CELL DISTRIBUTION WIDTH 17.3 % (11.5-14.5); WHITE BLOOD COUNT 18.4 10^3/uL (4.0-10.0)
[2018-01-04 06:31] LABS: ANION GAP 8 MEQ/L (8-16); BLOOD UREA NITROGEN 15 MG/DL (7-18); CALCIUM LEVEL 7.9 MG/DL (8.8-10.2); CARBON DIOXIDE LEVEL 31 MEQ/L (21-32); CHLORIDE LEVEL 99 MEQ/L (98-107); CREATININE FOR GFR 0.45 MG/DL (0.70-1.30); GLOMERULAR FILTRATION RATE > 60.0 (>42); GLUCOSE, FASTING 65 MG/DL (70-100); POTASSIUM SERUM 3.6 MEQ/L (3.5-5.1); SODIUM LEVEL 138 MEQ/L (136-145)
[2018-01-04] MEDS: HumaLOG INSULIN (NovoLOG) PER UNIT SC ×4 (07:30→20:47)
[2018-01-04] MEDS: SENOKOT S TAB PO ×2 (07:53→21:00)
[2018-01-04] MEDS: DOCUSATE SODIUM 100 MG CAP PO (07:53)
[2018-01-04 08:06] LABS: BEDSIDE GLUCOSE 140 MG/DL (83-110)
[2018-01-04] MEDS: ATORVASTATIN 20 MG TAB PO (08:07)
[2018-01-04] MEDS: metFORMIN (GLUCOPHAGE) 1000 MG TABLET PO ×2 (08:07→17:25)
[2018-01-04] MEDS: SUCRALFATE SUSP 1GM/10ML UD PO ×4 (08:07→21:06)
[2018-01-04] MEDS: LANSOPRAZOLE SUSPENSION 30 MG/10 ML ORAL SYRINGE (FIRST-LANSOPRAZOLE) PO ×2 (08:07→21:06)
[2018-01-04] MEDS: ASCORBIC ACID 500 MG TAB PO ×2 (08:07→21:05)
[2018-01-04] MEDS: CARBAMIDE PEROXIDE 6.5% OTIC SOLN 15ML AU ×2 (08:07→21:06)
[2018-01-04] MEDS: BUMETANIDE 1 MG TAB PO (08:07)
[2018-01-04] MEDS: FERROUS SULFATE 325MG TAB PO ×2 (08:07→21:05)
[2018-01-04] MEDS: POTASSIUM CHLORIDE 10% LIQ 20 MEQ/15 ML UDC PO (08:07)
[2018-01-04] MEDS: GLIMEPIRIDE 2 MG TAB PO ×2 (08:08→16:37)
[2018-01-04] MEDS: KETOCONAZOLE 2% CREAM TOP ×2 (08:08→22:31)
[2018-01-04] MEDS: NEOSPORIN TOP OINT 15GM TOP ×2 (08:09→22:31)
[2018-01-04 12:07] LABS: BEDSIDE GLUCOSE 103 MG/DL (83-110)
[2018-01-04 12:26] LABS: IMMEDIATE SPIN CROSSMATCH 1 1
[2018-01-04 15:09] LABS: BEDSIDE GLUCOSE 83 MG/DL (83-110)
[2018-01-04 16:52] LABS: BEDSIDE GLUCOSE 95 MG/DL (83-110)
[2018-01-04 20:59] LABS: BEDSIDE GLUCOSE 123 MG/DL (83-110)
[2018-01-05 04:49] LABS: BEDSIDE GLUCOSE 105 MG/DL (83-110)
[2018-01-05 07:08] LABS: BEDSIDE GLUCOSE 151 MG/DL (83-110)
[2018-01-05] MEDS: HumaLOG INSULIN (NovoLOG) PER UNIT SC ×4 (07:30→21:00)
[2018-01-05] MEDS: LEVALBUTEROL 1.25 MG/0.5 ML CONCENTRATE NEB INH ×5 (08:36→23:18)
[2018-01-05] MEDS: DOCUSATE SODIUM 100 MG CAP PO (09:00)
[2018-01-05] MEDS: SENOKOT S TAB PO ×2 (09:00→21:00)
[2018-01-05 09:01] LABS: HEMATOCRIT 28.1 % (42.0-52.0); MEAN CORPUSCULAR HEMOGLOBIN 25.2 pg (27.0-33.0); MEAN CORPUSCULAR VOLUME 78.7 fl (80.0-96.0); PLATELET COUNT, AUTOMATED 164 10^3/uL (150-450); RED BLOOD COUNT 3.57 10^6/uL (4.30-6.10); RED CELL DISTRIBUTION WIDTH 16.8 % (11.5-14.5); WHITE BLOOD COUNT 14.5 10^3/uL (4.0-10.0)
[2018-01-05] MEDS: FERROUS SULFATE 325MG TAB PO ×2 (09:12→22:10)
[2018-01-05] MEDS: ASCORBIC ACID 500 MG TAB PO ×2 (09:12→22:10)
[2018-01-05] MEDS: ATORVASTATIN 20 MG TAB PO (09:12)
[2018-01-05] MEDS: BUMETANIDE 1 MG TAB PO ×2 (09:12→22:09)
[2018-01-05] MEDS: LANSOPRAZOLE SUSPENSION 30 MG/10 ML ORAL SYRINGE (FIRST-LANSOPRAZOLE) PO ×2 (09:12→22:10)
[2018-01-05] MEDS: SUCRALFATE SUSP 1GM/10ML UD PO ×4 (09:13→22:09)
[2018-01-05] MEDS: POTASSIUM CHLORIDE 10% LIQ 20 MEQ/15 ML UDC PO (09:13)
[2018-01-05] MEDS: NEOSPORIN TOP OINT 15GM TOP ×2 (09:14→22:11)
[2018-01-05] MEDS: KETOCONAZOLE 2% CREAM TOP ×2 (09:14→22:11)
[2018-01-05] MEDS: CARBAMIDE PEROXIDE 6.5% OTIC SOLN 15ML AU ×2 (09:14→22:10)
[2018-01-05 09:24] LABS: ANION GAP 7 MEQ/L (8-16); BLOOD UREA NITROGEN 13 MG/DL (7-18); CALCIUM LEVEL 7.8 MG/DL (8.8-10.2); CARBON DIOXIDE LEVEL 30 MEQ/L (21-32); CHLORIDE LEVEL 99 MEQ/L (98-107); CREATININE FOR GFR 0.49 MG/DL (0.70-1.30); GLOMERULAR FILTRATION RATE > 60.0 (>42); GLUCOSE, FASTING 233 MG/DL (70-100); POTASSIUM SERUM 4.1 MEQ/L (3.5-5.1); SODIUM LEVEL 136 MEQ/L (136-145)
[2018-01-05] MEDS: metFORMIN (GLUCOPHAGE) 1000 MG TABLET PO ×2 (10:14→18:04)
[2018-01-05] MEDS: GLIMEPIRIDE 2 MG TAB PO (10:14)
[2018-01-05 11:50] LABS: BEDSIDE GLUCOSE 209 MG/DL (83-110)
[2018-01-05] MEDS: FUROSEMIDE 40 MG/4 ML VIAL (J1940) IV (14:15)
[2018-01-05 16:38] LABS: BEDSIDE GLUCOSE 132 MG/DL (83-110)
[2018-01-05] MEDS ORDERED: FUROSEMIDE 40 MG/4 ML VIAL (J1940) IV (17:00)
[2018-01-05 21:20] LABS: BEDSIDE GLUCOSE 118 MG/DL (83-110)
[2018-01-05] MEDS: ACETAMINOPHEN 325 MG TAB PO (22:22)
[2018-01-06 03:11] LABS: BEDSIDE GLUCOSE 265 MG/DL (83-110)
[2018-01-06] MEDS: LEVALBUTEROL 1.25 MG/0.5 ML CONCENTRATE NEB INH ×4 (03:12→15:22)
[2018-01-06 06:37] LABS: HEMATOCRIT 26.6 % (42.0-52.0); HEMOGLOBIN 8.5 g/dl (14.0-18.0); MEAN CORPUSCULAR HEMOGLOBIN 25.5 pg (27.0-33.0); MEAN CORPUSCULAR VOLUME 79.9 fl (80.0-96.0); PLATELET COUNT, AUTOMATED 154 10^3/uL (150-450); RED BLOOD COUNT 3.33 10^6/uL (4.30-6.10); RED CELL DISTRIBUTION WIDTH 16.8 % (11.5-14.5); WHITE BLOOD COUNT 10.8 10^3/uL (4.0-10.0)
[2018-01-06 06:56] LABS: ANION GAP 7 MEQ/L (8-16); BLOOD UREA NITROGEN 13 MG/DL (7-18); CALCIUM LEVEL 7.8 MG/DL (8.8-10.2); CARBON DIOXIDE LEVEL 32 MEQ/L (21-32); CHLORIDE LEVEL 98 MEQ/L (98-107); CREATININE FOR GFR 0.49 MG/DL (0.70-1.30); GLOMERULAR FILTRATION RATE > 60.0 (>42); GLUCOSE, FASTING 127 MG/DL (70-100); MAGNESIUM LEVEL 1.9 MG/DL (1.8-2.4); SODIUM LEVEL 137 MEQ/L (136-145)
[2018-01-06] MEDS: HumaLOG INSULIN (NovoLOG) PER UNIT SC ×4 (07:30→21:00)
[2018-01-06 08:48] LABS: BEDSIDE GLUCOSE 239 MG/DL (83-110)
[2018-01-06] MEDS: SENOKOT S TAB PO ×2 (09:00→21:05)
[2018-01-06] MEDS: DOCUSATE SODIUM 100 MG CAP PO (09:00)
[2018-01-06] MEDS: POTASSIUM CHLORIDE 10% LIQ 20 MEQ/15 ML UDC PO (09:16)
[2018-01-06] MEDS: POTASSIUM CHLORIDE 10 MEQ SR TABLET PO (09:16)
[2018-01-06] MEDS: KETOCONAZOLE 2% CREAM TOP ×2 (09:16→21:06)
[2018-01-06] MEDS: FERROUS SULFATE 325MG TAB PO ×2 (09:17→21:05)
[2018-01-06] MEDS: metFORMIN (GLUCOPHAGE) 1000 MG TABLET PO ×2 (09:17→17:45)
[2018-01-06] MEDS: ATORVASTATIN 20 MG TAB PO (09:17)
[2018-01-06] MEDS: SUCRALFATE SUSP 1GM/10ML UD PO ×4 (09:17→21:04)
[2018-01-06] MEDS: NEOSPORIN TOP OINT 15GM TOP ×2 (09:17→21:06)
[2018-01-06] MEDS: LANSOPRAZOLE SUSPENSION 30 MG/10 ML ORAL SYRINGE (FIRST-LANSOPRAZOLE) PO ×2 (09:18→21:09)
[2018-01-06] MEDS: ASCORBIC ACID 500 MG TAB PO ×2 (09:18→21:05)
[2018-01-06] MEDS: BUMETANIDE 1 MG TAB PO (09:18)
[2018-01-06] MEDS: ACETAMINOPHEN 325 MG TAB PO ×2 (10:36→21:05)
[2018-01-06 11:44] LABS: BEDSIDE GLUCOSE 257 MG/DL (83-110)
[2018-01-06] MEDS: TIOTROPIUM INHALER/CAPSULE (SPIRIVA) INH (15:56)
[2018-01-06 16:54] LABS: BEDSIDE GLUCOSE 198 MG/DL (83-110)
[2018-01-06] MEDS: SYMBICORT 160/4.5MCG INHALER 6GM INH (20:35)
[2018-01-06 20:58] LABS: BEDSIDE GLUCOSE 181 MG/DL (83-110)
[2018-01-07 06:12] LABS: HEMATOCRIT 24.8 % (42.0-52.0); HEMOGLOBIN 7.9 g/dl (14.0-18.0); MEAN CORPUSCULAR HEMOGLOBIN 25.3 pg (27.0-33.0); MEAN CORPUSCULAR HGB CONC 31.9 g/dl (32.0-36.5); MEAN CORPUSCULAR VOLUME 79.5 fl (80.0-96.0); PLATELET COUNT, AUTOMATED 180 10^3/uL (150-450); RED BLOOD COUNT 3.12 10^6/uL (4.30-6.10); WHITE BLOOD COUNT 13.3 10^3/uL (4.0-10.0)
[2018-01-07 06:40] LABS: ANION GAP 6 MEQ/L (8-16); BLOOD UREA NITROGEN 14 MG/DL (7-18); CALCIUM LEVEL 8.2 MG/DL (8.8-10.2); CARBON DIOXIDE LEVEL 31 MEQ/L (21-32); CHLORIDE LEVEL 100 MEQ/L (98-107); CREATININE FOR GFR 0.42 MG/DL (0.70-1.30); GLOMERULAR FILTRATION RATE > 60.0 (>42); GLUCOSE, FASTING 115 MG/DL (70-100); POTASSIUM SERUM 3.8 MEQ/L (3.5-5.1); SODIUM LEVEL 137 MEQ/L (136-145)
[2018-01-07] MEDS: TIOTROPIUM INHALER/CAPSULE (SPIRIVA) INH (07:27)
[2018-01-07] MEDS: SYMBICORT 160/4.5MCG INHALER 6GM INH (07:27)
[2018-01-07] MEDS: SUCRALFATE SUSP 1GM/10ML UD PO ×4 (07:30→20:37)
[2018-01-07] MEDS: HumaLOG INSULIN (NovoLOG) PER UNIT SC ×4 (07:30→20:37)
[2018-01-07] MEDS: metFORMIN (GLUCOPHAGE) 1000 MG TABLET PO ×2 (07:35→17:50)
[2018-01-07] MEDS: FERROUS SULFATE 325MG TAB PO ×2 (07:36→20:37)
[2018-01-07] MEDS: DOCUSATE SODIUM 100 MG CAP PO (07:36)
[2018-01-07] MEDS: LANSOPRAZOLE SUSPENSION 30 MG/10 ML ORAL SYRINGE (FIRST-LANSOPRAZOLE) PO ×2 (07:37→20:40)
[2018-01-07] MEDS: ASCORBIC ACID 500 MG TAB PO ×2 (07:37→20:36)
[2018-01-07] MEDS: SENOKOT S TAB PO ×2 (07:37→20:36)
[2018-01-07] MEDS: KETOCONAZOLE 2% CREAM TOP ×2 (08:38→20:37)
[2018-01-07] MEDS: NEOSPORIN TOP OINT 15GM TOP ×2 (08:39→20:37)
[2018-01-07 10:47] LABS: IMMEDIATE SPIN CROSSMATCH 1 1
[2018-01-07] MEDS: FUROSEMIDE 20 MG/2 ML VIAL (J1940) IV (10:47)
[2018-01-07 11:07] LABS: BEDSIDE GLUCOSE 167 MG/DL (83-110)
[2018-01-07] MEDS: LEVALBUTEROL 1.25 MG/0.5 ML CONCENTRATE NEB INH (11:59)
[2018-01-07] MEDS ORDERED: PROPOFOL 200 MG/20 ML VIAL As Ordered (13:11)
[2018-01-07] MEDS ORDERED: LIDOCAINE 2% INJ 100 MG/5 ML SDV (FOR ANES.) As Ordered (13:11)
[2018-01-07] MEDS: ATORVASTATIN 20 MG TAB PO (14:17)
[2018-01-07] MEDS: POTASSIUM CHLORIDE 10% LIQ 20 MEQ/15 ML UDC PO (14:17)
[2018-01-07] MEDS: BUMETANIDE 1 MG TAB PO (14:17)
[2018-01-07] MEDS: ACETAMINOPHEN 325 MG TAB PO (18:43)
[2018-01-07 23:26] LABS: BEDSIDE GLUCOSE 137 MG/DL (83-110)
[2018-01-07 23:26] LABS: BEDSIDE GLUCOSE 357 MG/DL (83-110)
[2018-01-07 23:26] LABS: BEDSIDE GLUCOSE 106 MG/DL (83-110)
[2018-01-08] MEDS: ACETAMINOPHEN 325 MG TAB PO ×3 (02:23→21:31)
[2018-01-08 06:01] LABS: HEMATOCRIT 26.8 % (42.0-52.0); HEMOGLOBIN 8.9 g/dl (14.0-18.0); MEAN CORPUSCULAR HEMOGLOBIN 26.9 pg (27.0-33.0); MEAN CORPUSCULAR HGB CONC 33.2 g/dl (32.0-36.5); PLATELET COUNT, AUTOMATED 191 10^3/uL (150-450); RED BLOOD COUNT 3.31 10^6/uL (4.30-6.10); RED CELL DISTRIBUTION WIDTH 16.4 % (11.5-14.5); WHITE BLOOD COUNT 10.3 10^3/uL (4.0-10.0)
[2018-01-08 06:26] LABS: ANION GAP 7 MEQ/L (8-16); BLOOD UREA NITROGEN 12 MG/DL (7-18); CALCIUM LEVEL 7.9 MG/DL (8.8-10.2); CARBON DIOXIDE LEVEL 29 MEQ/L (21-32); CHLORIDE LEVEL 99 MEQ/L (98-107); CREATININE FOR GFR 0.54 MG/DL (0.70-1.30); GLOMERULAR FILTRATION RATE > 60.0 (>42); GLUCOSE, FASTING 171 MG/DL (70-100); MAGNESIUM LEVEL 1.9 MG/DL (1.8-2.4); POTASSIUM SERUM 3.7 MEQ/L (3.5-5.1); SODIUM LEVEL 135 MEQ/L (136-145)
[2018-01-08] MEDS: TIOTROPIUM INHALER/CAPSULE (SPIRIVA) INH (08:09)
[2018-01-08] MEDS: SYMBICORT 160/4.5MCG INHALER 6GM INH ×2 (08:10→20:08)
[2018-01-08] MEDS: SUCRALFATE SUSP 1GM/10ML UD PO ×4 (09:19→21:28)
[2018-01-08] MEDS: HumaLOG INSULIN (NovoLOG) PER UNIT SC ×4 (09:20→20:54)
[2018-01-08] MEDS: metFORMIN (GLUCOPHAGE) 1000 MG TABLET PO ×2 (09:20→17:39)
[2018-01-08] MEDS: DOCUSATE SODIUM 100 MG CAP PO (09:20)
[2018-01-08] MEDS: POTASSIUM CHLORIDE 10% LIQ 20 MEQ/15 ML UDC PO (09:20)
[2018-01-08] MEDS: SENOKOT S TAB PO ×2 (09:20→21:28)
[2018-01-08] MEDS: BUMETANIDE 1 MG TAB PO (09:20)
[2018-01-08] MEDS: ASCORBIC ACID 500 MG TAB PO ×2 (09:20→21:28)
[2018-01-08] MEDS: FERROUS SULFATE 325MG TAB PO ×2 (09:20→21:28)
[2018-01-08] MEDS: LANSOPRAZOLE SUSPENSION 30 MG/10 ML ORAL SYRINGE (FIRST-LANSOPRAZOLE) PO ×2 (09:21→21:29)
[2018-01-08] MEDS: ATORVASTATIN 20 MG TAB PO (09:21)
[2018-01-08] MEDS: KETOCONAZOLE 2% CREAM TOP ×2 (09:21→21:33)
[2018-01-08] MEDS: NEOSPORIN TOP OINT 15GM TOP ×2 (09:22→21:39)
[2018-01-08 12:30] LABS: BEDSIDE GLUCOSE 171 MG/DL (83-110)
[2018-01-08 17:30] LABS: BEDSIDE GLUCOSE 146 MG/DL (83-110)
[2018-01-08] MEDS: LEVALBUTEROL 1.25 MG/0.5 ML CONCENTRATE NEB INH ×2 (17:53→23:15)
[2018-01-08 20:51] LABS: BEDSIDE GLUCOSE 166 MG/DL (83-110)
[2018-01-09] MEDS: zolPIDEM TARTRATE 5 MG TAB PO ×2 (00:15→23:31)
[2018-01-09] MEDS: ACETAMINOPHEN 325 MG TAB PO ×3 (05:29→20:05)
[2018-01-09 06:17] LABS: HEMOGLOBIN 8.8 g/dl (14.0-18.0); MEAN CORPUSCULAR HEMOGLOBIN 25.4 pg (27.0-33.0); MEAN CORPUSCULAR HGB CONC 31.4 g/dl (32.0-36.5); MEAN CORPUSCULAR VOLUME 80.9 fl (80.0-96.0); PLATELET COUNT, AUTOMATED 239 10^3/uL (150-450); RED BLOOD COUNT 3.46 10^6/uL (4.30-6.10); RED CELL DISTRIBUTION WIDTH 16.6 % (11.5-14.5)
[2018-01-09 06:42] LABS: ANION GAP 10 MEQ/L (8-16); BLOOD UREA NITROGEN 13 MG/DL (7-18); CALCIUM LEVEL 8.3 MG/DL (8.8-10.2); CARBON DIOXIDE LEVEL 28 MEQ/L (21-32); CHLORIDE LEVEL 101 MEQ/L (98-107); CREATININE FOR GFR 0.49 MG/DL (0.70-1.30); GLOMERULAR FILTRATION RATE > 60.0 (>42); GLUCOSE, FASTING 128 MG/DL (70-100); MAGNESIUM LEVEL 1.9 MG/DL (1.8-2.4); POTASSIUM SERUM 3.5 MEQ/L (3.5-5.1); SODIUM LEVEL 139 MEQ/L (136-145)
[2018-01-09] MEDS: HumaLOG INSULIN (NovoLOG) PER UNIT SC ×4 (08:04→19:54)
[2018-01-09] MEDS: LANSOPRAZOLE SUSPENSION 30 MG/10 ML ORAL SYRINGE (FIRST-LANSOPRAZOLE) PO ×2 (08:04→20:04)
[2018-01-09] MEDS: POTASSIUM CHLORIDE 10% LIQ 20 MEQ/15 ML UDC PO (08:04)
[2018-01-09] MEDS: BUMETANIDE 1 MG TAB PO (08:04)
[2018-01-09] MEDS: ATORVASTATIN 20 MG TAB PO (08:05)
[2018-01-09] MEDS: SENOKOT S TAB PO (08:05)
[2018-01-09] MEDS: metFORMIN (GLUCOPHAGE) 1000 MG TABLET PO ×2 (08:05→17:48)
[2018-01-09] MEDS: DOCUSATE SODIUM 100 MG CAP PO (08:05)
[2018-01-09] MEDS: ASCORBIC ACID 500 MG TAB PO ×2 (08:05→20:04)
[2018-01-09] MEDS: FERROUS SULFATE 325MG TAB PO ×2 (08:05→20:04)
[2018-01-09] MEDS: SUCRALFATE SUSP 1GM/10ML UD PO ×4 (08:05→20:04)
[2018-01-09] MEDS: NEOSPORIN TOP OINT 15GM TOP ×2 (08:06→20:05)
[2018-01-09] MEDS: KETOCONAZOLE 2% CREAM TOP ×2 (08:06→20:05)
[2018-01-09] MEDS: SYMBICORT 160/4.5MCG INHALER 6GM INH ×2 (08:47→21:00)
[2018-01-09] MEDS: TIOTROPIUM INHALER/CAPSULE (SPIRIVA) INH (08:47)
[2018-01-09 12:33] LABS: BEDSIDE GLUCOSE 240 MG/DL (83-110)
[2018-01-09] MEDS: LEVALBUTEROL 1.25 MG/0.5 ML CONCENTRATE NEB INH ×2 (12:34→21:31)
[2018-01-09] MEDS: POTASSIUM CHLORIDE 10 MEQ SR TABLET PO (13:12)
[2018-01-09 17:00] LABS: BEDSIDE GLUCOSE 114 MG/DL (83-110)
[2018-01-09 19:58] LABS: BEDSIDE GLUCOSE 193 MG/DL (83-110)
[2018-01-10] MEDS: ACETAMINOPHEN 325 MG TAB PO ×2 (03:11→19:31)
[2018-01-10] MEDS: LEVALBUTEROL 1.25 MG/0.5 ML CONCENTRATE NEB INH ×5 (03:28→23:35)
[2018-01-10 06:01] LABS: HEMOGLOBIN 8.6 g/dl (14.0-18.0); MEAN CORPUSCULAR HEMOGLOBIN 25.7 pg (27.0-33.0); MEAN CORPUSCULAR HGB CONC 31.9 g/dl (32.0-36.5); MEAN CORPUSCULAR VOLUME 80.8 fl (80.0-96.0); PLATELET COUNT, AUTOMATED 289 10^3/uL (150-450); RED BLOOD COUNT 3.34 10^6/uL (4.30-6.10); RED CELL DISTRIBUTION WIDTH 16.6 % (11.5-14.5); WHITE BLOOD COUNT 10.4 10^3/uL (4.0-10.0)
[2018-01-10 06:35] LABS: ANION GAP 11 MEQ/L (8-16); BLOOD UREA NITROGEN 13 MG/DL (7-18); CALCIUM LEVEL 8.2 MG/DL (8.8-10.2); CARBON DIOXIDE LEVEL 28 MEQ/L (21-32); CHLORIDE LEVEL 103 MEQ/L (98-107); CREATININE FOR GFR 0.52 MG/DL (0.70-1.30); GLOMERULAR FILTRATION RATE > 60.0 (>42); GLUCOSE, FASTING 160 MG/DL (70-100); MAGNESIUM LEVEL 1.8 MG/DL (1.8-2.4); SODIUM LEVEL 142 MEQ/L (136-145)
[2018-01-10] MEDS: SYMBICORT 160/4.5MCG INHALER 6GM INH ×2 (08:15→20:26)
[2018-01-10] MEDS: TIOTROPIUM INHALER/CAPSULE (SPIRIVA) INH (08:15)
[2018-01-10] MEDS: ATORVASTATIN 20 MG TAB PO (08:29)
[2018-01-10] MEDS: SUCRALFATE SUSP 1GM/10ML UD PO ×4 (08:29→20:34)
[2018-01-10] MEDS: FERROUS SULFATE 325MG TAB PO ×2 (08:29→20:35)
[2018-01-10] MEDS: metFORMIN (GLUCOPHAGE) 1000 MG TABLET PO ×2 (08:29→17:57)
[2018-01-10] MEDS: ASCORBIC ACID 500 MG TAB PO ×2 (08:29→20:35)
[2018-01-10] MEDS: LANSOPRAZOLE SUSPENSION 30 MG/10 ML ORAL SYRINGE (FIRST-LANSOPRAZOLE) PO ×2 (08:29→20:35)
[2018-01-10] MEDS: POTASSIUM CHLORIDE 10% LIQ 20 MEQ/15 ML UDC PO (08:30)
[2018-01-10] MEDS: BUMETANIDE 1 MG TAB PO (08:30)
[2018-01-10] MEDS: HumaLOG INSULIN (NovoLOG) PER UNIT SC ×4 (08:31→20:37)
[2018-01-10] MEDS: KETOCONAZOLE 2% CREAM TOP ×2 (08:31→20:35)
[2018-01-10] MEDS: DOCUSATE SODIUM 100 MG CAP PO (08:31)
[2018-01-10] MEDS: NEOSPORIN TOP OINT 15GM TOP ×2 (08:31→20:35)
[2018-01-10 11:48] LABS: BEDSIDE GLUCOSE 200 MG/DL (83-110)
[2018-01-10 17:31] LABS: BEDSIDE GLUCOSE 159 MG/DL (83-110)
[2018-01-10 19:50] LABS: BEDSIDE GLUCOSE 169 MG/DL (83-110)
[2018-01-10] MEDS: zolPIDEM TARTRATE 5 MG TAB PO (23:29)
[2018-01-11] MEDS: ACETAMINOPHEN 325 MG TAB PO ×3 (03:32→23:31)
[2018-01-11 06:15] LABS: HEMOGLOBIN 7.9 g/dl (14.0-18.0); MEAN CORPUSCULAR HEMOGLOBIN 25.6 pg (27.0-33.0); MEAN CORPUSCULAR HGB CONC 31.6 g/dl (32.0-36.5); MEAN CORPUSCULAR VOLUME 81.2 fl (80.0-96.0); PLATELET COUNT, AUTOMATED 347 10^3/uL (150-450); RED BLOOD COUNT 3.08 10^6/uL (4.30-6.10); RED CELL DISTRIBUTION WIDTH 16.8 % (11.5-14.5); WHITE BLOOD COUNT 9.9 10^3/uL (4.0-10.0)
[2018-01-11 06:29] LABS: ANION GAP 8 MEQ/L (8-16); BLOOD UREA NITROGEN 11 MG/DL (7-18); CALCIUM LEVEL 8.1 MG/DL (8.8-10.2); CARBON DIOXIDE LEVEL 28 MEQ/L (21-32); CHLORIDE LEVEL 100 MEQ/L (98-107); GLOMERULAR FILTRATION RATE > 60.0 (>42); GLUCOSE, FASTING 148 MG/DL (70-100); MAGNESIUM LEVEL 1.8 MG/DL (1.8-2.4); POTASSIUM SERUM 3.7 MEQ/L (3.5-5.1); SODIUM LEVEL 136 MEQ/L (136-145)
[2018-01-11] MEDS: FERROUS SULFATE 325MG TAB PO ×2 (08:02→20:26)
[2018-01-11] MEDS: ATORVASTATIN 20 MG TAB PO (08:02)
[2018-01-11] MEDS: ASCORBIC ACID 500 MG TAB PO ×2 (08:02→20:26)
[2018-01-11] MEDS: metFORMIN (GLUCOPHAGE) 1000 MG TABLET PO ×2 (08:02→18:11)
[2018-01-11] MEDS: POTASSIUM CHLORIDE 10% LIQ 20 MEQ/15 ML UDC PO (08:03)
[2018-01-11] MEDS: SUCRALFATE SUSP 1GM/10ML UD PO ×4 (08:03→20:25)
[2018-01-11] MEDS: BUMETANIDE 1 MG TAB PO (08:03)
[2018-01-11] MEDS: NEOSPORIN TOP OINT 15GM TOP ×2 (08:04→20:26)
[2018-01-11] MEDS: LANSOPRAZOLE SUSPENSION 30 MG/10 ML ORAL SYRINGE (FIRST-LANSOPRAZOLE) PO ×2 (08:04→20:26)
[2018-01-11] MEDS: KETOCONAZOLE 2% CREAM TOP ×2 (08:04→20:27)
[2018-01-11] MEDS: HumaLOG INSULIN (NovoLOG) PER UNIT SC ×4 (08:04→19:54)
[2018-01-11] MEDS: TIOTROPIUM INHALER/CAPSULE (SPIRIVA) INH (08:32)
[2018-01-11] MEDS: SYMBICORT 160/4.5MCG INHALER 6GM INH ×2 (08:32→20:31)
[2018-01-11] MEDS: LEVALBUTEROL 1.25 MG/0.5 ML CONCENTRATE NEB INH (09:31)
[2018-01-11 11:32] LABS: BEDSIDE GLUCOSE 227 MG/DL (83-110)
[2018-01-11 13:18] LABS: IMMEDIATE SPIN CROSSMATCH 1 2
[2018-01-11 17:07] LABS: BEDSIDE GLUCOSE 158 MG/DL (83-110)
[2018-01-11 19:58] LABS: BEDSIDE GLUCOSE 185 MG/DL (83-110)
[2018-01-11] MEDS: zolPIDEM TARTRATE 5 MG TAB PO (23:31)
[2018-01-12] MEDS: LEVALBUTEROL 1.25 MG/0.5 ML CONCENTRATE NEB INH ×4 (03:20→20:00)
[2018-01-12] MEDS: ACETAMINOPHEN 325 MG TAB PO ×2 (05:57→22:19)
[2018-01-12 06:20] LABS: HEMATOCRIT 33.6 % (42.0-52.0); MEAN CORPUSCULAR HEMOGLOBIN 25.8 pg (27.0-33.0); MEAN CORPUSCULAR HGB CONC 31.8 g/dl (32.0-36.5); PLATELET COUNT, AUTOMATED 422 10^3/uL (150-450); RED BLOOD COUNT 4.15 10^6/uL (4.30-6.10); RED CELL DISTRIBUTION WIDTH 16.6 % (11.5-14.5); WHITE BLOOD COUNT 12.5 10^3/uL (4.0-10.0)
[2018-01-12 06:32] LABS: HEMOGLOBIN 10.7 g/dl (14.0-18.0)
[2018-01-12 06:38] LABS: ANION GAP 11 MEQ/L (8-16); BLOOD UREA NITROGEN 11 MG/DL (7-18); CALCIUM LEVEL 8.2 MG/DL (8.8-10.2); CARBON DIOXIDE LEVEL 26 MEQ/L (21-32); CHLORIDE LEVEL 100 MEQ/L (98-107); GLOMERULAR FILTRATION RATE > 60.0 (>42); GLUCOSE, FASTING 185 MG/DL (70-100); MAGNESIUM LEVEL 1.8 MG/DL (1.8-2.4); POTASSIUM SERUM 3.6 MEQ/L (3.5-5.1); SODIUM LEVEL 137 MEQ/L (136-145)
[2018-01-12] MEDS: TIOTROPIUM INHALER/CAPSULE (SPIRIVA) INH (08:20)
[2018-01-12] MEDS: SYMBICORT 160/4.5MCG INHALER 6GM INH ×2 (08:20→20:09)
[2018-01-12] MEDS: SUCRALFATE SUSP 1GM/10ML UD PO ×4 (08:47→21:01)
[2018-01-12] MEDS: metFORMIN (GLUCOPHAGE) 1000 MG TABLET PO ×2 (08:47→18:47)
[2018-01-12] MEDS: ATORVASTATIN 20 MG TAB PO (08:47)
[2018-01-12] MEDS: ASCORBIC ACID 500 MG TAB PO ×2 (08:47→21:01)
[2018-01-12] MEDS: FERROUS SULFATE 325MG TAB PO ×2 (08:47→21:01)
[2018-01-12] MEDS: NEOSPORIN TOP OINT 15GM TOP ×2 (08:47→21:02)
[2018-01-12] MEDS: POTASSIUM CHLORIDE 10% LIQ 20 MEQ/15 ML UDC PO (08:47)
[2018-01-12] MEDS: HumaLOG INSULIN (NovoLOG) PER UNIT SC ×4 (08:49→20:54)
[2018-01-12] MEDS: KETOCONAZOLE 2% CREAM TOP ×2 (08:50→21:02)
[2018-01-12] MEDS: BUMETANIDE 1 MG TAB PO (09:00)
[2018-01-12] MEDS: LANSOPRAZOLE SUSPENSION 30 MG/10 ML ORAL SYRINGE (FIRST-LANSOPRAZOLE) PO ×2 (09:00→21:02)
[2018-01-12] MEDS: LEVALBUTEROL 1.25 MG/0.5 ML CONCENTRATE NEB NEB (10:35)
[2018-01-12] MEDS: FUROSEMIDE 40 MG/4 ML VIAL (J1940) IV (11:14)
[2018-01-12 11:34] LABS: CK-MB VALUE MASS 1.3 NG/ML (0.0-3.6); CPK CREATINE PHOSPHOKINASE 21 U/L (39-308); MB/CK RELATIVE INDEX 6.19 (< OR =4); NT-PRO BNP 96 PG/ML (<125); TROPONIN I < 0.02 NG/ML (< 0.10)
[2018-01-12 11:41] LABS: BEDSIDE GLUCOSE 201 MG/DL (83-110)
[2018-01-12] MEDS ORDERED: LEVALBUTEROL 1.25 MG/0.5 ML CONCENTRATE NEB INH (12:00)
[2018-01-12 16:59] LABS: BEDSIDE GLUCOSE 127 MG/DL (83-110)
[2018-01-12 18:56] LABS: ANION GAP 13 MEQ/L (8-16); BLOOD UREA NITROGEN 13 MG/DL (7-18); CALCIUM LEVEL 8.4 MG/DL (8.8-10.2); CARBON DIOXIDE LEVEL 25 MEQ/L (21-32); CHLORIDE LEVEL 99 MEQ/L (98-107); CPK CREATINE PHOSPHOKINASE 21 U/L (39-308); CREATININE FOR GFR 0.71 MG/DL (0.70-1.30); GLOMERULAR FILTRATION RATE > 60.0 (>42); GLUCOSE, FASTING 174 MG/DL (70-100); MAGNESIUM LEVEL 1.6 MG/DL (1.8-2.4); MB/CK RELATIVE INDEX 4.76 (< OR =4); POTASSIUM SERUM 3.9 MEQ/L (3.5-5.1); SODIUM LEVEL 137 MEQ/L (136-145); TROPONIN I < 0.02 NG/ML (< 0.10)
[2018-01-12] MEDS: zolPIDEM TARTRATE 5 MG TAB PO (22:19)
[2018-01-13] MEDS: LEVALBUTEROL 1.25 MG/0.5 ML CONCENTRATE NEB INH ×6 (02:04→21:09)
[2018-01-13] MEDS: ALPRAZolam 0.25 MG TAB PO (02:46)
[2018-01-13 03:01] LABS: BEDSIDE GLUCOSE 190 MG/DL (83-110)
[2018-01-13 06:39] LABS: HEMATOCRIT 31.5 % (42.0-52.0); HEMOGLOBIN 10.3 g/dl (14.0-18.0); MEAN CORPUSCULAR HEMOGLOBIN 26.6 pg (27.0-33.0); MEAN CORPUSCULAR HGB CONC 32.7 g/dl (32.0-36.5); MEAN CORPUSCULAR VOLUME 81.4 fl (80.0-96.0); PLATELET COUNT, AUTOMATED 475 10^3/uL (150-450); RED BLOOD COUNT 3.87 10^6/uL (4.30-6.10); RED CELL DISTRIBUTION WIDTH 16.8 % (11.5-14.5); WHITE BLOOD COUNT 12.2 10^3/uL (4.0-10.0)
[2018-01-13 07:05] LABS: ANION GAP 8 MEQ/L (8-16); BLOOD UREA NITROGEN 13 MG/DL (7-18); CARBON DIOXIDE LEVEL 30 MEQ/L (21-32); CHLORIDE LEVEL 98 MEQ/L (98-107); CREATININE FOR GFR 0.52 MG/DL (0.70-1.30); GLOMERULAR FILTRATION RATE > 60.0 (>42); GLUCOSE, FASTING 150 MG/DL (70-100); MAGNESIUM LEVEL 1.9 MG/DL (1.8-2.4); POTASSIUM SERUM 4.3 MEQ/L (3.5-5.1); SODIUM LEVEL 136 MEQ/L (136-145)
[2018-01-13] MEDS: TIOTROPIUM INHALER/CAPSULE (SPIRIVA) INH (07:29)
[2018-01-13] MEDS: SYMBICORT 160/4.5MCG INHALER 6GM INH ×2 (07:29→21:00)
[2018-01-13] MEDS: SUCRALFATE SUSP 1GM/10ML UD PO ×4 (08:39→21:37)
[2018-01-13] MEDS: predniSONE 20 MG TAB PO ×2 (08:40→21:37)
[2018-01-13] MEDS: POTASSIUM CHLORIDE 10% LIQ 20 MEQ/15 ML UDC PO (08:40)
[2018-01-13] MEDS: LANSOPRAZOLE SUSPENSION 30 MG/10 ML ORAL SYRINGE (FIRST-LANSOPRAZOLE) PO ×2 (08:40→21:37)
[2018-01-13] MEDS: ASCORBIC ACID 500 MG TAB PO ×2 (08:41→21:37)
[2018-01-13] MEDS: BUMETANIDE 1 MG TAB PO (08:41)
[2018-01-13] MEDS: KETOCONAZOLE 2% CREAM TOP ×2 (08:42→21:38)
[2018-01-13] MEDS: NEOSPORIN TOP OINT 15GM TOP ×2 (08:42→21:37)
[2018-01-13] MEDS: FERROUS SULFATE 325MG TAB PO ×2 (08:42→21:37)
[2018-01-13] MEDS: MOM 30ML SUSPENSION UDC PO (08:47)
[2018-01-13] MEDS: metFORMIN (GLUCOPHAGE) 1000 MG TABLET PO ×2 (08:47→17:53)
[2018-01-13] MEDS ORDERED: PILL CRUSHER/CUTTER 1 EACH XX (09:15)
[2018-01-13] MEDS: HumaLOG INSULIN (NovoLOG) PER UNIT SC ×4 (11:55→21:00)
[2018-01-13 11:57] LABS: BEDSIDE GLUCOSE 256 MG/DL (83-110)
[2018-01-13] MEDS: MAGNESIUM CITRATE 300 ML BTL PO ×2 (12:07→21:37)
[2018-01-13] MEDS: ATORVASTATIN 20 MG TAB PO (12:07)
[2018-01-13 17:07] LABS: BEDSIDE GLUCOSE 220 MG/DL (83-110)
[2018-01-13 20:55] LABS: BEDSIDE GLUCOSE 160 MG/DL (83-110)
[2018-01-14] MEDS: ACETAMINOPHEN 325 MG TAB PO ×2 (00:14→21:29)
[2018-01-14] MEDS: LEVALBUTEROL 1.25 MG/0.5 ML CONCENTRATE NEB INH ×5 (01:33→20:00)
[2018-01-14 06:35] LABS: HEMATOCRIT 31.1 % (42.0-52.0); HEMOGLOBIN 10.2 g/dl (14.0-18.0); MEAN CORPUSCULAR HEMOGLOBIN 26.6 pg (27.0-33.0); MEAN CORPUSCULAR HGB CONC 32.8 g/dl (32.0-36.5); RED BLOOD COUNT 3.84 10^6/uL (4.30-6.10); RED CELL DISTRIBUTION WIDTH 16.9 % (11.5-14.5); WHITE BLOOD COUNT 9.7 10^3/uL (4.0-10.0)
[2018-01-14 06:41] LABS: PLATELET COUNT, AUTOMATED 578 10^3/uL (150-450)
[2018-01-14 06:55] LABS: ANION GAP 3 MEQ/L (8-16); BLOOD UREA NITROGEN 13 MG/DL (7-18); CALCIUM LEVEL 8.2 MG/DL (8.8-10.2); CARBON DIOXIDE LEVEL 31 MEQ/L (21-32); CHLORIDE LEVEL 108 MEQ/L (98-107); CREATININE FOR GFR 0.49 MG/DL (0.70-1.30); GLOMERULAR FILTRATION RATE > 60.0 (>42); GLUCOSE, FASTING 213 MG/DL (70-100); MAGNESIUM LEVEL 2.9 MG/DL (1.8-2.4); POTASSIUM SERUM 4.4 MEQ/L (3.5-5.1); SODIUM LEVEL 142 MEQ/L (136-145)
[2018-01-14 07:07] LABS: BEDSIDE GLUCOSE 219 MG/DL (83-110)
[2018-01-14] MEDS: HumaLOG INSULIN (NovoLOG) PER UNIT SC ×4 (07:30→21:00)
[2018-01-14] MEDS: MAGNESIUM CITRATE 300 ML BTL PO (08:03)
[2018-01-14] MEDS: SUCRALFATE SUSP 1GM/10ML UD PO ×4 (08:04→21:29)
[2018-01-14] MEDS: POTASSIUM CHLORIDE 10% LIQ 20 MEQ/15 ML UDC PO (08:04)
[2018-01-14] MEDS: predniSONE 20 MG TAB PO ×2 (08:04→21:28)
[2018-01-14] MEDS: ATORVASTATIN 20 MG TAB PO (08:04)
[2018-01-14] MEDS: LANSOPRAZOLE SUSPENSION 30 MG/10 ML ORAL SYRINGE (FIRST-LANSOPRAZOLE) PO ×2 (08:04→21:28)
[2018-01-14] MEDS: metFORMIN (GLUCOPHAGE) 1000 MG TABLET PO ×2 (08:04→18:33)
[2018-01-14] MEDS: FERROUS SULFATE 325MG TAB PO ×2 (08:04→21:29)
[2018-01-14] MEDS: ASCORBIC ACID 500 MG TAB PO ×2 (08:05→21:29)
[2018-01-14] MEDS: BUMETANIDE 1 MG TAB PO (08:05)
[2018-01-14] MEDS: NEOSPORIN TOP OINT 15GM TOP ×2 (08:38→21:30)
[2018-01-14] MEDS: KETOCONAZOLE 2% CREAM TOP ×2 (08:38→21:29)
[2018-01-14] MEDS: TIOTROPIUM INHALER/CAPSULE (SPIRIVA) INH (09:02)
[2018-01-14] MEDS: SYMBICORT 160/4.5MCG INHALER 6GM INH ×2 (09:02→21:00)
[2018-01-14] MEDS: FUROSEMIDE 40 MG/4 ML VIAL (J1940) IV (11:19)
[2018-01-14 12:29] LABS: BEDSIDE GLUCOSE 247 MG/DL (83-110)
[2018-01-14] MEDS: FLEET ENEMA PR (13:08)
[2018-01-14 17:17] LABS: BEDSIDE GLUCOSE 274 MG/DL (83-110)
[2018-01-14 21:22] LABS: BEDSIDE GLUCOSE 201 MG/DL (83-110)
[2018-01-15 06:12] LABS: HEMATOCRIT 30.6 % (42.0-52.0); HEMOGLOBIN 9.8 g/dl (14.0-18.0); MEAN CORPUSCULAR HEMOGLOBIN 26.6 pg (27.0-33.0); MEAN CORPUSCULAR VOLUME 83.2 fl (80.0-96.0); PLATELET COUNT, AUTOMATED 677 10^3/uL (150-450); RED BLOOD COUNT 3.68 10^6/uL (4.30-6.10); RED CELL DISTRIBUTION WIDTH 17.1 % (11.5-14.5); WHITE BLOOD COUNT 13.2 10^3/uL (4.0-10.0)
[2018-01-15 06:22] LABS: ANION GAP 11 MEQ/L (8-16); BLOOD UREA NITROGEN 22 MG/DL (7-18); CALCIUM LEVEL 8.2 MG/DL (8.8-10.2); CARBON DIOXIDE LEVEL 27 MEQ/L (21-32); CHLORIDE LEVEL 97 MEQ/L (98-107); CREATININE FOR GFR 0.77 MG/DL (0.70-1.30); GLUCOSE, FASTING 259 MG/DL (70-100); MAGNESIUM LEVEL 2.4 MG/DL (1.8-2.4); POTASSIUM SERUM 4.6 MEQ/L (3.5-5.1); SODIUM LEVEL 135 MEQ/L (136-145)
[2018-01-15 06:24] LABS: GLOMERULAR FILTRATION RATE > 60.0 (>42)
[2018-01-15] MEDS: SUCRALFATE SUSP 1GM/10ML UD PO ×4 (07:53→20:19)
[2018-01-15] MEDS: HumaLOG INSULIN (NovoLOG) PER UNIT SC ×4 (07:53→21:34)
[2018-01-15] MEDS: LEVALBUTEROL 1.25 MG/0.5 ML CONCENTRATE NEB INH ×5 (08:00→19:41)
[2018-01-15] MEDS: SYMBICORT 160/4.5MCG INHALER 6GM INH ×2 (08:34→19:41)
[2018-01-15] MEDS: TIOTROPIUM INHALER/CAPSULE (SPIRIVA) INH (08:34)
[2018-01-15] MEDS: POTASSIUM CHLORIDE 10% LIQ 20 MEQ/15 ML UDC PO (09:20)
[2018-01-15] MEDS: FERROUS SULFATE 325MG TAB PO ×2 (09:21→20:20)
[2018-01-15] MEDS: LANSOPRAZOLE SUSPENSION 30 MG/10 ML ORAL SYRINGE (FIRST-LANSOPRAZOLE) PO ×2 (09:21→20:22)
[2018-01-15] MEDS: metFORMIN (GLUCOPHAGE) 1000 MG TABLET PO ×2 (09:21→18:01)
[2018-01-15] MEDS: ASCORBIC ACID 500 MG TAB PO ×2 (09:21→20:20)
[2018-01-15] MEDS: ATORVASTATIN 20 MG TAB PO (09:21)
[2018-01-15] MEDS: BUMETANIDE 1 MG TAB PO (09:21)
[2018-01-15] MEDS: predniSONE 20 MG TAB PO ×2 (09:21→20:20)
[2018-01-15] MEDS: NEOSPORIN TOP OINT 15GM TOP ×2 (09:22→20:20)
[2018-01-15] MEDS: KETOCONAZOLE 2% CREAM TOP ×2 (09:22→20:20)
[2018-01-15 12:29] LABS: BEDSIDE GLUCOSE 290 MG/DL (83-110)
[2018-01-15] MEDS: FUROSEMIDE 40 MG/4 ML VIAL (J1940) IV ×2 (12:59→20:19)
[2018-01-15 17:08] LABS: BEDSIDE GLUCOSE 177 MG/DL (83-110)
[2018-01-15 21:01] LABS: BEDSIDE GLUCOSE 358 MG/DL (83-110)
[2018-01-16] MEDS: LEVALBUTEROL 1.25 MG/0.5 ML CONCENTRATE NEB INH ×6 (01:43→23:35)
[2018-01-16 02:32] LABS: BEDSIDE GLUCOSE 215 MG/DL (83-110)
[2018-01-16] MEDS: hydrOXYzine 25 MG TAB PO (02:56)
[2018-01-16] MEDS: FUROSEMIDE 20 MG/2 ML VIAL (J1940) IV (02:57)
[2018-01-16] MEDS ORDERED: HALOPERIDOL 5 MG/ML VIAL (J1630) IM (03:23)
[2018-01-16] MEDS ORDERED: diphenhydrAMINE INJ 50MG/ML VIAL (J1200) IM (03:30)
[2018-01-16 05:24] LABS: HEMATOCRIT 30.6 % (42.0-52.0); HEMOGLOBIN 9.6 g/dl (14.0-18.0); MEAN CORPUSCULAR HEMOGLOBIN 25.9 pg (27.0-33.0); MEAN CORPUSCULAR HGB CONC 31.4 g/dl (32.0-36.5); MEAN CORPUSCULAR VOLUME 82.5 fl (80.0-96.0); PLATELET COUNT, AUTOMATED 747 10^3/uL (150-450); RED BLOOD COUNT 3.71 10^6/uL (4.30-6.10); RED CELL DISTRIBUTION WIDTH 16.8 % (11.5-14.5); WHITE BLOOD COUNT 13.8 10^3/uL (4.0-10.0)
[2018-01-16 05:46] LABS: ANION GAP 11 MEQ/L (8-16); BLOOD UREA NITROGEN 24 MG/DL (7-18); CALCIUM LEVEL 8.3 MG/DL (8.8-10.2); CARBON DIOXIDE LEVEL 29 MEQ/L (21-32); CHLORIDE LEVEL 95 MEQ/L (98-107); CREATININE FOR GFR 0.87 MG/DL (0.70-1.30); GLOMERULAR FILTRATION RATE > 60.0 (>42); GLUCOSE, FASTING 251 MG/DL (70-100); MAGNESIUM LEVEL 1.9 MG/DL (1.8-2.4); POTASSIUM SERUM 3.9 MEQ/L (3.5-5.1); SODIUM LEVEL 135 MEQ/L (136-145)
[2018-01-16] MEDS: TIOTROPIUM INHALER/CAPSULE (SPIRIVA) INH (08:19)
[2018-01-16] MEDS: SYMBICORT 160/4.5MCG INHALER 6GM INH ×2 (08:20→21:00)
[2018-01-16] MEDS: NEOSPORIN TOP OINT 15GM TOP ×2 (10:06→20:52)
[2018-01-16] MEDS: FERROUS SULFATE 325MG TAB PO ×2 (10:07→20:52)
[2018-01-16] MEDS: KETOCONAZOLE 2% CREAM TOP ×2 (10:07→20:52)
[2018-01-16] MEDS: BUMETANIDE 1 MG TAB PO (10:07)
[2018-01-16] MEDS: FUROSEMIDE 40 MG TAB PO (10:07)
[2018-01-16] MEDS: ASCORBIC ACID 500 MG TAB PO ×2 (10:08→20:52)
[2018-01-16] MEDS: ATORVASTATIN 20 MG TAB PO (10:08)
[2018-01-16] MEDS: POTASSIUM CHLORIDE 10% LIQ 20 MEQ/15 ML UDC PO (10:08)
[2018-01-16] MEDS: methylPREDNISolone INJ 125 MG/2 ML VIAL (J2930) IV ×3 (10:08→20:52)
[2018-01-16] MEDS: SUCRALFATE SUSP 1GM/10ML UD PO ×4 (10:08→20:52)
[2018-01-16] MEDS: metFORMIN (GLUCOPHAGE) 1000 MG TABLET PO ×2 (10:08→17:46)
[2018-01-16] MEDS: HumaLOG INSULIN (NovoLOG) PER UNIT SC ×4 (10:09→20:53)
[2018-01-16] MEDS: LANSOPRAZOLE SUSPENSION 30 MG/10 ML ORAL SYRINGE (FIRST-LANSOPRAZOLE) PO ×2 (10:09→20:52)
[2018-01-16 12:17] LABS: BEDSIDE GLUCOSE 315 MG/DL (83-110)
[2018-01-16 17:12] LABS: BEDSIDE GLUCOSE 223 MG/DL (83-110)
[2018-01-16 20:57] LABS: BEDSIDE GLUCOSE 241 MG/DL (83-110)
[2018-01-17] MEDS: hydrOXYzine 25 MG TAB PO (00:36)
[2018-01-17] MEDS: methylPREDNISolone INJ 125 MG/2 ML VIAL (J2930) IV (02:22)
[2018-01-17 05:42] LABS: HEMATOCRIT 28.2 % (42.0-52.0); MEAN CORPUSCULAR HEMOGLOBIN 26.4 pg (27.0-33.0); MEAN CORPUSCULAR HGB CONC 31.9 g/dl (32.0-36.5); MEAN CORPUSCULAR VOLUME 82.7 fl (80.0-96.0); PLATELET COUNT, AUTOMATED 675 10^3/uL (150-450); RED BLOOD COUNT 3.41 10^6/uL (4.30-6.10); RED CELL DISTRIBUTION WIDTH 16.4 % (11.5-14.5); WHITE BLOOD COUNT 13.5 10^3/uL (4.0-10.0)
[2018-01-17 05:57] LABS: ANION GAP 13 MEQ/L (8-16); BLOOD UREA NITROGEN 26 MG/DL (7-18); CALCIUM LEVEL 8.2 MG/DL (8.8-10.2); CARBON DIOXIDE LEVEL 28 MEQ/L (21-32); CHLORIDE LEVEL 93 MEQ/L (98-107); CREATININE FOR GFR 0.89 MG/DL (0.70-1.30); GLOMERULAR FILTRATION RATE > 60.0 (>42); GLUCOSE, FASTING 308 MG/DL (70-100); MAGNESIUM LEVEL 1.7 MG/DL (1.8-2.4); POTASSIUM SERUM 3.6 MEQ/L (3.5-5.1); SODIUM LEVEL 134 MEQ/L (136-145)
[2018-01-17] MEDS: LEVALBUTEROL 1.25 MG/0.5 ML CONCENTRATE NEB INH ×4 (08:00→19:54)
[2018-01-17] MEDS: SYMBICORT 160/4.5MCG INHALER 6GM INH ×2 (08:21→21:00)
[2018-01-17] MEDS: TIOTROPIUM INHALER/CAPSULE (SPIRIVA) INH (08:21)
[2018-01-17] MEDS: POTASSIUM CHLORIDE 10% LIQ 20 MEQ/15 ML UDC PO (08:44)
[2018-01-17] MEDS: MAG SULF 1GM/100ML (MAG RUN) 1 GM in APPROPRIATE DILUENT 1 EA IV (08:44)
[2018-01-17] MEDS: HumaLOG INSULIN (NovoLOG) PER UNIT SC ×4 (08:45→20:11)
[2018-01-17] MEDS: SUCRALFATE SUSP 1GM/10ML UD PO ×4 (08:45→20:22)
[2018-01-17] MEDS: ASCORBIC ACID 500 MG TAB PO ×2 (08:46→20:22)
[2018-01-17] MEDS: PANTOPRAZOLE 40MG TAB (PROTONIX) PO ×2 (08:46→20:22)
[2018-01-17] MEDS: ATORVASTATIN 20 MG TAB PO (08:46)
[2018-01-17] MEDS: FERROUS SULFATE 325MG TAB PO ×2 (08:46→20:22)
[2018-01-17] MEDS: metFORMIN (GLUCOPHAGE) 1000 MG TABLET PO ×2 (08:48→17:09)
[2018-01-17] MEDS: FUROSEMIDE 20 MG/2 ML VIAL (J1940) IV ×3 (08:48→20:25)
[2018-01-17] MEDS: NEOSPORIN TOP OINT 15GM TOP ×2 (08:49→20:25)
[2018-01-17] MEDS: KETOCONAZOLE 2% CREAM TOP ×2 (08:49→20:25)
[2018-01-17] MEDS: LANSOPRAZOLE SUSPENSION 30 MG/10 ML ORAL SYRINGE (FIRST-LANSOPRAZOLE) PO ×2 (09:08→20:23)
[2018-01-17] MEDS: NYSTATIN 500,000 U/5 ML SUSP UDC SS ×4 (09:08→20:22)
[2018-01-17] MEDS: BUMETANIDE 1 MG TAB PO (09:08)
[2018-01-17 09:27] LABS: REASON FOR REVIEW ANEMIA / RBC MORPH; SLIDE REVIEW Report; SOURCE PERIPHERAL SMEAR
[2018-01-17 12:02] LABS: BEDSIDE GLUCOSE 408 MG/DL (83-110)
[2018-01-17 15:03] LABS: BEDSIDE GLUCOSE 267 MG/DL (83-110)
[2018-01-17 17:24] LABS: BEDSIDE GLUCOSE 141 MG/DL (83-110)
[2018-01-17 20:57] LABS: BEDSIDE GLUCOSE 167 MG/DL (83-110)
[2018-01-18] MEDS: FUROSEMIDE 20 MG/2 ML VIAL (J1940) IV (02:00)
[2018-01-18 05:53] LABS: HEMOGLOBIN 9.8 g/dl (14.0-18.0); MEAN CORPUSCULAR HEMOGLOBIN 26.6 pg (27.0-33.0); MEAN CORPUSCULAR HGB CONC 32.7 g/dl (32.0-36.5); MEAN CORPUSCULAR VOLUME 81.3 fl (80.0-96.0); PLATELET COUNT, AUTOMATED 754 10^3/uL (150-450); RED BLOOD COUNT 3.69 10^6/uL (4.30-6.10); WHITE BLOOD COUNT 19.6 10^3/uL (4.0-10.0)
[2018-01-18 06:15] LABS: ANION GAP 11 MEQ/L (8-16); BLOOD UREA NITROGEN 26 MG/DL (7-18); CALCIUM LEVEL 8.2 MG/DL (8.8-10.2); CARBON DIOXIDE LEVEL 31 MEQ/L (21-32); CHLORIDE LEVEL 93 MEQ/L (98-107); CREATININE FOR GFR 0.81 MG/DL (0.70-1.30); GLOMERULAR FILTRATION RATE > 60.0 (>42); GLUCOSE, FASTING 233 MG/DL (70-100); MAGNESIUM LEVEL 1.8 MG/DL (1.8-2.4); POTASSIUM SERUM 3.1 MEQ/L (3.5-5.1); SODIUM LEVEL 135 MEQ/L (136-145)
[2018-01-18] MEDS: POTASSIUM CHLORIDE 10 MEQ SR TABLET PO ×2 (06:49→12:35)
[2018-01-18] MEDS ORDERED: POTASSIUM CHLORIDE 10 MEQ SR TABLET PO ×2 (07:15→09:00)
[2018-01-18] MEDS: FERROUS SULFATE 325MG TAB PO ×2 (08:06→20:23)
[2018-01-18] MEDS: PANTOPRAZOLE 40MG TAB (PROTONIX) PO ×2 (08:06→20:23)
[2018-01-18] MEDS: metFORMIN (GLUCOPHAGE) 1000 MG TABLET PO ×2 (08:06→17:25)
[2018-01-18] MEDS: MAG SULF 1GM/100ML (MAG RUN) 1 GM in APPROPRIATE DILUENT 1 EA IV (08:06)
[2018-01-18] MEDS: SUCRALFATE SUSP 1GM/10ML UD PO ×4 (08:06→20:24)
[2018-01-18] MEDS: ASCORBIC ACID 500 MG TAB PO ×2 (08:06→20:23)
[2018-01-18] MEDS: NYSTATIN 500,000 U/5 ML SUSP UDC SS ×4 (08:06→20:24)
[2018-01-18] MEDS: ATORVASTATIN 20 MG TAB PO (08:06)
[2018-01-18] MEDS: HumaLOG INSULIN (NovoLOG) PER UNIT SC ×4 (08:07→20:37)
[2018-01-18] MEDS: LANSOPRAZOLE SUSPENSION 30 MG/10 ML ORAL SYRINGE (FIRST-LANSOPRAZOLE) PO ×2 (08:07→20:24)
[2018-01-18] MEDS: KETOCONAZOLE 2% CREAM TOP ×2 (08:08→20:24)
[2018-01-18] MEDS: NEOSPORIN TOP OINT 15GM TOP ×2 (08:08→20:25)
[2018-01-18] MEDS: LEVALBUTEROL 1.25 MG/0.5 ML CONCENTRATE NEB INH ×4 (08:10→20:26)
[2018-01-18] MEDS ORDERED: ISOVUE-370 76% 100ML VIAL (Q9967) As Ordered (08:21)
[2018-01-18 09:21] LABS: NT-PRO BNP 487 PG/ML (<125)
[2018-01-18 10:16] LABS: ESTIMATED AVERAGE GLUCOSE 148 MG/DL (60-110); HEMOGLOBIN A1c 6.8 %
[2018-01-18] MEDS: FUROSEMIDE 40 MG/4 ML VIAL (J1940) IV ×2 (10:39→17:27)
[2018-01-18] MEDS: POTASSIUM CHLORIDE 10% LIQ 20 MEQ/15 ML UDC PO (10:40)
[2018-01-18] MEDS: TIOTROPIUM INHALER/CAPSULE (SPIRIVA) INH (11:12)
[2018-01-18] MEDS: SYMBICORT 160/4.5MCG INHALER 6GM INH ×2 (11:12→21:03)
[2018-01-18] MEDS: methylPREDNISolone INJ 125 MG/2 ML VIAL (J2930) IV (15:02)
[2018-01-18 18:07] LABS: BEDSIDE GLUCOSE 195 MG/DL (83-110)
[2018-01-18 18:07] LABS: BEDSIDE GLUCOSE 284 MG/DL (83-110)
[2018-01-19] MEDS: FUROSEMIDE 40 MG/4 ML VIAL (J1940) IV ×3 (02:05→17:40)
[2018-01-19] MEDS: methylPREDNISolone INJ 125 MG/2 ML VIAL (J2930) IV ×2 (02:05→14:54)
[2018-01-19] MEDS: LEVALBUTEROL 1.25 MG/0.5 ML CONCENTRATE NEB INH ×5 (03:17→20:00)
[2018-01-19 05:55] LABS: HEMATOCRIT 29.7 % (42.0-52.0); HEMOGLOBIN 9.8 g/dl (14.0-18.0); MEAN CORPUSCULAR HEMOGLOBIN 26.8 pg (27.0-33.0); MEAN CORPUSCULAR VOLUME 81.1 fl (80.0-96.0); PLATELET COUNT, AUTOMATED 685 10^3/uL (150-450); RED BLOOD COUNT 3.66 10^6/uL (4.30-6.10); RED CELL DISTRIBUTION WIDTH 16.2 % (11.5-14.5); WHITE BLOOD COUNT 16.2 10^3/uL (4.0-10.0)
[2018-01-19 06:23] LABS: ANION GAP 9 MEQ/L (8-16); BLOOD UREA NITROGEN 22 MG/DL (7-18); CALCIUM LEVEL 8.1 MG/DL (8.8-10.2); CARBON DIOXIDE LEVEL 36 MEQ/L (21-32); CHLORIDE LEVEL 89 MEQ/L (98-107); CREATININE FOR GFR 0.69 MG/DL (0.70-1.30); GLOMERULAR FILTRATION RATE > 60.0 (>42); GLUCOSE, FASTING 357 MG/DL (70-100); POTASSIUM SERUM 3.2 MEQ/L (3.5-5.1); SODIUM LEVEL 134 MEQ/L (136-145)
[2018-01-19] MEDS: SYMBICORT 160/4.5MCG INHALER 6GM INH ×2 (08:07→20:09)
[2018-01-19] MEDS: TIOTROPIUM INHALER/CAPSULE (SPIRIVA) INH (08:07)
[2018-01-19 08:09] LABS: HAPTOGLOBIN 323 mg/dL (34-200)
[2018-01-19] MEDS: NYSTATIN 500,000 U/5 ML SUSP UDC SS ×4 (08:29→20:20)
[2018-01-19] MEDS: SUCRALFATE SUSP 1GM/10ML UD PO ×4 (08:29→20:20)
[2018-01-19] MEDS: POTASSIUM CHLORIDE 10% LIQ 20 MEQ/15 ML UDC PO (08:30)
[2018-01-19] MEDS: NEOSPORIN TOP OINT 15GM TOP ×2 (08:30→20:21)
[2018-01-19] MEDS: KETOCONAZOLE 2% CREAM TOP ×2 (08:30→20:21)
[2018-01-19] MEDS: PANTOPRAZOLE 40MG TAB (PROTONIX) PO (08:31)
[2018-01-19] MEDS: ASCORBIC ACID 500 MG TAB PO ×2 (08:31→20:21)
[2018-01-19] MEDS: LANSOPRAZOLE SUSPENSION 30 MG/10 ML ORAL SYRINGE (FIRST-LANSOPRAZOLE) PO ×2 (08:31→20:20)
[2018-01-19] MEDS: ATORVASTATIN 20 MG TAB PO (08:31)
[2018-01-19] MEDS: FERROUS SULFATE 325MG TAB PO ×2 (08:31→20:21)
[2018-01-19] MEDS: HumaLOG INSULIN (NovoLOG) PER UNIT SC ×4 (08:32→20:34)
[2018-01-19] MEDS: LEVEMIR (INSULIN DETEMIR) 1 UNITS/0.01ML SC (08:32)
[2018-01-19 12:09] LABS: BEDSIDE GLUCOSE 393 MG/DL (83-110)
[2018-01-19] MEDS: CYANOCOBALAMIN 500 MCG TAB PO (14:54)
[2018-01-19] MEDS: CEPACOL LOZENGE PO ×2 (14:55→20:20)
[2018-01-19] MEDS: PIPERACILLIN/TAZOBACTAM SOD 3.375 GM in APPROPRIATE DILUENT 1 EA IV ×2 (14:55→20:22)
[2018-01-19 21:06] LABS: BEDSIDE GLUCOSE 286 MG/DL (83-110)
[2018-01-19 21:06] LABS: BEDSIDE GLUCOSE 82 MG/DL (83-110)
[2018-01-20] MEDS: CEPACOL LOZENGE PO ×3 (00:39→18:01)
[2018-01-20] MEDS: zolPIDEM TARTRATE 5 MG TAB PO (00:39)
[2018-01-20] MEDS: FUROSEMIDE 40 MG/4 ML VIAL (J1940) IV ×3 (01:38→17:59)
[2018-01-20] MEDS: methylPREDNISolone INJ 125 MG/2 ML VIAL (J2930) IV (02:16)
[2018-01-20] MEDS: PIPERACILLIN/TAZOBACTAM SOD 3.375 GM in APPROPRIATE DILUENT 1 EA IV ×4 (02:16→21:38)
[2018-01-20 06:53] LABS: BASO % 0.1 % (0.0-1.0); HEMATOCRIT 30.3 % (42.0-52.0); HEMOGLOBIN 9.8 g/dl (14.0-18.0); IMMATURE GRANULOCYTE % 1.4 % (0-3.0); LYMPH # 0.7 10^3/uL (1.5-4.5); LYMPH % 3.9 % (24.0-44.0); MEAN CORPUSCULAR HEMOGLOBIN 26.3 pg (27.0-33.0); MEAN CORPUSCULAR HGB CONC 32.3 g/dl (32.0-36.5); MEAN CORPUSCULAR VOLUME 81.2 fl (80.0-96.0); MONO # 0.7 10^3/uL (0.0-0.8); MONO % 4.1 % (0.0-5.0); NEUTROPHILS % 90.5 % (36.0-66.0); PLATELET COUNT, AUTOMATED 586 10^3/uL (150-450); RED BLOOD COUNT 3.73 10^6/uL (4.30-6.10); RED CELL DISTRIBUTION WIDTH 16.5 % (11.5-14.5); WHITE BLOOD COUNT 17.7 10^3/uL (4.0-10.0)
[2018-01-20 06:55] LABS: BEDSIDE GLUCOSE 159 MG/DL (83-110)
[2018-01-20 07:22] LABS: ANION GAP 7 MEQ/L (8-16); BLOOD UREA NITROGEN 20 MG/DL (7-18); CALCIUM LEVEL 8.3 MG/DL (8.8-10.2); CARBON DIOXIDE LEVEL 39 MEQ/L (21-32); CHLORIDE LEVEL 91 MEQ/L (98-107); CREATININE FOR GFR 0.62 MG/DL (0.70-1.30); GLOMERULAR FILTRATION RATE > 60.0 (>42); GLUCOSE, FASTING 156 MG/DL (70-100); POTASSIUM SERUM 3.1 MEQ/L (3.5-5.1); SODIUM LEVEL 137 MEQ/L (136-145)
[2018-01-20] MEDS: LEVALBUTEROL 1.25 MG/0.5 ML CONCENTRATE NEB INH ×4 (08:00→20:08)
[2018-01-20] MEDS: SYMBICORT 160/4.5MCG INHALER 6GM INH ×2 (08:29→20:10)
[2018-01-20] MEDS: TIOTROPIUM INHALER/CAPSULE (SPIRIVA) INH (08:29)
[2018-01-20] MEDS: HumaLOG INSULIN (NovoLOG) PER UNIT SC ×4 (09:13→21:40)
[2018-01-20] MEDS: ATORVASTATIN 20 MG TAB PO (09:13)
[2018-01-20] MEDS: NYSTATIN 500,000 U/5 ML SUSP UDC SS ×4 (09:13→21:39)
[2018-01-20] MEDS: SUCRALFATE SUSP 1GM/10ML UD PO ×4 (09:13→21:39)
[2018-01-20] MEDS: POTASSIUM CHLORIDE 10% LIQ 20 MEQ/15 ML UDC PO ×2 (09:13→21:39)
[2018-01-20] MEDS: ASCORBIC ACID 500 MG TAB PO ×2 (09:13→21:40)
[2018-01-20] MEDS: LANSOPRAZOLE SUSPENSION 30 MG/10 ML ORAL SYRINGE (FIRST-LANSOPRAZOLE) PO ×2 (09:14→21:39)
[2018-01-20] MEDS: FERROUS SULFATE 325MG TAB PO ×2 (09:14→21:40)
[2018-01-20] MEDS: CYANOCOBALAMIN 500 MCG TAB PO (09:14)
[2018-01-20] MEDS: KETOCONAZOLE 2% CREAM TOP ×2 (09:15→21:40)
[2018-01-20] MEDS: LEVEMIR (INSULIN DETEMIR) 1 UNITS/0.01ML SC (09:15)
[2018-01-20] MEDS: NEOSPORIN TOP OINT 15GM TOP ×2 (09:16→21:41)
[2018-01-20 12:35] LABS: BEDSIDE GLUCOSE CONFIRMATION 457 MG/DL (LESS THAN 200)
[2018-01-20] MEDS: methylPREDNISolone INJ 40 MG/1 ML VIAL (J2920) IV (15:39)
[2018-01-21] MEDS: FUROSEMIDE 40 MG/4 ML VIAL (J1940) IV ×3 (01:36→17:36)
[2018-01-21] MEDS: methylPREDNISolone INJ 40 MG/1 ML VIAL (J2920) IV (03:35)
[2018-01-21] MEDS: CEPACOL LOZENGE PO ×5 (03:35→23:23)
[2018-01-21] MEDS: PIPERACILLIN/TAZOBACTAM SOD 3.375 GM in APPROPRIATE DILUENT 1 EA IV ×4 (03:35→20:39)
[2018-01-21 06:05] LABS: BASO % 0.1 % (0.0-1.0); HEMATOCRIT 27.9 % (42.0-52.0); IMMATURE GRANULOCYTE % 1.6 % (0-3.0); LYMPH # 0.5 10^3/uL (1.5-4.5); LYMPH % 3.2 % (24.0-44.0); MEAN CORPUSCULAR HEMOGLOBIN 26.1 pg (27.0-33.0); MEAN CORPUSCULAR HGB CONC 32.3 g/dl (32.0-36.5); MEAN CORPUSCULAR VOLUME 80.9 fl (80.0-96.0); MONO # 0.8 10^3/uL (0.0-0.8); MONO % 4.7 % (0.0-5.0); NEUTROPHILS # 14.3 10^3/uL (1.8-7.7); NEUTROPHILS % 90.4 % (36.0-66.0); PLATELET COUNT, AUTOMATED 569 10^3/uL (150-450); RED BLOOD COUNT 3.45 10^6/uL (4.30-6.10); RED CELL DISTRIBUTION WIDTH 16.3 % (11.5-14.5); WHITE BLOOD COUNT 15.8 10^3/uL (4.0-10.0)
[2018-01-21 06:26] LABS: ANION GAP 8 MEQ/L (8-16); BLOOD UREA NITROGEN 23 MG/DL (7-18); CALCIUM LEVEL 8.2 MG/DL (8.8-10.2); CARBON DIOXIDE LEVEL 39 MEQ/L (21-32); CHLORIDE LEVEL 89 MEQ/L (98-107); CREATININE FOR GFR 0.82 MG/DL (0.70-1.30); GLOMERULAR FILTRATION RATE > 60.0 (>42); GLUCOSE, FASTING 287 MG/DL (70-100); POTASSIUM SERUM 3.1 MEQ/L (3.5-5.1); SODIUM LEVEL 136 MEQ/L (136-145)
[2018-01-21] MEDS: SUCRALFATE SUSP 1GM/10ML UD PO ×4 (07:42→20:39)
[2018-01-21] MEDS: ASCORBIC ACID 500 MG TAB PO ×2 (07:43→20:37)
[2018-01-21] MEDS: CYANOCOBALAMIN 500 MCG TAB PO (07:43)
[2018-01-21] MEDS: LANSOPRAZOLE SUSPENSION 30 MG/10 ML ORAL SYRINGE (FIRST-LANSOPRAZOLE) PO ×2 (07:43→20:38)
[2018-01-21] MEDS: HumaLOG INSULIN (NovoLOG) PER UNIT SC ×4 (07:43→20:38)
[2018-01-21] MEDS: NYSTATIN 500,000 U/5 ML SUSP UDC SS ×4 (07:43→20:39)
[2018-01-21] MEDS: ATORVASTATIN 20 MG TAB PO (07:43)
[2018-01-21] MEDS: FERROUS SULFATE 325MG TAB PO ×2 (07:43→20:37)
[2018-01-21] MEDS: KETOCONAZOLE 2% CREAM TOP ×2 (07:44→20:39)
[2018-01-21] MEDS: LEVEMIR (INSULIN DETEMIR) 1 UNITS/0.01ML SC (07:44)
[2018-01-21] MEDS: NEOSPORIN TOP OINT 15GM TOP ×2 (07:45→20:39)
[2018-01-21] MEDS: POTASSIUM CHLORIDE 10% LIQ 20 MEQ/15 ML UDC PO ×2 (07:45→20:39)
[2018-01-21] MEDS: SYMBICORT 160/4.5MCG INHALER 6GM INH ×2 (08:07→21:00)
[2018-01-21] MEDS: TIOTROPIUM INHALER/CAPSULE (SPIRIVA) INH (08:07)
[2018-01-21] MEDS: LEVALBUTEROL 1.25 MG/0.5 ML CONCENTRATE NEB INH ×4 (08:09→20:09)
[2018-01-21 12:08] LABS: BEDSIDE GLUCOSE 219 MG/DL (83-110)
[2018-01-21 12:09] LABS: BEDSIDE GLUCOSE 315 MG/DL (83-110)
[2018-01-21 12:09] LABS: BEDSIDE GLUCOSE 354 MG/DL (83-110)
[2018-01-21 12:09] LABS: BEDSIDE GLUCOSE 527 MG/DL (83-110)
[2018-01-21 12:09] LABS: BEDSIDE GLUCOSE 514 MG/DL (83-110)
[2018-01-21 12:09] LABS: BEDSIDE GLUCOSE 555 MG/DL (83-110)
[2018-01-21 12:31] LABS: BEDSIDE GLUCOSE CONFIRMATION 475 MG/DL (LESS THAN 200)
[2018-01-21] MEDS ORDERED: SODIUM CHLORIDE 0.9% 3ML NEB SOLUTION FOR INHALATION INH (14:00)
[2018-01-21] MEDS: SODIUM CHLORIDE HYPERTONIC 3% 15ML NEB SOL INH ×2 (15:28→20:09)
[2018-01-21 21:03] LABS: BEDSIDE GLUCOSE 194 MG/DL (83-110)
[2018-01-21] MEDS: ACETAMINOPHEN TAB 650MG DOSE (2X325MG) PO (23:23)
[2018-01-22] MEDS: SODIUM CHLORIDE HYPERTONIC 3% 15ML NEB SOL INH ×4 (02:00→20:00)
[2018-01-22] MEDS: FUROSEMIDE 40 MG/4 ML VIAL (J1940) IV ×3 (02:05→17:49)
[2018-01-22] MEDS: PIPERACILLIN/TAZOBACTAM SOD 3.375 GM in APPROPRIATE DILUENT 1 EA IV ×4 (02:06→21:14)
[2018-01-22] MEDS: CEPACOL LOZENGE PO ×3 (02:28→21:12)
[2018-01-22] MEDS: LEVALBUTEROL 1.25 MG/0.5 ML CONCENTRATE NEB INH ×5 (03:41→21:09)
[2018-01-22 06:25] LABS: ANION GAP 7 MEQ/L (8-16); BLOOD UREA NITROGEN 23 MG/DL (7-18); CALCIUM LEVEL 8.2 MG/DL (8.8-10.2); CARBON DIOXIDE LEVEL 38 MEQ/L (21-32); CHLORIDE LEVEL 92 MEQ/L (98-107); CREATININE FOR GFR 0.72 MG/DL (0.70-1.30); GLOMERULAR FILTRATION RATE > 60.0 (>42); GLUCOSE, FASTING 173 MG/DL (70-100); SODIUM LEVEL 137 MEQ/L (136-145)
[2018-01-22 06:26] LABS: BASO # 0.1 10^3/uL (0.0-0.2); BASO % 0.3 % (0.0-1.0); EOS % 0.1 % (0.0-3.0); HEMATOCRIT 29.7 % (42.0-52.0); HEMOGLOBIN 9.5 g/dl (13.5-17.5); IMMATURE GRANULOCYTE % 2.4 % (0-3.0); LYMPH # 1.2 10^3/uL (1.5-4.5); LYMPH % 6.3 % (24.0-44.0); MEAN CORPUSCULAR HEMOGLOBIN 26.4 pg (27.0-33.0); MEAN CORPUSCULAR VOLUME 82.5 fl (80.0-96.0); MONO # 1.7 10^3/uL (0.0-0.8); MONO % 9.2 % (0.0-5.0); NEUTROPHILS # 15.2 10^3/uL (1.8-7.7); NEUTROPHILS % 81.7 % (36.0-66.0); PLATELET COUNT, AUTOMATED 610 10^3/uL (150-450); RED CELL DISTRIBUTION WIDTH 16.4 % (11.5-14.5); WHITE BLOOD COUNT 18.6 10^3/uL (4.0-10.0)
[2018-01-22] MEDS: SYMBICORT 160/4.5MCG INHALER 6GM INH ×2 (07:55→21:00)
[2018-01-22] MEDS: TIOTROPIUM INHALER/CAPSULE (SPIRIVA) INH (07:55)
[2018-01-22] MEDS: predniSONE 20 MG TAB PO (08:37)
[2018-01-22] MEDS: FERROUS SULFATE 325MG TAB PO ×2 (08:37→21:13)
[2018-01-22] MEDS: ASCORBIC ACID 500 MG TAB PO ×2 (08:38→21:13)
[2018-01-22] MEDS: SUCRALFATE SUSP 1GM/10ML UD PO ×4 (08:38→21:13)
[2018-01-22] MEDS: NYSTATIN 500,000 U/5 ML SUSP UDC SS ×4 (08:38→21:12)
[2018-01-22] MEDS: ATORVASTATIN 20 MG TAB PO (08:38)
[2018-01-22] MEDS: LEVEMIR (INSULIN DETEMIR) 1 UNITS/0.01ML SC (08:38)
[2018-01-22] MEDS: HumaLOG INSULIN (NovoLOG) PER UNIT SC ×4 (08:38→21:14)
[2018-01-22] MEDS: CYANOCOBALAMIN 500 MCG TAB PO (08:38)
[2018-01-22] MEDS: NEOSPORIN TOP OINT 15GM TOP ×2 (08:39→21:15)
[2018-01-22] MEDS: KETOCONAZOLE 2% CREAM TOP ×2 (08:39→21:15)
[2018-01-22] MEDS: LANSOPRAZOLE SUSPENSION 30 MG/10 ML ORAL SYRINGE (FIRST-LANSOPRAZOLE) PO ×2 (08:43→21:13)
[2018-01-22] MEDS: POTASSIUM CHLORIDE 10% LIQ 20 MEQ/15 ML UDC PO ×2 (11:40→21:13)
[2018-01-22] MEDS: ACETAMINOPHEN TAB 650MG DOSE (2X325MG) PO ×2 (14:42→21:13)
[2018-01-23] MEDS: SODIUM CHLORIDE HYPERTONIC 3% 15ML NEB SOL INH ×4 (02:00→21:41)
[2018-01-23] MEDS: PIPERACILLIN/TAZOBACTAM SOD 3.375 GM in APPROPRIATE DILUENT 1 EA IV ×4 (02:42→20:59)
[2018-01-23] MEDS: FUROSEMIDE 40 MG/4 ML VIAL (J1940) IV ×3 (02:42→17:55)
[2018-01-23] MEDS: LEVALBUTEROL 1.25 MG/0.5 ML CONCENTRATE NEB INH ×5 (03:28→21:42)
[2018-01-23] MEDS: methylPREDNISolone INJ 125 MG/2 ML VIAL (J2930) IV (03:30)
[2018-01-23 03:33] LABS: ABG BASE EXCESS 15.7 (-2.0-2.0); ABG HCO3 40.3 MEQ/L (22.0-26.0); ABG O2 SATURATION 95.9 % (95.0-99.0); ABG PARTIAL PRESSURE CO2 49.6 mmHg (35.0-45.0); ABG STANDARD HCO3 39.5 MEQ/L (22.0-26.0); ABG TOTAL CO2 41.9 MEQ/L (23.0-31.0); ABG pH (ARTERIAL) 7.528 UNITS (7.350-7.450)
[2018-01-23 04:02] LABS: BASO # 0.1 10^3/uL (0.0-0.2); BASO % 0.3 % (0.0-1.0); HEMATOCRIT 30.2 % (42.0-52.0); HEMOGLOBIN 9.5 g/dl (13.5-17.5); IMMATURE GRANULOCYTE % 4.5 % (0-3.0); LYMPH # 2.3 10^3/uL (1.5-4.5); LYMPH % 10.3 % (24.0-44.0); MEAN CORPUSCULAR HGB CONC 31.5 g/dl (32.0-36.5); MEAN CORPUSCULAR VOLUME 82.5 fl (80.0-96.0); MONO # 1.7 10^3/uL (0.0-0.8); MONO % 7.5 % (0.0-5.0); NEUTROPHILS # 17.3 10^3/uL (1.8-7.7); NEUTROPHILS % 77.4 % (36.0-66.0); PLATELET COUNT, AUTOMATED 603 10^3/uL (150-450); RED BLOOD COUNT 3.66 10^6/uL (4.30-6.10); RED CELL DISTRIBUTION WIDTH 16.5 % (11.5-14.5); WHITE BLOOD COUNT 22.4 10^3/uL (4.0-10.0)
[2018-01-23 04:23] LABS: ANION GAP 6 MEQ/L (8-16); BLOOD UREA NITROGEN 22 MG/DL (7-18); CALCIUM LEVEL 8.2 MG/DL (8.8-10.2); CARBON DIOXIDE LEVEL 41 MEQ/L (21-32); CHLORIDE LEVEL 93 MEQ/L (98-107); CREATININE FOR GFR 0.74 MG/DL (0.70-1.30); GLOMERULAR FILTRATION RATE > 60.0 (>42); GLUCOSE, FASTING 124 MG/DL (70-100); POTASSIUM SERUM 3.3 MEQ/L (3.5-5.1); SODIUM LEVEL 140 MEQ/L (136-145)
[2018-01-23 05:28] LABS: C REACTIVE PROTEIN QUANTITATIV 1.94 MG/DL (0.00-0.30); MAGNESIUM LEVEL 2.4 MG/DL (1.8-2.4)
[2018-01-23] MEDS: POTASSIUM CHLORIDE 10 MEQ SR TABLET PO (06:02)
[2018-01-23] MEDS: SYMBICORT 160/4.5MCG INHALER 6GM INH ×2 (07:35→21:00)
[2018-01-23] MEDS: TIOTROPIUM INHALER/CAPSULE (SPIRIVA) INH (07:35)
[2018-01-23] MEDS: SUCRALFATE SUSP 1GM/10ML UD PO ×4 (08:30→21:01)
[2018-01-23] MEDS: HumaLOG INSULIN (NovoLOG) PER UNIT SC ×4 (08:31→21:00)
[2018-01-23] MEDS: ASCORBIC ACID 500 MG TAB PO ×2 (08:31→21:01)
[2018-01-23] MEDS: ATORVASTATIN 20 MG TAB PO (08:31)
[2018-01-23] MEDS: NYSTATIN 500,000 U/5 ML SUSP UDC SS ×4 (08:31→21:01)
[2018-01-23] MEDS: CYANOCOBALAMIN 500 MCG TAB PO (08:31)
[2018-01-23] MEDS: FERROUS SULFATE 325MG TAB PO ×2 (08:31→21:01)
[2018-01-23] MEDS: POTASSIUM CHLORIDE 10% LIQ 20 MEQ/15 ML UDC PO ×2 (08:32→21:01)
[2018-01-23] MEDS: LEVEMIR (INSULIN DETEMIR) 1 UNITS/0.01ML SC (08:32)
[2018-01-23] MEDS: LANSOPRAZOLE SUSPENSION 30 MG/10 ML ORAL SYRINGE (FIRST-LANSOPRAZOLE) PO ×2 (08:32→21:00)
[2018-01-23] MEDS: NEOSPORIN TOP OINT 15GM TOP ×2 (08:33→21:00)
[2018-01-23] MEDS: KETOCONAZOLE 2% CREAM TOP ×2 (08:33→20:59)
[2018-01-23 08:45] LABS: BEDSIDE GLUCOSE 448 MG/DL (83-110)
[2018-01-23 08:45] LABS: BEDSIDE GLUCOSE 187 MG/DL (83-110)
[2018-01-23 08:45] LABS: BEDSIDE GLUCOSE 375 MG/DL (83-110)
[2018-01-23 08:45] LABS: BEDSIDE GLUCOSE 349 MG/DL (83-110)
[2018-01-23 08:45] LABS: BEDSIDE GLUCOSE 137 MG/DL (83-110)
[2018-01-23 08:45] LABS: BEDSIDE GLUCOSE 308 MG/DL (83-110)
[2018-01-23 08:46] LABS: BEDSIDE GLUCOSE 273 MG/DL (83-110)
[2018-01-23] MEDS: CEPACOL LOZENGE PO (09:43)
[2018-01-23 13:13] LABS: BEDSIDE GLUCOSE CONFIRMATION 500 MG/DL (LESS THAN 200)
[2018-01-23] MEDS: ACETAMINOPHEN TAB 650MG DOSE (2X325MG) PO (21:01)
[2018-01-24] MEDS: SODIUM CHLORIDE HYPERTONIC 3% 15ML NEB SOL INH ×4 (02:00→20:00)
[2018-01-24] MEDS: FUROSEMIDE 40 MG/4 ML VIAL (J1940) IV ×3 (03:26→17:05)
[2018-01-24] MEDS: PIPERACILLIN/TAZOBACTAM SOD 3.375 GM in APPROPRIATE DILUENT 1 EA IV ×4 (03:26→20:14)
[2018-01-24 06:21] LABS: BASO # 0.1 10^3/uL (0.0-0.2); BASO % 0.2 % (0.0-1.0); EOS % 0.1 % (0.0-3.0); HEMATOCRIT 27.5 % (42.0-52.0); HEMOGLOBIN 8.8 g/dl (13.5-17.5); IMMATURE GRANULOCYTE % 4.4 % (0-3.0); LYMPH # 1.9 10^3/uL (1.5-4.5); LYMPH % 6.7 % (24.0-44.0); MEAN CORPUSCULAR HEMOGLOBIN 26.2 pg (27.0-33.0); MEAN CORPUSCULAR VOLUME 81.8 fl (80.0-96.0); MONO # 1.9 10^3/uL (0.0-0.8); MONO % 6.6 % (0.0-5.0); PLATELET COUNT, AUTOMATED 526 10^3/uL (150-450); RED BLOOD COUNT 3.36 10^6/uL (4.30-6.10); RED CELL DISTRIBUTION WIDTH 16.7 % (11.5-14.5); WHITE BLOOD COUNT 28.1 10^3/uL (4.0-10.0)
[2018-01-24 06:39] LABS: ANION GAP 5 MEQ/L (8-16); BLOOD UREA NITROGEN 19 MG/DL (7-18); CALCIUM LEVEL 8.2 MG/DL (8.8-10.2); CARBON DIOXIDE LEVEL 39 MEQ/L (21-32); CHLORIDE LEVEL 96 MEQ/L (98-107); CREATININE FOR GFR 0.71 MG/DL (0.70-1.30); GLOMERULAR FILTRATION RATE > 60.0 (>42); GLUCOSE, FASTING 135 MG/DL (70-100); POTASSIUM SERUM 3.3 MEQ/L (3.5-5.1); SODIUM LEVEL 140 MEQ/L (136-145)
[2018-01-24] MEDS: SYMBICORT 160/4.5MCG INHALER 6GM INH ×2 (07:56→20:37)
[2018-01-24] MEDS: TIOTROPIUM INHALER/CAPSULE (SPIRIVA) INH (07:56)
[2018-01-24] MEDS: LEVALBUTEROL 1.25 MG/0.5 ML CONCENTRATE NEB INH ×4 (07:56→20:00)
[2018-01-24] MEDS: HumaLOG INSULIN (NovoLOG) PER UNIT SC ×4 (08:00→20:54)
[2018-01-24] MEDS: SUCRALFATE SUSP 1GM/10ML UD PO ×4 (08:00→20:14)
[2018-01-24] MEDS: NYSTATIN 500,000 U/5 ML SUSP UDC SS ×4 (08:00→20:14)
[2018-01-24] MEDS: ASCORBIC ACID 500 MG TAB PO ×2 (08:01→20:15)
[2018-01-24] MEDS: LANSOPRAZOLE SUSPENSION 30 MG/10 ML ORAL SYRINGE (FIRST-LANSOPRAZOLE) PO ×2 (08:01→20:15)
[2018-01-24] MEDS: FERROUS SULFATE 325MG TAB PO ×2 (08:01→20:15)
[2018-01-24] MEDS: POTASSIUM CHLORIDE 10% LIQ 20 MEQ/15 ML UDC PO ×2 (08:01→20:14)
[2018-01-24] MEDS: predniSONE 20 MG TAB PO (08:01)
[2018-01-24] MEDS: LEVEMIR (INSULIN DETEMIR) 1 UNITS/0.01ML SC (08:01)
[2018-01-24] MEDS: CYANOCOBALAMIN 500 MCG TAB PO (08:02)
[2018-01-24] MEDS: KETOCONAZOLE 2% CREAM TOP ×2 (08:02→20:25)
[2018-01-24] MEDS: NEOSPORIN TOP OINT 15GM TOP ×2 (08:02→20:25)
[2018-01-24] MEDS: ATORVASTATIN 20 MG TAB PO (08:02)
[2018-01-24] MEDS: CEPACOL LOZENGE PO ×2 (08:58→15:12)
[2018-01-24 11:50] LABS: BEDSIDE GLUCOSE 417 MG/DL (83-110)
[2018-01-24 11:50] LABS: BEDSIDE GLUCOSE 406 MG/DL (83-110)
[2018-01-24 11:50] LABS: BEDSIDE GLUCOSE 135 MG/DL (83-110)
[2018-01-24 17:24] LABS: BEDSIDE GLUCOSE 274 MG/DL (83-110)
[2018-01-25] MEDS: PIPERACILLIN/TAZOBACTAM SOD 3.375 GM in APPROPRIATE DILUENT 1 EA IV ×2 (03:04→09:13)
[2018-01-25] MEDS: FUROSEMIDE 40 MG/4 ML VIAL (J1940) IV ×2 (03:04→09:15)
[2018-01-25] MEDS: CEPACOL LOZENGE PO (03:14)
[2018-01-25] MEDS: SODIUM CHLORIDE HYPERTONIC 3% 15ML NEB SOL INH ×4 (04:08→20:29)
[2018-01-25 06:03] LABS: BASO % 0.1 % (0.0-1.0); HEMATOCRIT 27.7 % (42.0-52.0); HEMOGLOBIN 8.7 g/dl (13.5-17.5); IMMATURE GRANULOCYTE % 4.8 % (0-3.0); LYMPH # 1.8 10^3/uL (1.5-4.5); LYMPH % 6.6 % (24.0-44.0); MEAN CORPUSCULAR HEMOGLOBIN 25.9 pg (27.0-33.0); MEAN CORPUSCULAR HGB CONC 31.4 g/dl (32.0-36.5); MEAN CORPUSCULAR VOLUME 82.4 fl (80.0-96.0); MONO # 1.7 10^3/uL (0.0-0.8); NEUTROPHILS # 22.8 10^3/uL (1.8-7.7); NEUTROPHILS % 82.5 % (36.0-66.0); PLATELET COUNT, AUTOMATED 552 10^3/uL (150-450); RED BLOOD COUNT 3.36 10^6/uL (4.30-6.10); WHITE BLOOD COUNT 27.7 10^3/uL (4.0-10.0)
[2018-01-25 06:20] LABS: ANION GAP 5 MEQ/L (8-16); BLOOD UREA NITROGEN 18 MG/DL (7-18); CALCIUM LEVEL 8.5 MG/DL (8.8-10.2); CARBON DIOXIDE LEVEL 38 MEQ/L (21-32); CHLORIDE LEVEL 98 MEQ/L (98-107); CREATININE FOR GFR 0.71 MG/DL (0.70-1.30); GLOMERULAR FILTRATION RATE > 60.0 (>42); GLUCOSE, FASTING 158 MG/DL (70-100); POTASSIUM SERUM 3.3 MEQ/L (3.5-5.1); SODIUM LEVEL 141 MEQ/L (136-145)
[2018-01-25] MEDS: TIOTROPIUM INHALER/CAPSULE (SPIRIVA) INH (08:28)
[2018-01-25] MEDS: LEVALBUTEROL 1.25 MG/0.5 ML CONCENTRATE NEB INH ×4 (08:31→20:29)
[2018-01-25] MEDS: SYMBICORT 160/4.5MCG INHALER 6GM INH ×2 (09:00→21:00)
[2018-01-25] MEDS: ATORVASTATIN 20 MG TAB PO (09:11)
[2018-01-25] MEDS: NYSTATIN 500,000 U/5 ML SUSP UDC SS ×4 (09:12→20:57)
[2018-01-25] MEDS: SUCRALFATE SUSP 1GM/10ML UD PO ×4 (09:12→20:57)
[2018-01-25] MEDS: ASCORBIC ACID 500 MG TAB PO ×2 (09:12→20:56)
[2018-01-25] MEDS: predniSONE 20 MG TAB PO (09:12)
[2018-01-25] MEDS: FERROUS SULFATE 325MG TAB PO ×2 (09:12→20:56)
[2018-01-25] MEDS: CYANOCOBALAMIN 500 MCG TAB PO (09:12)
[2018-01-25] MEDS: HumaLOG INSULIN (NovoLOG) PER UNIT SC ×4 (09:12→21:08)
[2018-01-25] MEDS: LANSOPRAZOLE SUSPENSION 30 MG/10 ML ORAL SYRINGE (FIRST-LANSOPRAZOLE) PO ×2 (09:13→20:57)
[2018-01-25] MEDS: POTASSIUM CHLORIDE 10% LIQ 20 MEQ/15 ML UDC PO ×3 (09:13→20:57)
[2018-01-25] MEDS: KETOCONAZOLE 2% CREAM TOP ×2 (09:14→20:58)
[2018-01-25] MEDS: LEVEMIR (INSULIN DETEMIR) 1 UNITS/0.01ML SC (09:14)
[2018-01-25] MEDS: NEOSPORIN TOP OINT 15GM TOP ×2 (09:15→20:58)
[2018-01-25] MEDS: predniSONE 10 MG TAB PO (12:28)
[2018-01-25 13:11] LABS: BEDSIDE GLUCOSE 439 MG/DL (83-110)
[2018-01-25 13:11] LABS: BEDSIDE GLUCOSE 407 MG/DL (83-110)
[2018-01-25] MEDS: ACETAMINOPHEN TAB 650MG DOSE (2X325MG) PO (14:16)
[2018-01-25 15:57] LABS: BEDSIDE GLUCOSE 502 MG/DL (83-110)
[2018-01-25 15:57] LABS: BEDSIDE GLUCOSE 543 MG/DL (83-110)
[2018-01-25] MEDS: FUROSEMIDE 40 MG TAB PO (17:52)
[2018-01-25 19:52] LABS: BEDSIDE GLUCOSE 496 MG/DL (83-110)
[2018-01-26] MEDS: ACETAMINOPHEN TAB 650MG DOSE (2X325MG) PO ×2 (02:46→18:15)
[2018-01-26 06:25] LABS: BASO # 0.1 10^3/uL (0.0-0.2); BASO % 0.2 % (0.0-1.0); HEMATOCRIT 26.1 % (42.0-52.0); HEMOGLOBIN 8.2 g/dl (13.5-17.5); IMMATURE GRANULOCYTE % 4.3 % (0-3.0); MEAN CORPUSCULAR HEMOGLOBIN 26.1 pg (27.0-33.0); MEAN CORPUSCULAR HGB CONC 31.4 g/dl (32.0-36.5); MEAN CORPUSCULAR VOLUME 83.1 fl (80.0-96.0); MONO # 1.7 10^3/uL (0.0-0.8); MONO % 5.2 % (0.0-5.0); NEUTROPHILS % 84.3 % (36.0-66.0); PLATELET COUNT, AUTOMATED 447 10^3/uL (150-450); RED BLOOD COUNT 3.14 10^6/uL (4.30-6.10); RED CELL DISTRIBUTION WIDTH 17.1 % (11.5-14.5)
[2018-01-26 06:30] LABS: NEUTROPHILS # 27.5 10^3/uL (1.8-7.7); POSITIVE DIFF POS FLAG; WHITE BLOOD COUNT 32.6 10^3/uL (4.0-10.0)
[2018-01-26 06:31] LABS: POS COUNT POS FLAG
[2018-01-26 06:41] LABS: ANION GAP 4 MEQ/L (8-16); BLOOD UREA NITROGEN 20 MG/DL (7-18); CALCIUM LEVEL 8.4 MG/DL (8.8-10.2); CARBON DIOXIDE LEVEL 33 MEQ/L (21-32); CHLORIDE LEVEL 101 MEQ/L (98-107); CREATININE FOR GFR 0.62 MG/DL (0.70-1.30); GLOMERULAR FILTRATION RATE > 60.0 (>42); GLUCOSE, FASTING 218 MG/DL (70-100); POTASSIUM SERUM 4.2 MEQ/L (3.5-5.1); SODIUM LEVEL 138 MEQ/L (136-145)
[2018-01-26 07:08] LABS: BEDSIDE GLUCOSE 424 MG/DL (83-110)
[2018-01-26] MEDS: SYMBICORT 160/4.5MCG INHALER 6GM INH ×2 (07:13→20:35)
[2018-01-26] MEDS: SODIUM CHLORIDE HYPERTONIC 3% 15ML NEB SOL INH ×4 (07:13→20:35)
[2018-01-26] MEDS: LEVALBUTEROL 1.25 MG/0.5 ML CONCENTRATE NEB INH ×4 (07:13→20:35)
[2018-01-26] MEDS: TIOTROPIUM INHALER/CAPSULE (SPIRIVA) INH (07:13)
[2018-01-26] MEDS: SUCRALFATE SUSP 1GM/10ML UD PO ×4 (09:20→21:19)
[2018-01-26] MEDS: HumaLOG INSULIN (NovoLOG) PER UNIT SC ×4 (09:21→21:20)
[2018-01-26] MEDS: FERROUS SULFATE 325MG TAB PO ×2 (09:21→21:19)
[2018-01-26] MEDS: predniSONE 10 MG TAB PO (09:21)
[2018-01-26] MEDS: FUROSEMIDE 40 MG TAB PO ×2 (09:22→18:12)
[2018-01-26] MEDS: LANSOPRAZOLE SUSPENSION 30 MG/10 ML ORAL SYRINGE (FIRST-LANSOPRAZOLE) PO ×2 (09:22→21:19)
[2018-01-26] MEDS: ATORVASTATIN 20 MG TAB PO (09:22)
[2018-01-26] MEDS: POTASSIUM CHLORIDE 10% LIQ 20 MEQ/15 ML UDC PO ×2 (09:23→21:19)
[2018-01-26] MEDS: NYSTATIN 500,000 U/5 ML SUSP UDC SS ×4 (09:23→21:19)
[2018-01-26] MEDS: CYANOCOBALAMIN 500 MCG TAB PO (09:23)
[2018-01-26] MEDS: ASCORBIC ACID 500 MG TAB PO ×2 (09:23→21:19)
[2018-01-26] MEDS: LEVEMIR (INSULIN DETEMIR) 1 UNITS/0.01ML SC (09:24)
[2018-01-26] MEDS: NEOSPORIN TOP OINT 15GM TOP ×2 (09:25→21:20)
[2018-01-26] MEDS: KETOCONAZOLE 2% CREAM TOP ×2 (09:25→21:21)
[2018-01-26 11:58] LABS: BEDSIDE GLUCOSE 368 MG/DL (83-110)
[2018-01-26] MEDS ORDERED: SODIUM CHLORIDE 0.9% INJ 10 ML SYR IV (17:45)
[2018-01-26] MEDS: SODIUM CHLORIDE 0.9% INJ 10 ML SYR IV (18:14)
[2018-01-26 20:42] LABS: BEDSIDE GLUCOSE 329 MG/DL (83-110)
[2018-01-26 21:09] LABS: BEDSIDE GLUCOSE 255 MG/DL (83-110)
[2018-01-26] MEDS: CEPACOL LOZENGE PO (21:19)
[2018-01-27] MEDS: ACETAMINOPHEN TAB 650MG DOSE (2X325MG) PO ×4 (00:18→20:54)
[2018-01-27] MEDS: SODIUM CHLORIDE HYPERTONIC 3% 15ML NEB SOL INH ×4 (01:19→20:00)
[2018-01-27] MEDS: SODIUM CHLORIDE 0.9% INJ 10 ML SYR IV ×2 (05:08→20:33)
[2018-01-27 05:17] LABS: BASO % 0.1 % (0.0-1.0); EOS % 0.1 % (0.0-3.0); HEMATOCRIT 24.2 % (42.0-52.0); HEMOGLOBIN 7.6 g/dl (13.5-17.5); IMMATURE GRANULOCYTE % 3.7 % (0-3.0); LYMPH # 1.4 10^3/uL (1.5-4.5); LYMPH % 5.3 % (24.0-44.0); MEAN CORPUSCULAR HEMOGLOBIN 26.2 pg (27.0-33.0); MEAN CORPUSCULAR HGB CONC 31.4 g/dl (32.0-36.5); MEAN CORPUSCULAR VOLUME 83.4 fl (80.0-96.0); MONO # 1.1 10^3/uL (0.0-0.8); NEUTROPHILS # 23.3 10^3/uL (1.8-7.7); NEUTROPHILS % 86.8 % (36.0-66.0); PLATELET COUNT, AUTOMATED 402 10^3/uL (150-450); RED CELL DISTRIBUTION WIDTH 17.4 % (11.5-14.5); WHITE BLOOD COUNT 26.9 10^3/uL (4.0-10.0)
[2018-01-27 05:31] LABS: ANION GAP 5 MEQ/L (8-16); BLOOD UREA NITROGEN 19 MG/DL (7-18); CALCIUM LEVEL 8.1 MG/DL (8.8-10.2); CARBON DIOXIDE LEVEL 34 MEQ/L (21-32); CHLORIDE LEVEL 101 MEQ/L (98-107); GLOMERULAR FILTRATION RATE > 60.0 (>42); GLUCOSE, FASTING 176 MG/DL (70-100); POTASSIUM SERUM 4.2 MEQ/L (3.5-5.1); SODIUM LEVEL 140 MEQ/L (136-145)
[2018-01-27] MEDS: LEVALBUTEROL 1.25 MG/0.5 ML CONCENTRATE NEB INH ×4 (07:15→20:00)
[2018-01-27] MEDS: HumaLOG INSULIN (NovoLOG) PER UNIT SC ×4 (08:55→23:21)
[2018-01-27] MEDS: predniSONE 10 MG TAB PO (08:55)
[2018-01-27] MEDS: FERROUS SULFATE 325MG TAB PO ×2 (08:55→20:54)
[2018-01-27] MEDS: SUCRALFATE SUSP 1GM/10ML UD PO ×4 (08:55→20:53)
[2018-01-27] MEDS: LANSOPRAZOLE SUSPENSION 30 MG/10 ML ORAL SYRINGE (FIRST-LANSOPRAZOLE) PO ×2 (08:56→20:54)
[2018-01-27] MEDS: ASCORBIC ACID 500 MG TAB PO ×2 (08:56→20:54)
[2018-01-27] MEDS: CYANOCOBALAMIN 500 MCG TAB PO (08:56)
[2018-01-27] MEDS: ATORVASTATIN 20 MG TAB PO (08:56)
[2018-01-27] MEDS: POTASSIUM CHLORIDE 10% LIQ 20 MEQ/15 ML UDC PO ×2 (08:56→20:53)
[2018-01-27] MEDS: FUROSEMIDE 40 MG TAB PO ×2 (08:56→17:35)
[2018-01-27] MEDS: LEVEMIR (INSULIN DETEMIR) 1 UNITS/0.01ML SC (08:57)
[2018-01-27] MEDS: KETOCONAZOLE 2% CREAM TOP ×2 (09:03→20:55)
[2018-01-27] MEDS: NEOSPORIN TOP OINT 15GM TOP ×2 (09:04→20:55)
[2018-01-27] MEDS: TIOTROPIUM INHALER/CAPSULE (SPIRIVA) INH (11:02)
[2018-01-27] MEDS: SYMBICORT 160/4.5MCG INHALER 6GM INH ×2 (11:02→21:00)
[2018-01-27 11:34] LABS: BEDSIDE GLUCOSE 359 MG/DL (83-110)
[2018-01-27] MEDS: FUROSEMIDE 40 MG/4 ML VIAL (J1940) IV (12:44)
[2018-01-27] MEDS: LIDOCAINE 5% (LIDODERM) PATCH TD (16:14)
[2018-01-27 18:28] LABS: IMMEDIATE SPIN CROSSMATCH 1 2
[2018-01-27 21:29] LABS: BEDSIDE GLUCOSE 258 MG/DL (83-110)
[2018-01-27] MEDS ORDERED: HumaLOG INSULIN (NovoLOG) PER UNIT As Ordered (22:02)
[2018-01-27] MEDS: **NOTE PATIENT COMMENT** MISC XX (23:20)
[2018-01-28] MEDS: SODIUM CHLORIDE HYPERTONIC 3% 15ML NEB SOL INH ×2 (02:00→07:36)
[2018-01-28] MEDS: ACETAMINOPHEN TAB 650MG DOSE (2X325MG) PO ×3 (02:12→18:04)
[2018-01-28] MEDS: LEVALBUTEROL 1.25 MG/0.5 ML CONCENTRATE NEB INH ×5 (03:24→20:00)
[2018-01-28] MEDS: SODIUM CHLORIDE 0.9% INJ 10 ML SYR IV ×2 (06:36→17:54)
[2018-01-28] MEDS: FUROSEMIDE 40 MG/4 ML VIAL (J1940) IV (06:37)
[2018-01-28 07:18] LABS: HEMATOCRIT 32.4 % (42.0-52.0); MEAN CORPUSCULAR HEMOGLOBIN 27.4 pg (27.0-33.0); MEAN CORPUSCULAR HGB CONC 33.3 g/dl (32.0-36.5); MEAN CORPUSCULAR VOLUME 82.2 fl (80.0-96.0); PLATELET COUNT, AUTOMATED 351 10^3/uL (150-450); RED BLOOD COUNT 3.94 10^6/uL (4.30-6.10); RED CELL DISTRIBUTION WIDTH 16.1 % (11.5-14.5)
[2018-01-28 07:26] LABS: HEMOGLOBIN 10.8 g/dl (13.5-17.5); POS COUNT POS FLAG; WHITE BLOOD COUNT 32.5 10^3/uL (4.0-10.0)
[2018-01-28] MEDS ORDERED: ATROPINE SULFATE 1% OP SOLN 2 ML BTL SL (07:30)
[2018-01-28] MEDS ORDERED: MORPHINE 4 MG/ML 1ML VIAL/SYRINGE (J2270) IV (07:30)
[2018-01-28] MEDS ORDERED: ONDANSETRON 4MG/2ML VIAL (J2405) IV (07:30)
[2018-01-28 07:35] LABS: ANION GAP 7 MEQ/L (8-16); BLOOD UREA NITROGEN 19 MG/DL (7-18); CALCIUM LEVEL 8.3 MG/DL (8.8-10.2); CARBON DIOXIDE LEVEL 33 MEQ/L (21-32); CHLORIDE LEVEL 101 MEQ/L (98-107); CREATININE FOR GFR 0.52 MG/DL (0.70-1.30); GLOMERULAR FILTRATION RATE > 60.0 (>42); GLUCOSE, FASTING 121 MG/DL (70-100); NT-PRO BNP 205 PG/ML (<125); POTASSIUM SERUM 4.1 MEQ/L (3.5-5.1); SODIUM LEVEL 141 MEQ/L (136-145)
[2018-01-28] MEDS: TIOTROPIUM INHALER/CAPSULE (SPIRIVA) INH (07:36)
[2018-01-28] MEDS: SYMBICORT 160/4.5MCG INHALER 6GM INH ×2 (07:36→21:00)
[2018-01-28] MEDS: FUROSEMIDE 40 MG TAB PO ×2 (08:54→17:55)
[2018-01-28] MEDS: MORPHINE 10MG/0.5ML ORAL CONCENTRATE SOLUTION U/D SL ×6 (08:54→21:33)
[2018-01-28] MEDS: LANSOPRAZOLE SUSPENSION 30 MG/10 ML ORAL SYRINGE (FIRST-LANSOPRAZOLE) PO ×2 (08:54→20:39)
[2018-01-28] MEDS: SCOPOLAMINE 1MG TRANSDERMAL PATCH TOP (08:55)
[2018-01-28] MEDS: HumaLOG INSULIN (NovoLOG) PER UNIT SC ×4 (08:55→20:41)
[2018-01-28] MEDS: LIDOCAINE 5% (LIDODERM) PATCH TD (08:55)
[2018-01-28] MEDS: NEOSPORIN TOP OINT 15GM TOP ×2 (08:56→20:39)
[2018-01-28] MEDS: KETOCONAZOLE 2% CREAM TOP ×2 (08:56→20:39)
[2018-01-28 13:17] LABS: BEDSIDE GLUCOSE 298 MG/DL (83-110)
[2018-01-28 13:17] LABS: BEDSIDE GLUCOSE 153 MG/DL (83-110)
[2018-01-28 13:17] LABS: BEDSIDE GLUCOSE 131 MG/DL (83-110)
[2018-01-28 17:22] LABS: BEDSIDE GLUCOSE 186 MG/DL (83-110)
[2018-01-28] MEDS: LORazepam 2 MG/ML VIAL (J2060) IV (18:37)
[2018-01-28 20:23] LABS: BEDSIDE GLUCOSE 156 MG/DL (83-110)
== END 2018-01-28 22:35 | disposition expired | DRG 190 ==
LOC: M MSPAV 12-14 14:50 → M ED 16:24 → M ED INP 22:06
PROC: 02HV33Z Insertion of Infusion Device into Superior Vena Cava, Percutaneous Approach (ICD-10-PCS; principal; 2018-01-07 13:04)
PROC: 0DJ08ZZ Inspection of Upper Intestinal Tract, Via Natural or Artificial Opening Endoscopic (ICD-10-PCS; 2018-01-07 13:04)
PROC: 0DBC8ZX Excision of Ileocecal Valve, Via Natural or Artificial Opening Endoscopic, Diagnostic (ICD-10-PCS; 2018-01-07 13:04)
PROC: 0DBP8ZZ Excision of Rectum, Via Natural or Artificial Opening Endoscopic (ICD-10-PCS; 2018-01-07 13:04)
PROC: 30253N1 (ICD-10-PCS; 2018-01-07 13:04)
DX: J44.1 Chronic obstructive pulmonary disease with (acute) exacerbation (principal); I50.33 Acute on chronic diastolic (congestive) heart failure; J96.21 Acute and chronic respiratory failure with hypoxia; K57.31 Diverticulosis of large intestine without perforation or abscess with bleeding; J18.9 Pneumonia, unspecified organism; N39.0 Urinary tract infection, site not specified; M48.54XA Collapsed vertebra, not elsewhere classified, thoracic region, initial encounter for fracture; D62 Acute posthemorrhagic anemia; J98.11 Atelectasis; E46 Unspecified protein-calorie malnutrition; J44.0 Chronic obstructive pulmonary disease with (acute) lower respiratory infection; Z51.5 Encounter for palliative care; Z66 Do not resuscitate; K62.7 Radiation proctitis; E88.09 Other disorders of plasma-protein metabolism, not elsewhere classified; I27.29 Other secondary pulmonary hypertension; E11.65 Type 2 diabetes mellitus with hyperglycemia; D12.8 Benign neoplasm of rectum; R26.89 Other abnormalities of gait and mobility; E87.6 Hypokalemia; H61.23 Impacted cerumen, bilateral; D63.8 Anemia in other chronic diseases classified elsewhere; M40.204 Unspecified kyphosis, thoracic region; R19.7 Diarrhea, unspecified; E11.649 Type 2 diabetes mellitus with hypoglycemia without coma; D12.0 Benign neoplasm of cecum; N47.1 Phimosis; E78.5 Hyperlipidemia, unspecified; Z99.81 Dependence on supplemental oxygen; Z85.46 Personal history of malignant neoplasm of prostate; Z92.3 Personal history of irradiation; Z87.891 Personal history of nicotine dependence; Y95 Nosocomial condition